=== PATIENT | female | born 1965 ===

== ENCOUNTER 2021-03-30 20:26 | Outpatient (REF) | payer OTHER, SELFPAY ==
--- NOTE | 2021-03-30 15:00 | SKI_PTH ---
PATIENT: Mireille Chatman LOC: [facility] U#:[id number] AGE/SX: 55/F ROOM: RE03/30/[address]: Sarah Quintero : 1965 BED: DIS: 03/30/2021 SPEC #: [id number] RECD: 03/31/21 08:51 STATUS: ARNULFO RERemigio #: [id number] RUSTAM: 03/30/21 15:[address]: Sarah Quintero DEPT: Surgical Specimen RECD BY: Jenn Womack ENTERED: 03/31/21 08:55 SP TYPE: MAYRA ESPINOSA DR: Unknown,Unknown Tissues: 1 - SKIN BIOPSY(SHAVE/PUNCH) Procedures: SKIN LEVEL 4 Comments: [id number]
== END 2021-03-30 20:27 | disposition home or self-care (01) ==
LOC: NCHCN 20:26
PROVIDERS: Visit Provider Nurse Practitioner Family
DX: L81.4 Other melanin hyperpigmentation (principal); L57.8 Other skin changes due to chronic exposure to nonionizing radiation
CPT/HCPCS: 88305

== ENCOUNTER 2021-04-27 16:28 | Outpatient (REF) | payer OTHER, SELFPAY ==
--- NOTE | 2021-04-27 13:50 | PAPFT_PTH ---
PATIENT: Mireille Chatman LOC: [facility] U#:[id number] AGE/SX: 55/F ROOM: RE04/27/[address]: Sarah Quintero : 1965 BED: DIS: 04/27/2021 SPEC #: [id number] RECD: 04/28/21 13:08 STATUS: CHARLOTTEJay RERemigio #: [id number] RUSTAM: 04/27/21 13:[address]: Sarah Quintero DEPT: [facility] Cytology RECD BY: Latricia Paredes ENTERED: 04/28/21 13:09 SP TYPE: PAPFT FRANCISCA DR: Unknown,Unknown Tissues: 1 - CX/ENDOCX FOR PAP SMEARS Procedures: PAP THIN PREP/UVM Screening HPV DNA PROBE Comments: [id number]
== END 2021-04-27 16:29 | disposition home or self-care (01) ==
LOC: NCHCN 16:28
PROVIDERS: Visit Provider Nurse Practitioner Family
DX: Z12.4 Encounter for screening for malignant neoplasm of cervix (principal); Z11.51 Encounter for screening for human papillomavirus (HPV); Z01.419 Encounter for gynecological examination (general) (routine) without abnormal findings
CPT/HCPCS: 88142; 87624

== ENCOUNTER 2022-01-17 18:11 | Outpatient (REF) | payer OTHER, SELFPAY ==
[2022-01-17 21:35] LABS: Anion Gap 8.6 mmol/L (3-11); BUN 18 mg/dL (7-18); CO2 27.4 mmol/L (21.0-32.0); CREATININE 0.9 mg/dL (0.55-1.02); Calculated LDL 125 mg/dL (<100); Chloride 104 mmol/L (98-107); Cholesterol 190 mg/dL (<200); Glucose 90 mg/dL (74-106); HDL Cholesterol 42 mg/dL (40-60); Potassium 4.1 mmol/L (3.5-5.1); Sodium 140 mmol/L (136-145); TSH (W/Ref FT4) 5.41 uIU/mL (0.36-3.74); Triglyceride 115 mg/dL (<150)
[2022-01-17 21:36] LABS: Hemoglobin A1C 5.6 % (<5.7)
[2022-01-17 21:53] LABS: FREE T4 0.77 ng/dL (0.76-1.46)
== END 2022-01-17 18:12 | disposition home or self-care (01) ==
LOC: NCHCN 18:11
PROVIDERS: Visit Provider Nurse Practitioner Family
DX: E03.9 Hypothyroidism, unspecified (principal); R03.0 Elevated blood-pressure reading, without diagnosis of hypertension; E66.9 Obesity, unspecified; G89.29 Other chronic pain
CPT/HCPCS: 80048; 80061; 83036; 84439; 84443

== ENCOUNTER 2024-06-30 16:19 | Outpatient (REF) | payer OTHER, SELFPAY ==
--- OUTSIDE RECORDS SUMMARY | 2024-06-30 16:22 | XMS_ITS ---
Author Organization Unknown Address [address] [place] [phone] Phone Care Team Providers Care Club Car Attendant Name Role Phone SHAHRZAD Park Attending Unavailable RODRIGUEZ Alexandra Primary Unavailable Functional Status Description Date Code Code System No Functional Impairments 01815023 SN OMED-CT Mental Status Description Date Code Code System No Cognitive Impairments 69435566 [facility] - Cecilia ect Date/Time: 02/12/2022 19:00 [facility] ID: [id number] [address] [place] [address], [id number] LOINC: 11027-2 Test Value Unit Reference Range Code Code System Flag Tier- STAFF PRIORITY 70372-4 LOINC SARS COV2 RNA: NEGATIVE REFERENCE RAN GE: NEGAT 42173-7 LOINC Social History Type Status Start Date End Date Code Code Syst em Smoking History Never smoker (Never Smoked) 721243351 SNOMED CT Sex Female Medications Medication Start Date End Date Route Frequency Dose Code Code System Medication Instructions Home Meds Clindagel 1% Topical application Gel/Jelly 10/11/2022 Unknown TOPICAL APPLICATION NEEDED TWICE DAILY 1 unit(s) 948379 RxNorm 1 EACH TOPICAL APPLICATION NEEDED TWICE DAILY Dexamethasone 4MG Oral Tablet 10/11/2022 11/17/19 23 ORAL NEEDED DAILY 8 MILLIGRA MS 19750612 RxNorm TAKE 8 MILLIGRAMS ORAL NEEDED DAILY Elderberry 500 MG Oral Capsule 10/11/2022 Unknown ORAL DAILY 1000 MG RxNorm TAKE 1000 MG ORAL DAILY LORazepam 1MG Oral Tablet 10/11/2022 Unknown ORAL NEEDED EVERY 6 HOURS 1 MILLIGRA MS RxNorm TAKE 1 MILLIGRAMS ORAL NEEDED EVERY 6 HOURS FOR Anxiety Levothyroxine 125MCG Oral Tablet 10/11/2022 Unknown ORAL DAILY 125 MCG 267530 RxNorm TAKE 125 MCG ORAL DAILY Magnesium Gluconate 500 MG Oral Tablet 10/11/2022 Unknown ORAL TWICE A DAY 500 MG 792317 RxNorm TAKE 500 MG ORAL TWICE A DAY Maxalt 10MG Oral Tablet 10/11/2022 Unknown ORAL NEEDED DAILY 10 MILLIGRA MS 479109 RxNorm TAKE 10 MILLIGRAMS ORAL NEEDED DAILY OLANZapine 10MG Oral Tablet 10/11/2022 Unknown ORAL NEEDED DAILY 10 MILLIGRA MS 683438 RxNorm TAKE 10 MILLIGRAMS ORAL NEEDED DAILY Potassium Chloride 20MEQ Oral Tablet, Extended Release 10/11/2022 Unknown ORAL TWICE A DAY 20 MEQ 7921172 RxNorm TAKE 20 MEQ ORAL TWICE A DAY Prochlorperaz ine Maleate 10MG Oral Tablet 10/11/2022 Unknown ORAL NEEDED EVERY 6 HOURS 10 MILLIGRA MS 033779 RxNorm TAKE 10 MILLIGRAMS ORAL NEEDED EVERY 6 HOURS Protonix 40 MG Oral Tablet, Delayed Release 10/11/2022 Unknown ORAL DAILY 40 MG 272219 RxNorm TAKE 40 MG ORAL DAILY Sertraline 100MG Oral Tablet 10/11/2022 Unknown ORAL DAILY 150 MILLIGRA MS 882668 RxNorm TAKE 150 MILLIGRAMS ORAL DAILY Vitamin D 1000IU Oral Tablet 10/11/2022 10/31/20 22 ORAL DAILY 2000 INTERNAT IONAL UNITS 614183 RxNorm TAKE 2000 INTERNATIONA L UNITS ORAL DAILY Zofran 4MG Oral Tablet 10/11/2022 Unknown ORAL NEEDED EVERY 8 HOURS 4 MILLIGRA MS 206124 RxNorm TAKE 4 MILLIGRAMS ORAL NEEDED EVERY 8 HOURS traZODone hydrochloride 50MG Oral Tablet 10/11/2022 Unknown ORAL NEEDED AT BEDTIME 50 MILLIGRA MS 674359 RxNorm TAKE 50 MILLIGRAMS ORAL NEEDED AT BEDTIME Ajovy 225MG/1.5ML Subcutaneous Solution 11/02/2022 11/17/19 23 SUBCUTANEOUS MONTHLY 1 unit(s) 4533370 RxNorm INJECT 1 EACH SUBCUTANEOUS MONTHLY Estring 0.0075MG/24HR Vaginal Insert, Extended Release 11/02/2022 Unknown VAGINAL 1 unit(s) 865873 RxNorm 1 EACH VAGINAL oxyCODONE HCl 5MG Oral Tablet 11/02/2022 Unknown ORAL NEEDED 5 MILLIGRA MS 0374249 RxNorm TAKE 5 MILLIGRAMS ORAL NEEDED Albuterol Sulfate 1.25MG/3ML Inhalation Solution 11/13/2022 11/17/19 23 INHALATION DAILY 1 498209 RxNorm 1 INHALATION DAILY predniSONE 20MG Oral Tablet 11/13/2022 Unknown ORAL DAILY 2 TABLET 595287 RxNorm TAKE 2 TABLET ORAL DAILY Ibuprofen 600MG Oral Tablet 11/17/2022 Unknown ORAL NEEDED EVERY 6 HOURS 600 MILLIGRA MS 706865 RxNorm TAKE 600 MILLIGRAMS ORAL NEEDED EVERY 6 HOURS Albuterol Sulfate 0.5% Inhalation Solution 11/17/2022 11/17/19 23 INHALATION FOUR TIMES A DAY WITH FOOD 1 unit(s) 234549 RxNorm 1 EACH INHALATION FOUR TIMES A DAY WITH FOOD Ventolin HFA 0.09MG/1Actua tion Inhalation Suspension 11/17/2022 Unknown INHALATION NEEDED EVERY 4 HOURS 2 PUFF 346864 RxNorm 2 PUFF INHALATION NEEDED EVERY 4 HOURS Albuterol Sulfate 0.5% Inhalation Solution 11/17/2022 Unknown INHALATION FOUR TIMES A DAY 1 unit(s) 865117 RxNorm 1 EACH INHALATION FOUR TIMES A DAY Azithromycin 250MG Oral Tablet 11/17/2022 Unknown ORAL DAILY 1 TABLET 406818 RxNorm TAKE 1 TABLET ORAL DAILY Cefpodoxime Proxetil 200MG Oral Tablet 11/17/2022 Unknown ORAL TWICE A DAY 1 TABLET 949684 RxNorm TAKE 1 TABLET ORAL TWICE A DAY Assessment You had the following problems:BREAST CANCERREACTIVE LYMPHADENOPATHYRSV INFECTION Hospital Discharge Instructions Should you have any questions prior to discharge, please contact a member of your healthcare team. If you have left the hospital and have any questions, please contact your primary care physician. Reason For Referral No Data Found Problems Problem Start Date Resolved Date Status Code Code System BREAST CANCER active 983411048 SNOMED -CT REACTIVE LYMPHADENOPATHY active 10352 8006 SNOMED-CT RSV INFECTION active 81724606 SNOMED -CT ANXIETY 10/09/2022 resolved 20274504 SNOMED-CT IBS 10/09/2022 resolved 97183884 SNOMED-CT GERD 10/09/2022 resolved 872825202 SNOMED-CT NEUTROPENIC FEVER 11/15/2022 resolved 815006166 S NOMED-CT MIGRAINE 10/09/2022 resolved 13160357 SNOMED-CT HYPOMAGNESEMIA 11/15/2022 resolved 071543677 SNOM ED-CT HYPOTHYROIDISM 10/09/2022 resolved 43380288 SNOM ED-CT Allergies and Adverse Reactions Allergy Substance Reaction Severity Start Date Concern Status Co de Code System SULFA (sulfonamide) Active 40684975 SNO MED-CT DEMEROL Active 985209 RxNorm Plan of Treatment Exposure 10/08/2020 MM SCREEN BILAT 04/19/2025 US BREAST UNI LT 04/13/2024 MM DIAG BILAT 04/13/2024 US DVT UNI LT 02/11/2024 NM BONE SCAN WHOLE BODY 02/10/2024 CT ABDOMEN W/ CONTRAST 12/25/2023 MM SCREEN BILAT 03/30/2024 PFT COMPLETE W BROCHODILATER 02/04/2024 PFT COMPLETE W BROCHODILATER 05/15/2023 CT CHEST W/ CONTRAST 04/24/2023 US BREAST UNI RT 10/01/2023 MM DIAG RT UNILAT 10/01/2023 US BREAST UNI RT 03/28/2023 MM DIAG BILAT 03/28/2023 MM DIAG RT UNILAT 08/31/2022 NM LYMPHOSCINTIGRAPHY INJ IM 08/31/2022 LAB DRAW 15MIN 08/24/2022 PRE-OP COVID-19 TESTING 08/29/2022 MM DIAG RT UNILAT 08/24/2022 US GUIDED NEEDLE BIOPSY 08/24/2022 CT LOWER EXTREM W/O CONTRAST 04/17/2022 X-RAY 04/17/2022 US GUIDED NEEDLE BIOPSY 03/02/2022 US BREAST MU 03/02/2022 MM SCREEN BILAT 02/20/2022 Encounters Encounter Diagnosis Start Date Code Code Sys tem Exposure to SARS-CoV-2 02/12/2022 853791960 SNOME D-CT Personal Care Team Section Performer Name Performer Role Active Date Inactive Da milo
--- OUTSIDE RECORDS SUMMARY | 2024-06-30 16:23 | XMS_ITS ---
Author Organization Unknown Address [address] [place] [phone] Phone Care Team Providers Care Beater Dumper Name Role Phone LOIS CARIAS Tiana Attending Unavailable RODRIGUEZ Alexandra Primary Unavailable Functional Status Description Date Code Code System No Functional Impairments 50148648 SN OMED-CT Mental Status Description Date Code Code System No Cognitive Impairments 79005667 SNO MED-CT Results COMPREHENSIVE METABOLIC PANE L (CMP) - Collect Date/Time: 03/12/2022 15:00 [facility] ID: [id number] [address] [place] [address], [address] LOINC: 00739-0 Test Value Unit Reference Range Code Code System Flag GLUCOSE 113 mg/dL L=70 H=116 2345-7 LOINC BUN 24 mg/dL L=6 H=25 3094-0 LOINC CREATININE 1.01 mg/dL L=0.51 H=0.95 2160-0 LOINC H SODIUM SERUM 140 mmol/L L=136 H=145 2951-2 LOINC POTASSIUM SERUM 3.8 mmol/L L=3.4 H=5.2 2823-3 LOINC CHLORIDE SERUM 104 mmol/L L=96 H=110 2075-0 LOINC CARBON DIOXIDE (CO2) 27 mmol/L L=22 H=34 2028-9 LOINC ANION GAP 9.5 mmol/L 83306-2 LOINC CALCIUM SERUM 9.1 mg/dL L=8.2 H=10.2 60041-8 LOINC BILIRUBIN TOTAL 0.3 mg/dL L=0.0 H=1.3 1975-2 LOINC ALK. PHOS. 98 U/L L=46 H=116 6768-6 LOINC SGOT (AST) 18 U/L L=15 H=37 1920-8 LOINC SGPT (ALT) 27 U/L L=12 H=78 1742-6 LOINC TOTAL PROTEIN 7.0 gm/dL L=6.0 H=8.0 2885-2 LOINC ALBUMIN 3.9 gm/dL L=3.4 H=5.0 1751-7 LOINC AGE 56 years eGFR (non-Afr.Amer.) 57 mL/min 85400-4 LOINC eGFR (Afr-Kenyan) 69 mL/min 73870-4 LOINC CBC W/ DIFFERENTIAL* - Colle ct Date/Time: 03/12/2022 15:00 [facility] ID: [id number] [address] [place], [place], [facility] LOINC: 74401-2 Test Value Unit Reference Range Code Code System Flag WBC 7.88 th/cmm L=5.00 H=10.00 6690-2 LOINC NEUT % 63.4 % L=40.0 H=80.0 LYMPH % 26.5 % L=10.0 H=50.0 MONO % 6.9 % L=2.0 H=12.0 71620-4 LOINC EOS % 2.3 % L=0.0 H=8.0 BASO % 0.6 % L=0.0 H=3.0 IG % 0.3 % L=0.0 H=1.1 2514-8 LOINC NRBC % 0.0 % L=0.0 H=0.0 93567-8 LOINC NEUT abs count 5.0 th/cmm L=1.6 H=8.4 751-8 LOINC LYMPH abs count 2.1 th/cmm L=1.5 H=4.0 731-0 LOINC MONO abs count 0.5 th/cmm L=0.2 H=1.0 742-7 LOINC EOS abs count 0.2 th/cmm L=0.0 H=0.5 711-2 LOINC BASO abs count 0.1 th/cmm L=0.0 H=0.2 704-7 LOINC IG abs count 0.0 th/cmm L=0.0 H=0.1 17021-5 LOINC NRBC abs count 0.0 mil/cmm L=0.0 H=0.0 09109-8 LOINC RBC 4.87 mil/cmm L=3.90 H=5.40 789-8 LOINC HEMOGLOBIN 14.1 gm/dL L=12.0 H=16.0 718-7 LOINC HEMATOCRIT 42 % L=37 H=47 4544-3 LOINC MCV 87 fL L=82 H=92 787-2 LOINC MCH 29.0 pg L=27.0 H=31.0 785-6 LOINC MCHC 33.4 % L=32.0 H=36.0 786-4 LOINC RDW-SD 41.4 fL L=39.0 H=49.0 788-0 LOINC PLATELET COUNT 269 th/cmm L=150 H=450 777-3 LOINC Social History Type Status Start Date End Date Code Code Syst em Smoking History Never smoker (Never Smoked) 160477103 SNOMED CT Sex Female Medications Medication Start Date End Date Route Frequency Dose Code Code System Medication Instructions Home Meds Clindagel 1% Topical application Gel/Jelly 10/11/2022 Unknown TOPICAL APPLICATION NEEDED TWICE DAILY 1 unit(s) 744070 RxNorm 1 EACH TOPICAL APPLICATION NEEDED TWICE DAILY Dexamethasone 4MG Oral Tablet 10/11/2022 11/17/19 23 ORAL NEEDED DAILY 8 MILLIGRA MS 662735 RxNorm TAKE 8 MILLIGRAMS ORAL NEEDED DAILY Elderberry 500 MG Oral Capsule 10/11/2022 Unknown ORAL DAILY 1000 MG RxNorm TAKE 1000 MG ORAL DAILY LORazepam 1MG Oral Tablet 10/11/2022 Unknown ORAL NEEDED EVERY 6 HOURS 1 MILLIGRA MS 257764 RxNorm TAKE 1 MILLIGRAMS ORAL NEEDED EVERY 6 HOURS FOR Anxiety Levothyroxine 125MCG Oral Tablet 10/11/2022 Unknown ORAL DAILY 125 MCG 359661 RxNorm TAKE 125 MCG ORAL DAILY Magnesium Gluconate 500 MG Oral Tablet 10/11/2022 Unknown ORAL TWICE A DAY 500 MG 180249 RxNorm TAKE 500 MG ORAL TWICE A DAY Maxalt 10MG Oral Tablet 10/11/2022 Unknown ORAL NEEDED DAILY 10 MILLIGRA MS 910507 RxNorm TAKE 10 MILLIGRAMS ORAL NEEDED DAILY OLANZapine 10MG Oral Tablet 10/11/2022 Unknown ORAL NEEDED DAILY 10 MILLIGRA MS 263864 RxNorm TAKE 10 MILLIGRAMS ORAL NEEDED DAILY Potassium Chloride 20MEQ Oral Tablet, Extended Release 10/11/2022 Unknown ORAL TWICE A DAY 20 MEQ 5839987 RxNorm TAKE 20 MEQ ORAL TWICE A DAY Prochlorperaz ine Maleate 10MG Oral Tablet 10/11/2022 Unknown ORAL NEEDED EVERY 6 HOURS 10 MILLIGRA MS 125256 RxNorm TAKE 10 MILLIGRAMS ORAL NEEDED EVERY 6 HOURS Protonix 40 MG Oral Tablet, Delayed Release 10/11/2022 Unknown ORAL DAILY 40 MG 498562 RxNorm TAKE 40 MG ORAL DAILY Sertraline 100MG Oral Tablet 10/11/2022 Unknown ORAL DAILY 150 MILLIGRA MS 014759 RxNorm TAKE 150 MILLIGRAMS ORAL DAILY Vitamin D 1000IU Oral Tablet 10/11/2022 10/31/20 22 ORAL DAILY 1999 INTERNAT IONAL UNITS 19930412 RxNorm TAKE 2000 INTERNATIONA L UNITS ORAL DAILY Zofran 4MG Oral Tablet 10/11/2022 Unknown ORAL NEEDED EVERY 8 HOURS 4 MILLIGRA MS 949886 RxNorm TAKE 4 MILLIGRAMS ORAL NEEDED EVERY 8 HOURS traZODone hydrochloride 50MG Oral Tablet 10/11/2022 Unknown ORAL NEEDED AT BEDTIME 50 MILLIGRA MS 236072 RxNorm TAKE 50 MILLIGRAMS ORAL NEEDED AT BEDTIME Ajovy 225MG/1.5ML Subcutaneous Solution 11/02/2022 11/17/19 23 SUBCUTANEOUS MONTHLY 1 unit(s) 6497217 RxNorm INJECT 1 EACH SUBCUTANEOUS MONTHLY Estring 0.0075MG/24HR Vaginal Insert, Extended Release 11/02/2022 Unknown VAGINAL 1 unit(s) 136914 RxNorm 1 EACH VAGINAL oxyCODONE HCl 5MG Oral Tablet 11/02/2022 Unknown ORAL NEEDED 5 MILLIGRA MS 0575499 RxNorm TAKE 5 MILLIGRAMS ORAL NEEDED Albuterol Sulfate 1.25MG/3ML Inhalation Solution 11/13/2022 11/17/19 23 INHALATION DAILY 1 357241 RxNorm 1 INHALATION DAILY predniSONE 20MG Oral Tablet 11/13/2022 Unknown ORAL DAILY 2 TABLET 523875 RxNorm TAKE 2 TABLET ORAL DAILY Ibuprofen 600MG Oral Tablet 11/17/2022 Unknown ORAL NEEDED EVERY 6 HOURS 600 MILLIGRA MS 738592 RxNorm TAKE 600 MILLIGRAMS ORAL NEEDED EVERY 6 HOURS Albuterol Sulfate 0.5% Inhalation Solution 11/17/2022 11/17/19 23 INHALATION FOUR TIMES A DAY WITH FOOD 1 unit(s) 872167 RxNorm 1 EACH INHALATION FOUR TIMES A DAY WITH FOOD Ventolin HFA 0.09MG/1Actua tion Inhalation Suspension 11/17/2022 Unknown INHALATION NEEDED EVERY 4 HOURS 2 PUFF 905266 RxNorm 2 PUFF INHALATION NEEDED EVERY 4 HOURS Albuterol Sulfate 0.5% Inhalation Solution 11/17/2022 Unknown INHALATION FOUR TIMES A DAY 1 unit(s) 462669 RxNorm 1 EACH INHALATION FOUR TIMES A DAY Azithromycin 250MG Oral Tablet 11/17/2022 Unknown ORAL DAILY 1 TABLET 235641 RxNorm TAKE 1 TABLET ORAL DAILY Cefpodoxime Proxetil 200MG Oral Tablet 11/17/2022 Unknown ORAL TWICE A DAY 1 TABLET 173646 RxNorm TAKE 1 TABLET ORAL TWICE A [...] Status Code Code System BREAST CANCER active 784493707 SNOMED -CT REACTIVE LYMPHADENOPATHY active 34793 8006 SNOMED-CT RSV INFECTION active 29622119 SNOMED -CT ANXIETY 10/09/2022 resolved 86931184 SNOMED-CT IBS 10/09/2022 resolved 38234501 SNOMED-CT GERD 10/09/2022 resolved 852899241 SNOMED-CT NEUTROPENIC FEVER 11/15/2022 resolved 304069278 S NOMED-CT MIGRAINE 10/09/2022 resolved 62423406 SNOMED-CT HYPOMAGNESEMIA 11/15/2022 resolved 525281915 SNOM ED-CT HYPOTHYROIDISM 10/09/2022 resolved 97363888 SNOM ED-CT Allergies and Adverse Reactions Allergy Substance Reaction Severity Start Date Concern Status Co de Code System SULFA (sulfonamide) Active 49030970 SNO MED-CT DEMEROL Active 865698 RxNorm Plan of Treatment Exposure 10/08/2020 MM [...] Diagnosis Start Date Code Code Sys tem Hypothyroidism 03/12/2022 25976144 SNOMED-CT Personal Care Team Section Performer Name Performer Role Active Date Inactive Da te
--- OUTSIDE RECORDS SUMMARY | 2024-06-30 16:23 | XMS_ITS ---
Author Organization Unknown Address [address] [place] [phone] Phone Care Team Providers Care Blade Filer Name Role Phone LOIS ARETHA Montiel Attending Unavailable RODRIGUEZ Alexandra Primary Unavailable Functional Status Description Date Code Code System No Functional Impairments 73405019 SN OMED-CT Mental Status Description Date Code Code System No Cognitive Impairments 00445219 SNO MED-CT Results TISSUE SURGICAL PATHOLOGY (C ONSULT)* - Collect Date/Time: 03/02/2022 13:47 [facility] ID: [id number] [address] [place], [place], [id number] LOINC: Test Value Unit Reference Range Code Code System Flag Report (See below) Social History Type Status Start Date End Date Code Code Syst em Smoking History Never smoker (Never Smoked) 760638320 SNOMED CT Sex Female Medications Medication Start Date End Date Route Frequency Dose Code Code System Medication Instructions Home Meds Clindagel 1% Topical application Gel/Jelly 10/11/2022 Unknown TOPICAL APPLICATION NEEDED TWICE DAILY 1 unit(s) 250259 RxNorm 1 EACH TOPICAL APPLICATION NEEDED TWICE [...] Tablet 10/11/2022 Unknown ORAL DAILY 125 MCG 092407 RxNorm TAKE 125 MCG ORAL DAILY Magnesium Gluconate 500 MG Oral Tablet 10/11/2022 Unknown ORAL TWICE A DAY 500 MG 950225 RxNorm TAKE 500 MG ORAL TWICE A DAY Maxalt 10MG Oral Tablet 10/11/2022 Unknown ORAL NEEDED DAILY 10 MILLIGRA MS 087333 RxNorm TAKE 10 MILLIGRAMS ORAL NEEDED DAILY OLANZapine 10MG Oral Tablet 10/11/2022 Unknown ORAL NEEDED DAILY 10 MILLIGRA MS 352474 RxNorm TAKE 10 MILLIGRAMS ORAL NEEDED DAILY Potassium Chloride 20MEQ Oral Tablet, Extended Release 10/11/2022 Unknown ORAL TWICE A DAY 20 MEQ 6451349 RxNorm TAKE 20 MEQ ORAL TWICE A DAY Prochlorperaz ine Maleate 10MG Oral Tablet 10/11/2022 Unknown ORAL NEEDED EVERY 6 HOURS 10 MILLIGRA MS 386903 RxNorm TAKE 10 MILLIGRAMS ORAL NEEDED EVERY 6 HOURS Protonix 40 MG Oral Tablet, Delayed Release 10/11/2022 Unknown ORAL DAILY 40 MG 914854 RxNorm TAKE 40 MG ORAL DAILY Sertraline 100MG Oral Tablet 10/11/2022 Unknown ORAL DAILY 150 MILLIGRA MS 888846 RxNorm TAKE 150 MILLIGRAMS ORAL DAILY Vitamin D 1000IU Oral Tablet 10/11/2022 10/31/20 22 ORAL DAILY 2000 INTERNAT IONAL UNITS 504752 RxNorm TAKE 2000 INTERNATIONA L UNITS ORAL DAILY Zofran 4MG Oral Tablet 10/11/2022 Unknown ORAL NEEDED EVERY 8 HOURS 4 MILLIGRA MS 995635 RxNorm TAKE 4 MILLIGRAMS ORAL NEEDED EVERY 8 HOURS traZODone hydrochloride 50MG Oral Tablet 10/11/2022 Unknown ORAL NEEDED AT BEDTIME 50 MILLIGRA MS 215597 RxNorm TAKE 50 MILLIGRAMS ORAL NEEDED AT BEDTIME Ajovy 225MG/1.5ML Subcutaneous Solution 11/02/2022 11/17/19 23 SUBCUTANEOUS MONTHLY 1 unit(s) 2839365 RxNorm INJECT 1 EACH SUBCUTANEOUS MONTHLY Estring 0.0075MG/24HR Vaginal Insert, Extended Release 11/02/2022 Unknown VAGINAL 1 unit(s) 575228 RxNorm 1 EACH VAGINAL oxyCODONE HCl 5MG Oral Tablet 11/02/2022 Unknown ORAL NEEDED 5 MILLIGRA MS 1943579 RxNorm TAKE 5 MILLIGRAMS ORAL NEEDED Albuterol Sulfate 1.25MG/3ML Inhalation Solution 11/13/2022 11/17/19 23 INHALATION DAILY 1 586828 RxNorm 1 INHALATION DAILY predniSONE 20MG Oral Tablet 11/13/2022 Unknown ORAL DAILY 2 TABLET 860684 RxNorm TAKE 2 TABLET ORAL DAILY Ibuprofen 600MG Oral Tablet 11/17/2022 Unknown ORAL NEEDED EVERY 6 HOURS 600 MILLIGRA MS 036224 RxNorm TAKE 600 MILLIGRAMS ORAL NEEDED EVERY 6 HOURS Albuterol Sulfate 0.5% Inhalation Solution 11/17/2022 11/17/19 23 INHALATION FOUR TIMES A DAY WITH FOOD 1 unit(s) 713399 RxNorm 1 EACH INHALATION FOUR TIMES A DAY WITH FOOD Ventolin HFA 0.09MG/1Actua tion Inhalation Suspension 11/17/2022 Unknown INHALATION NEEDED EVERY 4 HOURS 2 PUFF 414403 RxNorm 2 PUFF INHALATION NEEDED EVERY 4 HOURS Albuterol Sulfate 0.5% Inhalation Solution 11/17/2022 Unknown INHALATION FOUR TIMES A DAY 1 unit(s) 548787 RxNorm 1 EACH INHALATION FOUR TIMES A DAY Azithromycin 250MG Oral Tablet 11/17/2022 Unknown ORAL DAILY 1 TABLET 042567 RxNorm TAKE 1 TABLET ORAL DAILY Cefpodoxime Proxetil 200MG Oral Tablet 11/17/2022 Unknown ORAL TWICE A DAY 1 TABLET 032885 RxNorm TAKE 1 TABLET ORAL TWICE A [...] Status Code Code System BREAST CANCER active 037570530 SNOMED -CT REACTIVE LYMPHADENOPATHY active 81960 8006 SNOMED-CT RSV INFECTION active 99886699 SNOMED -CT ANXIETY 10/09/2022 resolved 56449945 SNOMED-CT IBS 10/09/2022 resolved 95229025 SNOMED-CT GERD 10/09/2022 resolved 474566485 SNOMED-CT NEUTROPENIC FEVER 11/15/2022 resolved 462204933 S NOMED-CT MIGRAINE 10/09/2022 resolved 95465876 SNOMED-CT HYPOMAGNESEMIA 11/15/2022 resolved 860739829 SNOM ED-CT HYPOTHYROIDISM 10/09/2022 resolved 58668228 SNOM ED-CT Allergies and Adverse Reactions Allergy Substance Reaction Severity Start Date Concern Status Co de Code System SULFA (sulfonamide) Active 60729390 SNO MED-CT DEMEROL Active 202078 RxNorm Plan of Treatment Exposure 10/08/2020 MM [...] Diagnosis Start Date Code Code Sys tem Malignant neoplasm of upper- outer quadrant of right female breast 03/02/2022 SNOMED-CT Personal Care Team Section Performer Name Performer Role Active Date Inactive Da te
--- OUTSIDE RECORDS SUMMARY | 2024-06-30 16:23 | XMS_ITS ---
Author Organization Unknown Address [address] [place] [address] [phone] Phone Care Team Providers Care Caterer'S Aide Name Role Phone RODRIGUEZ Alexandra Attending Unavailable Functional Status Description Date Code Code System No Functional Impairments 16617939 SN OMED-CT Mental Status Description Date Code Code System No Cognitive Impairments 22421849 SNO MED-CT Results MM SCR MAMMO BI INCL CAD - C ompleted: 02/20/2022 15:52 LOINC: Digital mammograms were inte rpreted according to the usual protocol including computer analysis with CADx system including tomosynthesis.The breasts are of moderate density. Today's examination is compared with prior examinations including March 2019. There is a new 16 mm in diameter irregular mass of the upper outer quadrant of the right breast which is suspicious for malignancy. Adjacent to this mass, there is a poorly defined area of increased radiodensity which contains numerous pleomorphic presumably intraductal microcalcifications also highly suspicious for carcinoma. No other significant change identified in either breast. CONCLUSION: Findings highly suspicious for carcinoma of the upper outer quadrant of the right breast. Ultrasound correlation recommended, additionally bilateral whole breast ultrasound suggested to screen for additional lesions. BI-RADS Assessment: Category 0 - Incomplete: Need additional imaging evaluation BREAST DENSITY: b. There are scattered areas of fibroglandular density. Dictated by: FRANK RAMÍREZ RADIOLOGIST Transcribed by: PAUL 02/21/22/07:21 D Sunday, February 20, 2022 3:21:41 PM/#[id number] Electronically Reviewed and Signed By: JOHN RAMÍREZ RADIOLOGIST 02/23/22 09:31 TECHNOLOGIST: RT Jian (R)(M)(CT) Copy for: RODRIGUEZ Alexandra via fax Copy for: [facility] HEALTH INFORMATION MGMT Social History Type Status Start Date End Date Code Code Syst em Smoking History Never smoker (Never Smoked) 272840295 SNOMED CT Sex Female Medications Medication Start Date End Date Route Frequency Dose Code Code System Medication Instructions Home Meds Clindagel 1% Topical application Gel/Jelly 10/11/2022 Unknown TOPICAL APPLICATION NEEDED TWICE DAILY 1 unit(s) 115928 RxNorm 1 EACH TOPICAL APPLICATION NEEDED TWICE DAILY Dexamethasone 4MG Oral Tablet 10/11/2022 11/17/19 23 ORAL NEEDED DAILY 8 MILLIGRA MS 456771 RxNorm TAKE 8 MILLIGRAMS ORAL NEEDED DAILY Elderberry 500 MG Oral Capsule 10/11/2022 Unknown ORAL DAILY 1000 MG RxNorm TAKE 1000 MG ORAL DAILY LORazepam 1MG Oral Tablet 10/11/2022 Unknown ORAL NEEDED EVERY 6 HOURS 1 MILLIGRA MS 732871 RxNorm TAKE 1 MILLIGRAMS ORAL NEEDED EVERY 6 HOURS FOR Anxiety Levothyroxine 125MCG Oral Tablet 10/11/2022 Unknown ORAL DAILY 125 MCG 722208 RxNorm TAKE 125 MCG ORAL DAILY Magnesium Gluconate 500 MG Oral Tablet 10/11/2022 Unknown ORAL TWICE A DAY 500 MG 591014 RxNorm TAKE 500 MG ORAL TWICE A DAY Maxalt 10MG Oral Tablet 10/11/2022 Unknown ORAL NEEDED DAILY 10 MILLIGRA MS 447925 RxNorm TAKE 10 MILLIGRAMS ORAL NEEDED DAILY OLANZapine 10MG Oral Tablet 10/11/2022 Unknown ORAL NEEDED DAILY 10 MILLIGRA MS 338344 RxNorm TAKE 10 MILLIGRAMS ORAL NEEDED DAILY Potassium Chloride 20MEQ Oral Tablet, Extended Release 10/11/2022 Unknown ORAL TWICE A DAY 20 MEQ 2688095 RxNorm TAKE 20 MEQ ORAL TWICE A DAY Prochlorperaz ine Maleate 10MG Oral Tablet 10/11/2022 Unknown ORAL NEEDED EVERY 6 HOURS 10 MILLIGRA MS 906081 RxNorm TAKE 10 MILLIGRAMS ORAL NEEDED EVERY 6 HOURS Protonix 40 MG Oral Tablet, Delayed Release 10/11/2022 Unknown ORAL DAILY 40 MG 254850 RxNorm TAKE 40 MG ORAL DAILY Sertraline 100MG Oral Tablet 10/11/2022 Unknown ORAL DAILY 150 MILLIGRA MS 676273 RxNorm TAKE 150 MILLIGRAMS ORAL DAILY Vitamin D 1000IU Oral Tablet 10/11/2022 10/31/20 ORAL DAILY 1999 INTERNAT IONAL UNITS 19930412 RxNorm TAKE 2000 INTERNATIONA L UNITS ORAL DAILY Zofran 4MG Oral Tablet 10/11/2022 Unknown ORAL NEEDED EVERY 8 HOURS 4 MILLIGRA MS 879239 RxNorm TAKE 4 MILLIGRAMS ORAL NEEDED EVERY 8 HOURS traZODone hydrochloride 50MG Oral Tablet 10/11/2022 Unknown ORAL NEEDED AT BEDTIME 50 MILLIGRA MS 808250 RxNorm TAKE 50 MILLIGRAMS ORAL NEEDED AT BEDTIME Ajovy 225MG/1.5ML Subcutaneous Solution 11/02/2022 11/17/19 23 SUBCUTANEOUS MONTHLY 1 unit(s) 4921662 RxNorm INJECT 1 EACH SUBCUTANEOUS MONTHLY Estring 0.0075MG/24HR Vaginal Insert, Extended Release 11/02/2022 Unknown VAGINAL 1 unit(s) 864141 RxNorm 1 EACH VAGINAL oxyCODONE HCl 5MG Oral Tablet 11/02/2022 Unknown ORAL NEEDED 5 MILLIGRA MS 8889144 RxNorm TAKE 5 MILLIGRAMS ORAL NEEDED Albuterol Sulfate 1.25MG/3ML Inhalation Solution 11/13/2022 11/17/19 23 INHALATION DAILY 1 836795 RxNorm 1 INHALATION DAILY predniSONE 20MG Oral Tablet 11/13/2022 Unknown ORAL DAILY 2 TABLET 334637 RxNorm TAKE 2 TABLET ORAL DAILY Ibuprofen 600MG Oral Tablet 11/17/2022 Unknown ORAL NEEDED EVERY 6 HOURS 600 MILLIGRA MS 444654 RxNorm TAKE 600 MILLIGRAMS ORAL NEEDED EVERY 6 HOURS Albuterol Sulfate 0.5% Inhalation Solution 11/17/2022 11/17/19 23 INHALATION FOUR TIMES A DAY WITH FOOD 1 unit(s) 180116 RxNorm 1 EACH INHALATION FOUR TIMES A DAY WITH FOOD Ventolin HFA 0.09MG/1Actua tion Inhalation Suspension 11/17/2022 Unknown INHALATION NEEDED EVERY 4 HOURS 2 PUFF 125406 RxNorm 2 PUFF INHALATION NEEDED EVERY 4 HOURS Albuterol Sulfate 0.5% Inhalation Solution 11/17/2022 Unknown INHALATION FOUR TIMES A DAY 1 unit(s) 188423 RxNorm 1 EACH INHALATION FOUR TIMES A DAY Azithromycin 250MG Oral Tablet 11/17/2022 Unknown ORAL DAILY 1 TABLET 727696 RxNorm TAKE 1 TABLET ORAL DAILY Cefpodoxime Proxetil 200MG Oral Tablet 11/17/2022 Unknown ORAL TWICE A DAY 1 TABLET 162742 RxNorm TAKE 1 TABLET ORAL TWICE A [...] Status Code Code System BREAST CANCER active 291328488 SNOMED -CT REACTIVE LYMPHADENOPATHY active 30347 8006 SNOMED-CT RSV INFECTION active 76650687 SNOMED -CT ANXIETY 10/09/2022 resolved 87144030 SNOMED-CT IBS 10/09/2022 resolved 68232102 SNOMED-CT GERD 10/09/2022 resolved 358114893 SNOMED-CT NEUTROPENIC FEVER 11/15/2022 resolved 169235857 S NOMED-CT MIGRAINE 10/09/2022 resolved 01202260 SNOMED-CT HYPOMAGNESEMIA 11/15/2022 resolved 686145325 SNOM ED-CT HYPOTHYROIDISM 10/09/2022 resolved 42302662 SNOM ED-CT Allergies and Adverse Reactions Allergy Substance Reaction Severity Start Date Concern Status Co de Code System SULFA (sulfonamide) Active 87945970 SNO MED-CT DEMEROL Active 487063 RxNorm Plan of Treatment Exposure 10/08/2020 MM [...] Diagnosis Start Date Code Code Sys tem Screening mammography 02/20/2022 79016245 SNOMED -CT Personal Care Team Section Performer Name Performer Role Active Date Inactive Da te
--- OUTSIDE RECORDS SUMMARY | 2024-06-30 16:23 | XMS_ITS ---
Author Organization Unknown Address [address] [place] [address] [phone] Phone Care Team Providers Care Underground Conduit Installer Name Role Phone LOIS Montiel Attending Unavailable RODRIGUEZ Alexandra Primary Unavailable Functional Status Description Date Code Code System No Functional Impairments 93725860 SN OMED-CT Mental Status Description Date Code Code System No Cognitive Impairments 17645417 SNO MED-CT Results US BREAST BIOPSY FIRST CARMENCITA Shipley 97991 - Completed: 03/02/2022 13:08 LOINC: RIGHT BREAST ULTRASOUND:Ultr asound guidance was performed for vacuum assisted core biopsy performed by the surgeon. This is of a concerning nodule at the 10 o'clock position of the right breast. Images reveal the biopsy device to be within the targeted nodule. Dictated by: CHIP TURNER MD Transcribed by: PAUL 03/02/2215:38 D Wednesday, March 02, 2022 1:41:14 PM [id number] Electronically Reviewed and Signed By: MARV TURNER MD 03/02/22 18:15 Copy for: LOIS Montiel via fax Copy for: [employer] INFORMATION [facility] US BREAST COMPLETE BILAT* - Completed: 03/02/2022 13:08 LOINC: BILATERAL COMPLETE BREAST UL TRASOUND: Complete ultrasound examination of both breasts was performed including all four quadrants as well as the retroareolar regions and both axillary regions. Recent mammogram of 02/20/2022 as well as prior mammograms were reviewed. Left breast ultrasound is negative. No solid nor significant cystic lesions in all four quadrants. No axillary adenopathy. Right breast ultrasound reveals concerning lobulated nodule at the 10 o'clock position corresponding to the concerning finding on the mammogram. Appearance is suspicious for malignancy. This finding measures approximately 2 x 1.3 cm. IMPRESSION: Concerning mass at the 10 o'clock position of the right breast (12 cm from nipple) which corresponds to the finding on the mammogram and is suspicious for malignancy. Biopsy recommended. BiRads-5 highly suspicious/ Biopsy recommended Breast Density Category- B Images reviewed on my PACS monitor with the breast surgeon. Dictated by: CHIP TURNER MD Transcribed by: GAYATRI 03/02/22/15:32 [id number] Electronically Reviewed and Signed By: MARV TURNER MD 03/02/22 18:26 Copy for: LOIS Montiel via fax Copy for: 185 HEALTH INFORMATION MGMT Social History Type Status Start Date End Date Code Code Syst em Smoking History Never smoker (Never Smoked) 050725267 SNOMED CT Sex Female Medications Medication Start Date End Date Route Frequency Dose Code Code System Medication Instructions Home Meds Clindagel 1% Topical application Gel/Jelly 10/11/2022 Unknown TOPICAL APPLICATION NEEDED TWICE DAILY 1 unit(s) 320035 RxNorm 1 EACH TOPICAL APPLICATION NEEDED TWICE DAILY Dexamethasone 4MG Oral Tablet 10/11/2022 11/17/19 23 ORAL NEEDED DAILY 8 MILLIGRA MS 452259 RxNorm TAKE 8 MILLIGRAMS ORAL NEEDED DAILY Elderberry 500 MG Oral Capsule 10/11/2022 Unknown ORAL DAILY 1000 MG RxNorm TAKE 1000 MG ORAL DAILY LORazepam 1MG Oral Tablet 10/11/2022 Unknown ORAL NEEDED EVERY 6 HOURS 1 MILLIGRA MS 609077 RxNorm TAKE 1 MILLIGRAMS ORAL NEEDED EVERY 6 HOURS FOR Anxiety Levothyroxine 125MCG Oral Tablet 10/11/2022 Unknown ORAL DAILY 125 MCG 034852 RxNorm TAKE 125 MCG ORAL DAILY Magnesium Gluconate 500 MG Oral Tablet 10/11/2022 Unknown ORAL TWICE A DAY 500 MG 778351 RxNorm TAKE 500 MG ORAL TWICE A DAY Maxalt 10MG Oral Tablet 10/11/2022 Unknown ORAL NEEDED DAILY 10 MILLIGRA MS 205765 RxNorm TAKE 10 MILLIGRAMS ORAL NEEDED DAILY OLANZapine 10MG Oral Tablet 10/11/2022 Unknown ORAL NEEDED DAILY 10 MILLIGRA MS 714254 RxNorm TAKE 10 MILLIGRAMS ORAL NEEDED DAILY Potassium Chloride 20MEQ Oral Tablet, Extended Release 10/11/2022 Unknown ORAL TWICE A DAY 20 MEQ 2496274 RxNorm TAKE 20 MEQ ORAL TWICE A DAY Prochlorperaz ine Maleate 10MG Oral Tablet 10/11/2022 Unknown ORAL NEEDED EVERY 6 HOURS 10 MILLIGRA MS 043397 RxNorm TAKE 10 MILLIGRAMS ORAL NEEDED EVERY 6 HOURS Protonix 40 MG Oral Tablet, Delayed Release 10/11/2022 Unknown ORAL DAILY 40 MG 777242 RxNorm TAKE 40 MG ORAL DAILY Sertraline 100MG Oral Tablet 10/11/2022 Unknown ORAL DAILY 150 MILLIGRA MS 027943 RxNorm TAKE 150 MILLIGRAMS ORAL DAILY Vitamin D 1000IU Oral Tablet 10/11/2022 10/31/20 22 ORAL DAILY 2000 INTERNAT IONAL UNITS 19930412 RxNorm TAKE 2000 INTERNATIONA L UNITS ORAL DAILY Zofran 4MG Oral Tablet 10/11/2022 Unknown ORAL NEEDED EVERY 8 HOURS 4 MILLIGRA MS 344011 RxNorm TAKE 4 MILLIGRAMS ORAL NEEDED EVERY 8 HOURS traZODone hydrochloride 50MG Oral Tablet 10/11/2022 Unknown ORAL NEEDED AT BEDTIME 50 MILLIGRA MS 070439 RxNorm TAKE 50 MILLIGRAMS ORAL NEEDED AT BEDTIME Ajovy 225MG/1.5ML Subcutaneous Solution 11/02/2022 11/17/19 23 SUBCUTANEOUS MONTHLY 1 unit(s) 3966774 RxNorm INJECT 1 EACH SUBCUTANEOUS MONTHLY Estring 0.0075MG/24HR Vaginal Insert, Extended Release 11/02/2022 Unknown VAGINAL 1 unit(s) 028638 RxNorm 1 EACH VAGINAL oxyCODONE HCl 5MG Oral Tablet 11/02/2022 Unknown ORAL NEEDED 5 MILLIGRA MS 8420505 RxNorm TAKE 5 MILLIGRAMS ORAL NEEDED Albuterol Sulfate 1.25MG/3ML Inhalation Solution 11/13/2022 11/17/19 23 INHALATION DAILY 1 864933 RxNorm 1 INHALATION DAILY predniSONE 20MG Oral Tablet 11/13/2022 Unknown ORAL DAILY 2 TABLET 022209 RxNorm TAKE 2 TABLET ORAL DAILY Ibuprofen 600MG Oral Tablet 11/17/2022 Unknown ORAL NEEDED EVERY 6 HOURS 600 MILLIGRA MS 467824 RxNorm TAKE 600 MILLIGRAMS ORAL NEEDED EVERY 6 HOURS Albuterol Sulfate 0.5% Inhalation Solution 11/17/2022 01/07/20 23 INHALATION FOUR TIMES A DAY WITH FOOD 1 unit(s) 952100 RxNorm 1 EACH INHALATION FOUR TIMES A DAY WITH FOOD Ventolin HFA 0.09MG/1Actua tion Inhalation Suspension 11/17/2022 Unknown INHALATION NEEDED EVERY 4 HOURS 2 PUFF 814977 RxNorm 2 PUFF INHALATION NEEDED EVERY 4 HOURS Albuterol Sulfate 0.5% Inhalation Solution 11/17/2022 Unknown INHALATION FOUR TIMES A DAY 1 unit(s) 664302 RxNorm 1 EACH INHALATION FOUR TIMES A DAY Azithromycin 250MG Oral Tablet 11/17/2022 Unknown ORAL DAILY 1 TABLET 889897 RxNorm TAKE 1 TABLET ORAL DAILY Cefpodoxime Proxetil 200MG Oral Tablet 11/17/2022 Unknown ORAL TWICE A DAY 1 TABLET 952998 RxNorm TAKE 1 TABLET ORAL TWICE A [...] Status Code Code System BREAST CANCER active 892130396 SNOMED -CT REACTIVE LYMPHADENOPATHY active 22645 8006 SNOMED-CT RSV INFECTION active 25351209 SNOMED -CT ANXIETY 10/09/2022 resolved 31639218 SNOMED-CT IBS 10/09/2022 resolved 42974064 SNOMED-CT GERD 10/09/2022 resolved 478926172 SNOMED-CT NEUTROPENIC FEVER 11/15/2022 resolved 007235657 S NOMED-CT MIGRAINE 10/09/2022 resolved 93558031 SNOMED-CT HYPOMAGNESEMIA 11/15/2022 resolved 546194810 SNOM ED-CT HYPOTHYROIDISM 10/09/2022 resolved 93487476 SNOM ED-CT Allergies and Adverse Reactions Allergy Substance Reaction Severity Start Date Concern Status Co de Code System SULFA (sulfonamide) Active 17466272 SNO MED-CT DEMEROL Active 222765 RxNorm Plan of Treatment Exposure 10/08/2020 MM [...] BREAST MU 03/02/2022 MM SCREEN BILAT 02/20/2022 Personal Care Team Section Performer Name Performer Role Active Date Inactive Da te
--- OUTSIDE RECORDS SUMMARY | 2024-06-30 16:24 | XMS_ITS ---
Author Organization Unknown Address [address] [place] [address] [phone] Phone Care Team Providers Care Group Leader [employer] Processing Name Role Phone RODRIGUEZ FERNIE Nasrin Attending Unavailable Functional Status Description Date Code Code System No Functional Impairments 57654498 SN OMED-CT Mental Status Description Date Code Code System No Cognitive Impairments 13113496 SNO MED-CT Results TSH THYROID STIMULATING HORM ONE* - Collect Date/Time: 03/09/2022 16:05 [facility] ID: [id number] - [id number] [address] [place] [address], 56 LOINC: 3014-8 Test Value Unit Reference Range Code Code System Flag TSH 1.861 uIU/mL L=0.360 H=3.740 3014-8 LOINC Social History Type Status Start Date End Date Code Code Syst em Smoking History Never smoker (Never Smoked) 434659035 SNOMED CT Sex Female Medications Medication Start Date End Date Route Frequency Dose Code Code System Medication Instructions Home Meds Clindagel 1% Topical application Gel/Jelly 10/11/2022 Unknown TOPICAL APPLICATION NEEDED TWICE DAILY 1 unit(s) 437363 RxNorm 1 EACH TOPICAL APPLICATION NEEDED TWICE [...] Tablet 10/11/2022 Unknown ORAL DAILY 125 MCG 614390 RxNorm TAKE 125 MCG ORAL DAILY Magnesium Gluconate 500 MG Oral Tablet 10/11/2022 Unknown ORAL TWICE A DAY 500 MG 741180 RxNorm TAKE 500 MG ORAL TWICE A DAY Maxalt 10MG Oral Tablet 10/11/2022 Unknown ORAL NEEDED DAILY 10 MILLIGRA MS 157598 RxNorm TAKE 10 MILLIGRAMS ORAL NEEDED DAILY OLANZapine 10MG Oral Tablet 10/11/2022 Unknown ORAL NEEDED DAILY 10 MILLIGRA MS 417867 RxNorm TAKE 10 MILLIGRAMS ORAL NEEDED DAILY Potassium Chloride 20MEQ Oral Tablet, Extended Release 10/11/2022 Unknown ORAL TWICE A DAY 20 MEQ 6205344 RxNorm TAKE 20 MEQ ORAL TWICE A DAY Prochlorperaz ine Maleate 10MG Oral Tablet 10/11/2022 Unknown ORAL NEEDED EVERY 6 HOURS 10 MILLIGRA MS 624394 RxNorm TAKE 10 MILLIGRAMS ORAL NEEDED EVERY 6 HOURS Protonix 40 MG Oral Tablet, Delayed Release 10/11/2022 Unknown ORAL DAILY 40 MG 193525 RxNorm TAKE 40 MG ORAL DAILY Sertraline 100MG Oral Tablet 10/11/2022 Unknown ORAL DAILY 150 MILLIGRA MS 328602 RxNorm TAKE 150 MILLIGRAMS ORAL DAILY Vitamin D 1000IU Oral Tablet 10/11/2022 10/31/20 22 ORAL DAILY 2000 INTERNAT IONAL UNITS 080831 RxNorm TAKE 2000 INTERNATIONA L UNITS ORAL DAILY Zofran 4MG Oral Tablet 10/11/2022 Unknown ORAL NEEDED EVERY 8 HOURS 4 MILLIGRA MS 048245 RxNorm TAKE 4 MILLIGRAMS ORAL NEEDED EVERY 8 HOURS traZODone hydrochloride 50MG Oral Tablet 10/11/2022 Unknown ORAL NEEDED AT BEDTIME 50 MILLIGRA MS 168583 RxNorm TAKE 50 MILLIGRAMS ORAL NEEDED AT BEDTIME Ajovy 225MG/1.5ML Subcutaneous Solution 11/02/2022 11/17/19 23 SUBCUTANEOUS MONTHLY 1 unit(s) 0593439 RxNorm INJECT 1 EACH SUBCUTANEOUS MONTHLY Estring 0.0075MG/24HR Vaginal Insert, Extended Release 11/02/2022 Unknown VAGINAL 1 unit(s) 148148 RxNorm 1 EACH VAGINAL oxyCODONE HCl 5MG Oral Tablet 11/02/2022 Unknown ORAL NEEDED 5 MILLIGRA MS 5396281 RxNorm TAKE 5 MILLIGRAMS ORAL NEEDED Albuterol Sulfate 1.25MG/3ML Inhalation Solution 11/13/2022 11/17/19 23 INHALATION DAILY 1 371626 RxNorm 1 INHALATION DAILY predniSONE 20MG Oral Tablet 11/13/2022 Unknown ORAL DAILY 2 TABLET 030369 RxNorm TAKE 2 TABLET ORAL DAILY Ibuprofen 600MG Oral Tablet 11/17/2022 Unknown ORAL NEEDED EVERY 6 HOURS 600 MILLIGRA MS 488330 RxNorm TAKE 600 MILLIGRAMS ORAL NEEDED EVERY 6 HOURS Albuterol Sulfate 0.5% Inhalation Solution 11/17/2022 11/17/19 23 INHALATION FOUR TIMES A DAY WITH FOOD 1 unit(s) 000288 RxNorm 1 EACH INHALATION FOUR TIMES A DAY WITH FOOD Ventolin HFA 0.09MG/1Actua tion Inhalation Suspension 11/17/2022 Unknown INHALATION NEEDED EVERY 4 HOURS 2 PUFF 077644 RxNorm 2 PUFF INHALATION NEEDED EVERY 4 HOURS Albuterol Sulfate 0.5% Inhalation Solution 11/17/2022 Unknown INHALATION FOUR TIMES A DAY 1 unit(s) 633696 RxNorm 1 EACH INHALATION FOUR TIMES A DAY Azithromycin 250MG Oral Tablet 11/17/2022 Unknown ORAL DAILY 1 TABLET 794589 RxNorm TAKE 1 TABLET ORAL DAILY Cefpodoxime Proxetil 200MG Oral Tablet 11/17/2022 Unknown ORAL TWICE A DAY 1 TABLET 800970 RxNorm TAKE 1 TABLET ORAL TWICE A [...] Status Code Code System BREAST CANCER active 703019758 SNOMED -CT REACTIVE LYMPHADENOPATHY active 21638 8006 SNOMED-CT RSV INFECTION active 92357805 SNOMED -CT ANXIETY 10/09/2022 resolved 92952481 SNOMED-CT IBS 10/09/2022 resolved 59488791 SNOMED-CT GERD 10/09/2022 resolved 001685009 SNOMED-CT NEUTROPENIC FEVER 11/15/2022 resolved 927116167 S NOMED-CT MIGRAINE 10/09/2022 resolved 97818059 SNOMED-CT HYPOMAGNESEMIA 11/15/2022 resolved 745084734 SNOM ED-CT HYPOTHYROIDISM 10/09/2022 resolved 93945533 SNOM ED-CT Allergies and Adverse Reactions Allergy Substance Reaction Severity Start Date Concern Status Co de Code System SULFA (sulfonamide) Active 37872333 SNO MED-CT DEMEROL Active 998157 RxNorm Plan of Treatment Exposure 10/08/2020 MM [...] Start Date Code Code Sys tem Hypothyroidism 03/09/2022 22517857 SNOMED-CT Personal Care Team Section Performer Name Performer Role Active Date Inactive Da te
--- OUTSIDE RECORDS SUMMARY | 2024-06-30 16:24 | XMS_ITS ---
Author Organization Unknown Address [address] [place] [address] [phone] Phone Care Team Providers Care Senior Trainer Name Role Phone LOIS ARETHA Montiel Attending Unavailable RODRIGUEZ Alexandra Primary Unavailable Functional Status Description Date Code Code System No Functional Impairments 54203527 SN OMED-CT Mental Status Description Date Code Code System No Cognitive Impairments 59453124 SNO MED-CT Social History Type Status Start Date End Date Code Code Syst em Smoking History Never smoker (Never Smoked) 068660468 SNOMED CT Sex Female Medications Medication Start Date End Date Route Frequency Dose Code Code System Medication Instructions Home Meds Clindagel 1% Topical application Gel/Jelly 10/11/2022 Unknown TOPICAL APPLICATION NEEDED TWICE DAILY 1 unit(s) 967494 RxNorm 1 EACH TOPICAL APPLICATION NEEDED TWICE DAILY Dexamethasone 4MG Oral Tablet 10/11/2022 11/17/19 23 ORAL NEEDED DAILY 8 MILLIGRA MS 881375 RxNorm TAKE 8 MILLIGRAMS ORAL NEEDED DAILY Elderberry 500 MG Oral Capsule 10/11/2022 Unknown ORAL DAILY 1000 MG RxNorm TAKE 1000 MG ORAL DAILY LORazepam 1MG Oral Tablet 10/11/2022 Unknown ORAL NEEDED EVERY 6 HOURS 1 MILLIGRA MS 713328 RxNorm TAKE 1 MILLIGRAMS ORAL NEEDED EVERY 6 HOURS FOR Anxiety Levothyroxine 125MCG Oral Tablet 10/11/2022 Unknown ORAL DAILY 125 MCG 113377 RxNorm TAKE 125 MCG ORAL DAILY Magnesium Gluconate 500 MG Oral Tablet 10/11/2022 Unknown ORAL TWICE A DAY 500 MG 652979 RxNorm TAKE 500 MG ORAL TWICE A DAY Maxalt 10MG Oral Tablet 10/11/2022 Unknown ORAL NEEDED DAILY 10 MILLIGRA MS 952665 RxNorm TAKE 10 MILLIGRAMS ORAL NEEDED DAILY OLANZapine 10MG Oral Tablet 10/11/2022 Unknown ORAL NEEDED DAILY 10 MILLIGRA MS 104688 RxNorm TAKE 10 MILLIGRAMS ORAL NEEDED DAILY Potassium Chloride 20MEQ Oral Tablet, Extended Release 10/11/2022 Unknown ORAL TWICE A DAY 20 MEQ 8265841 RxNorm TAKE 20 MEQ ORAL TWICE A DAY Prochlorperaz ine Maleate 10MG Oral Tablet 10/11/2022 Unknown ORAL NEEDED EVERY 6 HOURS 10 MILLIGRA MS 701035 RxNorm TAKE 10 MILLIGRAMS ORAL NEEDED EVERY 6 HOURS Protonix 40 MG Oral Tablet, Delayed Release 10/11/2022 Unknown ORAL DAILY 40 MG 008533 RxNorm TAKE 40 MG ORAL DAILY Sertraline 100MG Oral Tablet 10/11/2022 Unknown ORAL DAILY 150 MILLIGRA MS 783921 RxNorm TAKE 150 MILLIGRAMS ORAL DAILY Vitamin D 1000IU Oral Tablet 10/11/2022 10/31/20 22 ORAL DAILY 2000 INTERNAT IONAL UNITS 19930412 RxNorm TAKE 2000 INTERNATIONA L UNITS ORAL DAILY Zofran 4MG Oral Tablet 10/11/2022 Unknown ORAL NEEDED EVERY 8 HOURS 4 MILLIGRA MS 234492 RxNorm TAKE 4 MILLIGRAMS ORAL NEEDED EVERY 8 HOURS traZODone hydrochloride 50MG Oral Tablet 10/11/2022 Unknown ORAL NEEDED AT BEDTIME 50 MILLIGRA MS 452836 RxNorm TAKE 50 MILLIGRAMS ORAL NEEDED AT BEDTIME Ajovy 225MG/1.5ML Subcutaneous Solution 11/02/2022 11/17/19 23 SUBCUTANEOUS MONTHLY 1 unit(s) 8348564 RxNorm INJECT 1 EACH SUBCUTANEOUS MONTHLY Estring 0.0075MG/24HR Vaginal Insert, Extended Release 11/02/2022 Unknown VAGINAL 1 unit(s) 061786 RxNorm 1 EACH VAGINAL oxyCODONE HCl 5MG Oral Tablet 11/02/2022 Unknown ORAL NEEDED 5 MILLIGRA MS 5348988 RxNorm TAKE 5 MILLIGRAMS ORAL NEEDED Albuterol Sulfate 1.25MG/3ML Inhalation Solution 11/13/2022 11/17/19 23 INHALATION DAILY 1 159026 RxNorm 1 INHALATION DAILY predniSONE 20MG Oral Tablet 11/13/2022 Unknown ORAL DAILY 2 TABLET 785802 RxNorm TAKE 2 TABLET ORAL DAILY Ibuprofen 600MG Oral Tablet 11/17/2022 Unknown ORAL NEEDED EVERY 6 HOURS 600 MILLIGRA MS 861170 RxNorm TAKE 600 MILLIGRAMS ORAL NEEDED EVERY 6 HOURS Albuterol Sulfate 0.5% Inhalation Solution 11/17/2022 11/17/19 23 INHALATION FOUR TIMES A DAY WITH FOOD 1 unit(s) 503352 RxNorm 1 EACH INHALATION FOUR TIMES A DAY WITH FOOD Ventolin HFA 0.09MG/1Actua tion Inhalation Suspension 11/17/2022 Unknown INHALATION NEEDED EVERY 4 HOURS 2 PUFF 974440 RxNorm 2 PUFF INHALATION NEEDED EVERY 4 HOURS Albuterol Sulfate 0.5% Inhalation Solution 11/17/2022 Unknown INHALATION FOUR TIMES A DAY 1 unit(s) 332148 RxNorm 1 EACH INHALATION FOUR TIMES A DAY Azithromycin 250MG Oral Tablet 11/17/2022 Unknown ORAL DAILY 1 TABLET 239515 RxNorm TAKE 1 TABLET ORAL DAILY Cefpodoxime Proxetil 200MG Oral Tablet 11/17/2022 Unknown ORAL TWICE A DAY 1 TABLET 399993 RxNorm TAKE 1 TABLET ORAL TWICE A [...] Status Code Code System BREAST CANCER active 442928420 SNOMED -CT REACTIVE LYMPHADENOPATHY active 35225 8006 SNOMED-CT RSV INFECTION active 29715199 SNOMED -CT ANXIETY 10/09/2022 resolved 26593339 SNOMED-CT IBS 10/09/2022 resolved 67744271 SNOMED-CT GERD 10/09/2022 resolved 396620483 SNOMED-CT NEUTROPENIC FEVER 11/15/2022 resolved 253444665 S NOMED-CT MIGRAINE 10/09/2022 resolved 41080489 SNOMED-CT HYPOMAGNESEMIA 11/15/2022 resolved 473929875 SNOM ED-CT HYPOTHYROIDISM 10/09/2022 resolved 81499741 SNOM ED-CT Allergies and Adverse Reactions Allergy Substance Reaction Severity Start Date Concern Status Co de Code System SULFA (sulfonamide) Active 10032693 SNO MED-CT DEMEROL Active 052691 RxNorm Plan of Treatment Exposure 10/08/2020 MM [...] Diagnosis Start Date Code Code Sys tem Encounter for other preprocedural examination 03/26/20 SNOMED-CT Personal Care Team Section Performer Name Performer Role Active Date Inactive Da te
--- OUTSIDE RECORDS SUMMARY | 2024-06-30 16:24 | XMS_ITS ---
Author Organization Unknown Address [address] [place] [address] [phone] Phone Care Team Providers Care Electronics Parts Sales Representative Name Role Phone LOIS CARIAS Tiana Attending Unavailable RODRIGUEZ Alexandra Primary Unavailable Functional Status Description Date Code Code System No Functional Impairments 36470433 SN OMED-CT Mental Status Description Date Code Code System No Cognitive Impairments 12640383 [facility] Cecilia ect Date/Time: 03/28/2022 13:39 [facility] ID: [id number] [address] [place] [address], [id number] LOINC: 52683-0 Test Value Unit Reference Range Code Code System Flag Tier- PRE-OP 63169-9 LOINC SARS COV2 RNA: NEGATIVE REFERENCE RANGE: NEGAT 03489-8 L OINC Social History Type Status Start Date End Date Code Code Syst em Smoking History Never smoker (Never Smoked) 481935463 SNOMED CT Sex Female Medications Medication Start Date End Date Route Frequency Dose Code Code System Medication Instructions Home Meds Clindagel 1% Topical application Gel/Jelly 10/11/2022 Unknown TOPICAL APPLICATION NEEDED TWICE DAILY 1 unit(s) 835695 RxNorm 1 EACH TOPICAL APPLICATION NEEDED TWICE DAILY Dexamethasone 4MG Oral Tablet 10/11/2022 11/17/19 23 ORAL NEEDED DAILY 8 MILLIGRA MS [id number] RxNorm TAKE 8 MILLIGRAMS ORAL NEEDED DAILY Elderberry 500 MG Oral Capsule 10/11/2022 Unknown ORAL DAILY 1000 MG RxNorm TAKE 1000 MG ORAL DAILY LORazepam 1MG Oral Tablet 10/11/2022 Unknown ORAL NEEDED EVERY 6 HOURS 1 MILLIGRA MS 697473 RxNorm TAKE 1 MILLIGRAMS ORAL NEEDED EVERY 6 HOURS FOR Anxiety Levothyroxine 125MCG Oral Tablet 10/11/2022 Unknown ORAL DAILY 125 MCG 728980 RxNorm TAKE 125 MCG ORAL DAILY Magnesium Gluconate 500 MG Oral Tablet 10/11/2022 Unknown ORAL TWICE A DAY 500 MG 703186 RxNorm TAKE 500 MG ORAL TWICE A DAY Maxalt 10MG Oral Tablet 10/11/2022 Unknown ORAL NEEDED DAILY 10 MILLIGRA MS 097297 RxNorm TAKE 10 MILLIGRAMS ORAL NEEDED DAILY OLANZapine 10MG Oral Tablet 10/11/2022 Unknown ORAL NEEDED DAILY 10 MILLIGRA MS 502145 RxNorm TAKE 10 MILLIGRAMS ORAL NEEDED DAILY Potassium Chloride 20MEQ Oral Tablet, Extended Release 10/11/2022 Unknown ORAL TWICE A DAY 20 MEQ 1964816 RxNorm TAKE 20 MEQ ORAL TWICE A DAY Prochlorperaz ine Maleate 10MG Oral Tablet 10/11/2022 Unknown ORAL NEEDED EVERY 6 HOURS 10 MILLIGRA MS 557447 RxNorm TAKE 10 MILLIGRAMS ORAL NEEDED EVERY 6 HOURS Protonix 40 MG Oral Tablet, Delayed Release 10/11/2022 Unknown ORAL DAILY 40 MG 558587 RxNorm TAKE 40 MG ORAL DAILY Sertraline 100MG Oral Tablet 10/11/2022 Unknown ORAL DAILY 150 MILLIGRA MS 900166 RxNorm TAKE 150 MILLIGRAMS ORAL DAILY Vitamin D 1000IU Oral Tablet 10/11/2022 10/31/20 22 ORAL DAILY 2000 INTERNAT IONAL UNITS 673531 RxNorm TAKE 2000 INTERNATIONA L UNITS ORAL DAILY Zofran 4MG Oral Tablet 10/11/2022 Unknown ORAL NEEDED EVERY 8 HOURS 4 MILLIGRA MS 472073 RxNorm TAKE 4 MILLIGRAMS ORAL NEEDED EVERY 8 HOURS traZODone hydrochloride 50MG Oral Tablet 10/11/2022 Unknown ORAL NEEDED AT BEDTIME 50 MILLIGRA MS 645191 RxNorm TAKE 50 MILLIGRAMS ORAL NEEDED AT BEDTIME Ajovy 225MG/1.5ML Subcutaneous Solution 11/02/2022 11/17/19 23 SUBCUTANEOUS MONTHLY 1 unit(s) 8616125 RxNorm INJECT 1 EACH SUBCUTANEOUS MONTHLY Estring 0.0075MG/24HR Vaginal Insert, Extended Release 11/02/2022 Unknown VAGINAL 1 unit(s) 202559 RxNorm 1 EACH VAGINAL oxyCODONE HCl 5MG Oral Tablet 11/02/2022 Unknown ORAL NEEDED 5 MILLIGRA MS 9629541 RxNorm TAKE 5 MILLIGRAMS ORAL NEEDED Albuterol Sulfate 1.25MG/3ML Inhalation Solution 11/13/2022 11/17/19 23 INHALATION DAILY 1 440680 RxNorm 1 INHALATION DAILY predniSONE 20MG Oral Tablet 11/13/2022 Unknown ORAL DAILY 2 TABLET 155496 RxNorm TAKE 2 TABLET ORAL DAILY Ibuprofen 600MG Oral Tablet 11/17/2022 Unknown ORAL NEEDED EVERY 6 HOURS 600 MILLIGRA MS 886661 RxNorm TAKE 600 MILLIGRAMS ORAL NEEDED EVERY 6 HOURS Albuterol Sulfate 0.5% Inhalation Solution 11/17/2022 11/17/19 23 INHALATION FOUR TIMES A DAY WITH FOOD 1 unit(s) 437474 RxNorm 1 EACH INHALATION FOUR TIMES A DAY WITH FOOD Ventolin HFA 0.09MG/1Actua tion Inhalation Suspension 11/17/2022 Unknown INHALATION NEEDED EVERY 4 HOURS 2 PUFF 386547 RxNorm 2 PUFF INHALATION NEEDED EVERY 4 HOURS Albuterol Sulfate 0.5% Inhalation Solution 11/17/2022 Unknown INHALATION FOUR TIMES A DAY 1 unit(s) 797386 RxNorm 1 EACH INHALATION FOUR TIMES A DAY Azithromycin 250MG Oral Tablet 11/17/2022 Unknown ORAL DAILY 1 TABLET 407046 RxNorm TAKE 1 TABLET ORAL DAILY Cefpodoxime Proxetil 200MG Oral Tablet 11/17/2022 Unknown ORAL TWICE A DAY 1 TABLET 764834 RxNorm TAKE 1 TABLET ORAL TWICE A [...] Status Code Code System BREAST CANCER active 813156183 SNOMED -CT REACTIVE LYMPHADENOPATHY active 00520 8006 SNOMED-CT RSV INFECTION active 30622804 SNOMED -CT ANXIETY 10/09/2022 resolved 70959400 SNOMED-CT IBS 10/09/2022 resolved 70116615 SNOMED-CT GERD 10/09/2022 resolved 532280491 SNOMED-CT NEUTROPENIC FEVER 11/15/2022 resolved 221098450 S NOMED-CT MIGRAINE 10/09/2022 resolved 35938722 SNOMED-CT HYPOMAGNESEMIA 11/15/2022 resolved 562611472 SNOM ED-CT HYPOTHYROIDISM 10/09/2022 resolved 47202004 SNOM ED-CT Allergies and Adverse Reactions Allergy Substance Reaction Severity Start Date Concern Status Co de Code System SULFA (sulfonamide) Active 34297504 SNO MED-CT DEMEROL Active 044853 RxNorm Plan of Treatment Exposure 10/08/2020 MM [...] Date Code Code Sys tem Encounter for preprocedural laboratory examination SNOMED-CT Personal Care Team Section Performer Name Performer Role Active Date Inactive Da te
--- OUTSIDE RECORDS SUMMARY | 2024-06-30 16:25 | XMS_ITS ---
Author Organization Unknown Address [address] [place] [address] [phone] Phone Care Team Providers Care Loom Technician Name Role Phone LOIS Monitel Attending Unavailable URIEL Williamson PRESS TENDER Unavailable RODRIGUEZ Alexandra Primary Unavailable Functional Status Description Date Code Code System No Functional Impairments 94978477 SN OMED-CT Mental Status Description Date Code Code System No Cognitive Impairments 68460595 SNO MED-CT Results XR CHEST PORTABLE OR 1V - Co mpleted: 03/30/2022 09:31 LOINC: PORTABLE CHEST: Compared to 01/2019. The distal tip of the recently placed supraclavian Port-A-Cath is in the lower SVC at the SVC/RA junction. There is no significant mediastinal widening. Heart size is upper normal/minimally prominent. Lungs are clear. No infiltrates nor pleural effusions. There is no pneumothorax. IMPRESSION: Satisfactory appearance of the newly placed right sided Port-A-Cath. No pneumothorax. Dictated by: CHIP TURNER MD Transcribed by: GAYATRI 03/30/22/15:27 [id number] Electronically Reviewed and Signed By: MARV TURNER MD 03/30/22 19:44 Copy for: LOIS Montiel via fax Copy for: 185 HEALTH INFORMATION MGMT DISCHARGED XR [place] CENTRAL VENOUS ACCESS - Completed: 03/30/2022 09:31 LOINC: Fluoroscopy was provided dur ing right-sided portacath placement. See procedure report for details. Total fluoroscopy time: 16.8 seconds. Ka,r = 2.75 mGy. Dictated by: CHIP TURNER MD Transcribed by: [facility] 03/30/22/14:54 D Wednesday, March 30, 2022 8:31:03 AM [id number] Electronically Reviewed and Signed By: MARV TURNER MD 03/30/22 19:42 Copy for: LOIS Montiel via fax Copy for: 185 HEALTH INFORMATION MGMT DISCHARGED Social History Type Status Start Date End Date Code Code Syst em Smoking History Never smoker (Never Smoked) 532227206 SNOMED CT Sex Female Vital Signs Vital Sign Value Unit [place] Value [place] Unit Date/Time Recent/Initial? Code Code System Systolic Blood Pressure 125 mm[Hg] 03/30/2022 09:09 Initial 8480-6 LOINC Diastolic Blood Pressure 79 mm[Hg] 03/30/2022 09:09 Initial 8462-4 LOINC O2 Saturation 97 % 2021 09:09 Initial 78998- 5 LOINC Pulse 70.0 /min 03/30/2022 09:09 Initial 8867-4 LOINC Respiration 18 /min 03/30/20 09:09 Initial 9279-1 LOINC Temperature 36.7 Sydnie 98.1 F 03/30/20 09:09 Initial 8310-5 LOINC Medications Medication Start Date End Date Route Frequency Dose Code Code System Medication Instructions Home Meds Clindagel 1% Topical application Gel/Jelly 10/11/2022 Unknown TOPICAL APPLICATION NEEDED TWICE DAILY 1 unit(s) 376653 RxNorm 1 EACH TOPICAL APPLICATION NEEDED TWICE DAILY Dexamethasone 4MG Oral Tablet 10/11/2022 11/17/19 23 ORAL NEEDED DAILY 8 MILLIGRA MS 525491 RxNorm TAKE 8 MILLIGRAMS ORAL NEEDED DAILY Elderberry 500 MG Oral Capsule 10/11/2022 Unknown ORAL DAILY 1000 MG RxNorm TAKE 1000 MG ORAL DAILY LORazepam 1MG Oral Tablet 10/11/2022 Unknown ORAL NEEDED EVERY 6 HOURS 1 MILLIGRA MS 577680 RxNorm TAKE 1 MILLIGRAMS ORAL NEEDED EVERY 6 HOURS FOR Anxiety Levothyroxine 125MCG Oral Tablet 10/11/2022 Unknown ORAL DAILY 125 MCG 854919 RxNorm TAKE 125 MCG ORAL DAILY Magnesium Gluconate 500 MG Oral Tablet 10/11/2022 Unknown ORAL TWICE A DAY 500 MG 487324 RxNorm TAKE 500 MG ORAL TWICE A DAY Maxalt 10MG Oral Tablet 10/11/2022 Unknown ORAL NEEDED DAILY 10 MILLIGRA MS 565071 RxNorm TAKE 10 MILLIGRAMS ORAL NEEDED DAILY OLANZapine 10MG Oral Tablet 10/11/2022 Unknown ORAL NEEDED DAILY 10 MILLIGRA MS 877168 RxNorm TAKE 10 MILLIGRAMS ORAL NEEDED DAILY Potassium Chloride 20MEQ Oral Tablet, Extended Release 10/11/2022 Unknown ORAL TWICE A DAY 20 MEQ 3008535 RxNorm TAKE 20 MEQ ORAL TWICE A DAY Prochlorperaz ine Maleate 10MG Oral Tablet 10/11/2022 Unknown ORAL NEEDED EVERY 6 HOURS 10 MILLIGRA MS 569366 RxNorm TAKE 10 MILLIGRAMS ORAL NEEDED EVERY 6 HOURS Protonix 40 MG Oral Tablet, Delayed Release 10/11/2022 Unknown ORAL DAILY 40 MG 649129 RxNorm TAKE 40 MG ORAL DAILY Sertraline 100MG Oral Tablet 10/11/2022 Unknown ORAL DAILY 150 MILLIGRA MS 094109 RxNorm TAKE 150 MILLIGRAMS ORAL DAILY Vitamin D 1000IU Oral Tablet 10/11/2022 10/31/20 22 ORAL DAILY 2000 INTERNAT IONAL UNITS 19930412 RxNorm TAKE 2000 INTERNATIONA L UNITS ORAL DAILY Zofran 4MG Oral Tablet 10/11/2022 Unknown ORAL NEEDED EVERY 8 HOURS 4 MILLIGRA MS 099844 RxNorm TAKE 4 MILLIGRAMS ORAL NEEDED EVERY 8 HOURS traZODone hydrochloride 50MG Oral Tablet 10/11/2022 Unknown ORAL NEEDED AT BEDTIME 50 MILLIGRA MS 039073 RxNorm TAKE 50 MILLIGRAMS ORAL NEEDED AT BEDTIME Ajovy 225MG/1.5ML Subcutaneous Solution 11/02/2022 11/17/19 23 SUBCUTANEOUS MONTHLY 1 unit(s) 2013450 RxNorm INJECT 1 EACH SUBCUTANEOUS MONTHLY Estring 0.0075MG/24HR Vaginal Insert, Extended Release 11/02/2022 Unknown VAGINAL 1 unit(s) 342670 RxNorm 1 EACH VAGINAL oxyCODONE HCl 5MG Oral Tablet 11/02/2022 Unknown ORAL NEEDED 5 MILLIGRA MS 6796583 RxNorm TAKE 5 MILLIGRAMS ORAL NEEDED Albuterol Sulfate 1.25MG/3ML Inhalation Solution 11/13/2022 11/17/19 23 INHALATION DAILY 1 686564 RxNorm 1 INHALATION DAILY predniSONE 20MG Oral Tablet 11/13/2022 Unknown ORAL DAILY 2 TABLET 993496 RxNorm TAKE 2 TABLET ORAL DAILY Ibuprofen 600MG Oral Tablet 11/17/2022 Unknown ORAL NEEDED EVERY 6 HOURS 600 MILLIGRA MS 443833 RxNorm TAKE 600 MILLIGRAMS ORAL NEEDED EVERY 6 HOURS Albuterol Sulfate 0.5% Inhalation Solution 11/17/2022 11/17/19 23 INHALATION FOUR TIMES A DAY WITH FOOD 1 unit(s) 499061 RxNorm 1 EACH INHALATION FOUR TIMES A DAY WITH FOOD Ventolin HFA 0.09MG/1Actua tion Inhalation Suspension 11/17/2022 Unknown INHALATION NEEDED EVERY 4 HOURS 2 PUFF 604678 RxNorm 2 PUFF INHALATION NEEDED EVERY 4 HOURS Albuterol Sulfate 0.5% Inhalation Solution 11/17/2022 Unknown INHALATION FOUR TIMES A DAY 1 unit(s) 504967 RxNorm 1 EACH INHALATION FOUR TIMES A DAY Azithromycin 250MG Oral Tablet 11/17/2022 Unknown ORAL DAILY 1 TABLET 620320 RxNorm TAKE 1 TABLET ORAL DAILY Cefpodoxime Proxetil 200MG Oral Tablet 11/17/2022 Unknown ORAL TWICE A DAY 1 TABLET 888072 RxNorm TAKE 1 TABLET ORAL TWICE A DAY Assessment You had the following problems:BREAST CANCERREACTIVE LYMPHADENOPATHYRSV INFECTION Hospital Discharge Instructions Should you have any questions prior to discharge, please contact a member of your healthcare team. If you have left the hospital and have any questions, please contact your primary care physician. Reason For Referral No Data Found Procedures Procedure Name Date Status Code Code Syste m Insertion, Tunneled Centrall y Inserted Venous Access Device, w/Subq Port; >5 Years 03/30/2022 completed 07716 CPT Anesthesia, Access To Centra l Venous Circulation 03/30/2022 completed 28693 CPT Problems Problem Start Date Resolved Date Status Code Code System BREAST CANCER active 926772529 SNOMED -CT REACTIVE LYMPHADENOPATHY active 99895 8006 SNOMED-CT RSV INFECTION active 37908441 SNOMED -CT ANXIETY 10/09/2022 resolved 87132789 SNOMED-CT IBS 10/09/2022 resolved 17606290 SNOMED-CT GERD 10/09/2022 resolved 998246461 SNOMED-CT NEUTROPENIC FEVER 11/15/2022 resolved 022387002 S NOMED-CT MIGRAINE 10/09/2022 resolved 46781742 SNOMED-CT HYPOMAGNESEMIA 11/15/2022 resolved 704479551 SNOM ED-CT HYPOTHYROIDISM 10/09/2022 resolved 68584004 SN ED-CT Allergies and Adverse Reactions Allergy Substance Reaction Severity Start Date Concern Status Co de Code System SULFA (sulfonamide) Active 03766378 SNO MED-CT DEMEROL Active 012172 RxNorm Plan of Treatment Exposure 10/08/2020 MM [...] Date Code Code Sys tem Encounter for adjustment and management of vascular access device 03/30/2022 SNOMED-CT Personal Care Team Section Performer Name Performer Role Active Date Inactive Da te
--- OUTSIDE RECORDS SUMMARY | 2024-06-30 16:25 | XMS_ITS ---
Author Organization Unknown Address [address] [place] [address] [phone] Phone Care Team Providers Care Photovoltaic Fabrication Technician Name Role Phone LOIS Montiel Attending Unavailable RODRIGUEZ Alexandra Primary Unavailable Functional Status Description Date Code Code System No Functional Impairments 20406087 SN OMED-CT Mental Status Description Date Code Code System No Cognitive Impairments 96907972 SNO MED-CT Results US EXTREMITY W GUIDANCE NEED LE PLACE* - Completed: 03/30/2022 16:33 LOINC: ULTRASOUND GUIDANCE FNA Ultrasound guidance was provided during right axillary lymph node FNA performed by the surgeon. Radiologist was not present for this procedure. Dictated by: CHIP TURNER MD Transcribed by: [facility] 04/02/22/11:35 D Wednesday, March 30, 2022 5:36:37 PM 648821 [id number] Electronically Reviewed and Signed By: MARV TURNER MD 04/03/22 17:30 Copy for: LOIS Montiel via fax Copy for: 185 HEALTH INFORMATION MGMT Social History Type Status Start Date End Date Code Code Syst em Smoking History Never smoker (Never Smoked) 039130445 SNOMED CT Sex Female Medications Medication Start Date End Date Route Frequency Dose Code Code System Medication Instructions Home Meds Clindagel 1% Topical application Gel/Jelly 10/11/2022 Unknown TOPICAL APPLICATION NEEDED TWICE DAILY 1 unit(s) 178829 RxNorm 1 EACH TOPICAL APPLICATION NEEDED TWICE DAILY Dexamethasone 4MG Oral Tablet 10/11/2022 11/17/19 23 ORAL NEEDED DAILY 8 MILLIGRA MS 755275 RxNorm TAKE 8 MILLIGRAMS ORAL NEEDED DAILY Elderberry 500 MG Oral Capsule 10/11/2022 Unknown ORAL DAILY 1000 MG RxNorm TAKE 1000 MG ORAL DAILY LORazepam 1MG Oral Tablet 10/11/2022 Unknown ORAL NEEDED EVERY 6 HOURS 1 MILLIGRA MS 687828 RxNorm TAKE 1 MILLIGRAMS ORAL NEEDED EVERY 6 HOURS FOR Anxiety Levothyroxine 125MCG Oral Tablet 10/11/2022 Unknown ORAL DAILY 125 MCG 158165 RxNorm TAKE 125 MCG ORAL DAILY Magnesium Gluconate 500 MG Oral Tablet 10/11/2022 Unknown ORAL TWICE A DAY 500 MG 795111 RxNorm TAKE 500 MG ORAL TWICE A DAY Maxalt 10MG Oral Tablet 10/11/2022 Unknown ORAL NEEDED DAILY 10 MILLIGRA MS 075232 RxNorm TAKE 10 MILLIGRAMS ORAL NEEDED DAILY OLANZapine 10MG Oral Tablet 10/11/2022 Unknown ORAL NEEDED DAILY 10 MILLIGRA MS 701185 RxNorm TAKE 10 MILLIGRAMS ORAL NEEDED DAILY Potassium Chloride 20MEQ Oral Tablet, Extended Release 10/11/2022 Unknown ORAL TWICE A DAY 20 MEQ 3505151 RxNorm TAKE 20 MEQ ORAL TWICE A DAY Prochlorperaz ine Maleate 10MG Oral Tablet 10/11/2022 Unknown ORAL NEEDED EVERY 6 HOURS 10 MILLIGRA MS 082814 RxNorm TAKE 10 MILLIGRAMS ORAL NEEDED EVERY 6 HOURS Protonix 40 MG Oral Tablet, Delayed Release 10/11/2022 Unknown ORAL DAILY 40 MG 447386 RxNorm TAKE 40 MG ORAL DAILY Sertraline 100MG Oral Tablet 10/11/2022 Unknown ORAL DAILY 150 MILLIGRA MS 444625 RxNorm TAKE 150 MILLIGRAMS ORAL DAILY Vitamin D 1000IU Oral Tablet 10/11/2022 10/31/20 22 ORAL DAILY 1999 INTERNAT IONAL UNITS 410547 RxNorm TAKE 2000 INTERNATIONA L UNITS ORAL DAILY Zofran 4MG Oral Tablet 10/11/2022 Unknown ORAL NEEDED EVERY 8 HOURS 4 MILLIGRA MS 575155 RxNorm TAKE 4 MILLIGRAMS ORAL NEEDED EVERY 8 HOURS traZODone hydrochloride 50MG Oral Tablet 10/11/2022 Unknown ORAL NEEDED AT BEDTIME 50 MILLIGRA MS 165764 RxNorm TAKE 50 MILLIGRAMS ORAL NEEDED AT BEDTIME Ajovy 225MG/1.5ML Subcutaneous Solution 11/02/2022 11/17/19 23 SUBCUTANEOUS MONTHLY 1 unit(s) 7565418 RxNorm INJECT 1 EACH SUBCUTANEOUS MONTHLY Estring 0.0075MG/24HR Vaginal Insert, Extended Release 11/02/2022 Unknown VAGINAL 1 unit(s) 596908 RxNorm 1 EACH VAGINAL oxyCODONE HCl 5MG Oral Tablet 11/02/2022 Unknown ORAL NEEDED 5 MILLIGRA MS 9965432 RxNorm TAKE 5 MILLIGRAMS ORAL NEEDED Albuterol Sulfate 1.25MG/3ML Inhalation Solution 11/13/2022 11/17/19 23 INHALATION DAILY 1 488593 RxNorm 1 INHALATION DAILY predniSONE 20MG Oral Tablet 11/13/2022 Unknown ORAL DAILY 2 TABLET 454205 RxNorm TAKE 2 TABLET ORAL DAILY Ibuprofen 600MG Oral Tablet 11/17/2022 Unknown ORAL NEEDED EVERY 6 HOURS 600 MILLIGRA MS 479798 RxNorm TAKE 600 MILLIGRAMS ORAL NEEDED EVERY 6 HOURS Albuterol Sulfate 0.5% Inhalation Solution 11/17/2022 11/17/19 23 INHALATION FOUR TIMES A DAY WITH FOOD 1 unit(s) 978661 RxNorm 1 EACH INHALATION FOUR TIMES A DAY WITH FOOD Ventolin HFA 0.09MG/1Actua tion Inhalation Suspension 11/17/2022 Unknown INHALATION NEEDED EVERY 4 HOURS 2 PUFF 949848 RxNorm 2 PUFF INHALATION NEEDED EVERY 4 HOURS Albuterol Sulfate 0.5% Inhalation Solution 11/17/2022 Unknown INHALATION FOUR TIMES A DAY 1 unit(s) 009681 RxNorm 1 EACH INHALATION FOUR TIMES A DAY Azithromycin 250MG Oral Tablet 11/17/2022 Unknown ORAL DAILY 1 TABLET 220855 RxNorm TAKE 1 TABLET ORAL DAILY Cefpodoxime Proxetil 200MG Oral Tablet 11/17/2022 Unknown ORAL TWICE A DAY 1 TABLET 373331 RxNorm TAKE 1 TABLET ORAL TWICE A [...] Status Code Code System BREAST CANCER active 814385145 SNOMED -CT REACTIVE LYMPHADENOPATHY active 74339 8006 SNOMED-CT RSV INFECTION active 65141218 SNOMED -CT ANXIETY 10/09/2022 resolved 83491089 SNOMED-CT IBS 10/09/2022 resolved 53619699 SNOMED-CT GERD 10/09/2022 resolved 338069840 SNOMED-CT NEUTROPENIC FEVER 11/15/2022 resolved 950627663 S NOMED-CT MIGRAINE 10/09/2022 resolved 34065442 SNOMED-CT HYPOMAGNESEMIA 11/15/2022 resolved 120202712 SNOM ED-CT HYPOTHYROIDISM 10/09/2022 resolved 59342462 SNOM ED-CT Allergies and Adverse Reactions Allergy Substance Reaction Severity Start Date Concern Status Co de Code System SULFA (sulfonamide) Active 14503714 SNO MED-CT DEMEROL Active 996761 RxNorm Plan of Treatment Exposure 10/08/2020 MM [...]
--- OUTSIDE RECORDS SUMMARY | 2024-06-30 16:26 | XMS_ITS ---
Author Organization Unknown Address [address] [place] [address] [phone] Phone Care Team Providers Care Brick Setter Operator Name Role Phone BELKIS CHERY Tiana Attending Unavailable RODRIGUEZ Alexandra Primary Unavailable Functional Status Description Date Code Code System No Functional Impairments 85592769 SN OMED-CT Mental Status Description Date Code Code System No Cognitive Impairments 27952800 SNO MED-CT Social History Type Status Start Date End Date Code Code Syst em Smoking History Never smoker (Never Smoked) 591559674 SNOMED CT Sex Female Medications Medication Start Date End Date Route Frequency Dose Code Code System Medication Instructions Home Meds Clindagel 1% Topical application Gel/Jelly 10/11/2022 Unknown TOPICAL APPLICATION NEEDED TWICE DAILY 1 unit(s) 696410 RxNorm 1 EACH TOPICAL APPLICATION NEEDED TWICE DAILY Dexamethasone 4MG Oral Tablet 10/11/2022 11/17/19 23 ORAL NEEDED DAILY 8 MILLIGRA MS 014986 RxNorm TAKE 8 MILLIGRAMS ORAL NEEDED DAILY Elderberry 500 MG Oral Capsule 10/11/2022 Unknown ORAL DAILY 1000 MG RxNorm TAKE 1000 MG ORAL DAILY LORazepam 1MG Oral Tablet 10/11/2022 Unknown ORAL NEEDED EVERY 6 HOURS 1 MILLIGRA MS 657224 RxNorm TAKE 1 MILLIGRAMS ORAL NEEDED EVERY 6 HOURS FOR Anxiety Levothyroxine 125MCG Oral Tablet 10/11/2022 Unknown ORAL DAILY 125 MCG 686297 RxNorm TAKE 125 MCG ORAL DAILY Magnesium Gluconate 500 MG Oral Tablet 10/11/2022 Unknown ORAL TWICE A DAY 500 MG 303148 RxNorm TAKE 500 MG ORAL TWICE A DAY Maxalt 10MG Oral Tablet 10/11/2022 Unknown ORAL NEEDED DAILY 10 MILLIGRA MS 141059 RxNorm TAKE 10 MILLIGRAMS ORAL NEEDED DAILY OLANZapine 10MG Oral Tablet 10/11/2022 Unknown ORAL NEEDED DAILY 10 MILLIGRA MS 343376 RxNorm TAKE 10 MILLIGRAMS ORAL NEEDED DAILY Potassium Chloride 20MEQ Oral Tablet, Extended Release 10/11/2022 Unknown ORAL TWICE A DAY 20 MEQ 1550623 RxNorm TAKE 20 MEQ ORAL TWICE A DAY Prochlorperaz ine Maleate 10MG Oral Tablet 10/11/2022 Unknown ORAL NEEDED EVERY 6 HOURS 10 MILLIGRA MS 127143 RxNorm TAKE 10 MILLIGRAMS ORAL NEEDED EVERY 6 HOURS Protonix 40 MG Oral Tablet, Delayed Release 10/11/2022 Unknown ORAL DAILY 40 MG 612425 RxNorm TAKE 40 MG ORAL DAILY Sertraline 100MG Oral Tablet 10/11/2022 Unknown ORAL DAILY 150 MILLIGRA MS 442075 RxNorm TAKE 150 MILLIGRAMS ORAL DAILY Vitamin D 1000IU Oral Tablet 10/11/2022 10/31/20 22 ORAL DAILY 2000 INTERNAT IONAL UNITS 19930412 RxNorm TAKE 2000 INTERNATIONA L UNITS ORAL DAILY Zofran 4MG Oral Tablet 10/11/2022 Unknown ORAL NEEDED EVERY 8 HOURS 4 MILLIGRA MS 201664 RxNorm TAKE 4 MILLIGRAMS ORAL NEEDED EVERY 8 HOURS traZODone hydrochloride 50MG Oral Tablet 10/11/2022 Unknown ORAL NEEDED AT BEDTIME 50 MILLIGRA MS 467105 RxNorm TAKE 50 MILLIGRAMS ORAL NEEDED AT BEDTIME Ajovy 225MG/1.5ML Subcutaneous Solution 11/02/2022 11/17/19 23 SUBCUTANEOUS MONTHLY 1 unit(s) 9486553 RxNorm INJECT 1 EACH SUBCUTANEOUS MONTHLY Estring 0.0075MG/24HR Vaginal Insert, Extended Release 11/02/2022 Unknown VAGINAL 1 unit(s) 841239 RxNorm 1 EACH VAGINAL oxyCODONE HCl 5MG Oral Tablet 11/02/2022 Unknown ORAL NEEDED 5 MILLIGRA MS 9686193 RxNorm TAKE 5 MILLIGRAMS ORAL NEEDED Albuterol Sulfate 1.25MG/3ML Inhalation Solution 11/13/2022 11/17/19 23 INHALATION DAILY 1 311181 RxNorm 1 INHALATION DAILY predniSONE 20MG Oral Tablet 11/13/2022 Unknown ORAL DAILY 2 TABLET 998153 RxNorm TAKE 2 TABLET ORAL DAILY Ibuprofen 600MG Oral Tablet 11/17/2022 Unknown ORAL NEEDED EVERY 6 HOURS 600 MILLIGRA MS 725825 RxNorm TAKE 600 MILLIGRAMS ORAL NEEDED EVERY 6 HOURS Albuterol Sulfate 0.5% Inhalation Solution 11/17/2022 11/17/19 23 INHALATION FOUR TIMES A DAY WITH FOOD 1 unit(s) 475977 RxNorm 1 EACH INHALATION FOUR TIMES A DAY WITH FOOD Ventolin HFA 0.09MG/1Actua tion Inhalation Suspension 11/17/2022 Unknown INHALATION NEEDED EVERY 4 HOURS 2 PUFF 981900 RxNorm 2 PUFF INHALATION NEEDED EVERY 4 HOURS Albuterol Sulfate 0.5% Inhalation Solution 11/17/2022 Unknown INHALATION FOUR TIMES A DAY 1 unit(s) 244723 RxNorm 1 EACH INHALATION FOUR TIMES A DAY Azithromycin 250MG Oral Tablet 11/17/2022 Unknown ORAL DAILY 1 TABLET 257350 RxNorm TAKE 1 TABLET ORAL DAILY Cefpodoxime Proxetil 200MG Oral Tablet 11/17/2022 Unknown ORAL TWICE A DAY 1 TABLET 983266 RxNorm TAKE 1 TABLET ORAL TWICE A [...] Status Code Code System BREAST CANCER active 395370158 SNOMED -CT REACTIVE LYMPHADENOPATHY active 27317 8006 SNOMED-CT RSV INFECTION active 16617421 SNOMED -CT ANXIETY 10/09/2022 resolved 87653905 SNOMED-CT IBS 10/09/2022 resolved 23777177 SNOMED-CT GERD 10/09/2022 resolved 403483216 SNOMED-CT NEUTROPENIC FEVER 11/15/2022 resolved 375839663 S NOMED-CT MIGRAINE 10/09/2022 resolved 60407438 SNOMED-CT HYPOMAGNESEMIA 11/15/2022 resolved 470247933 SNOM ED-CT HYPOTHYROIDISM 10/09/2022 resolved 37025813 SNOM ED-CT Allergies and Adverse Reactions Allergy Substance Reaction Severity Start Date Concern Status Co de Code System SULFA (sulfonamide) Active 55248844 SNO MED-CT DEMEROL Active 807623 RxNorm Plan of Treatment Exposure 10/08/2020 MM [...] upper- outer quadrant of right female breast 04/30/2022 SNOMED-CT Personal Care Team Section Performer Name Performer Role Active Date Inactive Da te
--- OUTSIDE RECORDS SUMMARY | 2024-06-30 16:26 | XMS_ITS ---
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 Name Role Phone RITO VALLADARES Attending Unavailable RODRIGUEZ Alexandra Primary Unavailable Functional Status Description Date Code Code System No Functional Impairments 15827224 SN OMED-CT Mental Status Description Date Code Code System No Cognitive Impairments 43824257 SNO MED-CT Social History Type Status Start Date End Date Code Code Syst em Smoking History Never smoker (Never Smoked) 135217731 SNOMED CT Sex Female Medications Medication Start Date End Date Route Frequency Dose Code Code System Medication Instructions Home Meds Clindagel 1% Topical application Gel/Jelly 10/11/2022 Unknown TOPICAL APPLICATION NEEDED TWICE DAILY 1 unit(s) 649801 RxNorm 1 EACH TOPICAL APPLICATION NEEDED TWICE DAILY Dexamethasone 4MG Oral Tablet 10/11/2022 11/17/19 23 ORAL NEEDED DAILY 8 MILLIGRA MS 419914 RxNorm TAKE 8 MILLIGRAMS ORAL NEEDED DAILY Elderberry 500 MG Oral Capsule 10/11/2022 Unknown ORAL DAILY 1000 MG RxNorm TAKE 1000 MG ORAL DAILY LORazepam 1MG Oral Tablet 10/11/2022 Unknown ORAL NEEDED EVERY 6 HOURS 1 MILLIGRA MS 500583 RxNorm TAKE 1 MILLIGRAMS ORAL NEEDED EVERY 6 HOURS FOR Anxiety Levothyroxine 125MCG Oral Tablet 10/11/2022 Unknown ORAL DAILY 125 MCG 593742 RxNorm TAKE 125 MCG ORAL DAILY Magnesium Gluconate 500 MG Oral Tablet 10/11/2022 Unknown ORAL TWICE A DAY 500 MG 692266 RxNorm TAKE 500 MG ORAL TWICE A DAY Maxalt 10MG Oral Tablet 10/11/2022 Unknown ORAL NEEDED DAILY 10 MILLIGRA MS 741975 RxNorm TAKE 10 MILLIGRAMS ORAL NEEDED DAILY OLANZapine 10MG Oral Tablet 10/11/2022 Unknown ORAL NEEDED DAILY 10 MILLIGRA MS 104052 RxNorm TAKE 10 MILLIGRAMS ORAL NEEDED DAILY Potassium Chloride 20MEQ Oral Tablet, Extended Release 10/11/2022 Unknown ORAL TWICE A DAY 20 MEQ 5027954 RxNorm TAKE 20 MEQ ORAL TWICE A DAY Prochlorperaz ine Maleate 10MG Oral Tablet 10/11/2022 Unknown ORAL NEEDED EVERY 6 HOURS 10 MILLIGRA MS 691146 RxNorm TAKE 10 MILLIGRAMS ORAL NEEDED EVERY 6 HOURS Protonix 40 MG Oral Tablet, Delayed Release 10/11/2022 Unknown ORAL DAILY 40 MG 833707 RxNorm TAKE 40 MG ORAL DAILY Sertraline 100MG Oral Tablet 10/11/2022 Unknown ORAL DAILY 150 MILLIGRA MS 649217 RxNorm TAKE 150 MILLIGRAMS ORAL DAILY Vitamin D 1000IU Oral Tablet 10/11/2022 10/31/20 22 ORAL DAILY 1999 INTERNAT IONAL UNITS 19930412 RxNorm TAKE 2000 INTERNATIONA L UNITS ORAL DAILY Zofran 4MG Oral Tablet 10/11/2022 Unknown ORAL NEEDED EVERY 8 HOURS 4 MILLIGRA MS 091163 RxNorm TAKE 4 MILLIGRAMS ORAL NEEDED EVERY 8 HOURS traZODone hydrochloride 50MG Oral Tablet 10/11/2022 Unknown ORAL NEEDED AT BEDTIME 50 MILLIGRA MS 111541 RxNorm TAKE 50 MILLIGRAMS ORAL NEEDED AT BEDTIME Ajovy 225MG/1.5ML Subcutaneous Solution 11/02/2022 11/17/19 23 SUBCUTANEOUS MONTHLY 1 unit(s) 9265382 RxNorm INJECT 1 EACH SUBCUTANEOUS MONTHLY Estring 0.0075MG/24HR Vaginal Insert, Extended Release 11/02/2022 Unknown VAGINAL 1 unit(s) 192124 RxNorm 1 EACH VAGINAL oxyCODONE HCl 5MG Oral Tablet 11/02/2022 Unknown ORAL NEEDED 5 MILLIGRA MS 7338719 RxNorm TAKE 5 MILLIGRAMS ORAL NEEDED Albuterol Sulfate 1.25MG/3ML Inhalation Solution 11/13/2022 11/17/19 23 INHALATION DAILY 1 609771 RxNorm 1 INHALATION DAILY predniSONE 20MG Oral Tablet 11/13/2022 Unknown ORAL DAILY 2 TABLET 001321 RxNorm TAKE 2 TABLET ORAL DAILY Ibuprofen 600MG Oral Tablet 11/17/2022 Unknown ORAL NEEDED EVERY 6 HOURS 600 MILLIGRA MS 949916 RxNorm TAKE 600 MILLIGRAMS ORAL NEEDED EVERY 6 HOURS Albuterol Sulfate 0.5% Inhalation Solution 11/17/2022 11/17/19 23 INHALATION FOUR TIMES A DAY WITH FOOD 1 unit(s) 777406 RxNorm 1 EACH INHALATION FOUR TIMES A DAY WITH FOOD Ventolin HFA 0.09MG/1Actua tion Inhalation Suspension 11/17/2022 Unknown INHALATION NEEDED EVERY 4 HOURS 2 PUFF 763463 RxNorm 2 PUFF INHALATION NEEDED EVERY 4 HOURS Albuterol Sulfate 0.5% Inhalation Solution 11/17/2022 Unknown INHALATION FOUR TIMES A DAY 1 unit(s) 781379 RxNorm 1 EACH INHALATION FOUR TIMES A DAY Azithromycin 250MG Oral Tablet 11/17/2022 Unknown ORAL DAILY 1 TABLET 389314 RxNorm TAKE 1 TABLET ORAL DAILY Cefpodoxime Proxetil 200MG Oral Tablet 11/17/2022 Unknown ORAL TWICE A DAY 1 TABLET 197296 RxNorm TAKE 1 TABLET ORAL TWICE A [...] Status Code Code System BREAST CANCER active 799623505 SNOMED -CT REACTIVE LYMPHADENOPATHY active 67885 8006 SNOMED-CT RSV INFECTION active 06350588 SNOMED -CT ANXIETY 10/09/2022 resolved 83969642 SNOMED-CT IBS 10/09/2022 resolved 34976860 SNOMED-CT GERD 10/09/2022 resolved 919250389 SNOMED-CT NEUTROPENIC FEVER 11/15/2022 resolved 471628047 S NOMED-CT MIGRAINE 10/09/2022 resolved 43756420 SNOMED-CT HYPOMAGNESEMIA 11/15/2022 resolved 443985460 SNOM ED-CT HYPOTHYROIDISM 10/09/2022 resolved 85560673 SNOM ED-CT Allergies and Adverse Reactions Allergy Substance Reaction Severity Start Date Concern Status Co de Code System SULFA (sulfonamide) Active 84921876 SNO MED-CT DEMEROL Active 913277 RxNorm Plan of Treatment Exposure 10/08/2020 MM [...] upper- outer quadrant of right female breast 04/26/2022 SNOMED-CT Personal Care Team Section Performer Name Performer Role Active Date Inactive Da te
--- OUTSIDE RECORDS SUMMARY | 2024-06-30 16:26 | XMS_ITS ---
Author Organization Unknown Address [address] [place] [address] [phone] Phone Care Team Providers Care Business Solution Analyst Name Role Phone SHAZIAMERCEDES KYLIE Martinez Attending Unavailable RODRIGUEZ Alexandra Primary Unavailable Functional Status Description Date Code Code System No Functional Impairments 17215803 SN OMED-CT Mental Status Description Date Code Code System No Cognitive Impairments 88952790 SNO MED-CT Social History Type Status Start Date End Date Code Code Syst em Smoking History Never smoker (Never Smoked) 341626811 SNOMED CT Sex Female Medications Medication Start Date End Date Route Frequency Dose Code Code System Medication Instructions Home Meds Clindagel 1% Topical application Gel/Jelly 10/11/2022 Unknown TOPICAL APPLICATION NEEDED TWICE DAILY 1 unit(s) 018489 RxNorm 1 EACH TOPICAL APPLICATION NEEDED TWICE DAILY Dexamethasone 4MG Oral Tablet 10/11/2022 11/17/19 23 ORAL NEEDED DAILY 8 MILLIGRA MS 957871 RxNorm TAKE 8 MILLIGRAMS ORAL NEEDED DAILY Elderberry 500 MG Oral Capsule 10/11/2022 Unknown ORAL DAILY 1000 MG RxNorm TAKE 1000 MG ORAL DAILY LORazepam 1MG Oral Tablet 10/11/2022 Unknown ORAL NEEDED EVERY 6 HOURS 1 MILLIGRA MS 935820 RxNorm TAKE 1 MILLIGRAMS ORAL NEEDED EVERY 6 HOURS FOR Anxiety Levothyroxine 125MCG Oral Tablet 10/11/2022 Unknown ORAL DAILY 125 MCG 312890 RxNorm TAKE 125 MCG ORAL DAILY Magnesium Gluconate 500 MG Oral Tablet 10/11/2022 Unknown ORAL TWICE A DAY 500 MG 034869 RxNorm TAKE 500 MG ORAL TWICE A DAY Maxalt 10MG Oral Tablet 10/11/2022 Unknown ORAL NEEDED DAILY 10 MILLIGRA MS 951483 RxNorm TAKE 10 MILLIGRAMS ORAL NEEDED DAILY OLANZapine 10MG Oral Tablet 10/11/2022 Unknown ORAL NEEDED DAILY 10 MILLIGRA MS 335780 RxNorm TAKE 10 MILLIGRAMS ORAL NEEDED DAILY Potassium Chloride 20MEQ Oral Tablet, Extended Release 10/11/2022 Unknown ORAL TWICE A DAY 20 MEQ 9943636 RxNorm TAKE 20 MEQ ORAL TWICE A DAY Prochlorperaz ine Maleate 10MG Oral Tablet 10/11/2022 Unknown ORAL NEEDED EVERY 6 HOURS 10 MILLIGRA MS 886207 RxNorm TAKE 10 MILLIGRAMS ORAL NEEDED EVERY 6 HOURS Protonix 40 MG Oral Tablet, Delayed Release 10/11/2022 Unknown ORAL DAILY 40 MG 377286 RxNorm TAKE 40 MG ORAL DAILY Sertraline 100MG Oral Tablet 10/11/2022 Unknown ORAL DAILY 150 MILLIGRA MS 767643 RxNorm TAKE 150 MILLIGRAMS ORAL DAILY Vitamin D 1000IU Oral Tablet 10/11/2022 10/31/20 22 ORAL DAILY 1999 INTERNAT IONAL UNITS 19930412 RxNorm TAKE 2000 INTERNATIONA L UNITS ORAL DAILY Zofran 4MG Oral Tablet 10/11/2022 Unknown ORAL NEEDED EVERY 8 HOURS 4 MILLIGRA MS 873461 RxNorm TAKE 4 MILLIGRAMS ORAL NEEDED EVERY 8 HOURS traZODone hydrochloride 50MG Oral Tablet 10/11/2022 Unknown ORAL NEEDED AT BEDTIME 50 MILLIGRA MS 793117 RxNorm TAKE 50 MILLIGRAMS ORAL NEEDED AT BEDTIME Ajovy 225MG/1.5ML Subcutaneous Solution 11/02/2022 11/17/19 23 SUBCUTANEOUS MONTHLY 1 unit(s) 3041027 RxNorm INJECT 1 EACH SUBCUTANEOUS MONTHLY Estring 0.0075MG/24HR Vaginal Insert, Extended Release 11/02/2022 Unknown VAGINAL 1 unit(s) 916447 RxNorm 1 EACH VAGINAL oxyCODONE HCl 5MG Oral Tablet 11/02/2022 Unknown ORAL NEEDED 5 MILLIGRA MS 8365405 RxNorm TAKE 5 MILLIGRAMS ORAL NEEDED Albuterol Sulfate 1.25MG/3ML Inhalation Solution 11/13/2022 11/17/19 23 INHALATION DAILY 1 925263 RxNorm 1 INHALATION DAILY predniSONE 20MG Oral Tablet 11/13/2022 Unknown ORAL DAILY 2 TABLET 969108 RxNorm TAKE 2 TABLET ORAL DAILY Ibuprofen 600MG Oral Tablet 11/17/2022 Unknown ORAL NEEDED EVERY 6 HOURS 600 MILLIGRA MS 504677 RxNorm TAKE 600 MILLIGRAMS ORAL NEEDED EVERY 6 HOURS Albuterol Sulfate 0.5% Inhalation Solution 11/17/2022 11/17/19 23 INHALATION FOUR TIMES A DAY WITH FOOD 1 unit(s) 217937 RxNorm 1 EACH INHALATION FOUR TIMES A DAY WITH FOOD Ventolin HFA 0.09MG/1Actua tion Inhalation Suspension 11/17/2022 Unknown INHALATION NEEDED EVERY 4 HOURS 2 PUFF 705965 RxNorm 2 PUFF INHALATION NEEDED EVERY 4 HOURS Albuterol Sulfate 0.5% Inhalation Solution 11/17/2022 Unknown INHALATION FOUR TIMES A DAY 1 unit(s) 723527 RxNorm 1 EACH INHALATION FOUR TIMES A DAY Azithromycin 250MG Oral Tablet 11/17/2022 Unknown ORAL DAILY 1 TABLET 951588 RxNorm TAKE 1 TABLET ORAL DAILY Cefpodoxime Proxetil 200MG Oral Tablet 11/17/2022 Unknown ORAL TWICE A DAY 1 TABLET 948937 RxNorm TAKE 1 TABLET ORAL TWICE A [...] Status Code Code System BREAST CANCER active 980512334 SNOMED -CT REACTIVE LYMPHADENOPATHY active 29569 8006 SNOMED-CT RSV INFECTION active 52479044 SNOMED -CT ANXIETY 10/09/2022 resolved 88061215 SNOMED-CT IBS 10/09/2022 resolved 50137089 SNOMED-CT GERD 10/09/2022 resolved 217932398 SNOMED-CT NEUTROPENIC FEVER 11/15/2022 resolved 755104909 S NOMED-CT MIGRAINE 10/09/2022 resolved 26111007 SNOMED-CT HYPOMAGNESEMIA 11/15/2022 resolved 029566069 SNOM ED-CT HYPOTHYROIDISM 10/09/2022 resolved 20986751 SNOM ED-CT Allergies and Adverse Reactions Allergy Substance Reaction Severity Start Date Concern Status Co de Code System SULFA (sulfonamide) Active 73194767 SNO MED-CT DEMEROL Active 602959 RxNorm Plan of Treatment Exposure 10/08/2020 MM [...] Code Code Sys tem Encounter for preprocedural cardiovascular examination 04/12/2022 SNOMED-CT Personal Care Team Section Performer Name Performer Role Active Date Inactive Da te
--- OUTSIDE RECORDS SUMMARY | 2024-06-30 16:26 | XMS_ITS ---
Author Organization Unknown Address [address] [place] [address] [phone] Phone Care Team Providers Care Roofing Layer Name Role Phone MILADY DEONNA Starks Attending Unavailable PATRICIALAURIE FERNIE Alexandra Primary Unavailable Functional Status Description Date Code Code System No Functional Impairments 31250889 SN OMED-CT Mental Status Description Date Code Code System No Cognitive Impairments 31278277 SNO MED-CT Results CT LOWER EXT WO CONTRAST LT* - Completed: 04/17/2022 09:20 LOINC: Radiation optimization: All CT scans at this facility use at least one of these dose optimization techniques: automated exposure control; mA and/or kV adjustment per patient size (includes targeted exams where dose is matched to clinical indication); or iterative reconstruction. CT SCAN OF THE LEFT KNEE:Recent radiographs of 04/17/22 were reviewed. There is no evidence of fracture. Moderate degenerative change is noted all 3 compartments. Degenerative subarticular cysts seen in the posterior aspect of the medial tibial plateau. There is a sclerotic density in the upper aspect of the tibial metaphysis corresponding to what is seen on the recent plain radiographs. Either representing a bone island or possible enchondroma. It is nonexpansile. Less likely metastatic but cannot completely exclude. Recommend followup MRI. MRI will be better predictor of malignancy as it will be able to determine any surrounding bone edema which would imply a more aggressive lesion. Dictated by: MARV TURNER MD Transcribed by: PAUL 04/18/22/11:02 D Sunday, April 17, 2022 10:41:40 AM [id number] Electronically Reviewed and Signed By: MARV TURNER MD 04/19/22 19:16 Copy for: 185 HEALTH INFORMATION MGMT XR KNEE 1V OR 2V LT* - Compl eted: 04/17/2022 08:14 LOINC: LEFT KNEE - 2 VIEWS:No evide nce of fracture nor prominent joint effusion. No obvious degenerative narrowing of the joint spaces. No osteophytes. Sclerotic density in the proximal metaphysis of the tibia is probably a benign bone island. Dictated by: CHIP TURNER MD Transcribed by: PAUL 04/18/22/11:00 D Sunday, April 17, 2022 8:14:06 AM [id number] Electronically Reviewed and Signed By: MARV TURNER MD 04/19/22 19:16 Copy for: 185 HEALTH INFORMATION MGMT Social History Type Status Start Date End Date Code Code Syst em Smoking History Never smoker (Never Smoked) [id number] SNOMED CT Sex Female Medications Medication Start Date End Date Route Frequency Dose Code Code System Medication Instructions Home Meds Clindagel 1% Topical application Gel/Jelly 10/11/2022 Unknown TOPICAL APPLICATION NEEDED TWICE DAILY 1 unit(s) 366072 RxNorm 1 EACH TOPICAL APPLICATION NEEDED TWICE DAILY Dexamethasone 4MG Oral Tablet 10/11/2022 11/17/19 23 ORAL NEEDED DAILY 8 MILLIGRA MS 531750 RxNorm TAKE 8 MILLIGRAMS ORAL NEEDED DAILY Elderberry 500 MG Oral Capsule 10/11/2022 Unknown ORAL DAILY 1000 MG RxNorm TAKE 1000 MG ORAL DAILY LORazepam 1MG Oral Tablet 10/11/2022 Unknown ORAL NEEDED EVERY 6 HOURS 1 MILLIGRA MS 741435 RxNorm TAKE 1 MILLIGRAMS ORAL NEEDED EVERY 6 HOURS FOR Anxiety Levothyroxine 125MCG Oral Tablet 10/11/2022 Unknown ORAL DAILY 125 MCG 627434 RxNorm TAKE 125 MCG ORAL DAILY Magnesium Gluconate 500 MG Oral Tablet 10/11/2022 Unknown ORAL TWICE A DAY 500 MG 743890 RxNorm TAKE 500 MG ORAL TWICE A DAY Maxalt 10MG Oral Tablet 10/11/2022 Unknown ORAL NEEDED DAILY 10 MILLIGRA MS 802915 RxNorm TAKE 10 MILLIGRAMS ORAL NEEDED DAILY OLANZapine 10MG Oral Tablet 10/11/2022 Unknown ORAL NEEDED DAILY 10 MILLIGRA MS 435144 RxNorm TAKE 10 MILLIGRAMS ORAL NEEDED DAILY Potassium Chloride 20MEQ Oral Tablet, Extended Release 10/11/2022 Unknown ORAL TWICE A DAY 20 MEQ 1804060 RxNorm TAKE 20 MEQ ORAL TWICE A DAY Prochlorperaz ine Maleate 10MG Oral Tablet 10/11/2022 Unknown ORAL NEEDED EVERY 6 HOURS 10 MILLIGRA MS 022462 RxNorm TAKE 10 MILLIGRAMS ORAL NEEDED EVERY 6 HOURS Protonix 40 MG Oral Tablet, Delayed Release 10/11/2022 Unknown ORAL DAILY 40 MG 325927 RxNorm TAKE 40 MG ORAL DAILY Sertraline 100MG Oral Tablet 10/11/2022 Unknown ORAL DAILY 150 MILLIGRA MS 324056 RxNorm TAKE 150 MILLIGRAMS ORAL DAILY Vitamin D 1000IU Oral Tablet 10/11/2022 10/31/20 22 ORAL DAILY 1999 INTERNAT IONAL UNITS 19930412 RxNorm TAKE 2000 INTERNATIONA L UNITS ORAL DAILY Zofran 4MG Oral Tablet 10/11/2022 Unknown ORAL NEEDED EVERY 8 HOURS 4 MILLIGRA MS 026979 RxNorm TAKE 4 MILLIGRAMS ORAL NEEDED EVERY 8 HOURS traZODone hydrochloride 50MG Oral Tablet 10/11/2022 Unknown ORAL NEEDED AT BEDTIME 50 MILLIGRA MS 621250 RxNorm TAKE 50 MILLIGRAMS ORAL NEEDED AT BEDTIME Ajovy 225MG/1.5ML Subcutaneous Solution 11/02/2022 11/17/19 23 SUBCUTANEOUS MONTHLY 1 unit(s) 9861588 RxNorm INJECT 1 EACH SUBCUTANEOUS MONTHLY Estring 0.0075MG/24HR Vaginal Insert, Extended Release 11/02/2022 Unknown VAGINAL 1 unit(s) 963876 RxNorm 1 EACH VAGINAL oxyCODONE HCl 5MG Oral Tablet 11/02/2022 Unknown ORAL NEEDED 5 MILLIGRA MS 2948962 RxNorm TAKE 5 MILLIGRAMS ORAL NEEDED Albuterol Sulfate 1.25MG/3ML Inhalation Solution 11/13/2022 11/17/19 23 INHALATION DAILY 1 396693 RxNorm 1 INHALATION DAILY predniSONE 20MG Oral Tablet 11/13/2022 Unknown ORAL DAILY 2 TABLET 513063 RxNorm TAKE 2 TABLET ORAL DAILY Ibuprofen 600MG Oral Tablet 11/17/2022 Unknown ORAL NEEDED EVERY 6 HOURS 600 MILLIGRA MS 213922 RxNorm TAKE 600 MILLIGRAMS ORAL NEEDED EVERY 6 HOURS Albuterol Sulfate 0.5% Inhalation Solution 11/17/2022 11/17/19 23 INHALATION FOUR TIMES A DAY WITH FOOD 1 unit(s) 982073 RxNorm 1 EACH INHALATION FOUR TIMES A DAY WITH FOOD Ventolin HFA 0.09MG/1Actua tion Inhalation Suspension 11/17/2022 Unknown INHALATION NEEDED EVERY 4 HOURS 2 PUFF 723375 RxNorm 2 PUFF INHALATION NEEDED EVERY 4 HOURS Albuterol Sulfate 0.5% Inhalation Solution 11/17/2022 Unknown INHALATION FOUR TIMES A DAY 1 unit(s) 107309 RxNorm 1 EACH INHALATION FOUR TIMES A DAY Azithromycin 250MG Oral Tablet 11/17/2022 Unknown ORAL DAILY 1 TABLET 194424 RxNorm TAKE 1 TABLET ORAL DAILY Cefpodoxime Proxetil 200MG Oral Tablet 11/17/2022 Unknown ORAL TWICE A DAY 1 TABLET 644502 RxNorm TAKE 1 TABLET ORAL TWICE A [...] Status Code Code System BREAST CANCER active 520346980 SNOMED -CT REACTIVE LYMPHADENOPATHY active 92129 8006 SNOMED-CT RSV INFECTION active 27897511 SNOMED -CT ANXIETY 10/09/2022 resolved 28062943 SNOMED-CT IBS 10/09/2022 resolved 93670887 SNOMED-CT GERD 10/09/2022 resolved 874445697 SNOMED-CT NEUTROPENIC FEVER 11/15/2022 resolved 672163002 S NOMED-CT MIGRAINE 10/09/2022 resolved 90536992 SNOMED-CT HYPOMAGNESEMIA 11/15/2022 resolved 460299852 SNOM ED-CT HYPOTHYROIDISM 10/09/2022 resolved 19533208 SNOM ED-CT Allergies and Adverse Reactions Allergy Substance Reaction Severity Start Date Concern Status Co de Code System SULFA (sulfonamide) Active 71250255 SNO MED-CT DEMEROL Active 037070 RxNorm Plan of Treatment Exposure 10/08/2020 MM [...] Diagnosis Start Date Code Code Sys tem Abnormal results of function studies of other organs and systems 04/17/2022 SNOMED-CT Personal Care Team Section Performer Name Performer Role Active Date Inactive Da te
--- OUTSIDE RECORDS SUMMARY | 2024-06-30 16:26 | XMS_ITS ---
Author Organization Unknown Address [address] [place] [address] [phone] Phone Care Team Providers Care Painter Supervisor Name Role Phone JOSHUAFREDDIE CHERY Tiana Attending Unavailable RODRIGUEZ Alexandra Primary Unavailable Functional Status Description Date Code Code System No Functional Impairments [id number] SN OMED-CT Mental Status Description Date Code Code System No Cognitive Impairments 38662966 SNO MED-CT Results MAGNESIUM SERUM* - Collect D ate/Time: 04/25/2022 08:45 [facility] ID: [id number] [address] [place] [address], [address] LOINC: 06483-1 Test Value Unit Reference Range Code Code System Flag MAGNESIUM 2.1 mg/dL L=1.8 H=2.4 04641-6 LOINC COMPREHENSIVE METABOLIC PANE L (CMP) - Collect Date/Time: 04/25/2022 08:45 [facility] ID: [id number] [address] [place] [address], [address] LOINC: 37018-6 Test Value Unit Reference Range Code Code System Flag GLUCOSE 148 mg/dL L=70 H=116 2345-7 LOINC H BUN 19 mg/dL L=6 H=25 3094-0 LOINC CREATININE 0.94 mg/dL L=0.51 H=0.95 2160-0 LOINC SODIUM SERUM 142 mmol/L L=136 H=145 2951-2 LOINC POTASSIUM SERUM 3.7 mmol/L L=3.4 H=5.2 2823-3 LOINC CHLORIDE SERUM 106 mmol/L L=96 H=110 2075-0 LOINC CARBON DIOXIDE (CO2) 25 mmol/L L=22 H=34 8-9 LOINC ANION GAP 10.8 mmol/L 91853-5 LOINC CALCIUM SERUM 9.1 mg/dL L=8.2 H=10.2 56927-3 LOINC BILIRUBIN TOTAL 0.4 mg/dL L=0.0 H=1.3 1975-2 LOINC ALK. PHOS. 90 U/L L=46 H=116 6768-6 LOINC SGOT (AST) 15 U/L L=15 H=37 1920-8 LOINC SGPT (ALT) 26 U/L L=12 H=78 1742-6 LOINC TOTAL PROTEIN 6.9 gm/dL L=6.0 H=8.0 2885-2 LOINC ALBUMIN 4.0 gm/dL L=3.4 H=5.0 1751-7 LOINC AGE 56 years eGFR (non-Afr.Amer.) 62 mL/min 41887-4 LOINC eGFR (Afr-Croatian) 75 mL/min 02018-2 LOINC CBC W/ DIFFERENTIAL* - Colle ct Date/Time: 04/25/2022 08:45 [facility] ID: [id number] [address] [place], [place], [address] LOINC: 42729-7 Test Value Unit Reference Range Code Code System Flag WBC 15.29 th/cmm L=5.00 H=10.00 6690-2 LOINC H NEUT % 88.1 % L=40.0 H=80.0 H LYMPH % 7.6 % L=10.0 H=50.0 L MONO % 3.9 % L=2.0 H=12.0 18241-0 LOINC EOS % 0.0 % L=0.0 H=8.0 BASO % 0.1 % L=0.0 H=3.0 IG % 0.3 % L=0.0 H=1.1 2514-8 LOINC NRBC % 0.0 % L=0.0 H=0.0 01157-8 LOINC NEUT abs count 13.5 th/cmm L=1.6 H=8.4 751-8 LOINC H LYMPH abs count 1.2 th/cmm L=1.5 H=4.0 731-0 LOINC L MONO abs count 0.6 th/cmm L=0.2 H=1.0 742-7 LOINC EOS abs count 0.0 th/cmm L=0.0 H=0.5 711-2 LOINC BASO abs count 0.0 th/cmm L=0.0 H=0.2 704-7 LOINC IG abs count 0.0 th/cmm L=0.0 H=0.1 17953-2 LOINC NRBC abs count 0.0 mil/cmm L=0.0 H=0.0 20805-8 LOINC RBC 4.76 mil/cmm L=3.90 H=5.40 789-8 LOINC HEMOGLOBIN 14.1 gm/dL L=12.0 H=16.0 718-7 LOINC HEMATOCRIT 42 % L=37 H=47 4544-3 LOINC MCV 88 fL L=82 H=92 787-2 LOINC MCH 29.6 pg L=27.0 H=31.0 785-6 LOINC MCHC 33.7 % L=32.0 H=36.0 786-4 LOINC RDW-SD 44.0 fL L=39.0 H=49.0 788-0 LOINC PLATELET COUNT 282 th/cmm L=150 H=450 777-3 LOINC Social History Type Status Start Date End Date Code Code Syst em Smoking History Never smoker (Never Smoked) 406464036 SNOMED CT Sex Female Medications Medication Start Date End Date Route Frequency Dose Code Code System Medication Instructions Home Meds Clindagel 1% Topical application Gel/Jelly 10/11/2022 Unknown TOPICAL APPLICATION NEEDED TWICE DAILY 1 unit(s) 675968 RxNorm 1 EACH TOPICAL APPLICATION NEEDED TWICE [...] Tablet 10/11/2022 Unknown ORAL DAILY 125 MCG 870681 RxNorm TAKE 125 MCG ORAL DAILY Magnesium Gluconate 500 MG Oral Tablet 10/11/2022 Unknown ORAL TWICE A DAY 500 MG 507501 RxNorm TAKE 500 MG ORAL TWICE A DAY Maxalt 10MG Oral Tablet 10/11/2022 Unknown ORAL NEEDED DAILY 10 MILLIGRA MS 703012 RxNorm TAKE 10 MILLIGRAMS ORAL NEEDED DAILY OLANZapine 10MG Oral Tablet 10/11/2022 Unknown ORAL NEEDED DAILY 10 MILLIGRA MS 683265 RxNorm TAKE 10 MILLIGRAMS ORAL NEEDED DAILY Potassium Chloride 20MEQ Oral Tablet, Extended Release 10/11/2022 Unknown ORAL TWICE A DAY 20 MEQ 9584006 RxNorm TAKE 20 MEQ ORAL TWICE A DAY Prochlorperaz ine Maleate 10MG Oral Tablet 10/11/2022 Unknown ORAL NEEDED EVERY 6 HOURS 10 MILLIGRA MS 494074 RxNorm TAKE 10 MILLIGRAMS ORAL NEEDED EVERY 6 HOURS Protonix 40 MG Oral Tablet, Delayed Release 10/11/2022 Unknown ORAL DAILY 40 MG 180215 RxNorm TAKE 40 MG ORAL DAILY Sertraline 100MG Oral Tablet 10/11/2022 Unknown ORAL DAILY 150 MILLIGRA MS 032255 RxNorm TAKE 150 MILLIGRAMS ORAL DAILY Vitamin D 1000IU Oral Tablet 10/11/2022 10/31/20 22 ORAL DAILY 2000 INTERNAT IONAL UNITS 620753 RxNorm TAKE 2000 INTERNATIONA L UNITS ORAL DAILY Zofran 4MG Oral Tablet 10/11/2022 Unknown ORAL NEEDED EVERY 8 HOURS 4 MILLIGRA MS 598627 RxNorm TAKE 4 MILLIGRAMS ORAL NEEDED EVERY 8 HOURS traZODone hydrochloride 50MG Oral Tablet 10/11/2022 Unknown ORAL NEEDED AT BEDTIME 50 MILLIGRA MS 878768 RxNorm TAKE 50 MILLIGRAMS ORAL NEEDED AT BEDTIME Ajovy 225MG/1.5ML Subcutaneous Solution 11/02/2022 11/17/19 23 SUBCUTANEOUS MONTHLY 1 unit(s) 5055221 RxNorm INJECT 1 EACH SUBCUTANEOUS MONTHLY Estring 0.0075MG/24HR Vaginal Insert, Extended Release 11/02/2022 Unknown VAGINAL 1 unit(s) 097531 RxNorm 1 EACH VAGINAL oxyCODONE HCl 5MG Oral Tablet 11/02/2022 Unknown ORAL NEEDED 5 MILLIGRA MS 1546834 RxNorm TAKE 5 MILLIGRAMS ORAL NEEDED Albuterol Sulfate 1.25MG/3ML Inhalation Solution 11/13/2022 11/17/19 23 INHALATION DAILY 1 048577 RxNorm 1 INHALATION DAILY predniSONE 20MG Oral Tablet 11/13/2022 Unknown ORAL DAILY 2 TABLET 498518 RxNorm TAKE 2 TABLET ORAL DAILY Ibuprofen 600MG Oral Tablet 11/17/2022 Unknown ORAL NEEDED EVERY 6 HOURS 600 MILLIGRA MS 767275 RxNorm TAKE 600 MILLIGRAMS ORAL NEEDED EVERY 6 HOURS Albuterol Sulfate 0.5% Inhalation Solution 11/17/2022 11/17/19 23 INHALATION FOUR TIMES A DAY WITH FOOD 1 unit(s) 628790 RxNorm 1 EACH INHALATION FOUR TIMES A DAY WITH FOOD Ventolin HFA 0.09MG/1Actua tion Inhalation Suspension 11/17/2022 Unknown INHALATION NEEDED EVERY 4 HOURS 2 PUFF 815577 RxNorm 2 PUFF INHALATION NEEDED EVERY 4 HOURS Albuterol Sulfate 0.5% Inhalation Solution 11/17/2022 Unknown INHALATION FOUR TIMES A DAY 1 unit(s) 712729 RxNorm 1 EACH INHALATION FOUR TIMES A DAY Azithromycin 250MG Oral Tablet 11/17/2022 Unknown ORAL DAILY 1 TABLET 920400 RxNorm TAKE 1 TABLET ORAL DAILY Cefpodoxime Proxetil 200MG Oral Tablet 11/17/2022 Unknown ORAL TWICE A DAY 1 TABLET 092556 RxNorm TAKE 1 TABLET ORAL TWICE A [...] Status Code Code System BREAST CANCER active 510292120 SNOMED -CT REACTIVE LYMPHADENOPATHY active 15250 8006 SNOMED-CT RSV INFECTION active 36749772 SNOMED -CT ANXIETY 10/09/2022 resolved 72450860 SNOMED-CT IBS 10/09/2022 resolved 54116899 SNOMED-CT GERD 10/09/2022 resolved 885894470 SNOMED-CT NEUTROPENIC FEVER 11/15/2022 resolved 964348551 S NOMED-CT MIGRAINE 10/09/2022 resolved 95161265 SNOMED-CT HYPOMAGNESEMIA 11/15/2022 resolved 079081078 SNOM ED-CT HYPOTHYROIDISM 10/09/2022 resolved 78774085 SNOM ED-CT Allergies and Adverse Reactions Allergy Substance Reaction Severity Start Date Concern Status Co de Code System SULFA (sulfonamide) Active 41596553 SNO MED-CT DEMEROL Active 708247 RxNorm Plan of Treatment Exposure 10/08/2020 MM [...] Date Code Code Sys tem Encounter for antineoplastic chemotherapy 04/25/2022 SNOMED-CT Personal Care Team Section Performer Name Performer Role Active Date Inactive Da te
--- OUTSIDE RECORDS SUMMARY | 2024-06-30 16:27 | XMS_ITS ---
Author Organization Unknown Address [address] [place] [address] [phone] Phone Care Team Providers Care Track Moving Machine Operator Name Role Phone BELKIS CHERY Tiana Attending Unavailable RODRIGUEZ Alexandra Primary Unavailable Functional Status Description Date Code Code System No Functional Impairments 46944356 SN OMED-CT Mental Status Description Date Code Code System No Cognitive Impairments 26231047 SNO MED-CT Results MAGNESIUM SERUM* - Collect D ate/Time: 05/02/2022 15:10 [facility] ID: [id number] [address] [place] [address], [address] LOINC: 09975-1 Test Value Unit Reference Range Code Code System Flag MAGNESIUM 2.0 mg/dL L=1.8 H=2.4 47386-3 LOINC COMPREHENSIVE METABOLIC PANE L (CMP) - Collect Date/Time: 05/02/2022 15:10 [facility] ID: [id number] [address] [place] [address], [address] LOINC: 68220-8 Test Value Unit Reference Range Code Code System Flag GLUCOSE 134 mg/dL L=70 H=116 2345-7 LOINC H BUN 32 mg/dL L=6 H=25 3094-0 LOINC H CREATININE 1.26 mg/dL L=0.51 H=0.95 2160-0 LOINC H SODIUM SERUM 133 mmol/L L=136 H=145 2951-2 LOINC L POTASSIUM SERUM 4.2 mmol/L L=3.4 H=5.2 2823-3 LOINC CHLORIDE SERUM 97 mmol/L L=96 H=110 2075-0 LOINC CARBON DIOXIDE (CO2) 26 mmol/L L=22 H=34 8-9 LOINC ANION GAP 10.2 mmol/L 08572-3 LOINC CALCIUM SERUM 8.8 mg/dL L=8.2 H=10.2 60550-3 LOINC BILIRUBIN TOTAL 0.4 mg/dL L=0.0 H=1.3 1975-2 LOINC ALK. PHOS. 118 U/L L=46 H=116 6768-6 LOINC H SGOT (AST) 28 U/L L=15 H=37 1920-8 LOINC SGPT (ALT) 132 U/L L=12 H=78 1742-6 LOINC H TOTAL PROTEIN 7.0 gm/dL L=6.0 H=8.0 2885-2 LOINC ALBUMIN 3.5 gm/dL L=3.4 H=5.0 1751-7 LOINC AGE 56 years eGFR (non-Afr.Amer.) 44 mL/min 37123-6 LOINC eGFR (Afr-[place] Islander) 53 mL/min 79945-0 LOINC CBC W/ DIFFERENTIAL* - Colle ct Date/Time: 05/02/2022 15:10 [facility] ID: [id number] [address] [place] [address], [address] LOINC: 06873-2 Test Value Unit Reference Range Code Code System Flag WBC 12.78 th/cmm L=5.00 H=10.00 6690-2 LOINC H NEUT % 54.8 % L=40.0 H=80.0 LYMPH % 10.0 % L=10.0 H=50.0 MONO % 22.3 % L=2.0 H=12.0 74393-6 LOINC H EOS % 0.5 % L=0.0 H=8.0 BASO % 0.1 % L=0.0 H=3.0 IG % 12.3 % L=0.0 H=1.1 2514-8 LOINC H NRBC % 0.0 % L=0.0 H=0.0 94249-2 LOINC NEUT abs count 7.0 th/cmm L=1.6 H=8.4 751-8 LOINC LYMPH abs count 1.3 th/cmm L=1.5 H=4.0 731-0 LOINC L MONO abs count 2.9 th/cmm L=0.2 H=1.0 742-7 LOINC H EOS abs count 0.1 th/cmm L=0.0 H=0.5 711-2 LOINC BASO abs count 0.0 th/cmm L=0.0 H=0.2 704-7 LOINC IG abs count 1.6 th/cmm L=0.0 H=0.1 05458-8 LOINC H NRBC abs count 0.0 mil/cmm L=0.0 H=0.0 78797-9 LOINC RBC 5.45 mil/cmm L=3.90 H=5.40 789-8 LOINC H HEMOGLOBIN 16.1 gm/dL L=12.0 H=16.0 718-7 LOINC H HEMATOCRIT 47 % L=37 H=47 4544-3 LOINC MCV 86 fL L=82 H=92 787-2 LOINC MCH 29.5 pg L=27.0 H=31.0 785-6 LOINC MCHC 34.3 % L=32.0 H=36.0 786-4 LOINC RDW-SD 41.6 fL L=39.0 H=49.0 788-0 LOINC PLATELET COUNT 124 th/cmm L=150 H=450 777-3 LOINC L Giant plts present BANDS % 1 METAS % 3 MYELOS % 2 Social History Type Status Start Date End Date Code Code Syst em Smoking History Never smoker (Never Smoked) 646176679 SNOMED CT Sex Female Medications Medication Start Date End Date Route Frequency Dose Code Code System Medication Instructions Home Meds Clindagel 1% Topical application Gel/Jelly 10/11/2022 Unknown TOPICAL APPLICATION NEEDED TWICE DAILY 1 unit(s) 786085 RxNorm 1 EACH TOPICAL APPLICATION NEEDED TWICE DAILY Dexamethasone 4MG Oral Tablet 10/11/2022 11/17/19 23 ORAL NEEDED DAILY 8 MILLIGRA MS 843921 RxNorm TAKE 8 MILLIGRAMS ORAL NEEDED DAILY Elderberry 500 MG Oral Capsule 10/11/2022 Unknown ORAL DAILY 1000 MG RxNorm TAKE 1000 MG ORAL DAILY LORazepam 1MG Oral Tablet 10/11/2022 Unknown ORAL NEEDED EVERY 6 HOURS 1 MILLIGRA MS 341981 RxNorm TAKE 1 MILLIGRAMS ORAL NEEDED EVERY 6 HOURS FOR Anxiety Levothyroxine 125MCG Oral Tablet 10/11/2022 Unknown ORAL DAILY 125 MCG 129949 RxNorm TAKE 125 MCG ORAL DAILY Magnesium Gluconate 500 MG Oral Tablet 10/11/2022 Unknown ORAL TWICE A DAY 500 MG 678460 RxNorm TAKE 500 MG ORAL TWICE A DAY Maxalt 10MG Oral Tablet 10/11/2022 Unknown ORAL NEEDED DAILY 10 MILLIGRA MS 411452 RxNorm TAKE 10 MILLIGRAMS ORAL NEEDED DAILY OLANZapine 10MG Oral Tablet 10/11/2022 Unknown ORAL NEEDED DAILY 10 MILLIGRA MS 302770 RxNorm TAKE 10 MILLIGRAMS ORAL NEEDED DAILY Potassium Chloride 20MEQ Oral Tablet, Extended Release 10/11/2022 Unknown ORAL TWICE A DAY 20 MEQ 1805357 RxNorm TAKE 20 MEQ ORAL TWICE A DAY Prochlorperaz ine Maleate 10MG Oral Tablet 10/11/2022 Unknown ORAL NEEDED EVERY 6 HOURS 10 MILLIGRA MS 262015 RxNorm TAKE 10 MILLIGRAMS ORAL NEEDED EVERY 6 HOURS Protonix 40 MG Oral Tablet, Delayed Release 10/11/2022 Unknown ORAL DAILY 40 MG 280499 RxNorm TAKE 40 MG ORAL DAILY Sertraline 100MG Oral Tablet 10/11/2022 Unknown ORAL DAILY 150 MILLIGRA MS 041405 RxNorm TAKE 150 MILLIGRAMS ORAL DAILY Vitamin D 1000IU Oral Tablet 10/11/2022 10/31/20 22 ORAL DAILY 1999 INTERNAT IONAL UNITS 19930412 RxNorm TAKE 2000 INTERNATIONA L UNITS ORAL DAILY Zofran 4MG Oral Tablet 10/11/2022 Unknown ORAL NEEDED EVERY 8 HOURS 4 MILLIGRA MS 484573 RxNorm TAKE 4 MILLIGRAMS ORAL NEEDED EVERY 8 HOURS traZODone hydrochloride 50MG Oral Tablet 10/11/2022 Unknown ORAL NEEDED AT BEDTIME 50 MILLIGRA MS 469054 RxNorm TAKE 50 MILLIGRAMS ORAL NEEDED AT BEDTIME Ajovy 225MG/1.5ML Subcutaneous Solution 11/02/2022 11/17/19 23 SUBCUTANEOUS MONTHLY 1 unit(s) 4500561 RxNorm INJECT 1 EACH SUBCUTANEOUS MONTHLY Estring 0.0075MG/24HR Vaginal Insert, Extended Release 11/02/2022 Unknown VAGINAL 1 unit(s) 347671 RxNorm 1 EACH VAGINAL oxyCODONE HCl 5MG Oral Tablet 11/02/2022 Unknown ORAL NEEDED 5 MILLIGRA MS 0482844 RxNorm TAKE 5 MILLIGRAMS ORAL NEEDED Albuterol Sulfate 1.25MG/3ML Inhalation Solution 11/13/2022 11/17/19 23 INHALATION DAILY 1 407698 RxNorm 1 INHALATION DAILY predniSONE 20MG Oral Tablet 11/13/2022 Unknown ORAL DAILY 2 TABLET 120395 RxNorm TAKE 2 TABLET ORAL DAILY Ibuprofen 600MG Oral Tablet 11/17/2022 Unknown ORAL NEEDED EVERY 6 HOURS 600 MILLIGRA MS 251549 RxNorm TAKE 600 MILLIGRAMS ORAL NEEDED EVERY 6 HOURS Albuterol Sulfate 0.5% Inhalation Solution 11/17/2022 11/17/19 23 INHALATION FOUR TIMES A DAY WITH FOOD 1 unit(s) 650539 RxNorm 1 EACH INHALATION FOUR TIMES A DAY WITH FOOD Ventolin HFA 0.09MG/1Actua tion Inhalation Suspension 11/17/2022 Unknown INHALATION NEEDED EVERY 4 HOURS 2 PUFF 320967 RxNorm 2 PUFF INHALATION NEEDED EVERY 4 HOURS Albuterol Sulfate 0.5% Inhalation Solution 11/17/2022 Unknown INHALATION FOUR TIMES A DAY 1 unit(s) 861484 RxNorm 1 EACH INHALATION FOUR TIMES A DAY Azithromycin 250MG Oral Tablet 11/17/2022 Unknown ORAL DAILY 1 TABLET 880988 RxNorm TAKE 1 TABLET ORAL DAILY Cefpodoxime Proxetil 200MG Oral Tablet 11/17/2022 Unknown ORAL TWICE A DAY 1 TABLET 161052 RxNorm TAKE 1 TABLET ORAL TWICE A [...] Status Code Code System BREAST CANCER active 893557914 SNOMED -CT REACTIVE LYMPHADENOPATHY active 57837 8006 SNOMED-CT RSV INFECTION active 68141350 SNOMED -CT ANXIETY 10/09/2022 resolved 73376830 SNOMED-CT IBS 10/09/2022 resolved 85677327 SNOMED-CT GERD 10/09/2022 resolved 556997587 SNOMED-CT NEUTROPENIC FEVER 11/15/2022 resolved 062531914 S NOMED-CT MIGRAINE 10/09/2022 resolved 95303956 SNOMED-CT HYPOMAGNESEMIA 11/15/2022 resolved 971206121 SNOM ED-CT HYPOTHYROIDISM 10/09/2022 resolved 28630415 SNOM ED-CT Allergies and Adverse Reactions Allergy Substance Reaction Severity Start Date Concern Status Co de Code System SULFA (sulfonamide) Active 91753547 SNO MED-CT DEMEROL Active 813782 RxNorm Plan of Treatment Exposure 10/08/2020 MM [...] upper- outer quadrant of right female breast 05/02/2022 SNOMED-CT Personal Care Team Section Performer Name Performer Role Active Date Inactive Da te
--- OUTSIDE RECORDS SUMMARY | 2024-06-30 16:27 | XMS_ITS ---
Author Organization Unknown Address [address] [place] [address] [phone] Phone Care Team Providers Care Final Block Press Operator Name Role Phone BELKIS CHERY Tiana Attending Unavailable RODRIGUEZ Alexandra Primary Unavailable Functional Status Description Date Code Code System No Functional Impairments 34358375 SN OMED-CT Mental Status Description Date Code Code System No Cognitive Impairments 48664936 SNO MED-CT Social History Type Status Start Date End Date Code Code Syst em Smoking History Never smoker (Never Smoked) 193499758 SNOMED CT Sex Female Medications Medication Start Date End Date Route Frequency Dose Code Code System Medication Instructions Home Meds Clindagel 1% Topical application Gel/Jelly 10/11/2022 Unknown TOPICAL APPLICATION NEEDED TWICE DAILY 1 unit(s) 962207 RxNorm 1 EACH TOPICAL APPLICATION NEEDED TWICE DAILY Dexamethasone 4MG Oral Tablet 10/11/2022 11/17/19 23 ORAL NEEDED DAILY 8 MILLIGRA MS 774402 RxNorm TAKE 8 MILLIGRAMS ORAL NEEDED DAILY Elderberry 500 MG Oral Capsule 10/11/2022 Unknown ORAL DAILY 1000 MG RxNorm TAKE 1000 MG ORAL DAILY LORazepam 1MG Oral Tablet 10/11/2022 Unknown ORAL NEEDED EVERY 6 HOURS 1 MILLIGRA MS 321554 RxNorm TAKE 1 MILLIGRAMS ORAL NEEDED EVERY 6 HOURS FOR Anxiety Levothyroxine 125MCG Oral Tablet 10/11/2022 Unknown ORAL DAILY 125 MCG 660458 RxNorm TAKE 125 MCG ORAL DAILY Magnesium Gluconate 500 MG Oral Tablet 10/11/2022 Unknown ORAL TWICE A DAY 500 MG 118774 RxNorm TAKE 500 MG ORAL TWICE A DAY Maxalt 10MG Oral Tablet 10/11/2022 Unknown ORAL NEEDED DAILY 10 MILLIGRA MS 064758 RxNorm TAKE 10 MILLIGRAMS ORAL NEEDED DAILY OLANZapine 10MG Oral Tablet 10/11/2022 Unknown ORAL NEEDED DAILY 10 MILLIGRA MS 726633 RxNorm TAKE 10 MILLIGRAMS ORAL NEEDED DAILY Potassium Chloride 20MEQ Oral Tablet, Extended Release 10/11/2022 Unknown ORAL TWICE A DAY 20 MEQ 4895494 RxNorm TAKE 20 MEQ ORAL TWICE A DAY Prochlorperaz ine Maleate 10MG Oral Tablet 10/11/2022 Unknown ORAL NEEDED EVERY 6 HOURS 10 MILLIGRA MS 096620 RxNorm TAKE 10 MILLIGRAMS ORAL NEEDED EVERY 6 HOURS Protonix 40 MG Oral Tablet, Delayed Release 10/11/2022 Unknown ORAL DAILY 40 MG 105857 RxNorm TAKE 40 MG ORAL DAILY Sertraline 100MG Oral Tablet 10/11/2022 Unknown ORAL DAILY 150 MILLIGRA MS 900613 RxNorm TAKE 150 MILLIGRAMS ORAL DAILY Vitamin D 1000IU Oral Tablet 10/11/2022 10/31/20 22 ORAL DAILY 2000 INTERNAT IONAL UNITS 19930412 RxNorm TAKE 2000 INTERNATIONA L UNITS ORAL DAILY Zofran 4MG Oral Tablet 10/11/2022 Unknown ORAL NEEDED EVERY 8 HOURS 4 MILLIGRA MS 762213 RxNorm TAKE 4 MILLIGRAMS ORAL NEEDED EVERY 8 HOURS traZODone hydrochloride 50MG Oral Tablet 10/11/2022 Unknown ORAL NEEDED AT BEDTIME 50 MILLIGRA MS 107684 RxNorm TAKE 50 MILLIGRAMS ORAL NEEDED AT BEDTIME Ajovy 225MG/1.5ML Subcutaneous Solution 11/02/2022 11/17/19 23 SUBCUTANEOUS MONTHLY 1 unit(s) 9567755 RxNorm INJECT 1 EACH SUBCUTANEOUS MONTHLY Estring 0.0075MG/24HR Vaginal Insert, Extended Release 11/02/2022 Unknown VAGINAL 1 unit(s) 282789 RxNorm 1 EACH VAGINAL oxyCODONE HCl 5MG Oral Tablet 11/02/2022 Unknown ORAL NEEDED 5 MILLIGRA MS 4421138 RxNorm TAKE 5 MILLIGRAMS ORAL NEEDED Albuterol Sulfate 1.25MG/3ML Inhalation Solution 11/13/2022 11/17/19 23 INHALATION DAILY 1 278576 RxNorm 1 INHALATION DAILY predniSONE 20MG Oral Tablet 11/13/2022 Unknown ORAL DAILY 2 TABLET 726050 RxNorm TAKE 2 TABLET ORAL DAILY Ibuprofen 600MG Oral Tablet 11/17/2022 Unknown ORAL NEEDED EVERY 6 HOURS 600 MILLIGRA MS 305509 RxNorm TAKE 600 MILLIGRAMS ORAL NEEDED EVERY 6 HOURS Albuterol Sulfate 0.5% Inhalation Solution 11/17/2022 11/17/19 23 INHALATION FOUR TIMES A DAY WITH FOOD 1 unit(s) 144122 RxNorm 1 EACH INHALATION FOUR TIMES A DAY WITH FOOD Ventolin HFA 0.09MG/1Actua tion Inhalation Suspension 11/17/2022 Unknown INHALATION NEEDED EVERY 4 HOURS 2 PUFF 698686 RxNorm 2 PUFF INHALATION NEEDED EVERY 4 HOURS Albuterol Sulfate 0.5% Inhalation Solution 11/17/2022 Unknown INHALATION FOUR TIMES A DAY 1 unit(s) 214697 RxNorm 1 EACH INHALATION FOUR TIMES A DAY Azithromycin 250MG Oral Tablet 11/17/2022 Unknown ORAL DAILY 1 TABLET 698917 RxNorm TAKE 1 TABLET ORAL DAILY Cefpodoxime Proxetil 200MG Oral Tablet 11/17/2022 Unknown ORAL TWICE A DAY 1 TABLET 026853 RxNorm TAKE 1 TABLET ORAL TWICE A [...] Status Code Code System BREAST CANCER active 417837151 SNOMED -CT REACTIVE LYMPHADENOPATHY active 23933 8006 SNOMED-CT RSV INFECTION active 88276141 SNOMED -CT ANXIETY 10/09/2022 resolved 17255895 SNOMED-CT IBS 10/09/2022 resolved 01959076 SNOMED-CT GERD 10/09/2022 resolved 305384627 SNOMED-CT NEUTROPENIC FEVER 11/15/2022 resolved 335877369 S NOMED-CT MIGRAINE 10/09/2022 resolved 88844731 SNOMED-CT HYPOMAGNESEMIA 11/15/2022 resolved 561351884 SNOM ED-CT HYPOTHYROIDISM 10/09/2022 resolved 13541278 SNOM ED-CT Allergies and Adverse Reactions Allergy Substance Reaction Severity Start Date Concern Status Co de Code System SULFA (sulfonamide) Active 19018226 SNO MED-CT DEMEROL Active 071283 RxNorm Plan of Treatment Exposure 10/08/2020 MM [...] Diagnosis Start Date Code Code Sys tem Dehydration 05/04/2022 SNOMED-CT Personal Care Team Section Performer Name Performer Role Active Date Inactive Da te
--- OUTSIDE RECORDS SUMMARY | 2024-06-30 16:27 | XMS_ITS ---
Author Organization Unknown Address [address] [place] [address] [phone] Phone Care Team Providers Care Cloth Handler Name Role Phone BELKIS CHERY Tiana Attending Unavailable RODRIGUEZ Alexandra Primary Unavailable Functional Status Description Date Code Code System No Functional Impairments 32455455 SN OMED-CT Mental Status Description Date Code Code System No Cognitive Impairments 01233086 SNO MED-CT Results MAGNESIUM SERUM* - Collect D ate/Time: 05/11/2022 09:50 [facility] ID: [id number] [address] [place] [address], 5[address] LOINC: 17814-1 Test Value Unit Reference Range Code Code System Flag MAGNESIUM 1.5 mg/dL L=1.8 H=2.4 21275-5 LOINC L COMPREHENSIVE METABOLIC PANE L (CMP) - Collect Date/Time: 05/11/2022 09:50 [facility] ID: [id number] [address] [place] [address], [address] LOINC: 98882-5 Test Value Unit Reference Range Code Code System Flag GLUCOSE 104 mg/dL L=70 H=116 2345-7 LOINC BUN 9 mg/dL L=6 H=25 3094-0 LOINC CREATININE 0.80 mg/dL L=0.51 H=0.95 2160-0 LOINC SODIUM SERUM 139 mmol/L L=136 H=145 2951-2 LOINC POTASSIUM SERUM 3.0 mmol/L L=3.4 H=5.2 2823-3 LOINC L CHLORIDE SERUM 105 mmol/L L=96 H=110 2075-0 LOINC CARBON DIOXIDE (CO2) 26 mmol/L L=22 H=34 8-9 LOINC ANION GAP 7.9 mmol/L 85503-7 LOINC CALCIUM SERUM 8.7 mg/dL L=8.2 H=10.2 86397-0 LOINC BILIRUBIN TOTAL 0.4 mg/dL L=0.0 H=1.3 1975-2 LOINC ALK. PHOS. 103 U/L L=46 H=116 6768-6 LOINC SGOT (AST) 36 U/L L=15 H=37 1920-8 LOINC SGPT (ALT) 103 U/L L=12 H=78 1742-6 LOINC H TOTAL PROTEIN 6.2 gm/dL L=6.0 H=8.0 2885-2 LOINC ALBUMIN 3.1 gm/dL L=3.4 H=5.0 1751-7 LOINC L AGE 56 years eGFR (non-Afr.Amer.) 74 mL/min 89109-2 LOINC eGFR (Afr-Malagasy) 90 mL/min 25542-1 LOINC CBC W/ DIFFERENTIAL* - Colle ct Date/Time: 05/11/2022 09:50 [facility] ID: [id number] [address] [place], [place], [address] LOINC: 87072-8 Test Value Unit Reference Range Code Code System Flag WBC 6.81 th/cmm L=5.00 H=10.00 6690-2 LOINC NEUT % 60.2 % L=40.0 H=80.0 LYMPH % 29.2 % L=10.0 H=50.0 MONO % 7.5 % L=2.0 H=12.0 86178-0 LOINC EOS % 0.3 % L=0.0 H=8.0 BASO % 0.7 % L=0.0 H=3.0 IG % 2.1 % L=0.0 H=1.1 2514-8 LOINC H NRBC % 0.0 % L=0.0 H=0.0 84276-5 LOINC NEUT abs count 4.1 th/cmm L=1.6 H=8.4 751-8 LOINC LYMPH abs count 2.0 th/cmm L=1.5 H=4.0 731-0 LOINC MONO abs count 0.5 th/cmm L=0.2 H=1.0 742-7 LOINC EOS abs count 0.0 th/cmm L=0.0 H=0.5 711-2 LOINC BASO abs count 0.1 th/cmm L=0.0 H=0.2 704-7 LOINC IG abs count 0.1 th/cmm L=0.0 H=0.1 51651-7 LOINC NRBC abs count 0.0 mil/cmm L=0.0 H=0.0 91697-8 LOINC RBC 4.38 mil/cmm L=3.90 H=5.40 789-8 LOINC HEMOGLOBIN 12.8 gm/dL L=12.0 H=16.0 718-7 LOINC HEMATOCRIT 37 % L=37 H=47 4544-3 LOINC MCV 84 fL L=82 H=92 787-2 LOINC MCH 29.2 pg L=27.0 H=31.0 785-6 LOINC MCHC 34.7 % L=32.0 H=36.0 786-4 LOINC RDW-SD 42.3 fL L=39.0 H=49.0 788-0 LOINC PLATELET COUNT 178 th/cmm L=150 H=450 777-3 LOINC Social History Type Status Start Date End Date Code Code Syst em Smoking History Never smoker (Never Smoked) 311840189 SNOMED CT Sex Female Medications Medication Start Date End Date Route Frequency Dose Code Code System Medication Instructions Home Meds Clindagel 1% Topical application Gel/Jelly 10/11/2022 Unknown TOPICAL APPLICATION NEEDED TWICE DAILY 1 unit(s) 815733 RxNorm 1 EACH TOPICAL APPLICATION NEEDED TWICE [...] Tablet 10/11/2022 Unknown ORAL DAILY 125 MCG 314572 RxNorm TAKE 125 MCG ORAL DAILY Magnesium Gluconate 500 MG Oral Tablet 10/11/2022 Unknown ORAL TWICE A DAY 500 MG 062548 RxNorm TAKE 500 MG ORAL TWICE A DAY Maxalt 10MG Oral Tablet 10/11/2022 Unknown ORAL NEEDED DAILY 10 MILLIGRA MS 395138 RxNorm TAKE 10 MILLIGRAMS ORAL NEEDED DAILY OLANZapine 10MG Oral Tablet 10/11/2022 Unknown ORAL NEEDED DAILY 10 MILLIGRA MS 102381 RxNorm TAKE 10 MILLIGRAMS ORAL NEEDED DAILY Potassium Chloride 20MEQ Oral Tablet, Extended Release 10/11/2022 Unknown ORAL TWICE A DAY 20 MEQ 1536747 RxNorm TAKE 20 MEQ ORAL TWICE A DAY Prochlorperaz ine Maleate 10MG Oral Tablet 10/11/2022 Unknown ORAL NEEDED EVERY 6 HOURS 10 MILLIGRA MS 042118 RxNorm TAKE 10 MILLIGRAMS ORAL NEEDED EVERY 6 HOURS Protonix 40 MG Oral Tablet, Delayed Release 10/11/2022 Unknown ORAL DAILY 40 MG 751294 RxNorm TAKE 40 MG ORAL DAILY Sertraline 100MG Oral Tablet 10/11/2022 Unknown ORAL DAILY 150 MILLIGRA MS 963655 RxNorm TAKE 150 MILLIGRAMS ORAL DAILY Vitamin D 1000IU Oral Tablet 10/11/2022 10/31/20 22 ORAL DAILY 2000 INTERNAT IONAL UNITS 174193 RxNorm TAKE 2000 INTERNATIONA L UNITS ORAL DAILY Zofran 4MG Oral Tablet 10/11/2022 Unknown ORAL NEEDED EVERY 8 HOURS 4 MILLIGRA MS 037026 RxNorm TAKE 4 MILLIGRAMS ORAL NEEDED EVERY 8 HOURS traZODone hydrochloride 50MG Oral Tablet 10/11/2022 Unknown ORAL NEEDED AT BEDTIME 50 MILLIGRA MS 224792 RxNorm TAKE 50 MILLIGRAMS ORAL NEEDED AT BEDTIME Ajovy 225MG/1.5ML Subcutaneous Solution 11/02/2022 11/17/19 23 SUBCUTANEOUS MONTHLY 1 unit(s) 7349408 RxNorm INJECT 1 EACH SUBCUTANEOUS MONTHLY Estring 0.0075MG/24HR Vaginal Insert, Extended Release 11/02/2022 Unknown VAGINAL 1 unit(s) 200172 RxNorm 1 EACH VAGINAL oxyCODONE HCl 5MG Oral Tablet 11/02/2022 Unknown ORAL NEEDED 5 MILLIGRA MS 8456098 RxNorm TAKE 5 MILLIGRAMS ORAL NEEDED Albuterol Sulfate 1.25MG/3ML Inhalation Solution 11/13/2022 11/17/19 23 INHALATION DAILY 1 194899 RxNorm 1 INHALATION DAILY predniSONE 20MG Oral Tablet 11/13/2022 Unknown ORAL DAILY 2 TABLET 488794 RxNorm TAKE 2 TABLET ORAL DAILY Ibuprofen 600MG Oral Tablet 11/17/2022 Unknown ORAL NEEDED EVERY 6 HOURS 600 MILLIGRA MS 256016 RxNorm TAKE 600 MILLIGRAMS ORAL NEEDED EVERY 6 HOURS Albuterol Sulfate 0.5% Inhalation Solution 11/17/2022 11/17/19 23 INHALATION FOUR TIMES A DAY WITH FOOD 1 unit(s) 658635 RxNorm 1 EACH INHALATION FOUR TIMES A DAY WITH FOOD Ventolin HFA 0.09MG/1Actua tion Inhalation Suspension 11/17/2022 Unknown INHALATION NEEDED EVERY 4 HOURS 2 PUFF 827089 RxNorm 2 PUFF INHALATION NEEDED EVERY 4 HOURS Albuterol Sulfate 0.5% Inhalation Solution 11/17/2022 Unknown INHALATION FOUR TIMES A DAY 1 unit(s) 642111 RxNorm 1 EACH INHALATION FOUR TIMES A DAY Azithromycin 250MG Oral Tablet 11/17/2022 Unknown ORAL DAILY 1 TABLET 805609 RxNorm TAKE 1 TABLET ORAL DAILY Cefpodoxime Proxetil 200MG Oral Tablet 11/17/2022 Unknown ORAL TWICE A DAY 1 TABLET 305754 RxNorm TAKE 1 TABLET ORAL TWICE A [...] Status Code Code System BREAST CANCER active 930407075 SNOMED -CT REACTIVE LYMPHADENOPATHY active 43164 8006 SNOMED-CT RSV INFECTION active 11493306 SNOMED -CT ANXIETY 10/09/2022 resolved 55545862 SNOMED-CT IBS 10/09/2022 resolved 53995012 SNOMED-CT GERD 10/09/2022 resolved 438585441 SNOMED-CT NEUTROPENIC FEVER 11/15/2022 resolved 356261523 S NOMED-CT MIGRAINE 10/09/2022 resolved 69497874 SNOMED-CT HYPOMAGNESEMIA 11/15/2022 resolved 761858006 SNOM ED-CT HYPOTHYROIDISM 10/09/2022 resolved 61250315 SNOM ED-CT Allergies and Adverse Reactions Allergy Substance Reaction Severity Start Date Concern Status Co de Code System SULFA (sulfonamide) Active 75124381 SNO MED-CT DEMEROL Active 025206 RxNorm Plan of Treatment Exposure 10/08/2020 MM [...] Start Date Code Code Sys tem Dehydration 05/11/2022 SNOMED-CT Personal Care Team Section Performer Name Performer Role Active Date Inactive Babar pedraza
--- OUTSIDE RECORDS SUMMARY | 2024-06-30 16:27 | XMS_ITS ---
Author Organization Unknown Address [address] [place] [address] [phone] Phone Care Team Providers Care Curtain Cutter Name Role Phone PASQUALE RICHARDSON Attending Unavailable RODRIGUEZ Alexandra Primary Unavailable Functional Status Description Date Code Code System No Functional Impairments 88346924 SN OMED-CT Mental Status Description Date Code Code System No Cognitive Impairments 14273406 SNO MED-CT Social History Type Status Start Date End Date Code Code Syst em Smoking History Never smoker (Never Smoked) 182848331 SNOMED CT Sex Female Medications Medication Start Date End Date Route Frequency Dose Code Code System Medication Instructions Home Meds Clindagel 1% Topical application Gel/Jelly 10/11/2022 Unknown TOPICAL APPLICATION NEEDED TWICE DAILY 1 unit(s) 497003 RxNorm 1 EACH TOPICAL APPLICATION NEEDED TWICE DAILY Dexamethasone 4MG Oral Tablet 10/11/2022 11/17/19 23 ORAL NEEDED DAILY 8 MILLIGRA MS 087007 RxNorm TAKE 8 MILLIGRAMS ORAL NEEDED DAILY Elderberry 500 MG Oral Capsule 10/11/2022 Unknown ORAL DAILY 1000 MG RxNorm TAKE 1000 MG ORAL DAILY LORazepam 1MG Oral Tablet 10/11/2022 Unknown ORAL NEEDED EVERY 6 HOURS 1 MILLIGRA MS 015383 RxNorm TAKE 1 MILLIGRAMS ORAL NEEDED EVERY 6 HOURS FOR Anxiety Levothyroxine 125MCG Oral Tablet 10/11/2022 Unknown ORAL DAILY 125 MCG 841716 RxNorm TAKE 125 MCG ORAL DAILY Magnesium Gluconate 500 MG Oral Tablet 10/11/2022 Unknown ORAL TWICE A DAY 500 MG 706664 RxNorm TAKE 500 MG ORAL TWICE A DAY Maxalt 10MG Oral Tablet 10/11/2022 Unknown ORAL NEEDED DAILY 10 MILLIGRA MS 035974 RxNorm TAKE 10 MILLIGRAMS ORAL NEEDED DAILY OLANZapine 10MG Oral Tablet 10/11/2022 Unknown ORAL NEEDED DAILY 10 MILLIGRA MS 650343 RxNorm TAKE 10 MILLIGRAMS ORAL NEEDED DAILY Potassium Chloride 20MEQ Oral Tablet, Extended Release 10/11/2022 Unknown ORAL TWICE A DAY 20 MEQ 0383739 RxNorm TAKE 20 MEQ ORAL TWICE A DAY Prochlorperaz ine Maleate 10MG Oral Tablet 10/11/2022 Unknown ORAL NEEDED EVERY 6 HOURS 10 MILLIGRA MS 576562 RxNorm TAKE 10 MILLIGRAMS ORAL NEEDED EVERY 6 HOURS Protonix 40 MG Oral Tablet, Delayed Release 10/11/2022 Unknown ORAL DAILY 40 MG 103089 RxNorm TAKE 40 MG ORAL DAILY Sertraline 100MG Oral Tablet 10/11/2022 Unknown ORAL DAILY 150 MILLIGRA MS 207813 RxNorm TAKE 150 MILLIGRAMS ORAL DAILY Vitamin D 1000IU Oral Tablet 10/11/2022 10/31/20 22 ORAL DAILY 2000 INTERNAT IONAL UNITS 19930412 RxNorm TAKE 2000 INTERNATIONA L UNITS ORAL DAILY Zofran 4MG Oral Tablet 10/11/2022 Unknown ORAL NEEDED EVERY 8 HOURS 4 MILLIGRA MS 102476 RxNorm TAKE 4 MILLIGRAMS ORAL NEEDED EVERY 8 HOURS traZODone hydrochloride 50MG Oral Tablet 10/11/2022 Unknown ORAL NEEDED AT BEDTIME 50 MILLIGRA MS 202878 RxNorm TAKE 50 MILLIGRAMS ORAL NEEDED AT BEDTIME Ajovy 225MG/1.5ML Subcutaneous Solution 11/02/2022 11/17/19 23 SUBCUTANEOUS MONTHLY 1 unit(s) 8590518 RxNorm INJECT 1 EACH SUBCUTANEOUS MONTHLY Estring 0.0075MG/24HR Vaginal Insert, Extended Release 11/02/2022 Unknown VAGINAL 1 unit(s) 144983 RxNorm 1 EACH VAGINAL oxyCODONE HCl 5MG Oral Tablet 11/02/2022 Unknown ORAL NEEDED 5 MILLIGRA MS 4501984 RxNorm TAKE 5 MILLIGRAMS ORAL NEEDED Albuterol Sulfate 1.25MG/3ML Inhalation Solution 11/13/2022 11/17/19 23 INHALATION DAILY 1 308845 RxNorm 1 INHALATION DAILY predniSONE 20MG Oral Tablet 11/13/2022 Unknown ORAL DAILY 2 TABLET 043716 RxNorm TAKE 2 TABLET ORAL DAILY Ibuprofen 600MG Oral Tablet 11/17/2022 Unknown ORAL NEEDED EVERY 6 HOURS 600 MILLIGRA MS 311589 RxNorm TAKE 600 MILLIGRAMS ORAL NEEDED EVERY 6 HOURS Albuterol Sulfate 0.5% Inhalation Solution 11/17/2022 11/17/19 23 INHALATION FOUR TIMES A DAY WITH FOOD 1 unit(s) 995324 RxNorm 1 EACH INHALATION FOUR TIMES A DAY WITH FOOD Ventolin HFA 0.09MG/1Actua tion Inhalation Suspension 11/17/2022 Unknown INHALATION NEEDED EVERY 4 HOURS 2 PUFF 560098 RxNorm 2 PUFF INHALATION NEEDED EVERY 4 HOURS Albuterol Sulfate 0.5% Inhalation Solution 11/17/2022 Unknown INHALATION FOUR TIMES A DAY 1 unit(s) 444937 RxNorm 1 EACH INHALATION FOUR TIMES A DAY Azithromycin 250MG Oral Tablet 11/17/2022 Unknown ORAL DAILY 1 TABLET 238190 RxNorm TAKE 1 TABLET ORAL DAILY Cefpodoxime Proxetil 200MG Oral Tablet 11/17/2022 Unknown ORAL TWICE A DAY 1 TABLET 526802 RxNorm TAKE 1 TABLET ORAL TWICE A [...] Status Code Code System BREAST CANCER active 359713883 SNOMED -CT REACTIVE LYMPHADENOPATHY active 33841 8006 SNOMED-CT RSV INFECTION active 87085853 SNOMED -CT ANXIETY 10/09/2022 resolved 53977341 SNOMED-CT IBS 10/09/2022 resolved 54891667 SNOMED-CT GERD 10/09/2022 resolved 286378112 SNOMED-CT NEUTROPENIC FEVER 11/15/2022 resolved 158736160 S NOMED-CT MIGRAINE 10/09/2022 resolved 35345846 SNOMED-CT HYPOMAGNESEMIA 11/15/2022 resolved 624513752 SNOM ED-CT HYPOTHYROIDISM 10/09/2022 resolved 19297558 SNOM ED-CT Allergies and Adverse Reactions Allergy Substance Reaction Severity Start Date Concern Status Co de Code System SULFA (sulfonamide) Active 58162878 SNO MED-CT DEMEROL Active 292850 RxNorm Plan of Treatment Exposure 10/08/2020 MM [...]
--- OUTSIDE RECORDS SUMMARY | 2024-06-30 16:28 | XMS_ITS ---
Author Organization Unknown Address [address] [place] [address] [phone] Phone Care Team Providers Care Cognos Bi Developer Name Role Phone PASQUALE RICHARDSON Attending Unavailable RODRIGUEZ Alexandra Primary Unavailable Functional Status Description Date Code Code System No Functional Impairments 85496839 SN OMED-CT Mental Status Description Date Code Code System No Cognitive Impairments 56409709 SNO MED-CT Social History Type Status Start Date End Date Code Code Syst em Smoking History Never smoker (Never Smoked) 178927291 SNOMED CT Sex Female Medications Medication Start Date End Date Route Frequency Dose Code Code System Medication Instructions Home Meds Clindagel 1% Topical application Gel/Jelly 10/11/2022 Unknown TOPICAL APPLICATION NEEDED TWICE DAILY 1 unit(s) 220776 RxNorm 1 EACH TOPICAL APPLICATION NEEDED TWICE DAILY Dexamethasone 4MG Oral Tablet 10/11/2022 11/17/19 23 ORAL NEEDED DAILY 8 MILLIGRA MS 160438 RxNorm TAKE 8 MILLIGRAMS ORAL NEEDED DAILY Elderberry 500 MG Oral Capsule 10/11/2022 Unknown ORAL DAILY 1000 MG RxNorm TAKE 1000 MG ORAL DAILY LORazepam 1MG Oral Tablet 10/11/2022 Unknown ORAL NEEDED EVERY 6 HOURS 1 MILLIGRA MS 000091 RxNorm TAKE 1 MILLIGRAMS ORAL NEEDED EVERY 6 HOURS FOR Anxiety Levothyroxine 125MCG Oral Tablet 10/11/2022 Unknown ORAL DAILY 125 MCG 271664 RxNorm TAKE 125 MCG ORAL DAILY Magnesium Gluconate 500 MG Oral Tablet 10/11/2022 Unknown ORAL TWICE A DAY 500 MG 633219 RxNorm TAKE 500 MG ORAL TWICE A DAY Maxalt 10MG Oral Tablet 10/11/2022 Unknown ORAL NEEDED DAILY 10 MILLIGRA MS 190916 RxNorm TAKE 10 MILLIGRAMS ORAL NEEDED DAILY OLANZapine 10MG Oral Tablet 10/11/2022 Unknown ORAL NEEDED DAILY 10 MILLIGRA MS 226910 RxNorm TAKE 10 MILLIGRAMS ORAL NEEDED DAILY Potassium Chloride 20MEQ Oral Tablet, Extended Release 10/11/2022 Unknown ORAL TWICE A DAY 20 MEQ 6068588 RxNorm TAKE 20 MEQ ORAL TWICE A DAY Prochlorperaz ine Maleate 10MG Oral Tablet 10/11/2022 Unknown ORAL NEEDED EVERY 6 HOURS 10 MILLIGRA MS 122244 RxNorm TAKE 10 MILLIGRAMS ORAL NEEDED EVERY 6 HOURS Protonix 40 MG Oral Tablet, Delayed Release 10/11/2022 Unknown ORAL DAILY 40 MG 260085 RxNorm TAKE 40 MG ORAL DAILY Sertraline 100MG Oral Tablet 10/11/2022 Unknown ORAL DAILY 150 MILLIGRA MS 132060 RxNorm TAKE 150 MILLIGRAMS ORAL DAILY Vitamin D 1000IU Oral Tablet 10/11/2022 10/31/20 22 ORAL DAILY 2000 INTERNAT IONAL UNITS 19930412 RxNorm TAKE 2000 INTERNATIONA L UNITS ORAL DAILY Zofran 4MG Oral Tablet 10/11/2022 Unknown ORAL NEEDED EVERY 8 HOURS 4 MILLIGRA MS 093587 RxNorm TAKE 4 MILLIGRAMS ORAL NEEDED EVERY 8 HOURS traZODone hydrochloride 50MG Oral Tablet 10/11/2022 Unknown ORAL NEEDED AT BEDTIME 50 MILLIGRA MS 766900 RxNorm TAKE 50 MILLIGRAMS ORAL NEEDED AT BEDTIME Ajovy 225MG/1.5ML Subcutaneous Solution 11/02/2022 11/17/19 23 SUBCUTANEOUS MONTHLY 1 unit(s) 9406658 RxNorm INJECT 1 EACH SUBCUTANEOUS MONTHLY Estring 0.0075MG/24HR Vaginal Insert, Extended Release 11/02/2022 Unknown VAGINAL 1 unit(s) 959432 RxNorm 1 EACH VAGINAL oxyCODONE HCl 5MG Oral Tablet 11/02/2022 Unknown ORAL NEEDED 5 MILLIGRA MS 9357946 RxNorm TAKE 5 MILLIGRAMS ORAL NEEDED Albuterol Sulfate 1.25MG/3ML Inhalation Solution 11/13/2022 11/17/19 23 INHALATION DAILY 1 656309 RxNorm 1 INHALATION DAILY predniSONE 20MG Oral Tablet 11/13/2022 Unknown ORAL DAILY 2 TABLET 033701 RxNorm TAKE 2 TABLET ORAL DAILY Ibuprofen 600MG Oral Tablet 11/17/2022 Unknown ORAL NEEDED EVERY 6 HOURS 600 MILLIGRA MS 795148 RxNorm TAKE 600 MILLIGRAMS ORAL NEEDED EVERY 6 HOURS Albuterol Sulfate 0.5% Inhalation Solution 11/17/2022 11/17/19 23 INHALATION FOUR TIMES A DAY WITH FOOD 1 unit(s) 617171 RxNorm 1 EACH INHALATION FOUR TIMES A DAY WITH FOOD Ventolin HFA 0.09MG/1Actua tion Inhalation Suspension 11/17/2022 Unknown INHALATION NEEDED EVERY 4 HOURS 2 PUFF 156435 RxNorm 2 PUFF INHALATION NEEDED EVERY 4 HOURS Albuterol Sulfate 0.5% Inhalation Solution 11/17/2022 Unknown INHALATION FOUR TIMES A DAY 1 unit(s) 163632 RxNorm 1 EACH INHALATION FOUR TIMES A DAY Azithromycin 250MG Oral Tablet 11/17/2022 Unknown ORAL DAILY 1 TABLET 829260 RxNorm TAKE 1 TABLET ORAL DAILY Cefpodoxime Proxetil 200MG Oral Tablet 11/17/2022 Unknown ORAL TWICE A DAY 1 TABLET 948820 RxNorm TAKE 1 TABLET ORAL TWICE A [...] Status Code Code System BREAST CANCER active 849093640 SNOMED -CT REACTIVE LYMPHADENOPATHY active 80287 8006 SNOMED-CT RSV INFECTION active 07335517 SNOMED -CT ANXIETY 10/09/2022 resolved 95859182 SNOMED-CT IBS 10/09/2022 resolved 06276122 SNOMED-CT GERD 10/09/2022 resolved 415562787 SNOMED-CT NEUTROPENIC FEVER 11/15/2022 resolved 377415263 S NOMED-CT MIGRAINE 10/09/2022 resolved 30636089 SNOMED-CT HYPOMAGNESEMIA 11/15/2022 resolved 073190335 SNOM ED-CT HYPOTHYROIDISM 10/09/2022 resolved 81365680 SNOM ED-CT Allergies and Adverse Reactions Allergy Substance Reaction Severity Start Date Concern Status Co de Code System SULFA (sulfonamide) Active 04365995 SNO MED-CT DEMEROL Active 937182 RxNorm Plan of Treatment Exposure 10/08/2020 MM [...] upper- outer quadrant of right female breast 05/07/2022 SNOMED-CT Personal Care Team Section Performer Name Performer Role Active Date Inactive Da te
--- OUTSIDE RECORDS SUMMARY | 2024-06-30 16:28 | XMS_ITS ---
Author Organization Unknown Address [address] [place] [address] [phone] Phone Care Team Providers Care Wet Room Supervisor Name Role Phone BELKIS CHERY Tiana Attending Unavailable RODRIGUEZ Alexandra Primary Unavailable Functional Status Description Date Code Code System No Functional Impairments 69454525 SN OMED-CT Mental Status Description Date Code Code System No Cognitive Impairments 68704656 SNO MED-CT Results CLOSTRIDIUM DIFFICILE BY PCR * - Collect Date/Time: 05/07/2022 11:25 [facility] ID: [id number] [address] [place] [address], [id number] LOINC: 36031-3 Test Value Unit Reference Range Code Code System Flag Consistency = WATERY 10949-8 LOINC C. DIFFICILE DNA NEGATIVE Normal: Negative 25476-5 LOINC COMPREHENSIVE METABOLIC PANE L (CMP) - Collect Date/Time: 05/07/2022 09:00 [facility] ID: [id number] [address] [place] [address], 5661 LOINC: 71265-4 Test Value Unit Reference Range Code Code System Flag GLUCOSE 99 mg/dL L=70 H=116 2345-7 LOINC BUN 18 mg/dL L=6 H=25 3094-0 LOINC CREATININE 0.94 mg/dL L=0.51 H=0.95 2160-0 LOINC SODIUM SERUM 137 mmol/L L=136 H=145 2951-2 LOINC POTASSIUM SERUM 2.9 mmol/L L=3.4 H=5.2 2823-3 LOINC LL CHLORIDE SERUM 104 mmol/L L=96 H=110 2075-0 LOINC CARBON DIOXIDE (CO2) 25 mmol/L L=22 H=34 8-9 LOINC ANION GAP 8.4 mmol/L 43009-8 LOINC CALCIUM SERUM 8.7 mg/dL L=8.2 H=10.2 55668-9 LOINC BILIRUBIN TOTAL 0.3 mg/dL L=0.0 H=1.3 1975-2 LOINC ALK. PHOS. 142 U/L L=46 H=116 6768-6 LOINC H SGOT (AST) 65 U/L L=15 H=37 1920-8 LOINC H SGPT (ALT) 188 U/L L=12 H=78 1742-6 LOINC H TOTAL PROTEIN 6.2 gm/dL L=6.0 H=8.0 2885-2 LOINC ALBUMIN 3.0 gm/dL L=3.4 H=5.0 1751-7 LOINC L AGE 56 years eGFR (non-Afr.Amer.) 62 mL/min 19363-7 LOINC eGFR (Afr-Burundian) 75 mL/min 45620-5 LOINC Social History Type Status Start Date End Date Code Code Syst em Smoking History Never smoker (Never Smoked) 997327519 SNOMED CT Sex Female Medications Medication Start Date End Date Route Frequency Dose Code Code System Medication Instructions Home Meds Clindagel 1% Topical application Gel/Jelly 10/11/2022 Unknown TOPICAL APPLICATION NEEDED TWICE DAILY 1 unit(s) 941860 RxNorm 1 EACH TOPICAL APPLICATION NEEDED TWICE DAILY Dexamethasone 4MG Oral Tablet 10/11/2022 11/17/19 23 ORAL NEEDED DAILY 8 MILLIGRA MS 19750612 RxNorm TAKE 8 MILLIGRAMS ORAL NEEDED DAILY Elderberry 500 MG Oral Capsule 10/11/2022 Unknown ORAL DAILY 1000 MG RxNorm TAKE 1000 MG ORAL DAILY LORazepam 1MG Oral Tablet 10/11/2022 Unknown ORAL NEEDED EVERY 6 HOURS 1 MILLIGRA MS 857469 RxNorm TAKE 1 MILLIGRAMS ORAL NEEDED EVERY 6 HOURS FOR Anxiety Levothyroxine 125MCG Oral Tablet 10/11/2022 Unknown ORAL DAILY 125 MCG 206009 RxNorm TAKE 125 MCG ORAL DAILY Magnesium Gluconate 500 MG Oral Tablet 10/11/2022 Unknown ORAL TWICE A DAY 500 MG 800547 RxNorm TAKE 500 MG ORAL TWICE A DAY Maxalt 10MG Oral Tablet 10/11/2022 Unknown ORAL NEEDED DAILY 10 MILLIGRA MS 421283 RxNorm TAKE 10 MILLIGRAMS ORAL NEEDED DAILY OLANZapine 10MG Oral Tablet 10/11/2022 Unknown ORAL NEEDED DAILY 10 MILLIGRA MS 843902 RxNorm TAKE 10 MILLIGRAMS ORAL NEEDED DAILY Potassium Chloride 20MEQ Oral Tablet, Extended Release 10/11/2022 Unknown ORAL TWICE A DAY 20 MEQ 8704413 RxNorm TAKE 20 MEQ ORAL TWICE A DAY Prochlorperaz ine Maleate 10MG Oral Tablet 10/11/2022 Unknown ORAL NEEDED EVERY 6 HOURS 10 MILLIGRA MS 137994 RxNorm TAKE 10 MILLIGRAMS ORAL NEEDED EVERY 6 HOURS Protonix 40 MG Oral Tablet, Delayed Release 10/11/2022 Unknown ORAL DAILY 40 MG 835756 RxNorm TAKE 40 MG ORAL DAILY Sertraline 100MG Oral Tablet 10/11/2022 Unknown ORAL DAILY 150 MILLIGRA MS 133941 RxNorm TAKE 150 MILLIGRAMS ORAL DAILY Vitamin D 1000IU Oral Tablet 10/11/2022 10/31/20 22 ORAL DAILY 2000 INTERNAT IONAL UNITS 508917 RxNorm TAKE 2000 INTERNATIONA L UNITS ORAL DAILY Zofran 4MG Oral Tablet 10/11/2022 Unknown ORAL NEEDED EVERY 8 HOURS 4 MILLIGRA MS 941077 RxNorm TAKE 4 MILLIGRAMS ORAL NEEDED EVERY 8 HOURS traZODone hydrochloride 50MG Oral Tablet 10/11/2022 Unknown ORAL NEEDED AT BEDTIME 50 MILLIGRA MS 845300 RxNorm TAKE 50 MILLIGRAMS ORAL NEEDED AT BEDTIME Ajovy 225MG/1.5ML Subcutaneous Solution 11/02/2022 11/17/19 23 SUBCUTANEOUS MONTHLY 1 unit(s) 4300544 RxNorm INJECT 1 EACH SUBCUTANEOUS MONTHLY Estring 0.0075MG/24HR Vaginal Insert, Extended Release 11/02/2022 Unknown VAGINAL 1 unit(s) 566193 RxNorm 1 EACH VAGINAL oxyCODONE HCl 5MG Oral Tablet 11/02/2022 Unknown ORAL NEEDED 5 MILLIGRA MS 7869600 RxNorm TAKE 5 MILLIGRAMS ORAL NEEDED Albuterol Sulfate 1.25MG/3ML Inhalation Solution 11/13/2022 11/17/19 23 INHALATION DAILY 1 475036 RxNorm 1 INHALATION DAILY predniSONE 20MG Oral Tablet 11/13/2022 Unknown ORAL DAILY 2 TABLET 571901 RxNorm TAKE 2 TABLET ORAL DAILY Ibuprofen 600MG Oral Tablet 11/17/2022 Unknown ORAL NEEDED EVERY 6 HOURS 600 MILLIGRA MS 105442 RxNorm TAKE 600 MILLIGRAMS ORAL NEEDED EVERY 6 HOURS Albuterol Sulfate 0.5% Inhalation Solution 11/17/2022 11/17/19 23 INHALATION FOUR TIMES A DAY WITH FOOD 1 unit(s) 042099 RxNorm 1 EACH INHALATION FOUR TIMES A DAY WITH FOOD Ventolin HFA 0.09MG/1Actua tion Inhalation Suspension 11/17/2022 Unknown INHALATION NEEDED EVERY 4 HOURS 2 PUFF 627663 RxNorm 2 PUFF INHALATION NEEDED EVERY 4 HOURS Albuterol Sulfate 0.5% Inhalation Solution 11/17/2022 Unknown INHALATION FOUR TIMES A DAY 1 unit(s) 275852 RxNorm 1 EACH INHALATION FOUR TIMES A DAY Azithromycin 250MG Oral Tablet 11/17/2022 Unknown ORAL DAILY 1 TABLET 846247 RxNorm TAKE 1 TABLET ORAL DAILY Cefpodoxime Proxetil 200MG Oral Tablet 11/17/2022 Unknown ORAL TWICE A DAY 1 TABLET 363200 RxNorm TAKE 1 TABLET ORAL TWICE A [...] Status Code Code System BREAST CANCER active 583796459 SNOMED -CT REACTIVE LYMPHADENOPATHY active 92695 8006 SNOMED-CT RSV INFECTION active 52648895 SNOMED -CT ANXIETY 10/09/2022 resolved 53065949 SNOMED-CT IBS 10/09/2022 resolved 42731418 SNOMED-CT GERD 10/09/2022 resolved 615362107 SNOMED-CT NEUTROPENIC FEVER 11/15/2022 resolved 625006298 S NOMED-CT MIGRAINE 10/09/2022 resolved 59335877 SNOMED-CT HYPOMAGNESEMIA 11/15/2022 resolved 173333274 SNOM ED-CT HYPOTHYROIDISM 10/09/2022 resolved 78672189 SNOM ED-CT Allergies and Adverse Reactions Allergy Substance Reaction Severity Start Date Concern Status Co de Code System SULFA (sulfonamide) Active 75591463 SNO MED-CT DEMEROL Active 606606 RxNorm Plan of Treatment Exposure 10/08/2020 MM [...]
--- OUTSIDE RECORDS SUMMARY | 2024-06-30 16:29 | XMS_ITS | Encounter Summary ---
Author Organization [facility] Address [address] [place] [address] Care Team Providers Care Drug Safety Coordinator Name Role Phone Sarah Quintero Nasrin [facility] Primary Care Provider [phone] Reason for Referral * Medication Prior Authorization - Closed Specialty Diagnoses / Procedures Referred By Brandon venegas Referred To Contact Diagnoses Other migraine, not intractable, without status migrainosus Brooke Lee MD [address] [place] [address], [facility] [address] [place] [address] Referral ID Status Reason Start Date Expiration Date Visits Re quested Visits Authorized [id number] Closed 1 1 Reason for Visit * Reason Onset Date Comments Medications Refill 05/06/2024 Encounter Details Date Type Department Care Team (Late st Contact Info) Description 05/06/2024 Telephone [facility] [address] [place] [id number] Allison Borden, MEKA Medications Refill Social History Tobacco Use Types Packs/Day Years Used Date Smoking Tobacco: Never Smokeless Tobacco: Never Alcohol Use Standard Drinks/Week Comments Yes 0 (1 standard drink = 0.6 oz pur e alcohol) rarely - once a month maybe Interpersonal Safety Answer Date Record ed Physically Hurt Never 06/13/2020 Verbally Threaten Not on file 06/13/2020 Sex and Gender Information Value Date Recorded Sex Assigned at Not on file Gender Identity Female 03/29/2022 7:52 EDT Sexual Orientation Not on file documented as of this encounter Functional Status Functional Status Response Date of Assess ment Because of a physical, menta l, or emotional condition, does this person have difficulty doing errands alone such as visiting a doctor's office or shopping? No 06/21/2020 Cognitive Status Response Date of Assessm ent Because of a physical, menta l, or emotional condition, does this person have serious difficulty concentrating, remembering, or making decisions? Yes 12/20/2022 documented as of this encounter Ordered Prescriptions Prescription Sig Dispensed Refills Start Date End Da te atogepant 60 mg tabletIndications:Other migraine, not intractable, without status migrainosus Take 1 Tablet by mouth daily. 90 Tablet 3 05/06/2024 documented in this encounter Miscellaneous Notes * Addendum Note - Allison Borden RN - 05/06/2024 1358 EDTAddended by: ALLISON BORDEN on: 05/06/2024 13:58 Modules accepted: Orders * Telephone Encounter - Allison Borden RN - 05/06/2024 1148 EDT Requesting a refill of Qulipta 60 mg daily. Escript per KA note on 12/31/2023. documented in this encounter Plan of Treatment Upcoming Encounters Date Type Department Care Team (Late st Contact Info) Description 05/25/2025 14:00 EDT Office Visit [facility] [address] [place] [id number] Abdiel Salas MD [address] [place] [address] [address] [place] [id number] documented as of this encounter Visit Diagnoses Diagnosis Other migraine, not intractable, without status migrainosus- Primary documented in this encounter Discontinued Medications Medication Sig Discontinue Reason Start Date End Da te atogepant 60 mg tablet Take 1 Tablet by mouth daily. Reorder 04/16/2023 05/06/2024 documented as of this encounter Care Teams Drug Safety Coordinator Relationship Specialty Start Date End Date Sarah Quintero FNP [address] [place] [id number] PCP - General 05/03/20 documented as of this encounter
--- OUTSIDE RECORDS SUMMARY | 2024-06-30 16:29 | XMS_ITS | Encounter Summary ---
Author Organization [facility] Address [address] [place] [address] Care Team Providers Care Boat Laborer Name Role Phone Sarah Quintero VISCERA WASHER Primary Care Provider [phone] Reason for Visit * Reason Comments Follow-up Breast cancer Encounter Details Date Type Department Care Team ([facility] st Contact Info) Description 05/25/2024 10:30 EDT Office Visit [facility] Adult Hematology & Oncology [address] [place] [address] [id number] Abdiel Salas MD [address] [place] [address], [facility] [address] [place] [address] Malignant neoplasm of upper-outer quadrant of right breast in female, estrogen receptor negative (HCC-CMS) (Primary Dx) Social History Tobacco Use Types Packs/Day Years Used Date Smoking Tobacco: Never Smokeless Tobacco: Never Tobacco Cessation:Counseling Given: Not Answered Alcohol Use Standard Drinks/Week Comments Not Currently 0 (1 standard drink = 0.6 oz pur e alcohol) rarely - once a month maybe Interpersonal Safety Answer Date Record ed Physically Hurt Never 06/13/2020 Verbally Threaten Not on file 06/13/2020 Sex and Gender Information Value Date Recorded Sex Assigned at Not on file Gender Identity Female 03/29/2022 7:52 EDT Sexual Orientation Not on file documented as of this encounter Last Filed Vital Signs Vital Sign Reading Time Taken Comments Blood Pressure 140/98 05/25/2024 1034 EDT Pulse 56 05/25/2024 1034 EDT Temperature - - Respiratory Rate - - Oxygen Saturation 96% 05/25/2024 1034 EDT Inhaled Oxygen Concentration - - Weight 81.2 kg (179 lb) 05/25/2024 1034 EDT Height - - Body Mass Index 28.04 05/13/2024 1209 EDT documented in this encounter Functional Status Functional Status Response [...] Yes 12/20/2022 documented as of this encounter Progress Notes * Abdiel Salas MD - 05/25/2024 1030 EDT Hem/Onc. Follow up Note Gonsalo Pablo :1965 Age:58 y.o. 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 Post neoadjuvant chemotherapy: [id number] mm), ypN1a(sn, 2/3 macro and micro). -02/20/2022 screening mammogram: 16mm irregular mass upper outer quadrant right breast. -03/02/2022 ultrasound: 2 x 1.3 mass at 12 o'clock position of the right breast, axillary ultrasoundshowed an indeterminant 8 mm axillary lymph node with no fatty hilum. Core needle biopsy revealed invasive ductal carcinoma. -03/29/22 MRI of the right breast: Mass measuring 2.1 x 1.5 x 2.1 cm at 10 o'clock position, right breast. Non-mass enhancement anterior to this mass extending over a span of 2 cm, enlarged right axillary node measuring 1.4 x 1.3 cm. MRI of the left breast normal. -04/05/2022 CT CAP: 1. Right breast lateral 2 x 1.3 cm mass nodule. Right axillary adenopathy. Solitary borderline enlarged AP window lymph node. Rest of the mediastinal and hilar nodes appear unremarkable. No subdiaphragmatic nodes noted. 3. Right upper lung 6 mm groundglass nodular opacity. Could reflect minimal airspace disease. Should be reassessed in 6 months. -04/05/2022 bone scan: Indeterminate posterolateral right sixth rib may correspond to small sclerotic intramedullary lesion on the CT scan. Metastatic disease cannot be excluded. Reviewed with interventional radiology and biopsy is not possible. Additional indeterminant small foci of uptake projecting over the proximal left tibia (status post left patellar tendon release). -04/24/2022 cycle 1/6 neoadjuvant TC/HP. poorly tolerated due to grade 2 oral mucositis, diarrhea grade 3, pancytopenia. -05/22/2022 Cycle 2/6 TC/HP: Dose modified per protocol. Again poorly tolerated due to diarrhea grade 2/3, cytopenias, mucositis. I think she will not tolerate another cycle even with further modifications. -06/20/2022 change treatment strategies to the Neophere protocol:Docetaxel, pertuzumab and Herceptinx 4 followed by surgery, followed by FEC(5-fluorouracil, epirubicin, cyclophosphamide every 3 weeksx 3 with concurrent trastuzumab to complete 1 year of HER2 directed therapy. -06/21/2022 cycle 3/4 T/HP Neosphere protocol, surgery to be scheduled 4 weeks after cycle 4. Dcog PS: 3. -08/31/2022 lumpectomy and sentinel node biopsy: Pathology: [id number] mm), ypN1a(sn, 2/3 macro and micro). -09/19/2022 scars recovering nicely. Plan: Proceed with Neophere l: FEC Q 3w x 3 cycles. Followed byadjuvant radiation. Due to persistent disease after neoadjuvant HER-2 therapy will transition to Ado trastuzumab after radiation for 14 cycles. -09/26/2023 -10/23/2022 completed adjuvant FEC x 2/3, with Neulasta suport, Hospitalized 3 times due to Neutropenic fever, decubitus sore, cellulitis of the legs. - 11/28/2022 -01/10/[address] Noe. -11/21/2023 cycle 14/14 Kadcyla. -12/04/2023 completed adjuvant Kadcyle. ECOG performance status 0. Alk phos slightly elevated follow-up in 1 month if persistently elevated CT CAP. -04/13/2024: Bilateral screening mammogram category 2 benign findings. No evidence of malignancy. [facility]. -05/25/24 clinical MEAGAN. Alk phos: 212: Chronically elevated. Schedue f/u Alura at 6 month and here in 1 yr. 2: Family history: Paternal grandmother had DCIS in her 80s, paternal grandfather colon cancer in his 80s. Father 2 uncles and 1 aunt all without malignancy. On the maternal side: Mother 1 uncle 2 aunt without malignancy. Gonsalo has 3 children all healthy. She has 1 brother and 2 sisters all without malignancy. Reviewed with the assembler trim at [facility] recommended consultation. -04/27/2022 referral to [facility] assembler trim for further evaluation. 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 Chief Complaint Patient presents with Follow-up Breast cancer Interim History: Gonsalo comes in for 6-month follow-up. Overall doing well and has not felt any new abnormalities in the breast no skin changes nipple retraction or discharge. 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 Persistent fatigue grade 1 but continues to work. Review of systems: Review of Systems Constitutional: Positive for malaise/fatigue (Grade 1 fatigue). Respiratory: Negative for cough and shortness of breath. Cardiovascular: Negative for chest pain and palpitations. Gastrointestinal: History of IBS currently asymptomatic Neurological: Negative for headaches (History of chronic migraine headaches has not had any recently.). All other systems reviewed and are negative. Vital Signs: No data found. Wt Readings from Last 3 Encounters: 05/13/24 80.2 kg (176 lb 12.8 oz) 12/04/23 76.2 kg (168 lb) 09/18/23 79.8 kg (176 lb) Ht Readings from Last 1 Encounters: 05/13/24 170.2 cm (67) Estimated body surface area is 1.95 meters squared as calculated from the following: Height as of 05/13/24: 170.2 cm (67). Weight as of 05/13/24: 80.2 kg (176 lb 12.8 oz). ECOG Performance Status: 0 Physical exam: Physical Exam Constitutional: Appearance: Normal appearance. Eyes: General: No scleral icterus. Cardiovascular: Rate and Rhythm: Normal rate. Pulmonary: Effort: Pulmonary effort is normal. Chest: Breasts: Right: Normal. No mass or skin change. Left: Normal. No inverted nipple, mass or skin change. Comments: Right breast: No palpable masses nipple retraction or discharge. No evidence of local recurrence at the lumpectomy or axillary scar. Abdominal: General: There is no distension. Palpations: Abdomen is soft. Tenderness: There is no abdominal tenderness. Comments: No hepatosplenomegaly Musculoskeletal: Cervical back: Normal range of motion. Right lower leg: No edema. Left lower leg: No edema. Skin: Comments: . Neurological: General: No focal deficit present. Mental Status: She is alert. Psychiatric: Mood and Affect: Mood normal. 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 90 Tablet 3 benzonatate (TESSALON) 100 mg capsule TAKE 1 CAPSULE BY MOUTH 3 TIMES A DAY NEEDED FOR COUGH (Patient not taking: Reported on 06/24/2023) budesonide-formoterol HFA (SYMBICORT) 80-4.5 mcg/actuation HFA aerosol inhaler inhaler Inhale 2 Puffs as directed 2 times daily. (Patient not taking: Reported on 12/06/2023) calcium carbonate (CALCIUM 300 ORAL) Take by mouth. Unsure of dosage cholecalciferol, vitamin D3, (VITAMIN D3 ORAL) Take 2,000 Units by mouth daily. ELDERBERRY FRUIT ORAL Take by mouth daily. 2 gummies daily (Patient not taking: Reported on 09/20/2023) ESTRING 2 mg (7.5 mcg /24 hour) vaginal ring INSERT 1 RING INTO VAGINA EVERY THREE MONTHS (Patient not taking: Reported on 06/24/2023) HYDROcodone-chlorpheniramine (TUSSIONEX) 10-8 mg/5 mL suspension TAKE 5ML BY MOUTH EVERY 12 HOURS (Patient not taking: Reported on 01/03/2023) ibuprofen (MOTRIN) 600 mg tablet take 1 tablet by mouth every 6 hours as needed (Patient not taking: Reported on 06/24/2023) levothyroxine (SYNTHROID) 125 mcg tablet Take 1 Tablet by mouth daily. LORazepam (ATIVAN) 1 mg tablet Take 1 mg by mouth every 6 hours as needed for Anxiety (Nausea). (Patient not taking: Reported on 06/24/2023) MAGNESIUM GLUCONATE ORAL Take 400 mg by mouth daily. (Patient not taking: Reported on 05/13/2024) methylphenidate HCl (RITALIN;METHYLIN) 5 mg tablet Take 2 Tablets by mouth daily. montelukast (SINGULAIR) 10 mg tablet Take 1 Tablet by mouth daily. multivitamin capsule Take 1 Capsule by mouth daily. NONFORMULARY daily. Tumeric with black pepper (Patient not taking: Reported on 06/24/2023) OLANZapine (ZYPREXA) 10 mg tablet TAKE 1 TABLET BY MOUTH EVERY DAY FOR 30 DAYS (Patient not taking:Reported on 01/03/2023) ondansetron (ZOFRAN) 8 mg tablet Take 1 Tablet by mouth 2 times daily as needed for Nausea (for 3 days after chemo). (Patient not taking: Reported on 11/28/2022) 12 Tablet 2 pantoprazole (PROTONIX) 40 mg tablet 1 tab(s) orally once a day potassium chloride SA (K-DUR) 20 mEq tablet Take 1 Tablet by mouth daily. predniSONE (DELTASONE) 20 mg tablet Take 40 mg by mouth daily. (Patient not taking: Reported on 01/03/2023) prochlorperazine (COMPAZINE) 10 mg tablet Take 1 Tablet by mouth 3 times daily as needed (nausea). (Patient not taking: Reported on 02/18/2023) 30 Tablet 2 rizatriptan (MAXALT-HAY STACKER OPERATOR) 10 mg disintegrating tablet DISSOLVE ONE TABLET BY MOUTH NEEDED FOR MIGRAINE. MAY REPEAT DOSE IN 2 HOURS IF INEFFECTIVE. DO NOT EXCEED 2 TABLETS IN 24 HOURS, 8 DAYS PER MONTH, AND NO MORE THAN 12 TABLETS IN 1 MONTH 12 Tablet 5 sertraline (ZOLOFT) 100 mg tablet Take 1.5 Tablets by mouth daily. traZODone (DESYREL) 50 mg tablet Take 1 Tablet by mouth at bedtime. 0.5-1 tablet At bedtime as needed No current facility-administered medications for this visit. Data Review: Labs: Imaging: COLONOSCOPY [facility] [address], [place], [place] [address] Patient Name GONSALO PABLO Date of 1965 Record Number [id number] Date/Time of Procedure 05/13/2024, 01:00:00 PM Endoscopist Flavio Dodd Animal Groomer Referring Physician(s) MARTI Hammond Anesthesiologist Procedure Performed: COLONOSCOPY Indications for Exam: Screening Colonoscopy. Instruments: [id number] ([id number]) Medications: Fentanyl 75 mcg, Versed 4 mg I was in continuous face to face attendance during the administration of moderate sedation services that were monitored by an independent trained observer who had no other duties during the procedure. Visualization: Good Tolerance: Good Complications: None Extent of Exam: terminal ileum Limitations: Procedure Technique: A physical exam was performed. Informed consent was obtained from the patient after explaining all the risks (perforation, bleeding, infection and adverse effects to the medicine) , benefits and alternatives to the procedure which the patient appeared to understand and so stated. The patient was connected to the monitoring devices and placed in the left lateral position. Continuous oxygen was provided with a nasal cannula and IV medicine administered thru an indwelling cannula. After adequate conscious sedation was achieved, a digital exam was performed and the colonoscope introduced into the rectum and advanced under direct visualization to the terminal ileum which was identified by visual landmarks. The scope was subsequently removed slowly while carefully examining the color, texture, anatomy, and integrity of the mucosa on the way out. In the rectum the scope was retroflexed to evaluate for internal hemorrhoids and anorectal pathology. The patient was subsequently transferred to the recovery area in satisfactory condition. The following findings were noted: Findings: Normal COLONOSCOPY to the terminal ileum. Endoscopic Diagnosis: Normal colonoscopy Recommendations: Repeat colonoscopy in 10 years for colorectal cancer screening Sedation Start: 01:14:54 PM Sedation End: 01:33:38 PM Signature: Flavio Dodd M.D. This note was electronically signed on 05/13/2024 01:36:27 PM By Flavio Yousif M.D. Assessment: 1: Right breast invasive ductal carcinoma ER/NV negative HER2 positive. Axillary node positive. Started neoadjuvant therapy with TC/HP, poorly tolerated receiving only 2 cycles due to sepsis pancytopenia and other grade 3 toxicities.. Transition to Noesphere protocol: Docetaxel Herceptin pertuzumab for 4 cycles (total of 6), also trouble tolerating cytotoxic with grade 2 toxicity. She underwent lumpectomy and sentinel biopsy: Pathology: [id number] mm), ypN1a(sn, 2/3 macro and micro). Follow-up adjuvant therapy with FEC planned 3 cycles was only able to give her 2 cycles due to grade 3 toxicity and 3 hospitalizations. Adjuvant radiation therapy completed 01/10/2023. Completed 1 year of adjuvant Ado-trastuzumab 11/2023. Tumor is ER/NV negative no indication for endocrine therapy. Clinically with no evidence of recurrence or metastatic disease. 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 Of note she has Persistent elevated alk phos which is chronic Seems of tolerated much better, back to working as a nurse 2 months ago. No clinical evidence of recurrence locally or metastatic disease. 1.5 years since surgery. Plan: -Continue with bilateral screening mammogram yearly in April. -Will schedule follow-up with Dr. Deleon at [facility] in 6 months. -Follow-up here in 1 year. Consult time 30 minutes This note was transcribed using [employer] voice recognition software, please excuse any member of the legislative assembly errors. Carbon copy Rosemary Salcido ONP, Sarah Quintero VISCERA WASHER. Dr. Eugene/Dr. Adrienne Salas MD [facility] * Abhilash Valiente RN - 05/25/2024 1030 EDT Procedures: - Venipuncture Performed by: ABHILASH VALIENTE RN Site Collected: Left Antecubital Space Volume Withdrawn: LAV EDTA 3.0 mL and Green Lockett Heparin ([facility]) 4.0 mL Patient Response:Patient tolerated venipuncture well and 23G Butterfly used Number of attempts: Collected on: 05/25/24 10:37 Supervising Provider: Abdiel Salas MD Suspicion of Abuse: no - If yes, please document evidence: - Assessed on: 05/25/24 10:39 - Assessed by: ABHILASH VALIENTE, RN documented in this encounter Plan of Treatment Upcoming Encounters Date Type Department Care Team (Late st Contact Info) Description 05/25/2025 14:00 EDT Office Visit [facility] Adult Hematology & Oncology [facility] [place] [address] Abdiel Salas MD [address] [facility], [facility] [address] [place] [address] documented as of this encounter Procedures Procedure Name Priority Date/Time Associated Diagnosis Comments COMPLETE BLOOD COUNT AND DIFFERENTIAL STAT 05/25/2024 10:33 EDT Malignant neoplasm of upper-outer quadrant of right breast in female, estrogen receptor negative (HCC-CMS) COMPREHENSIVE METABOLIC PANEL (CMP) STAT 05/25/2024 10:33 EDT Malignant neoplasm of upper-outer quadrant of right breast in female, estrogen receptor negative (HCC-CMS) documented in this encounter Results * (ABNORMAL) COMPREHENSIVE METABOLIC PANEL (CMP) (05/25/2024 10:33 EDT) Sodium 140 136 - 145 mmol/L 05/25/2024 11:14 [facility] Potassium 3.9 3.5 - 5.0 mmol/L 05/25/2024 11:14 [facility] Chloride 103 96 - 110 mmol/L 05/25/2024 11:14 [facility] CO2 Total 29 22 - 32 mmol/L 05/25/2024 11:14 [facility] Glucose 84 70 - 99 mg/dl 05/25/2024 11:14 [facility] BUN 18 10 - 26 mg/dL 05/25/2024 11:14 [facility] Creatinine 0.80 0.52 - 1.04 mg/dL 05/25/2024 11:14 [facility] eGFR 86 >60 mL/min/1. 73m2 05/25/2024 11:14 [facility] Total Protein 7.4 6.3 - 8.2 g/dL 05/25/2024 11:14 [facility] Comment:The sample was colle cted in a Lockett Heparin anticoagulated tube. An average positive bias of 6% with an individual sample bias up to 10% may be observed with heparin plasma results compared to serum results. Albumin 4.4 3.4 - 4.9 g/dL 05/25/2024 11:14 [facility] Alkaline Phosphatase 212(H) 38 - 126 U/L 05/25/2024 11:14 [facility] AST 42 15 - 46 U/L 05/25/2024 11:14 [facility] ALT 25 <35 U/L 05/25/2024 11:14 [facility] Bilirubin, Total 0.5 <1.4 mg/dL 05/25/2024 11:14 [facility] Calcium 8.9 8.5 - 10.5 mg/dL 05/25/2024 11:14 [facility] Albumin/Globulin Ratio 1.5 1.0 - 2.5 05/25/2024 11:14 [facility] Anion Gap 8 5 - 14 mmol/L 05/25/2024 11:14 [facility] Blood VENOUS BLOOD / Unknown Venipuncture / Unknown 05/25/2024 10:33 EDT 05/25/2024 10:33 EDT Abdiel Salas MD CHEMISTRY & BLOOD GA S ORDERABLES [facility] [address] [place] [address] * (ABNORMAL) COMPLETE BLOOD COUNT AND DIFFERENTIAL (05/25/2024 10:33 EDT) WBC 6.14 4.00 - 12.40 K/cmm 05/25/2024 13:23 EDT [facility] RBC 4.95 3.86 - 5.04 M/cmm 05/25/2024 13:23 T [facility] Hemoglobin 13.9 11.6 - 15.2 g/dL 05/25/2024 13:23 EDT [facility] HCT 41.7 34.9 - 44.4 % 05/25/2024 13:23 EDT [facility] MCV 84 81 - 98 fL 05/25/2024 13:23 T [facility] MCH 28.1 26.7 - 33.3 pg 05/25/2024 13:23 EDT [facility] MCHC 33.3 32.1 - 35.9 g/dL 05/25/2024 13:23 T [facility] RDW-CV 16.5(H) <14.7 % 05/25/2024 13:23 T [facility] [place]DW-SD 50.7(H) <50.4 fl 05/25/2024 13:23 T [facility] PLT 142 141 - 377 K/cmm 05/25/2024 13:23 [facility] MPV 11.0 9.5 - 12.7 fL 05/25/2024 13:23 T [facility] % Neutrophils 73.9 % 05/25/2024 13:23 T [facility] % Lymphocytes 16.0 % 05/25/2024 13:23 T [facility] % Monocytes 7.2 % 05/25/2024 13:23 T [facility] % Eosinophils 2.6 % 05/25/2024 13:23 T [facility] % Basophils 0.3 % 05/25/2024 13:23 [facility] % Immature Grans 05/25/20 13:23 T [facility] Absolute Neutrophils 4.54 2.20 - 8.85 K/cmm 05/25/2024 13:23 EDT [facility] Absolute Lymphocytes 0.98(L) 1.09 - 3.30 K/cmm 05/25/2024 13:23 EDT [facility] Absolute Monocytes 0.44 0.10 - 0.80 K/cmm 05/25/2024 13:23 EDT [facility] Absolute Eosinophils 0.16 0.03 - 0.61 K/cmm 05/25/2024 13:23 EDT [facility] ABS Basophils 0.02 0.01 - 0.11 K/cmm 05/25/2024 13:23 EDT [facility] Absolute Immature Grans 05/25/2024 13:23 EDT [facility] Type of Differential: Auto 05/25/2024 13:23 T [facility] Blood VENOUS BLOOD / Unknown Venipuncture / Unknown 05/25/2024 10:33 EDT 05/25/2024 10:33 EDT Abdiel Salas MD PACKAGES & DNA PROBE ORDERABLES [facility] Medical Office [address], [address] [place] [address] documented in this encounter Visit Diagnoses Diagnosis Malignant neoplasm of upper-outer quadrant of right breast in female, estrogen receptor negative (HCC-CMS)- Primary documented in this encounter Care Teams Boat Laborer Relationship Specialty Start Date End Date Sarah Quintero FNP [address] [place] [id number] PCP - General 05/03/20 documented as of this encounter
--- OUTSIDE RECORDS SUMMARY | 2024-06-30 16:29 | XMS_ITS | Clinical Summary ---
Author Organization [facility] Address [address] [place] [address] Care Team Providers Care Helicopter Utility Aircrewman Name Role Phone Sarah Quintero [facility] Primary Care Provider [phone] Allergies Active Allergy Reactions Criticality Noted Date Comments Meperidine Nausea Only 05/05/2019 Sulfa (Sulfonamide Antibiotics) 04/13 Family history Medications Medication Sig Dispensed Refills Start Date End Date Status pantoprazole (PROTONIX) 40 mg tablet 1 tab(s) orally once a day Active sertraline (ZOLOFT) 100 mg tablet Take 1.5 Tablets by mouth daily. 04/06/2020 Active levothyroxine (SYNTHROID) 125 mcg tablet Take 1 Tablet by mouth daily. 01/18/2022 Active cholecalciferol, vitamin D3, (VITAMIN D3 ORAL) Take 2,000 Units by mouth daily. Active ELDERBERRY FRUIT ORAL Take by mouth daily. 2 gummies daily Active ondansetron (ZOFRAN) 8 mg tablet Take 1 Tablet by mouth 2 times daily as needed for Nausea (for 3 days after chemo). 12 Tablet 2 04/06/2022 Active Additional Information Patient not taking.Reported on 06/24/2023 traZODone (DESYREL) 50 mg tablet Take 1 Tablet by mouth at bedtime. 0.5-1 tablet At bedtime as needed Active LORazepam (ATIVAN) 1 mg tablet Take 1 mg by mouth every 6 hours as needed for Anxiety (Nausea). Active potassium chloride SA (K-DUR) 20 mEq tablet Take 1 Tablet by mouth daily. Active albuterol (ACCUNEB) 1.25 mg/3 mL nebulizer solution 11/13/2022 Active albuterol (ACCUNEB) 2.5 mg /3 mL (0.083 %) nebulizer solution 11/18/2022 Act amanda benzonatate (TESSALON) 100 mg capsule TAKE 1 CAPSULE BY MOUTH 3 TIMES A DAY NEEDED FOR COUGH 11/28/2022 Active ESTRING 2 mg (7.5 mcg /24 hour) vaginal ring INSERT 1 RING INTO VAGINA EVERY THREE MONTHS 10/15/2022 Active HYDROcodone-chlorphen iramine (TUSSIONEX) 10-8 mg/5 mL suspension TAKE 5ML BY MOUTH EVERY 12 HOURS 11/12/2022 Active ibuprofen (MOTRIN) 600 mg tablet take 1 tablet by mouth every 6 hours as needed 11/17/2022 Active OLANZapine (ZYPREXA) 10 mg tablet TAKE 1 TABLET BY MOUTH EVERY DAY FOR 30 DAYS 09/26/2022 Active predniSONE (DELTASONE) 20 mg tablet Take 40 mg by mouth daily. 11/13/2022 Active multivitamin capsule Take 1 Capsule by mouth daily. Active NONFORMULARY daily. Tumeric with black pepper Active prochlorperazine (COMPAZINE) 10 mg tablet Take 1 Tablet by mouth 3 times daily as needed (nausea). 30 Tablet 2 01/09/2023 Active Additional Information Patient not taking.Reported on 02/18/2023 calcium carbonate (CALCIUM 300 ORAL) Take by mouth. Unsure of dosage Active MAGNESIUM GLUCONATE ORAL Take 400 mg by mouth daily. Active montelukast (SINGULAIR) 10 mg tablet Take 1 Tablet by mouth daily. Active rizatriptan (MAXALT-BILLING COORDINATOR) 10 mg disintegrating tablet DISSOLVE ONE TABLET BY MOUTH NEEDED FOR MIGRAINE. MAY REPEAT DOSE IN 2 HOURS IF INEFFECTIVE. DO NOT EXCEED 2 TABLETS IN 24 HOURS, 8 DAYS PER MONTH, AND NO MORE THAN 12 TABLETS IN 1 MONTH 12 Tablet 5 08/27/2023 Active budesonide-formoterol HFA (SYMBICORT) 80-4.5 mcg/actuation HFA aerosol inhaler inhaler Inhale 2 Puffs as directed 2 times daily. Active methylphenidate HCl (RITALIN;METHYLIN) 5 mg tablet Take 2 Tablets by mouth daily. 10/10/2023 Active atogepant 60 mg tabletIndications:Oth er migraine, not intractable, without status migrainosus Take 1 Tablet by mouth daily. 90 Tablet 3 05/06/2024 Active Active Problems Problem Noted Date Diagnosed Date Malignant neoplasm of upper- outer quadrant of right breast in female, estrogen receptor negative (HCC-CMS) 03/30/2022 Cancer Staging:Pathologic stage from 08/22/2022:No Stage Recommended(ypT1c, pN1a(sn), cM0, G3, ER-, NC-, HER2+) - Signed by Raul Noe MD on 11/28/2022 Encounters Date Type Department Care Team Description 05/25/2024 10:30 EDT Office Visit [facility] Adult Hematology & Oncology [address] [place] [address] Abdiel Salas MD Malignant neoplasm of upper-outer quadrant of right breast in female, estrogen receptor negative (HCC-CMS) (Primary Dx) 05/13/2024 11:56 EDT - 05/13/2024 23:59 EDT Hospital Encounter [facility] Endoscopy [address] [place] [address] Flavio Dodd MD Encounter for screening colonoscopy Discharge Disposition: Home or Self Care 05/06/2024 Telephone [facility] Neurology Clinic [address] [place] [address] Allison Hart, RN Medications Refill from Last 3 Months Immunizations Name Administration Dates Next Due Covid-19 mRNA Booster Vaccin e (MODERNA COVID-19 BOOSTER) PF 0.25 mL IM (18 yrs+) 09/13/2021 Covid-19 mRNA Vaccine (MODER NA COVID-19) PF 0.5 ml IM (12 yrs+) 12/01/2020,11/02/2020 Historical Influenza Vaccine, Unspecified 2020 Shingrix (Zoster Vaccine, Recombinant) IM 2020,05/08/2021 Tdap Vaccine =>7YO IM 08/28/2012 Surgical History Surgery Date Site/Laterality Comments TONSILLECTOMY CHOLECYSTECTOMY 11/11/2014 - 11/10/2015 APPENDECTOMY 15 years ago TEMPOROMANDIBULAR JOINT SURGERY KNEE SURGERY Left left knee arthroscopy SHOULDER SURGERY Left HIP SURGERY Left CARPAL TUNNEL RELEASE Bilateral US BREAST BIOPSY 03/02/2022 Right HER2+ BREAST BIOPSY Medical History Medical History Date Comments Migraine Thyroid disease 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 GERD (gastroesophageal reflux disease) Psychiatric problem Anxiety Inflammatory bowel disease Family History Medical History Relation Comments Atrial fibrillation Father Diverticulitis Father with bowel resec tion Hypothyroidism Father Dementia Maternal Grandfather alzheimer's Stroke Maternal Grandfather Hypertension Maternal Grandmother Stroke Maternal Grandmother Dementia Mother late stage alzhe nicole's Hypertension Mother Colon Cancer Paternal Grandfather Breast Cancer Paternal Grandmother Diabetes Sister 1 Hypothyroidism Sister 1 Obesity Sister 2 Relation Status Comments Brother Alive Father Alive Maternal Grandfather Maternal Grandmother Mother Paternal Grandfather Paternal Grandmother Sister 1 Alive Sister 2 Alive Social History Tobacco Use Types Packs/Day Years [...] 7:52 EDT Sexual Orientation Not on file Obstetrics History Para Term AB IAB SAB Ectopic Multiple Livin g Live Births 2 2 Date Outcome GA Total Labor Labor/2nd/3rd Weight Sex Type Anes PTL Carisa A1 A5 Name Clin Para Para Last Filed Vital Signs Vital Sign Reading Time Taken Comments Blood Pressure 140/98 05/25/2024 1034 EDT Pulse 56 05/25/2024 1034 EDT Temperature 36.6 ??C (97.9 ??F) 05/13/2024 1338 EDT Respiratory Rate 20 05/13/2024 1408 EDT Oxygen Saturation 96% 05/25/2024 1034 EDT Inhaled Oxygen Concentration - - Weight 81.2 kg (179 lb) 05/25/2024 1034 EDT Height 170.2 cm (5' 7) 05/13/2024 1209 EDT Body Mass Index 28.04 05/13/2024 1209 EDT Plan of Treatment Upcoming Encounters Date Type Department Care Team (Late st Contact Info) Description 05/25/2025 14:00 EDT Office Visit [facility] Adult Hematology & Oncology [address] [place] [id number] Abdiel Salas MD [address] [place] [address], [facility] [address] [place] [address] Health Maintenance Due Date Last Done Comments Hepatitis C Screen 1965 Hepatitis B Vaccine (1 of 3 - 19+ 3-dose series) 1985 COVID-19 Vaccine (3 - Modern a risk series) 10/11/2021 09/13/2021, 12/01/2020, 11/02/2020 Colonoscopy (Colon Cancer Screening) Discontinued 01/2024 Colorectal Cancer Screening Discontinued Cologuard (Colon Cancer Screening) Discontinued FIT Test (Colon Cancer Screening) Discontinued Sigmoidoscopy (Colon Cancer Screening) Discontinued Procedures Procedure Name Priority Date/Time Associated Diagnosis Comments COMPREHENSIVE METABOLIC PANEL (CMP) STAT 05/25/2024 10:33 EDT Malignant neoplasm of upper-outer quadrant of right breast in female, estrogen receptor negative (HCC-CMS) COMPLETE BLOOD COUNT AND DIFFERENTIAL STAT 05/25/2024 10:33 EDT Malignant neoplasm of upper-outer quadrant of right breast in female, estrogen receptor negative (HCC-CMS) ECG REPORT - SCANNED 05/15/2024 12:14 EDT COLONOSCOPY Routine 05/13/2024 13:00 EDT Encounter for screening colonoscopy from Last 3 Months Results * (ABNORMAL) COMPLETE BLOOD COUNT AND DIFFERENTIAL (05/25/2024 10:33 EDT) WBC 6.14 4.00 - 12.40 K/cmm 05/25/2024 13:23 EDT [facility] HEMATOLOGY & ONCOLOGY [facility] RBC 4.95 3.86 - 5.04 M/cmm 05/25/2024 13:23 EDT [facility] Hemoglobin 13.9 11.6 - 15.2 g/dL 05/25/2024 13:23 EDT [facility] & ONCOLOG[facility] HCT 41.7 34.9 - 44.4 % 05/25/2024 13:23 EDT [facility] & ONCOL[facility] MCV 84 81 - 98 fL 05/25/2024 13:23 EDT [facility] & ONCOL[facility] MCH 28.1 26.7 - 33.3 pg 05/25/2024 13:23 EDT [facility]EMATOLOG[facility] & ONCOLOGY [facility] MCHC 33.3 32.1 - 35.9 g/dL 05/25/2024 13:23 EDT [facility] & [facility]COLOG[facility] RDW-CV 16.5(H) <14.7 % 05/25/2024 13:23 T [facility] HEMATOLOGY [facility]COL[facility] RDW-SD 50.7(H) <50.4 fl 05/25/2024 13:23 EDT [facility] HEMATOLOGY ONCOL[facility] PLT 142 141 - 377 K/cmm 05/25/2024 13:23 [facility] ONCOLOGY [facility] MPV 11.0 9.5 - 12.7 fL 05/25/2024 13:23 [facility] ONCOLOGY [facility] % Neutrophils 73.9 % 05/25/2024 13:23 [facility]ATOLOGY [facility] % Lymphocytes 16.0 % 05/25/2024 13:23 [facility] HEMATOLOGY [facility] % Monocytes 7.2 % 05/25/2024 13:23 [facility]ATOLOGY [facility] % Eosinophils 2.6 % 05/25/2024 13:23 [facility] % Basophils 0.3 % 05/25/2024 13:23 [facility] ONCOLOGY [facility] % Immature Grans 05/25/20 13:23 [facility] ONCOLOGY [facility] Absolute Neutrophils 4.54 2.20 - 8.85 K/cmm 05/25/2024 13:23 [facility] ONCOLOGY [facility] Absolute Lymphocytes 0.98(L) 1.09 - 3.30 K/cmm 05/25/2024 13:23 [facility] ONCOLOGY [facility] Absolute Monocytes 0.44 0.10 - 0.80 K/cmm 05/25/2024 13:23 [facility] ONCOLOGY [facility] Absolute Eosinophils 0.16 0.03 - 0.61 K/cmm 05/25/2024 13:23 [facility] ONCOLOGY [facility] ABS Basophils 0.02 0.01 - 0.11 K/cmm 05/25/2024 13:23 EDT [facility] & [facility]COL[facility]Y [facility] Absolute Immature Grans 05/25/2024 13:23 EDT [facility] Type of Differential: Auto 05/25/2024 13:23 EDT [facility] & [facility]COL[facility] Blood VENOUS BLOOD / Unknown Venipuncture / Unknown 05/25/2024 10:33 EDT 05/25/2024 10:33 EDT Abdiel Salas MD PACKAGES & DNA PROBE ORDERABLES [facility] HEMATOLOGY & ONCOLOGY [facility] Medical Office [address], [address] * (ABNORMAL) COMPREHENSIVE METABOLIC PANEL (CMP) (05/25/2024 10:33 EDT) Sodium 140 136 - 145 mmol/L 05/25/2024 11:14 [facility] Potassium 3.9 3.5 - 5.0 mmol/L 05/25/2024 11:14 [facility] Chloride 103 96 - 110 mmol/L 05/25/2024 11:14 [facility] CO2 Total 29 22 - 32 mmol/L 05/25/2024 11:14 [facility] Glucose 84 70 - 99 mg/dl 05/25/2024 11:14 [facility] BUN 18 10 - 26 mg/dL 05/25/2024 11:14 [facility] Creatinine 0.80 0.52 - 1.04 mg/dL 05/25/2024 11:14 [facility] eGFR 86 >60 mL/min/1. 73m2 05/25/2024 11:14 [facility] Total Protein 7.4 6.3 - 8.2 g/dL 05/25/2024 11:14 [facility] Comment:The sample was colle cted in a Raub Heparin anticoagulated tube. An average positive bias of 6% with an individual sample bias up to 10% may be observed with heparin plasma results compared to serum results. Albumin 4.4 3.4 - 4.9 g/dL 05/25/2024 11:14 [facility] Alkaline Phosphatase 212(H) 38 - 126 U/L 05/25/2024 11:14 [facility] AST 42 15 - 46 U/L 05/25/2024 11:14 [facility] ALT 25 <35 U/L 05/25/2024 11:14 [facility] Bilirubin, Total 0.5 <1.4 mg/dL 05/25/2024 11:14 [facility] Calcium 8.9 8.5 - 10.5 mg/dL 05/25/2024 11:14 [facility] Albumin/Globulin Ratio 1.5 1.0 - 2.5 05/25/2024 11:14 [facility] Anion Gap 8 5 - 14 mmol/L 05/25/2024 11:14 [facility] Blood VENOUS BLOOD / Unknown Venipuncture / Unknown 05/25/2024 10:33 EDT 05/25/2024 10:33 EDT Abdiel Salas MD CHEMISTRY & BLOOD GA S ORDERABLES [facility] [address] [place] [address] * ECG REPORT - SCANNED (05/15/2024 12:14 EDT) 05/15/2024 12:1 4 EDT Scan 2 Certified Addiction Counselor PROCEDURE/MINOR JORGE GICAL ORDERABLES * COLONOSCOPY (05/13/2024 13:00 EDT) Anatomical Region Laterality Modality Endoscopy Narrative 05/13/2024 13:[address] [facility] ?? Box [facility], [place], [place] [address] ?? Patient Name ?GONSALO PABLO Date of ?1965 Record Number ?[id number] Date/Time of Procedure ?05/13/2024, 01:00:00 PM Endoscopist ?Flavio Dodd ?? Food Runner ? Referring Physician(s) ?? MARTI Hammond Anesthesiologist ? Procedure Performed: COLONOSCOPY Indications for Exam: Screening Colonoscopy. Instruments: ? [id number] ([id number]) Medications: ?Fentanyl 75 mcg, Versed 4 mg I was in continuous face to face attendance during the administration of moderate sedation services that were monitored by an independent trained observer who had no other duties during the procedure. ? Visualization: ? Good ?Tolerance: Good ?Complications: None ? Extent of Exam: ?terminal ileum ? Limitations: ?? Procedure Technique: A physical exam was performed. Informed consent was obtained from the patient after explaining all the risks (perforation, bleeding, infection and adverse effects to the medicine) , benefits and alternatives to the procedure which the patient appeared to understand and so stated. ??The patient was connected to the monitoring devices [...] colorectal cancer screening Sedation Start: 01:14:54 PM ?? Sedation End: 01:33:38 PM Signature: Flavio Dodd M.D. This note was electronically signed on 05/13/2024 01:36:27 PM By Flavio Dodd M.D. Rosemary Salcido DOCK OPERATIONS SUPERVISOR GI PROCEDURE ORDERAB LES from Last 3 Months Care Teams Helicopter Utility Aircrewman Relationship Specialty Start Date End Date Sarah Quintero FNP [address] [place] [phone] PCP - General 05/03/20
--- OUTSIDE RECORDS SUMMARY | 2024-06-30 16:29 | XMS_ITS ---
Author Organization Unknown Address [address] [place] [phone] Phone Care Team Providers Care Plastic Straightening Roll Operator Name Role Phone BELKIS CHERY Tiana Attending Unavailable RODRIGUEZ Alexandra Primary Unavailable Functional Status Description Date Code Code System No Functional Impairments 45016533 SN OMED-CT Mental Status Description Date Code Code System No Cognitive Impairments 66684909 SNO MED-CT Results COMPREHENSIVE METABOLIC PANE L (CMP) - Collect Date/Time: 05/09/2022 09:30 [facility] ID: [id number] [address] [place] [address], [id number] LOINC: 91876-3 Test Value Unit Reference Range Code Code System Flag GLUCOSE 109 mg/dL L=70 H=116 2345-7 LOINC BUN 16 mg/dL L=6 H=25 3094-0 LOINC CREATININE 0.92 mg/dL L=0.51 H=0.95 2160-0 LOINC SODIUM SERUM 137 mmol/L L=136 H=145 2951-2 LOINC POTASSIUM SERUM 2.6 mmol/L L=3.4 H=5.2 2823-3 LOINC LL CHLORIDE SERUM 104 mmol/L L=96 H=110 2075-0 LOINC CARBON DIOXIDE (CO2) 22 mmol/L L=22 H=34 2028-9 LOINC ANION GAP 10.7 mmol/L 94569-8 LOINC CALCIUM SERUM 8.1 mg/dL L=8.2 H=10.2 37568-1 LOINC L BILIRUBIN TOTAL 0.3 mg/dL L=0.0 H=1.3 1975-2 LOINC ALK. PHOS. 116 U/L L=46 H=116 6768-6 LOINC SGOT (AST) 38 U/L L=15 H=37 1920-8 LOINC H SGPT (ALT) 133 U/L L=12 H=78 1742-6 LOINC H TOTAL PROTEIN 5.8 gm/dL L=6.0 H=8.0 2885-2 LOINC L ALBUMIN 2.9 gm/dL L=3.4 H=5.0 1751-7 LOINC L AGE 56 years eGFR (non-Afr.Amer.) 63 mL/min 06654-7 LOINC eGFR (Afr-Chilean) 77 mL/min 62247-3 LOINC Social History Type Status Start Date End Date Code Code Syst em Smoking History Never smoker (Never Smoked) 713093404 SNOMED CT Sex Female Medications Medication Start Date End Date Route Frequency Dose Code Code System Medication Instructions Home Meds Clindagel 1% Topical application Gel/Jelly 10/11/2022 Unknown TOPICAL APPLICATION NEEDED TWICE DAILY 1 unit(s) 474582 RxNorm 1 EACH TOPICAL APPLICATION NEEDED TWICE DAILY Dexamethasone 4MG Oral Tablet 10/11/2022 11/17/19 23 ORAL NEEDED DAILY 8 MILLIGRA MS 853124 RxNorm TAKE 8 MILLIGRAMS ORAL NEEDED DAILY Elderberry 500 MG Oral Capsule 10/11/2022 Unknown ORAL DAILY 1000 MG RxNorm TAKE 1000 MG ORAL DAILY LORazepam 1MG Oral Tablet 10/11/2022 Unknown ORAL NEEDED EVERY 6 HOURS 1 MILLIGRA MS 556008 RxNorm TAKE 1 MILLIGRAMS ORAL NEEDED EVERY 6 HOURS FOR Anxiety Levothyroxine 125MCG Oral Tablet 10/11/2022 Unknown ORAL DAILY 125 MCG 917428 RxNorm TAKE 125 MCG ORAL DAILY Magnesium Gluconate 500 MG Oral Tablet 10/11/2022 Unknown ORAL TWICE A DAY 500 MG 198003 RxNorm TAKE 500 MG ORAL TWICE A DAY Maxalt 10MG Oral Tablet 10/11/2022 Unknown ORAL NEEDED DAILY 10 MILLIGRA MS 710191 RxNorm TAKE 10 MILLIGRAMS ORAL NEEDED DAILY OLANZapine 10MG Oral Tablet 10/11/2022 Unknown ORAL NEEDED DAILY 10 MILLIGRA MS 794867 RxNorm TAKE 10 MILLIGRAMS ORAL NEEDED DAILY Potassium Chloride 20MEQ Oral Tablet, Extended Release 10/11/2022 Unknown ORAL TWICE A DAY 20 MEQ 8764980 RxNorm TAKE 20 MEQ ORAL TWICE A DAY Prochlorperaz ine Maleate 10MG Oral Tablet 10/11/2022 Unknown ORAL NEEDED EVERY 6 HOURS 10 MILLIGRA MS 959582 RxNorm TAKE 10 MILLIGRAMS ORAL NEEDED EVERY 6 HOURS Protonix 40 MG Oral Tablet, Delayed Release 10/11/2022 Unknown ORAL DAILY 40 MG 978405 RxNorm TAKE 40 MG ORAL DAILY Sertraline 100MG Oral Tablet 10/11/2022 Unknown ORAL DAILY 150 MILLIGRA MS 952738 RxNorm TAKE 150 MILLIGRAMS ORAL DAILY Vitamin D 1000IU Oral Tablet 10/11/2022 10/31/20 22 ORAL DAILY 1999 INTERNAT IONAL UNITS 19930412 RxNorm TAKE 2000 INTERNATIONA L UNITS ORAL DAILY Zofran 4MG Oral Tablet 10/11/2022 Unknown ORAL NEEDED EVERY 8 HOURS 4 MILLIGRA MS 428824 RxNorm TAKE 4 MILLIGRAMS ORAL NEEDED EVERY 8 HOURS traZODone hydrochloride 50MG Oral Tablet 10/11/2022 Unknown ORAL NEEDED AT BEDTIME 50 MILLIGRA MS 082729 RxNorm TAKE 50 MILLIGRAMS ORAL NEEDED AT BEDTIME Ajovy 225MG/1.5ML Subcutaneous Solution 11/02/2022 11/17/19 23 SUBCUTANEOUS MONTHLY 1 unit(s) 3731763 RxNorm INJECT 1 EACH SUBCUTANEOUS MONTHLY Estring 0.0075MG/24HR Vaginal Insert, Extended Release 11/02/2022 Unknown VAGINAL 1 unit(s) 153055 RxNorm 1 EACH VAGINAL oxyCODONE HCl 5MG Oral Tablet 11/02/2022 Unknown ORAL NEEDED 5 MILLIGRA MS 7585423 RxNorm TAKE 5 MILLIGRAMS ORAL NEEDED Albuterol Sulfate 1.25MG/3ML Inhalation Solution 11/13/2022 11/17/19 23 INHALATION DAILY 1 272375 RxNorm 1 INHALATION DAILY predniSONE 20MG Oral Tablet 11/13/2022 Unknown ORAL DAILY 2 TABLET 611010 RxNorm TAKE 2 TABLET ORAL DAILY Ibuprofen 600MG Oral Tablet 11/17/2022 Unknown ORAL NEEDED EVERY 6 HOURS 600 MILLIGRA MS 542772 RxNorm TAKE 600 MILLIGRAMS ORAL NEEDED EVERY 6 HOURS Albuterol Sulfate 0.5% Inhalation Solution 11/17/2022 11/17/19 23 INHALATION FOUR TIMES A DAY WITH FOOD 1 unit(s) 780985 RxNorm 1 EACH INHALATION FOUR TIMES A DAY WITH FOOD Ventolin HFA 0.09MG/1Actua tion Inhalation Suspension 11/17/2022 Unknown INHALATION NEEDED EVERY 4 HOURS 2 PUFF 465554 RxNorm 2 PUFF INHALATION NEEDED EVERY 4 HOURS Albuterol Sulfate 0.5% Inhalation Solution 11/17/2022 Unknown INHALATION FOUR TIMES A DAY 1 unit(s) 462628 RxNorm 1 EACH INHALATION FOUR TIMES A DAY Azithromycin 250MG Oral Tablet 11/17/2022 Unknown ORAL DAILY 1 TABLET 568933 RxNorm TAKE 1 TABLET ORAL DAILY Cefpodoxime Proxetil 200MG Oral Tablet 11/17/2022 Unknown ORAL TWICE A DAY 1 TABLET 384374 RxNorm TAKE 1 TABLET ORAL TWICE A [...] Status Code Code System BREAST CANCER active 399179309 SNOMED -CT REACTIVE LYMPHADENOPATHY active 39891 8006 SNOMED-CT RSV INFECTION active 70955665 SNOMED -CT ANXIETY 10/09/2022 resolved 90292100 SNOMED-CT IBS 10/09/2022 resolved 73987814 SNOMED-CT GERD 10/09/2022 resolved 211653723 SNOMED-CT NEUTROPENIC FEVER 11/15/2022 resolved 578214317 S NOMED-CT MIGRAINE 10/09/2022 resolved 59832150 SNOMED-CT HYPOMAGNESEMIA 11/15/2022 resolved 254116356 SNOM ED-CT HYPOTHYROIDISM 10/09/2022 resolved 21614923 SNOM ED-CT Allergies and Adverse Reactions Allergy Substance Reaction Severity Start Date Concern Status Co de Code System SULFA (sulfonamide) Active 49577404 SNO MED-CT DEMEROL Active 288669 RxNorm Plan of Treatment Exposure 10/08/2020 MM [...] Start Date Code Code Sys tem Dehydration 05/09/2022 SNOMED-CT Personal Care Team Section Performer Name Performer Role Active Date Inactive Da te
--- OUTSIDE RECORDS SUMMARY | 2024-06-30 16:29 | XMS_ITS ---
Author Organization Unknown Address [address] [place] [phone] Phone Care Team Providers Care Crystal Inspector Name Role Phone BELKIS CHERY Tiana Attending Unavailable RODRIGUEZ Alexandra Primary Unavailable Functional Status Description Date Code Code System No Functional Impairments 48356615 SN OMED-CT Mental Status Description Date Code Code System No Cognitive Impairments [id number] SNO MED-CT Social History Type Status Start Date End Date Code Code Syst em Smoking History Never smoker (Never Smoked) 492906579 SNOMED CT Sex Female Medications Medication Start Date End Date Route Frequency Dose Code Code System Medication Instructions Home Meds Clindagel 1% Topical application Gel/Jelly 10/11/2022 Unknown TOPICAL APPLICATION NEEDED TWICE DAILY 1 unit(s) 876589 RxNorm 1 EACH TOPICAL APPLICATION NEEDED TWICE DAILY Dexamethasone 4MG Oral Tablet 10/11/2022 11/17/19 23 ORAL NEEDED DAILY 8 MILLIGRA MS 688023 RxNorm TAKE 8 MILLIGRAMS ORAL NEEDED DAILY Elderberry 500 MG Oral Capsule 10/11/2022 Unknown ORAL DAILY 1000 MG RxNorm TAKE 1000 MG ORAL DAILY LORazepam 1MG Oral Tablet 10/11/2022 Unknown ORAL NEEDED EVERY 6 HOURS 1 MILLIGRA MS 549727 RxNorm TAKE 1 MILLIGRAMS ORAL NEEDED EVERY 6 HOURS FOR Anxiety Levothyroxine 125MCG Oral Tablet 10/11/2022 Unknown ORAL DAILY 125 MCG 458180 RxNorm TAKE 125 MCG ORAL DAILY Magnesium Gluconate 500 MG Oral Tablet 10/11/2022 Unknown ORAL TWICE A DAY 500 MG 156095 RxNorm TAKE 500 MG ORAL TWICE A DAY Maxalt 10MG Oral Tablet 10/11/2022 Unknown ORAL NEEDED DAILY 10 MILLIGRA MS 627564 RxNorm TAKE 10 MILLIGRAMS ORAL NEEDED DAILY OLANZapine 10MG Oral Tablet 10/11/2022 Unknown ORAL NEEDED DAILY 10 MILLIGRA MS 947832 RxNorm TAKE 10 MILLIGRAMS ORAL NEEDED DAILY Potassium Chloride 20MEQ Oral Tablet, Extended Release 10/11/2022 Unknown ORAL TWICE A DAY 20 MEQ 7936554 RxNorm TAKE 20 MEQ ORAL TWICE A DAY Prochlorperaz ine Maleate 10MG Oral Tablet 10/11/2022 Unknown ORAL NEEDED EVERY 6 HOURS 10 MILLIGRA MS 816257 RxNorm TAKE 10 MILLIGRAMS ORAL NEEDED EVERY 6 HOURS Protonix 40 MG Oral Tablet, Delayed Release 10/11/2022 Unknown ORAL DAILY 40 MG 528989 RxNorm TAKE 40 MG ORAL DAILY Sertraline 100MG Oral Tablet 10/11/2022 Unknown ORAL DAILY 150 MILLIGRA MS 388897 RxNorm TAKE 150 MILLIGRAMS ORAL DAILY Vitamin D 1000IU Oral Tablet 10/11/2022 10/31/20 22 ORAL DAILY 2000 INTERNAT IONAL UNITS 19930412 RxNorm TAKE 2000 INTERNATIONA L UNITS ORAL DAILY Zofran 4MG Oral Tablet 10/11/2022 Unknown ORAL NEEDED EVERY 8 HOURS 4 MILLIGRA MS 912997 RxNorm TAKE 4 MILLIGRAMS ORAL NEEDED EVERY 8 HOURS traZODone hydrochloride 50MG Oral Tablet 10/11/2022 Unknown ORAL NEEDED AT BEDTIME 50 MILLIGRA MS 629940 RxNorm TAKE 50 MILLIGRAMS ORAL NEEDED AT BEDTIME Ajovy 225MG/1.5ML Subcutaneous Solution 11/02/2022 11/17/19 23 SUBCUTANEOUS MONTHLY 1 unit(s) 3494243 RxNorm INJECT 1 EACH SUBCUTANEOUS MONTHLY Estring 0.0075MG/24HR Vaginal Insert, Extended Release 11/02/2022 Unknown VAGINAL 1 unit(s) 551714 RxNorm 1 EACH VAGINAL oxyCODONE HCl 5MG Oral Tablet 11/02/2022 Unknown ORAL NEEDED 5 MILLIGRA MS 5736192 RxNorm TAKE 5 MILLIGRAMS ORAL NEEDED Albuterol Sulfate 1.25MG/3ML Inhalation Solution 11/13/2022 11/17/19 23 INHALATION DAILY 1 933066 RxNorm 1 INHALATION DAILY predniSONE 20MG Oral Tablet 11/13/2022 Unknown ORAL DAILY 2 TABLET 523187 RxNorm TAKE 2 TABLET ORAL DAILY Ibuprofen 600MG Oral Tablet 11/17/2022 Unknown ORAL NEEDED EVERY 6 HOURS 600 MILLIGRA MS 265722 RxNorm TAKE 600 MILLIGRAMS ORAL NEEDED EVERY 6 HOURS Albuterol Sulfate 0.5% Inhalation Solution 11/17/2022 11/17/19 23 INHALATION FOUR TIMES A DAY WITH FOOD 1 unit(s) 617375 RxNorm 1 EACH INHALATION FOUR TIMES A DAY WITH FOOD Ventolin HFA 0.09MG/1Actua tion Inhalation Suspension 11/17/2022 Unknown INHALATION NEEDED EVERY 4 HOURS 2 PUFF 699048 RxNorm 2 PUFF INHALATION NEEDED EVERY 4 HOURS Albuterol Sulfate 0.5% Inhalation Solution 11/17/2022 Unknown INHALATION FOUR TIMES A DAY 1 unit(s) 199677 RxNorm 1 EACH INHALATION FOUR TIMES A DAY Azithromycin 250MG Oral Tablet 11/17/2022 Unknown ORAL DAILY 1 TABLET 479339 RxNorm TAKE 1 TABLET ORAL DAILY Cefpodoxime Proxetil 200MG Oral Tablet 11/17/2022 Unknown ORAL TWICE A DAY 1 TABLET 738457 RxNorm TAKE 1 TABLET ORAL TWICE A [...] Status Code Code System BREAST CANCER active 491589930 SNOMED -CT REACTIVE LYMPHADENOPATHY active 76357 8006 SNOMED-CT RSV INFECTION active 91444991 SNOMED -CT ANXIETY 10/09/2022 resolved 54489384 SNOMED-CT IBS 10/09/2022 resolved 13512030 SNOMED-CT GERD 10/09/2022 resolved 238657320 SNOMED-CT NEUTROPENIC FEVER 11/15/2022 resolved 387036887 S NOMED-CT MIGRAINE 10/09/2022 resolved 67928216 SNOMED-CT HYPOMAGNESEMIA 11/15/2022 resolved 407962294 SNOM ED-CT HYPOTHYROIDISM 10/09/2022 resolved 16906525 SNOM ED-CT Allergies and Adverse Reactions Allergy Substance Reaction Severity Start Date Concern Status Co de Code System SULFA (sulfonamide) Active 12041182 SNO MED-CT DEMEROL Active 784582 RxNorm Plan of Treatment Exposure 10/08/2020 MM [...] upper- outer quadrant of right female breast 05/16/2022 SNOMED-CT Personal Care Team Section Performer Name Performer Role Active Date Inactive Da te
--- OUTSIDE RECORDS SUMMARY | 2024-06-30 16:29 | XMS_ITS | Encounter Summary ---
Author Organization [facility] Address [address] [place] [address] Care Team Providers Care Photoengraving Etcher Name Role Phone Sarah Quintero UPHOLSTERY MECHANIC Primary Care Provider Reason for Visit * Reason Comments Migraine Follow-up Encounter Details Date Type Department Care Team ([facility] st Contact Info) Description 12/31/2023 11:30 EST Telemedicine [facility] Neurology Clinic [address] [place] [id number] Brooke Lee MD [address] [place] [address] Other migraine, not intractable, without status migrainosus (Primary Dx) Social History Tobacco Use Types [...] as of this encounter Progress Notes * Brooke Lee MD - 12/31/2023 1130 EST [facility] Neurology Clinic [facility] Video Visit Today's visit was provided through telemedicine video conferencing: The location of the patient: Home The location of the provider: Office Verbal consent: The concept of ???Telemedicine?? has been described to the patient.Patient has been informed of the anticipated benefits and possible risks. Patient understands the information provided regarding telemedicine, has had the opportunity to ask questions about this information, and all questions have been answered to patient???s satisfaction. Patient consents for the use of telemedicine in his/her medical care and authorizes the transmission of any relevant medical information to providers and their staff involved in patient???s medical or mental health care. Verbal consent obtained by myself or auxiliary staff: yes. I spent a total of 30 minutes on the date of this encounter meeting with the patient and reviewing documentation/coordinating care as described in the above note. No procedures were performed at the time of the visit. The following individuals and their role did participate in today's encounter visit: Provider: Brooke Lee MD Patient History Mireille is a 58-year-old female, previously followed by Dr. Snider and Dr. Macias, who presents for ongoing management of her chronic migraines. Per chart review, her typical headache starts upon awakening and is located in the retro-orbital orbifrontal temporal region, left more than right. It is described as a pressure, sharp or pounding sensation and there is associated photophobia and nausea. Prior preventatives: --Propranolol --Topamax --Amitriptyline --Nortriptyline --Aimovig 70 mg: Ineffective --Botox: Ineffective --Ajovy: Was working very well (she is open to reinitiating this)-was switched to Qulipta given that she had worsening of her migraine frequency while on her breast cancer medication. Prior abortives: --Eletriptan: Lost efficacy The patient was last seen in December 2022. She had been on Ajovy for for a few months which was effective for the first 2 months but reportedly became less effective by the third month. She reached out to us and let us know that she was receiving IV treatments with adotarnstuzande for breast cancer which was reportedly worsening her migraines. In the context of this, we switched her to Qulipta 6mg. Interval History: Mireille has been doing well overall. She is uncertain as to how many migraines she gets on a monthly basis. However, she says that she has only taken a handful of Maxalt. When she takes the Maxalt it is very effective in aborting her migraines. Overall, she often has these brief spurts of week long worsening of her migraines. She cannot identify any triggers for this. This has been an ongoing issue for a long time. She is no longer on any breast cancer medications. Fortunately, she says that she is in remission. When she was on that medication for breast cancer, it made her migraines much worse. Thus, she is open to reinitiating Ajovy in the future if needed but is happy with her migraine control while on Quilipta. Examination: [facility] 03/29/2009 (Within Months) GENERAL: Normal appearance, no acute distress. Normal extraocular movements. Face symmetric. Antigravity in the upper and lower extremities. Limited by telemetry evaluation Prior Workup: Labs: Imaging: Assessment: Mireille is a pleasant 58-year-old female who presents for ongoing management of migraines. Briefly, her migraines are typically located in the retro-orbital region or in the frontal temporalarea bilaterally. Typically, the left side of her head is affected more than the right and it is described as a pressure, sharp or pounding sensation with associated photophobia and nausea. She has been on numerous preventative medications as highlighted above. She is currently on Qulipta 60 mg daily which has been very effective. On encounter today, Mireille has been doing well overall. She has had only a handful of migraines overthe last few months. When she does get migraines, she takes the Maxalt which is very effective. Yolandasue if ever needs to take a second dose. Given her good control, will not make any adjustments to her medical regimen at this time. Will see her back in 6 months. She knows to contact us in the interim if she has any concerns Plan: #Migraine w/o aura, Episodic Non-Pharmacologic Recommendations: 1. Sleep: follow the same sleep routine every day (even on weekends), getting 7- 8 hours of sleep per night, avoiding screen time for at least 2 hours before bed 2. Nutrition: eat at least every 3-4 hours while awake, choose healthy simple foods and avoid fast foods or junk foods 3. Hydration: Drink at least 48-60 oz of water per day. Avoid sodas (even sugar- free), juices with high sugar content, and energy drinks 4. Caffeine: No more than 8 oz in the am before noon 5. Exercise with Weight Loss: At least 20-30 minutes of low impact exercise (such as walking) at least 3-4 days per week 6. Stress: Build in time every day for self-care which can be walking, reading, journaling or some other hobby. Meditation and mindfulness can be quite helpful. Pharmacologic Recommendations: Abortive Therapy: ----- Mild to Moderate Intensity: Ibuprofen (Advil, Motrin) 400-600mg up to 2.4g daily (Tylenol 1g if ibuprofen intolerant) ----- Moderate to Severe Intensity: Rizatriptan ODT (Maxalt) 10mg as needed Counseled on taking this no more than 2 times a week to prevent MOH. For Nausea: -- Prochlorperazine (Compazine) 10mg/dose as needed Preventative Therapy: Atogepant (Qulipta)- 60 mg once daily Brooke Lee MD documented in this encounter Plan of Treatment Upcoming Encounters Date Type Department Care Team (Late st Contact Info) Description 05/25/2025 14:00 EDT Office Visit [facility] Adult Hematology & Oncology [address] [place] [address] Abdiel Salas MD [address] [place] [address] [address] [place] [address] documented as of this encounter Visit Diagnoses Diagnosis Other migraine, not intractable, without status migrainosus- Primary documented in this encounter Care Teams Photoengraving Etcher Relationship Specialty Start Date End Date Sarah Quintero FNP [address] [place] [phone] PCP - General 05/03/20 documented as of this encounter
--- OUTSIDE RECORDS SUMMARY | 2024-06-30 16:29 | XMS_ITS ---
Author Organization [facility] Address [address] [place] [address] Care Team Providers Care [facility] Care [facility] Assistant Director Name Role Phone Sarah Quintero [facility] Primary Care Provider [phone] Active Problems Problem Noted Date Diagnosed Date Malignant neoplasm of upper- outer quadrant of right breast in female, estrogen receptor negative ([facility]) 03/30/2022 Cancer Staging:Pathologic stage from 08/22/2022:No Stage Recommended(ypT1c, pN1a(sn), cM0, G3, ER-, ID-, HER2+) - Signed by Raul Noe MD on 11/28/2022 Current Oncology Plans TCH + P (NEOADJUVANT - TRYPHAENA) (AUC 6)* Plan Start Date:04/10/2022 Plan Provider:Katt Brewster NP Linked Problems Malignant neoplasm of upper- outer quadrant of right breast in female, estrogen receptor negative ([facility]) Treatment Medications Current Day (Prescriptions and Labs - Planned for 04/10/2022) Next Day (Day 1, Cycle 1 - Planned for 04/11/2022) CARBOplatin (PARAPLATIN) mihaela mo infusion (by AUC)DOCEtaxel (TAXOTERE) chemo infusionfosaprepitant (EMEND) IVPB 150 mgpegfilgrastim-jmdb (FULPHILA)pertuzumab (PERJETA) infusiontrastuzumab-anns (Kanjinti) infusion No medications scheduled. CARBOplatin (PARAPLATIN) in dextrose 5% (D5W) 150 mL chemo infusionDOCEtaxel (TAXOTERE) 157.6 mg in sodium chloride (NS) 0.9 % 250 mL chemo infusionfosaprepitant (EMEND) 150 mg in sodium chloride (NS) 0.9 % 150 mL infusionpertuzumab (PERJETA) 840 mg in sodium chloride (NS) 0.9 % 250 mL chemotherapy infusiontrastuzumab-ANNS (Kanjinti) 740 mg in sodium chloride (NS) 0.9 % 250 mL infusion Past Plans No past plan information found. Radiation Treatments * Plan Last Treated On Elapsed Days Fractions Treated Prescribed Fraction Dose Prescribed Total Dose 1_Rt Sclav 01/04/2023 29 16 of 16 265 cGy 4,240 cGy 2_Rt Breast 01/04/2023 29 16 of 16 265 cGy 4,240 cG y 2_Rt Brst [facility] 01/10/2023 29 4 of 4 250 cGy 1,000 cGy Reference Point Last Treated On Elapsed Days Session Dose Total Dose 3_Rt Brst [facility] 01/10/2023 29 250 cGy 1,000 cGy RIGHT BREAST 01/04/2023 29 265 cGy 4,240 cGy RT [facility]CL[facility] 01/04/2023 29 265 cGy 4,240 cGy Tumor Bed TOTAL 01/10/2023 29 250 cGy 5,240 cGy
--- OUTSIDE RECORDS SUMMARY | 2024-06-30 16:29 | XMS_ITS | Referral Summary ---
Author Organization [facility] Address [address] [place] [address] Care Team Providers Care Process Development Associate Name Role Phone Sarah Quintero INTAKE RN Primary Care Provider Encounters Date Type Department Care Team Description 05/25/2024 10:30 EDT Office Visit [facility] Adult Hematology & Oncology [address] [place] [address] Abdiel Salas MD Malignant neoplasm of upper-outer quadrant of right breast in female, estrogen receptor negative ([facility]) (Primary Dx) 05/13/2024 11:56 EDT - 05/13/2024 23:59 EDT Hospital Encounter [facility] Endoscopy [address] [place] [address] Flavio Dodd MD Encounter for screening colonoscopy Discharge Disposition: Home or Self Care 05/06/2024 Telephone [facility] Neurology Clinic [address] [place] [address] Allison Hart, RN Medications Refill from Last 3 Months Allergies Active Allergy Reactions Criticality Noted Date [...] 1 Tablet by mouth daily. Active rizatriptan (MAXALT-MARKETING SEGMENT MANAGER) 10 mg disintegrating tablet DISSOLVE ONE TABLET [...] right breast in female, estrogen receptor negative ([facility]) 03/30/2022 Cancer Staging:Pathologic stage from 08/22/2022:No Stage Recommended(ypT1c, pN1a(sn), cM0, G3, ER-, AK-, HER2+) - Signed by Raul Noe MD on 11/28/2022 Immunizations Name Administration Dates Next Due Covid-19 mRNA Booster Vaccin e (MODERNA COVID-19 BOOSTER) PF 0.25 mL IM (18 yrs+) 09/13/2021 Covid-19 mRNA Vaccine (MODER NA COVID-19) PF 0.5 ml IM (12 yrs+) 12/01/2020,11/02/2020 Historical Influenza Vaccine, Unspecified 2020 Shingrix (Zoster Vaccine, Recombinant) IM 2020,05/08/2021 Tdap Vaccine =>7YO IM 08/28/2012 Social History Tobacco Use Types Packs/Day Years [...] 7:52 EDT Sexual Orientation Not on file Last Filed Vital Signs Vital Sign Reading [...] Body Mass Index 28.04 05/13/2024 1209 EDT Functional Status Functional Status Response Date of [...] concentrating, remembering, or making decisions? Yes 12/20/2022 Plan of Treatment Upcoming Encounters Date Type Department Care Team (Late st Contact Info) Description 05/25/2025 14:00 EDT Office Visit [facility] Adult Hematology & Oncology [address] [place] [phone] Abdiel Salas MD [address] [place] [address] [address] [place] [phone] Procedures Procedure Name Priority Date/Time Associated Diagnosis [...] [facility]EMAT[facility] RBC 4.95 3.86 - 5.04 M/cmm 05/25/2024 13:23 EDT [facility] HEMATOLOGY & ONCOLOGY [facility] Hemoglobin 13.9 11.6 - 15.2 g/dL 05/25/2024 13:23 EDT [facility] ONCOLOGY [facility] HCT 41.7 34.9 - 44.4 % 05/25/2024 13:23 EDT [facility] HEMATOLOGY ONCOLOGY [facility] MCV 84 81 - 98 fL 05/25/2024 13:23 EDT [facility] HEMATOLOGY ONCOLOGY [facility] MCH 28.1 26.7 - 33.3 pg 05/25/2024 13:23 EDT [facility] HEMATOLOGY & ONCOLOGY [facility] MCHC 33.3 32.1 - 35.9 g/dL 05/25/2024 13:23 EDT [facility] ONCOLOGY [facility] RDW-CV 16.5(H) <14.7 % 05/25/2024 13:23 T [facility] ONCOLOGY [facility] RDW-SD 50.7(H) <50.4 fl 05/25/2024 13:23 EDT [facility] HEMATOLOGY & ONCOLOGY [facility] PLT 142 141 - 377 K/cmm 05/25/2024 13:23 EDT [facility] ONCOLOGY [facility] MPV 11.0 9.5 - 12.7 fL 05/25/2024 13:23 EDT [facility]EMATOLOGY [facility] % Neutrophils 73.9 % 05/25/2024 13:23 EDT [facility] ONCOL[facility] % Lymphocytes 16.0 % 05/25/2024 13:23 EDT [facility] ONCOLOGY [facility] % Monocytes 7.2 % 05/25/2024 13:23 EDT [facility] ONCOLOGY [facility] % Eosinophils 2.6 % 05/25/2024 13:23 EDT [facility] HEMATOLOGY & ONCOLOGY [facility] % Basophils 0.3 % 05/25/2024 13:23 EDT [facility] ONCOLOGY [facility] % Immature Grans 05/25/20 13:23 EDT [facility] Absolute Neutrophils 4.54 2.20 - 8.85 K/cmm 05/25/2024 13:23 EDT [facility] Absolute Lymphocytes 0.98(L) 1.09 - 3.30 K/cmm 05/25/2024 13:23 EDT [facility] HEMATOLOGY [facility] Absolute Monocytes 0.44 0.10 - 0.80 K/cmm 05/25/2024 13:23 EDT [facility] Absolute Eosinophils 0.16 0.03 - 0.61 K/cmm 05/25/2024 13:23 EDT [facility] ABS Basophils 0.02 0.01 - 0.11 K/cmm 05/25/2024 13:23 EDT [facility] Absolute Immature Grans 05/25/2024 13:23 EDT [facility] Type of Differential: Auto 05/25/2024 13:23 EDT [facility] Blood VENOUS BLOOD / Unknown Venipuncture / Unknown 05/25/2024 10:33 EDT 05/25/2024 10:33 EDT Abdiel Salas MD PACKAGES & DNA PROBE ORDERABLES [facility] HEMATOLOGY ONCOLOGY [facility] Medical Office [address], [address] [place] [address] * (ABNORMAL) COMPREHENSIVE METABOLIC PANEL (CMP) (05/25/2024 10:33 EDT) Sodium 140 136 - 145 mmol/L 05/25/2024 11:14 T [facility] Potassium 3.9 3.5 - 5.0 mmol/L 05/25/2024 11:14 T [facility] Chloride 103 96 - 110 mmol/L 05/25/2024 11:14 [facility] CO2 Total 29 22 - 32 mmol/L 05/25/2024 11:14 [facility] Glucose 84 70 - 99 mg/dl 05/25/2024 11:14 [facility] BUN 18 10 - 26 mg/dL 05/25/2024 11:14 [facility] Creatinine 0.80 0.52 - 1.04 mg/dL 05/25/2024 11:14 [facility] eGFR 86 >60 mL/min/1. 73m2 05/25/2024 11:14 [facility] Total Protein 7.4 6.3 - 8.2 g/dL 05/25/2024 11:14 [facility] Comment:The sample was colle cted in a [place] Heparin anticoagulated tube. An average positive bias of 6% with an individual sample bias up to 10% may be observed with heparin plasma results compared to serum results. Albumin 4.4 3.4 - 4.9 g/dL 05/25/2024 11:14 [facility] Alkaline Phosphatase 212(H) 38 - 126 U/L 05/25/2024 11:14 [facility] AST 42 15 - 46 U/L 05/25/2024 11:14 [facility] ALT 25 <35 U/L 05/25/2024 11:14 [facility] Bilirubin, Total 0.5 <1.4 mg/dL 05/25/2024 11:14 [facility] Calcium 8.9 8.5 - 10.5 mg/dL 05/25/2024 11:14 [facility] Albumin/Globulin Ratio 1.5 1.0 - 2.5 05/25/2024 11:14 [facility] Anion Gap 8 5 - 14 mmol/L 05/25/2024 11:14 [facility] Blood VENOUS BLOOD / Unknown Venipuncture / Unknown 05/25/2024 10:33 EDT 05/25/2024 10:33 EDT Abdiel Salas MD CHEMISTRY & BLOOD GA S ORDERABLES [facility] [address] [place] [address] * ECG REPORT - SCANNED (05/15/2024 12:14 EDT) 05/15/2024 12:1 4 EDT Scan 2 Historian Research Assistant PROCEDURE/MINOR JORGE GICAL ORDERABLES * COLONOSCOPY (05/13/2024 13:00 EDT) Anatomical Region Laterality Modality Endoscopy Narrative 05/13/2024 13:00 EDT [facility] ?? [address] [place] [id number] ?? Patient Name ?GONSALO PABLO Date of ?1965 Record Number ?[id number] Date/Time of Procedure ?05/13/2024, 01:00:00 PM Endoscopist ?Flavio Dodd ?? Men'S Golf Coach ? Referring Physician(s) ?? MARTI Hammond Anesthesiologist ? Procedure Performed: COLONOSCOPY Indications for Exam: Screening Colonoscopy. Instruments: ? [facility]-[id number] ([id number]) Medications: ?Fentanyl 75 mcg, Versed 4 mg [...] PM By Flavio Dodd M.D. Rosemary Salcido NP GI PROCEDURE ORDERAB LES from Last 3 Months Care Teams Process Development Associate Relationship Specialty Start Date End Date Sarah Quintero FNP [address] [place] [phone] PCP - General 05/03/20
--- OUTSIDE RECORDS SUMMARY | 2024-06-30 16:29 | XMS_ITS ---
Author Organization Unknown Address [address] [place] [address] [phone] Phone Care Team Providers Care Favor Maker Name Role Phone BELKIS CHERY Tiana Attending Unavailable RODRIGUEZ Alexandra Primary Unavailable Functional Status Description Date Code Code System No Functional Impairments [id number] SN OMED-CT Mental Status Description Date Code Code System No Cognitive Impairments [id number] SNO MED-CT Social History Type Status Start Date End Date Code Code Syst em Smoking History Never smoker (Never Smoked) [id number] SNOMED CT Sex Female Medications Medication Start Date End Date Route Frequency Dose Code Code System Medication Instructions Home Meds Clindagel 1% Topical application Gel/Jelly 10/11/2022 Unknown TOPICAL APPLICATION NEEDED TWICE DAILY 1 unit(s) 863827 RxNorm 1 EACH TOPICAL APPLICATION NEEDED TWICE DAILY Dexamethasone 4MG Oral Tablet 10/11/2022 11/17/19 23 ORAL NEEDED DAILY 8 MILLIGRA MS 034619 RxNorm TAKE 8 MILLIGRAMS ORAL NEEDED DAILY Elderberry 500 MG Oral Capsule 10/11/2022 Unknown ORAL DAILY 1000 MG RxNorm TAKE 1000 MG ORAL DAILY LORazepam 1MG Oral Tablet 10/11/2022 Unknown ORAL NEEDED EVERY 6 HOURS 1 MILLIGRA MS 950848 RxNorm TAKE 1 MILLIGRAMS ORAL NEEDED EVERY 6 HOURS FOR Anxiety Levothyroxine 125MCG Oral Tablet 10/11/2022 Unknown ORAL DAILY 125 MCG 555972 RxNorm TAKE 125 MCG ORAL DAILY Magnesium Gluconate 500 MG Oral Tablet 10/11/2022 Unknown ORAL TWICE A DAY 500 MG 614225 RxNorm TAKE 500 MG ORAL TWICE A DAY Maxalt 10MG Oral Tablet 10/11/2022 Unknown ORAL NEEDED DAILY 10 MILLIGRA MS 722551 RxNorm TAKE 10 MILLIGRAMS ORAL NEEDED DAILY OLANZapine 10MG Oral Tablet 10/11/2022 Unknown ORAL NEEDED DAILY 10 MILLIGRA MS 578653 RxNorm TAKE 10 MILLIGRAMS ORAL NEEDED DAILY Potassium Chloride 20MEQ Oral Tablet, Extended Release 10/11/2022 Unknown ORAL TWICE A DAY 20 MEQ 2715886 RxNorm TAKE 20 MEQ ORAL TWICE A DAY Prochlorperaz ine Maleate 10MG Oral Tablet 10/11/2022 Unknown ORAL NEEDED EVERY 6 HOURS 10 MILLIGRA MS 557363 RxNorm TAKE 10 MILLIGRAMS ORAL NEEDED EVERY 6 HOURS Protonix 40 MG Oral Tablet, Delayed Release 10/11/2022 Unknown ORAL DAILY 40 MG 096408 RxNorm TAKE 40 MG ORAL DAILY Sertraline 100MG Oral Tablet 10/11/2022 Unknown ORAL DAILY 150 MILLIGRA MS 268900 RxNorm TAKE 150 MILLIGRAMS ORAL DAILY Vitamin D 1000IU Oral Tablet 10/11/2022 10/31/20 22 ORAL DAILY 2000 INTERNAT IONAL UNITS 19930412 RxNorm TAKE 2000 INTERNATIONA L UNITS ORAL DAILY Zofran 4MG Oral Tablet 10/11/2022 Unknown ORAL NEEDED EVERY 8 HOURS 4 MILLIGRA MS 701415 RxNorm TAKE 4 MILLIGRAMS ORAL NEEDED EVERY 8 HOURS traZODone hydrochloride 50MG Oral Tablet 10/11/2022 Unknown ORAL NEEDED AT BEDTIME 50 MILLIGRA MS 185483 RxNorm TAKE 50 MILLIGRAMS ORAL NEEDED AT BEDTIME Ajovy 225MG/1.5ML Subcutaneous Solution 11/02/2022 11/17/19 23 SUBCUTANEOUS MONTHLY 1 unit(s) 5472539 RxNorm INJECT 1 EACH SUBCUTANEOUS MONTHLY Estring 0.0075MG/24HR Vaginal Insert, Extended Release 11/02/2022 Unknown VAGINAL 1 unit(s) 234990 RxNorm 1 EACH VAGINAL oxyCODONE HCl 5MG Oral Tablet 11/02/2022 Unknown ORAL NEEDED 5 MILLIGRA MS 3010892 RxNorm TAKE 5 MILLIGRAMS ORAL NEEDED Albuterol Sulfate 1.25MG/3ML Inhalation Solution 11/13/2022 11/17/19 23 INHALATION DAILY 1 061472 RxNorm 1 INHALATION DAILY predniSONE 20MG Oral Tablet 11/13/2022 Unknown ORAL DAILY 2 TABLET 622284 RxNorm TAKE 2 TABLET ORAL DAILY Ibuprofen 600MG Oral Tablet 11/17/2022 Unknown ORAL NEEDED EVERY 6 HOURS 600 MILLIGRA MS 922665 RxNorm TAKE 600 MILLIGRAMS ORAL NEEDED EVERY 6 HOURS Albuterol Sulfate 0.5% Inhalation Solution 11/17/2022 11/17/19 23 INHALATION FOUR TIMES A DAY WITH FOOD 1 unit(s) 217049 RxNorm 1 EACH INHALATION FOUR TIMES A DAY WITH FOOD Ventolin HFA 0.09MG/1Actua tion Inhalation Suspension 11/17/2022 Unknown INHALATION NEEDED EVERY 4 HOURS 2 PUFF 825399 RxNorm 2 PUFF INHALATION NEEDED EVERY 4 HOURS Albuterol Sulfate 0.5% Inhalation Solution 11/17/2022 Unknown INHALATION FOUR TIMES A DAY 1 unit(s) 782467 RxNorm 1 EACH INHALATION FOUR TIMES A DAY Azithromycin 250MG Oral Tablet 11/17/2022 Unknown ORAL DAILY 1 TABLET 369937 RxNorm TAKE 1 TABLET ORAL DAILY Cefpodoxime Proxetil 200MG Oral Tablet 11/17/2022 Unknown ORAL TWICE A DAY 1 TABLET 710065 RxNorm TAKE 1 TABLET ORAL TWICE A [...] Status Code Code System BREAST CANCER active 984048773 SNOMED -CT REACTIVE LYMPHADENOPATHY active 67250 8006 SNOMED-CT RSV INFECTION active 99337554 SNOMED -CT ANXIETY 10/09/2022 resolved 38719697 SNOMED-CT IBS 10/09/2022 resolved 16313638 SNOMED-CT GERD 10/09/2022 resolved 009810287 SNOMED-CT NEUTROPENIC FEVER 11/15/2022 resolved 982672550 S NOMED-CT MIGRAINE 10/09/2022 resolved 03911117 SNOMED-CT HYPOMAGNESEMIA 11/15/2022 resolved 180155623 SNOM ED-CT HYPOTHYROIDISM 10/09/2022 resolved 64895684 SNOM ED-CT Allergies and Adverse Reactions Allergy Substance Reaction Severity Start Date Concern Status Co de Code System SULFA (sulfonamide) Active 26620841 SNO MED-CT DEMEROL Active 673671 RxNorm Plan of Treatment Exposure 10/08/2020 MM [...] upper- outer quadrant of right female breast 05/03/2022 SNOMED-CT Personal Care Team Section Performer Name Performer Role Active Date Inactive Da te
--- OUTSIDE RECORDS SUMMARY | 2024-06-30 16:29 | XMS_ITS | Encounter Summary ---
Author Organization [facility] Address [address] [place] [address] Care Team Providers Care Desktop Support Technician Name Role Phone Sarah Quintero INFO PRINT PRESS OPERATOR Primary Care Provider [phone] Reason for Referral * Referral (Routine/Next Available) - Authorization Not Required Specialty Diagnoses / Procedures Referred By Brandon venegas Referred To Contact Diagnoses Encounter for screening colonoscopy Procedures COLONOSCOPY Rosemary Salcido NP [address] [place] [address] Referral ID Status Reason Start Date Expiration Date Visits Requested Visits Authorized [id number] Authorization Not Required 12/20/2023 1 1 Reason for Visit * Auth/Cert (Routine) Specialty Diagnoses / Procedures Referred By Brandon venegas Referred To Contact Referral ID Status Reason Start Date Expiration Date Visits Re quested Visits Authorized [id number] 1 1 Encounter Details Date Type Department Care Team (Latest Contact Info) Description 05/13/2024 11:56 EDT - 05/13/2024 23:59 EDT Hospital Encounter [facility] [address] [place] [address] Flavio Dodd MD [address] [place] [address] [address] [place] [address] Encounter for screening colonoscopy Discharge Disposition: Home or Self Care Social History Tobacco Use Types Packs/Day Years Used Date Smoking Tobacco: Never Smokeless Tobacco: Never Alcohol Use Standard Drinks/Week Comments Not Currently [...] Sign Reading Time Taken Comments Blood Pressure 148/94 05/13/2024 1408 EDT Pulse - - Temperature 36.6 ??C (97.9 ??F) 05/13/2024 1338 EDT Respiratory Rate 20 05/13/2024 1408 EDT Oxygen Saturation 97% 05/13/2024 1408 EDT Inhaled Oxygen Concentration - - Weight 80.2 kg (176 lb 12.8 oz) 05/13/2024 1209 EDT Height 170.2 cm (5' 7) 05/13/2024 1209 EDT Body Mass Index 27.69 05/13/2024 1209 EDT documented in this encounter [...] Yes 12/20/2022 documented as of this encounter Medications at Time of Discharge Medication Sig Dispensed Refills Start Date End Date albuterol (ACCUNEB) 1.25 mg/3 mL nebulizer solution 11/13/2022 albuterol (ACCUNEB) 2.5 mg /3 mL (0.083 %) nebulizer solution 11/18/2022 atogepant 60 mg tabletIndications:Other migraine, not intractable, without status migrainosus Take 1 Tablet by mouth daily. 90 Tablet 3 05/06/2024 benzonatate (TESSALON) 100 mg capsule TAKE 1 CAPSULE BY MOUTH 3 TIMES A DAY NEEDED FOR COUGH 11/28/2022 budesonide-formoterol HFA (SYMBICORT) 80-4.5 mcg/actuation HFA aerosol inhaler inhaler Inhale 2 Puffs as directed 2 times daily. calcium carbonate (CALCIUM 300 ORAL) Take by mouth. Unsure of dosage cholecalciferol, vitamin D3, (VITAMIN D3 ORAL) Take 2,000 Units by mouth daily. ELDERBERRY FRUIT ORAL Take by mouth daily. 2 gummies daily ESTRING 2 mg (7.5 mcg /24 hour) vaginal ring INSERT 1 RING INTO VAGINA EVERY THREE MONTHS 10/15/2022 HYDROcodone-chlorphenirami ne (TUSSIONEX) 10-8 mg/5 mL suspension TAKE 5ML BY MOUTH EVERY 12 HOURS 11/12/2022 ibuprofen (MOTRIN) 600 mg tablet take 1 tablet by mouth every 6 hours as needed 11/17/2022 levothyroxine (SYNTHROID) 125 mcg tablet Take 1 Tablet by mouth daily. 01/18/2022 LORazepam (ATIVAN) 1 mg tablet Take 1 mg by mouth every 6 hours as needed for Anxiety (Nausea). MAGNESIUM GLUCONATE ORAL Take 400 mg by mouth daily. methylphenidate HCl (RITALIN;METHYLIN) 5 mg tablet Take 2 Tablets by mouth daily. 10/10/2023 montelukast (SINGULAIR) 10 mg tablet Take 1 Tablet by mouth daily. multivitamin capsule Take 1 Capsule by mouth daily. NONFORMULARY daily. Tumeric with black pepper OLANZapine (ZYPREXA) 10 mg tablet TAKE 1 TABLET BY MOUTH EVERY DAY FOR 30 DAYS 09/26/2022 ondansetron (ZOFRAN) 8 mg tablet Take 1 Tablet by mouth 2 times daily as needed for Nausea (for 3 days after chemo). 12 Tablet 2 04/06/2022 pantoprazole (PROTONIX) 40 mg tablet 1 tab(s) orally once a day potassium chloride SA (K-DUR) 20 mEq tablet Take 1 Tablet by mouth daily. predniSONE (DELTASONE) 20 mg tablet Take 40 mg by mouth daily. 11/13/2022 prochlorperazine (COMPAZINE) 10 mg tablet Take 1 Tablet by mouth 3 times daily as needed (nausea). 30 Tablet 2 01/09/2023 rizatriptan (MAXALT-BOX STACKER) 10 mg disintegrating tablet DISSOLVE ONE TABLET BY MOUTH NEEDED FOR MIGRAINE. MAY REPEAT DOSE IN 2 HOURS IF INEFFECTIVE. DO NOT EXCEED 2 TABLETS IN 24 HOURS, 8 DAYS PER MONTH, AND NO MORE THAN 12 TABLETS IN 1 MONTH 12 Tablet 5 08/27/2023 sertraline (ZOLOFT) 100 mg tablet Take 1.5 Tablets by mouth daily. 04/06/2020 traZODone (DESYREL) 50 mg tablet Take 1 Tablet by mouth at bedtime. 0.5-1 tablet At bedtime as needed documented as of this encounter Discharge Disposition Disposition Code Departure Means Destination Home or Self Care documented in this encounter H&P Notes * Flavio Dodd MD - 05/13/2024 1300 EDT Endoscopy Sedation for Procedure History & Physical Date: 05/13/2024 Time: 13:13 Location: [facility] Endoscopy Planned Procedure: Colonoscopy Chief Complaint/Indications for Procedure: Encounter for screening colonoscopy History Previous Complication with Sedation and/or Anesthesia? No Allergies: Allergies Allergen Reactions Meperidine Nausea Only Sulfa (Sulfonamide Antibiotics) Family history Current Medications: Current Outpatient Medications Medication albuterol (ACCUNEB) 1.25 mg/3 mL nebulizer solution albuterol (ACCUNEB) 2.5 mg /3 mL (0.083 %) nebulizer solution atogepant 60 mg tablet benzonatate (TESSALON) 100 mg capsule budesonide-formoterol HFA (SYMBICORT) 80-4.5 mcg/actuation HFA aerosol inhaler inhaler calcium carbonate (CALCIUM 300 ORAL) cholecalciferol, vitamin D3, (VITAMIN D3 ORAL) ELDERBERRY FRUIT ORAL ESTRING 2 mg (7.5 mcg /24 hour) vaginal ring HYDROcodone-chlorpheniramine (TUSSIONEX) 10-8 mg/5 mL suspension ibuprofen (MOTRIN) 600 mg tablet levothyroxine (SYNTHROID) 125 mcg tablet LORazepam (ATIVAN) 1 mg tablet MAGNESIUM GLUCONATE ORAL methylphenidate HCl (RITALIN;METHYLIN) 5 mg tablet montelukast (SINGULAIR) 10 mg tablet multivitamin capsule NONFORMULARY OLANZapine (ZYPREXA) 10 mg tablet ondansetron (ZOFRAN) 8 mg tablet pantoprazole (PROTONIX) 40 mg tablet potassium chloride SA (K-DUR) 20 mEq tablet predniSONE (DELTASONE) 20 mg tablet prochlorperazine (COMPAZINE) 10 mg tablet rizatriptan (MAXALT-BOX STACKER) 10 mg disintegrating tablet sertraline (ZOLOFT) 100 mg tablet traZODone (DESYREL) 50 mg tablet Current Facility-Administered Medications Medication Route Frequency sodium chloride 0.9 % (NS) infusion intravenous PRN Or lactated ringers (LR) infusion intravenous PRN lidocaine (PF) 10 mg/mL (1 %) injection 2 mg intradermal PRN lidocaine (PF) 10 mg/mL (1 %) injection 2 mg intradermal PRN ondansetron (PF) (ZOFRAN) injection 4 mg intravenous Once PRN sodium chloride 0.9 % (flush) flush 5 mL intravenous PRN Past Medical History: Past Medical History: Diagnosis Date 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 GERD (gastroesophageal reflux disease) Inflammatory bowel disease Migraine Psychiatric problem Anxiety Thyroid disease Social History: Past Surgical History: Procedure Laterality Date APPENDECTOMY 15 years ago BREAST BIOPSY CARPAL TUNNEL RELEASE Bilateral CHOLECYSTECTOMY 2015 HIP SURGERY Left KNEE SURGERY Left left knee arthroscopy SHOULDER SURGERY Left TEMPOROMANDIBULAR JOINT SURGERY TONSILLECTOMY US BREAST BIOPSY 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+ Social History Tobacco Use Smoking status: Never Smokeless tobacco: Never Substance Use Topics Alcohol use: Not Currently Comment: rarely - once a month maybe Family History: Family History Problem Relation Age of Onset Hypertension Mother Dementia Mother late stage alzheimer's Diverticulitis Father with bowel resection Atrial fibrillation Father Hypothyroidism Father Diabetes Sister Hypothyroidism Sister Obesity Sister Hypertension Maternal Grandmother Stroke Maternal Grandmother Dementia Maternal Grandfather alzheimer's Stroke Maternal Grandfather Breast Cancer Paternal Grandmother 80 Colon Cancer Paternal Grandfather 80 Review of Systems as pertinent: Physical Exam Vital Signs: BP (!) 162/95 (BP Cuff Location: Left arm) Temp 36.6 ??C (97.9 ??F) (Oral) Resp 14 Ht 170.2 cm (67) Wt 80.2 kg (176 lb 12.8 oz) LMP 03/29/2009 (Within Months) SpO2 95% BMI27.69 kg/m?? Heart Examination: Cardiac Regularity: Regular Respiratory Examination: Respiratory Pattern: Regular Breath Sounds Right: Clear Breath Sounds Left: Clear Abdominal Examination: Additional physical exam related to the proposed procedure, patient activity, disease state and treatment as pertinent: Assessment Previous complications with sedation or anesthesia?: No Airway Concerns: None/NA Anesthesia Classification: ASA 2 Plan: Proceed with sedation for procedure Fasting Time: Date of Last Liquid: 05/13/24 Time of Last Liquid: 0945 Date of Last Solid: 05/12/24 Time of Last Solid: 0800 Patient Appropriate Candidate for Planned Sedation?: Yes Flavio Dodd MD 05/13/2024 13:13 documented in this encounter Plan of Treatment Upcoming Encounters Date Type Department Care Team (Late st Contact Info) Description 05/25/2025 14:00 EDT Office Visit [facility] Adult Hematology & Oncology [facility] [place], [place] [address] Abdiel Salas MD [address] [place] [address], [facility] [address] [place] [address] documented as of this encounter Procedures Procedure Name Priority Date/Time Associated Diagnosis Comments ECG REPORT - SCANNED 05/15/2024 12:14 EDT COLONOSCOPY Routine 05/13/2024 13:00 EDT Encounter for screening colonoscopy documented in this encounter Results * ECG REPORT - SCANNED (05/15/2024 12:14 EDT) 05/15/2024 12:1 4 EDT Scan 2 Inspector Set Up And Lay Out PROCEDURE/MINOR JORGE GICAL ORDERABLES * COLONOSCOPY (05/13/2024 13:00 EDT) Anatomical Region Laterality Modality Endoscopy Narrative 05/13/2024 13:00 EDT [facility] ?? [address] [place] [id number] ?? Patient Name ?GONSALO PABLO Date of ?1965 Record Number ?[id number] Date/Time of Procedure ?05/13/2024, 01:00:00 PM Endoscopist ?Flavio Dodd ?? Radio Script Writer ? Referring Physician(s) ?? MARTI Hammond Anesthesiologist ? Procedure Performed: COLONOSCOPY Indications for Exam: Screening Colonoscopy. Instruments: ? [facility]-[id number] ([id number]) Medications: ?Fentanyl 75 mcg, Versed 4 mg [...] Rosemary Salcido NP GI PROCEDURE ORDERAB LES documented in this encounter Visit Diagnoses Diagnosis Encounter for screening colonoscopy Special screening for malignant neoplasms, colon documented in this encounter Administered Medications Inactive Administered Medications - up to 3 most recent administrations Medication Order MAR Action Action Date Dose Rate Site fentaNYL citrate (PF) injection intravenous, As needed, Starting on Sat05/13/24 at 1314, Until Sat05/13/24 at 1317, Routine, Intraprocedure Given 05/13/2024 13:17 EDT 25 mcg Given 05/13/2024 13:14 EDT 50 mcg lactated ringers (LR) infusion 30 mL/hr, intravenous, PRN, Starting on Sat05/13/24 at 1206, Until Sat05/15/24 at 0210, Routine, Preprocedure New Bag 05/13/2024 12:26 EDT 30 mL/hr 30 mL/hr midazolam (VERSED) injection intravenous, As needed, Starting on Sat05/13/24 at 1314, Until Sat05/13/24 at 1317, Routine, Intraprocedure Given 05/13/2024 13:17 EDT 2 mg Given 05/13/2024 13:14 EDT 2 mg documented in this encounter Orders Medications Ordered That Ryan ht Not Have Been Administered Count Last Ordered Date First Ordered Date lidocaine (PF) 10 mg/mL (1 % ) injection 2 mg 2 05/13/2024 ondansetron (PF) (ZOFRAN) injection 4 mg 1 05/13/2024 sodium chloride 0.9 % (flush) flush 5 mL 1 05/13/2024 sodium chloride 0.9 % (NS) infusion 1 05/13 documented in this encounter Care Teams Desktop Support Technician Relationship Specialty Start Date End Date Sarah Quintero FNP [address] [place] [phone] PCP - General 05/03/20 documented as of this encounter
--- OUTSIDE RECORDS SUMMARY | 2024-06-30 16:30 | XMS_ITS | Encounter Summary ---
Author Organization [facility] Address [address] [place] [address] Care Team Providers Care Health And Fitness Professor Name Role Phone Sarah Quintero [facility] Primary Care Provider Encounter Details Date Type Department Care Team (Late st Contact Info) Description 01/10/2023 Results Only [facility] Radiation Oncology - Main [place] [address] [place] [address] Unknown, Provider, Social History Tobacco Use Types Packs/Day Years [...] Yes 12/20/2022 documented as of this encounter Plan of Treatment Upcoming Encounters Date Type Department Care Team (Late Contact Info) Description 05/25/2025 14:00 EDT Office Visit [facility] Adult Hematology & Oncology [facility] [place] [address] Abdiel Salas MD [address] [place] [address] [address] [place] [address] documented as of this encounter Procedures Procedure Name Priority Date/Time Associated Diagnosis Comments RAD ONC ARIA SESSION SUMMARY Routine 01/10/2023 11:20 EST documented in this encounter Results * RAD ONC ARIA SESSION SUMMARY (01/10/2023 11:20 EST) Course ID [id number] ARIA RADIATION ONCOLOGY Course Intent Curative ARIA RADIATION ONCOLOGY Course First Treatment Date 12/12/2022 11:31 ARIA RADIATION ONCOLOGY Course Last Treatment Date 01/10/2023 11:20 ARIA RADIATION ONCOLOGY Course Elapsed Days 29 ARIA RADIATION ONCOLOGY Reference Point ID 3_Rt Brst BST ARIA RADIATION ONCOLOGY Reference Point Dosage Given to Date 10 Gy ARIA RADIATION ONCOLOGY Reference Point Session Dosage Given 2.5 Gy ARIA RADIATION ONCOLOGY Reference Point ID Tumor Bed TOTAL ARIA RADIATION ONCOLOGY Reference Point Dosage Given to Date 52.4 Gy ARIA RADIATION ONCOLOGY Reference Point Session Dosage Given 2.5 Gy ARIA RADIATION ONCOLOGY Plan ID 2_Rt Brst BST ARIA RADIATION ONCOLOGY Plan Name 2_Rt Brst BST ARIA RADIATION ONCOLOGY Plan Fractions Treated to Date 4 ARIA RADIATION ONCOLOGY Plan Total Fractions Prescribed 4 ARIA RADIATION ONCOLOGY Plan Prescribed Dose Per Fraction 2.5 Gy ARIA RADIATION ONCOLOGY Plan Total Prescribed Dose 1,000 cGy ARIA RADIATION ONCOLOGY Plan Primary Reference Point Tumor Bed TOTAL ARIA RADIATION ONCOLOGY 01/10/2023 11:2 0 EST Provider Unknown RADIATION ONCOLOGY O ELENITA ARIA RADIATION ONCOLOGY documented in this encounter Visit Diagnoses Not on filedocumented in this encounter Care Teams Health And Fitness Professor Relationship Specialty Start Date End Date Sarah Quintero FNP [address] [place] [address] PCP - General 05/03/20 documented as of this encounter
--- OUTSIDE RECORDS SUMMARY | 2024-06-30 16:30 | XMS_ITS | Encounter Summary ---
Author Organization [facility] Address [address] [place] [address] Care Team Providers Care Electric Blanket Wirer Name Role Phone Sarah Quintero [facility] Primary Care Provider [phone] Reason for Referral * Consult (Routine/Next Available) - Denied Specialty Diagnoses / Procedures Referred By [facility] Referred To Contact Pharmacy Diagnoses Chronic migraine without aura with status migrainosus, not intractable Rancho Macias MD [address] [facility] [place] [phone] [facility] [address] [place] [address] Referral ID Status Reason Start Date Expiration Date V isits Requested Visits Authorized [id number] Denied Specialty Services Required 03/06/2023 1 0 Question Answer PA Type: New Medication to be Prior Authorized: Nurtec prophylaxis Comments The purpose of this request is to inform precertification staff that the requested service needs to be reviewed for prior-authorization. Reason for Visit * Reason Onset Date Comments Prior Auth, Medication 03/05/2023 Encounter Details Date Type Department Care Team ([facility] Contact Info) Description 03/05/2023 Telephone [facility] Neurology Clinic [address] [place] [address] Rancho Macias MD [address] [place] [phone] Prior Auth, Medication Social History Tobacco Use Types Packs/Day Years [...] Yes 12/20/2022 documented as of this encounter Miscellaneous Notes * Telephone Encounter - Allison Borden RN - 03/06/2023 1127 EDT Left message for Mireille that Dr. Macias OK'd the Nurtec and I have asked the [facility] Specialty pharmacyto assist us with PA. They will call you when they get it. * Addendum Note - Allison Borden RN - 03/06/2023 1016 EDTAddended by: ALLISON BORDEN on: 03/06/2023 10:16 Modules accepted: Orders * Telephone Encounter - Allison Borden RN - 03/05/2023 1435 EDT Mireille has been on the Ajovy since 12/20/2022. She had fair relief for a while, but now she is gettingdaily headaches, perhaps from chemo treatments but maybe not. She would like to replace the Ajovy with Nurtec. Are you OK with this? * Telephone Encounter - Brisa Whitlock - 03/05/2023 1430 EDT M[facility] would [facility] to [facility] the [facility], since she is still getting migraines with Ajovy documented in this encounter Plan of Treatment Upcoming Encounters Date Type Department Care Team (Late st Contact Info) Description 05/25/2025 14:00 EDT Office Visit [facility] Adult Hematology & Oncology [address] [place] [address] Abdiel Salas MD [address] [place] [address] [address] [place] [address] Scheduled Referrals Name Type Priority Associated Diagnoses Order Schedule AMB CONS/FOLLOW UP SPECIALTY PHARMACY MEDICATION PRIOR AUTHORIZATION REQUEST Outpatient Referral Routine/Next Available Chronic migraine without aura with status migrainosus, not intractable Expected: 03/13/2023 (Approximate), Expires: 03/06/2024 documented as of this encounter Visit Diagnoses Diagnosis Chronic migraine without aura with status migrainosus, not intractable- Primary Chronic migraine without aura, without mention of intractable migraine with status migrainosus documented in this encounter Care Teams Electric Blanket Wirer Relationship Specialty Start Date End Date Sarah Quintero FNP [address] [place] [phone] PCP - General 05/03/20 documented as of this encounter
--- OUTSIDE RECORDS SUMMARY | 2024-06-30 16:30 | XMS_ITS | Encounter Summary ---
Author Organization [facility] Address [address] [place] [address] Care Team Providers Care Programming Instructor Name Role Phone Sarah Quintero COMPLIANCE EXAMINER Primary Care Provider Reason for Visit * Reason Comments Follow-up Breast cancer Encounter Details Date Type Department Care Team ([facility] st Contact Info) Description 09/18/2023 11:00 EST Office Visit [facility] Adult Hematology & Oncology [address] [place] [address] [phone] Abdiel Salas MD [address] [place] [address], [facility] [address] [place] [address] Malignant neoplasm of upper-outer quadrant [...] Sign Reading Time Taken Comments Blood Pressure 119/78 09/18/2023 1233 EST Pulse 89 09/18/2023 1233 EST Temperature 36.2 ??C (97.2 ??F) 09/18/2023 1233 EST Respiratory Rate 18 09/18/2023 1233 EST Oxygen Saturation 95% 09/18/2023 1233 EST Inhaled Oxygen Concentration - - Weight 79.8 kg (176 lb) 09/18/2023 1233 EST Height - - Body Mass Index 27.57 09/19/2022 1012 EST documented in this encounter Functional Status Functional [...] Progress Notes * Abdiel Salas MD - 09/18/2023 1100 EST Hem/Onc. Follow up Note Mireille Chatman :1965 Age:58 y.o. 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 -02/20/2022 screening mammogram: 16mm irregular mass upper [...] -08/31/2022 lumpectomy and sentinel node biopsy: Pathology: [id number] mm), ypN1a(sn, 2/3 macro and micro). -09/19/2022 [...] 11/28/2022 -01/10/[address] Noe. -01/28/2023 Proceed with 10 months of Kadcyla -03/28/2023: Bilateral screening mammogram: Category 3 needs a follow-up right breast mammogram in September. -06/14/23 cycle 7 Mayi trastuzumab. -06/19/2023 clinical MEAGAN. Grade 1 punctate erythematous rash nonpruritic possibly related to Kadcyla.Continue without modification. -09/17/2023ycle 09/24 Kadcyla. No toxicity. Clinical MEAGAN 2: Family history: Paternal grandmother had DCIS in her 80s, paternal grandfather colon cancer in his 80s. Father 2 uncles and 1 aunt all without malignancy. On the maternal side: Mother 1 uncle 2 aunt without malignancy. Mireille has 3 children all healthy. She has 1 brother and 2 sisters all without malignancy. Reviewed with the atm servicer at [facility] recommended consultation. -04/27/2022 referral to [facility] atm servicer for further evaluation. 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 Chief Complaint Patient presents with ??? Follow-up Breast cancer Interim History: Mireille comes in for follow-up visit and cycle 11 adjuvant Kadcyla, tolerating quite well he has no complaints except for chronic fatigue although does not do exercise or physical activities on a dailybasis. Remains stable. Review of systems: Review of Systems Constitutional: Positive for malaise/fatigue (Grade 1 fatigue). Respiratory: Negative for cough and shortness of breath. Cardiovascular: Negative for chest pain and palpitations. Gastrointestinal: History of IBS currently asymptomatic Neurological: Negative for headaches (History of chronic migraine headaches has not had any recently.). All other systems reviewed and are negative. Vital Signs: Patient Vitals for the past 24 hrs: BP Temp Pulse SpO2 Weight 09/18/23 1233 119/78 36.2 ??C (97.2 ??F) 89 (!) 18 % 79.8 kg (176 lb) Wt Readings from Last 3 Encounters: 09/18/23 79.8 kg (176 lb) 06/19/23 84.4 kg (186 lb) 02/18/23 91.2 kg (201 lb) Ht Readings from Last 1 Encounters: 09/19/22 170.2 cm (67) Estimated body surface area is 1.94 meters squared as calculated from the following: Height as of 09/19/22: 170.2 cm (67). Weight as of this encounter: 79.8 kg (176 lb). ECOG Performance Status: 0 Physical exam: Physical Exam Constitutional: Appearance: Normal appearance. Eyes: General: No scleral icterus. Cardiovascular: Rate and Rhythm: Normal rate. Pulmonary: Effort: Pulmonary effort is normal. Musculoskeletal: Cervical back: Normal range of motion. Right lower leg: No edema. Left lower leg: No edema. Skin: Comments: . Neurological: General: No focal deficit present. Mental Status: She is alert. Psychiatric: Mood and Affect: Mood normal. Previous medical history: Past Medical History: Diagnosis Date ??? 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 GERD (gastroesophageal reflux disease) ??? Migraine ??? Psychiatric problem Anxiety ??? Thyroid disease Allergies: Allergies Allergen Reactions ??? Meperidine Nausea Only ??? Sulfa (Sulfonamide Antibiotics) Family history Medications: Current Outpatient Medications Medication Sig Dispense Refill Last Dose ??? albuterol (ACCUNEB) 1.25 mg/3 mL nebulizer solution (Patient not taking: Reported on 06/24/2023) ??? albuterol (ACCUNEB) 2.5 mg /3 mL (0.083 %) nebulizer solution (Patient not taking: Reported on 06/24/2023) ??? atogepant 60 mg tablet Take 1 Tablet by mouth daily. 90 Tablet 3 ??? benzonatate (TESSALON) 100 mg capsule TAKE 1 CAPSULE BY MOUTH 3 TIMES A DAY NEEDED FOR COUGH(Patient not taking: Reported on 06/24/2023) ??? calcium carbonate (CALCIUM 300 ORAL) Take by mouth. Unsure of dosage ??? cholecalciferol, vitamin D3, (VITAMIN D3 ORAL) Take 2,000 Units by mouth daily. ??? ELDERBERRY FRUIT ORAL Take by mouth daily. 2 gummies daily ??? ESTRING 2 mg (7.5 mcg /24 hour) vaginal ring INSERT 1 RING INTO VAGINA EVERY THREE MONTHS (Patient not taking: Reported on 06/24/2023) ??? HYDROcodone-chlorpheniramine (TUSSIONEX) 10-8 mg/5 mL suspension TAKE 5ML BY MOUTH EVERY 12 HOURS (Patient not taking: Reported on 01/03/2023) ??? ibuprofen (MOTRIN) 600 mg tablet take 1 tablet by mouth every 6 hours as needed (Patient not taking: Reported on 06/24/2023) ??? levothyroxine (SYNTHROID) 125 mcg tablet Take 1 Tablet by mouth daily. ??? LORazepam (ATIVAN) 1 mg tablet Take 1 mg by mouth every 6 hours as needed for Anxiety (Nausea).(Patient not taking: Reported on 06/24/2023) ??? MAGNESIUM GLUCONATE ORAL Take by mouth. Unsure of dosage ??? montelukast (SINGULAIR) 10 mg tablet Take 1 Tablet by mouth daily. ??? multivitamin capsule Take 1 Capsule by mouth daily. ??? NONFORMULARY daily. Tumeric with black pepper (Patient not taking: Reported on 06/24/2023) ??? OLANZapine (ZYPREXA) 10 mg tablet TAKE 1 TABLET BY MOUTH EVERY DAY FOR 30 DAYS (Patient not taking: Reported on 01/03/2023) ??? ondansetron (ZOFRAN) 8 mg tablet Take 1 Tablet by mouth 2 times daily as needed for Nausea (for3 days after chemo). (Patient not taking: Reported on 11/28/2022) 12 Tablet 2 ??? pantoprazole (PROTONIX) 40 mg tablet 1 tab(s) orally once a day ??? potassium chloride SA (K-DUR) 20 mEq tablet Take 1 Tablet by mouth daily. ??? predniSONE (DELTASONE) 20 mg tablet Take 40 mg by mouth daily. (Patient not taking: Reported on01/03/2023) ??? prochlorperazine (COMPAZINE) 10 mg tablet Take 1 Tablet by mouth 3 times daily as needed (nausea). (Patient not taking: Reported on 02/18/2023) 30 Tablet 2 ??? rizatriptan (MAXALT-FURNITURE DESIGNER) 10 mg disintegrating tablet DISSOLVE ONE TABLET BY MOUTH NEEDED FORMIGRAINE. MAY REPEAT DOSE IN 2 HOURS IF INEFFECTIVE. DO NOT EXCEED 2 TABLETS IN 24 HOURS, 8 DAYS PER MONTH, AND NO MORE THAN 12 TABLETS IN 1 MONTH 12 Tablet 5 ??? sertraline (ZOLOFT) 100 mg tablet Take 1.5 Tablets by mouth daily. ??? traZODone (DESYREL) 50 mg tablet Take 1 Tablet by mouth at bedtime. 0.5-1 tablet At bedtime as needed No current facility-administered medications for this visit. Data Review: Labs: Results for orders placed or performed in visit on 01/11/23 RAD ONC ARIA COURSE SUMMARY Result Value Ref Range Course ID C1 Course Intent Curative Course End Date 01/11/2023 9:59 Course First Treatment Date 12/12/2022 11:31 Course Last Treatment Date 01/10/2023 11:20 Course Elapsed Days 29 Reference Point ID [id number] Brst BST Reference Point Dosage Given to Date 10 Gy Reference Point ID RIGHT BREAST Reference Point Dosage Given to Date 42.4 Gy Reference Point ID RT SCLAV AXILLA Reference Point Dosage Given to Date 42.4 Gy Reference Point ID Tumor Bed TOTAL Reference Point Dosage Given to Date 52.4 Gy Plan ID 2_Rt Brst BST Plan Name 2_Rt Brst BST Plan Fractions Treated to Date 4 Plan Total Fractions Prescribed 4 Plan Prescribed Dose Per Fraction 2.5 Gy Plan Total Prescribed Dose 1,000 cGy Plan Primary Reference Point Tumor Bed TOTAL Plan ID 2_Rt Breast Plan Name 2_Rt Breast Plan Fractions Treated to Date 16 Plan Total Fractions Prescribed 16 Plan Prescribed Dose Per Fraction 2.65 Gy Plan Total Prescribed Dose 4,240 cGy Plan Primary Reference Point RIGHT BREAST Plan ID 1_Rt Sclav Plan Name 1_Rt Sclav Plan Fractions Treated to Date 16 Plan Total Fractions Prescribed 16 Plan Prescribed Dose Per Fraction 2.65 Gy Plan Total Prescribed Dose 4,240 cGy Plan Primary Reference Point RT SCLAV AXILLA Imaging: CT SIM EXAM This is a non-reportable exam. Assessment: 1: Right breast invasive ductal carcinoma ER/GA negative HER2 positive. Axillary node positive. Started neoadjuvant therapy with TC/HP, poorly tolerated receiving only 2 cycles due to sepsis pancytopenia and other grade 3 toxicities.. Transition to [facility] protocol: Docetaxel Herceptin pertuzumab for 4 cycles (total of 6), also trouble tolerating cytotoxic with grade 2 toxicity. She underwent lumpectomy and sentinel biopsy: Pathology: [id number] mm), ypN1a(sn, 2/3 macro and micro). Follow-up adjuvant therapy with FEC planned 3 cycles was only able to give her 2 cycles due to grade 3 toxicity and 3 hospitalizations. Adjuvant radiation therapy completed 01/10/2023. Currently on adjuvant Kadcyla cycle 7, no toxicity. Clinical MEAGAN. Plan: -Continue with Kadcyla.without modification. To complete 14 cycles. -Pending follow-up mammogram in 2 weeks. Consult time 30 minutes This note was transcribed using [employer] voice recognition software, please excuse any care management coordinator errors. Carbon copy Rosemary Salcido ONP, Sarah JACQUESP. Dr. Raul Eugene Code [id number] Abdiel Salas MD [facility] * Natalie Garcia, RN - 09/18/2023 1100 EST Medications from Manuel on 09/18/2023 reconciled in EPIC documented in this encounter Plan of Treatment Upcoming Encounters Date Type Department Care Team (Late st Contact Info) Description 05/25/2025 14:00 EDT Office Visit [facility] Adult Hematology & Oncology [address] [place] [phone] Abdiel Salas MD [address] [facility] [address] [place] [address] documented as of this encounter Visit Diagnoses Diagnosis Malignant neoplasm of upper-outer quadrant of right breast in female, estrogen receptor negative (HCC-CMS)- Primary documented in this encounter Historical Medications * This list may reflect changes made after this encounter. Medication Sig Dispensed Refills Start Date End Date budesonide-formoterol HFA (SYMBICORT) 80-4.5 mcg/actuation HFA aerosol inhaler inhaler Inhale 2 Puffs as directed 2 times daily. added in this encounter Care Teams Programming Instructor Relationship Specialty Start Date End Date Sarah Quintero FNP [address] [place] [phone] PCP - General 05/03/20 documented as of this encounter
--- OUTSIDE RECORDS SUMMARY | 2024-06-30 16:30 | XMS_ITS | Encounter Summary ---
Author Organization [facility] Address [address] [place] [address] Care Team Providers Care Spanish Moss Picker Name Role Phone Sarah Quintero [facility] Primary Care Provider [phone] Reason for Visit * Reason Onset Date Comments Prior Auth, Medication 03/08/2023 Qulipta ( new start) Encounter Details Date Type Department Care Team ([facility] Contact Info) Description 03/08/2023 Telephone [facility] [address] [place] [phone] Rancho Macias MD [address] [phone] Prior Auth, Medication (Qulipta (new start) ) Social History Tobacco Use Types Packs/Day Years [...] encounter Miscellaneous Notes * Telephone Encounter - Eva Mariee - 03/08/2023 1023 EDT Prior Authorization Denial Medication: Qulipta 60mg tablet - 1QD Denial Date: 03/11/23 Denial Reason: Pt's plan terminated on 03/10/23 Notes: Denial to scans. Need new ins. Prior Authorization Submission Process - Routine New Medication: Qulipta 60mg tablet - 1QD Insurance: [employer] Insurance Type: Commercial Date PA Request Received: 03/08/23 PA Submission Date: 03/08/23 PromptPA EOC ID: [id number] Notes: Submitted by: Eva Mccabe Phone: [phone] documented in this encounter Plan of Treatment Upcoming Encounters Date Type Department Care Team (Late st Contact Info) Description 05/25/2025 14:00 EDT Office Visit [facility] Adult Hematology & Oncology [address] [place] [address] [phone] Abdiel Salas MD [address] [place] [address] [address] [place] [address] documented as of this encounter Visit Diagnoses Not on filedocumented in this encounter Care Teams Spanish Moss Picker Relationship Specialty Start Date End Date Sarah Quintero FNP [address] [place] [phone] PCP - General 05/03/20 documented as of this encounter
--- OUTSIDE RECORDS SUMMARY | 2024-06-30 16:30 | XMS_ITS | Encounter Summary ---
Author Organization [facility] Address [address] [place] [address] Care Team Providers Care Pastry Wrapper Name Role Phone Sarah Quintero INTER FOLD ROLL CUTTER Primary Care Provider [phone] Reason for Visit * Reason Onset Date Comments Medications Refill 08/27/2023 Encounter Details Date Type Department Care Team (Late st Contact Info) Description 08/27/2023 Telephone [facility] [address] [place] [address] Rancho Macias MD [address] [phone] Medications Refill Social History Tobacco Use Types [...] Dispensed Refills Start Date End Da te rizatriptan (MAXALT-CONFECTIONERY DROPS MACHINE OPERATOR) 10 mg disintegrating tablet DISSOLVE ONE TABLET BY MOUTH NEEDED FOR MIGRAINE. MAY REPEAT DOSE IN 2 HOURS IF INEFFECTIVE. DO NOT EXCEED 2 TABLETS IN 24 HOURS, 8 DAYS PER MONTH, AND NO MORE THAN 12 TABLETS IN 1 MONTH 12 Tablet 5 08/27/2023 documented in this encounter Miscellaneous Notes * Telephone Encounter - Allison Hart RN - 08/27/2023 1329 EDT Escript for rizatriptan 10 mg prn per HP note on 12/20/2022. Patient will need f/u visit in Dec 2023. Sent note to scheduling. * Telephone Encounter - Brisa Whitlock - 08/27/2023 1253 EDT REFILL- [facility] [phone] documented in this encounter Plan of Treatment Upcoming Encounters Date Type Department Care Team (Late st Contact Info) Description 05/25/2025 14:00 EDT Office Visit [facility] Adult Hematology & Oncology [address] [place] [address] [phone] Abdiel Salas MD [address] [place] [address] [address] [place] [phone] documented as of this encounter Visit Diagnoses Not on filedocumented in this encounter Discontinued Medications Medication Sig Discontinue Reason Start Date End Da te rizatriptan (MAXALT-CONFECTIONERY DROPS MACHINE OPERATOR) 10 mg disintegrating tablet DISSOLVE ONE TABLET BY MOUTH NEEDED FOR MIGRAINE. MAY REPEAT DOSE IN 2 HOURS IF INEFFECTIVE. DO NOT EXCEED 2 TABLETS IN 24 HOURS, 8 DAYS PER MONTH, AND NO MORE THAN 12 TABLETS IN 1 MONTH Reorder 03/28/2023 08/27/2023 documented as of this encounter Care Teams Pastry Wrapper Relationship Specialty Start Date End Date Sarah Quintero, MARTI [address] [place] [address] PCP - General 05/03/20 documented as of this encounter
--- OUTSIDE RECORDS SUMMARY | 2024-06-30 16:30 | XMS_ITS | Encounter Summary ---
Author Organization [facility] Address [address] [place] [address] Care Team Providers Care Middle [employer] Football Coach Name Role Phone Sarah Quintero [facility] Primary Care Provider Encounter Details Date Type Department Care Team (Late st Contact Info) Description 01/02/2023 Results Only [facility] Radiation Oncology - Main [place] [address] [place] [address] Unknown, Provider, Social History Tobacco Use Types [...] Info) Description 05/25/2025 14:00 EDT Office Visit [facility] Adult Hematology & Oncology [address] [place] [phone] Abdiel Salas MD [address] [place] [address] [address] [place] [phone] documented as of this encounter Procedures Procedure Name Priority Date/Time Associated Diagnosis Comments RAD ONC ARIA SESSION SUMMARY Routine 01/02/2023 11:22 EST documented in this encounter Results * RAD ONC ARIA SESSION SUMMARY (01/02/2023 11:22 EST) Course ID C1 ARIA RADIATION ONCOLOGY Course Intent Curative ARIA RADIATION ONCOLOGY Course First Treatment Date 12/12/2022 11:31 ARIA RADIATION ONCOLOGY Course Last Treatment Date 01/02/2023 11:23 ARIA RADIATION ONCOLOGY Course Elapsed Days 21 ARIA RADIATION ONCOLOGY Reference Point ID RIGHT BREAST ARIA RADIATION ONCOLOGY Reference Point Dosage Given to Date 37.1 Gy ARIA RADIATION ONCOLOGY Reference Point Session Dosage Given 2.65 Gy ARIA RADIATION ONCOLOGY Reference Point ID RT SCLAV AXILLA ARIA RADIATION ONCOLOGY Reference Point Dosage Given to Date 37.1 Gy ARIA RADIATION ONCOLOGY Reference Point Session Dosage Given 2.65 Gy ARIA RADIATION ONCOLOGY Reference Point ID Tumor Bed TOTAL ARIA RADIATION ONCOLOGY Reference Point Dosage Given to Date 37.1 Gy ARIA RADIATION ONCOLOGY Reference Point Session Dosage Given 2.65 Gy ARIA RADIATION ONCOLOGY Plan ID 2_Rt Breast ARIA RADIATION ONCOLOGY Plan Name 2_Rt Breast ARIA RADIATION ONCOLOGY Plan Fractions Treated to Date 14 ARIA RADIATION ONCOLOGY Plan Total Fractions Prescribed 16 ARIA RADIATION ONCOLOGY Plan Prescribed Dose Per Fraction 2.65 Gy ARIA RADIATION ONCOLOGY Plan Total Prescribed Dose 4,240 cGy ARIA RADIATION ONCOLOGY Plan Primary Reference Point RIGHT BREAST ARIA RADIATION ONCOLOGY Plan ID 1_Rt Sclav ARIA RADIATION ONCOLOGY Plan Name 1_Rt Sclav ARIA RADIATION ONCOLOGY Plan Fractions Treated to Date 14 ARIA RADIATION ONCOLOGY Plan Total Fractions Prescribed 16 ARIA RADIATION ONCOLOGY Plan Prescribed Dose Per Fraction 2.65 Gy ARIA RADIATION ONCOLOGY Plan Total Prescribed Dose 4,240 cGy ARIA RADIATION ONCOLOGY Plan Primary Reference Point RT SCLAV AXILLA ARIA RADIATION ONCOLOGY 01/02/2023 11:2 2 EST Provider Unknown RADIATION ONCOLOGY O RDERABLES TRUMAN RADIATION ONCOLOGY documented in this encounter Visit Diagnoses Not on filedocumented in this encounter Care Teams Middle [employer] Football Coach Relationship Specialty Start Date End Date Sarah Quintero FNP [address] [place] [phone] PCP - General 05/03/20 documented as of this encounter
--- OUTSIDE RECORDS SUMMARY | 2024-06-30 16:30 | XMS_ITS | Encounter Summary ---
Author Organization [facility] Address [address] [place] [address] Care Team Providers Care Refrigeration Technician Name Role Phone Sarah Quintero [facility] Primary Care Provider Encounter Details Date Type Department Care Team (Late st Contact Info) Description 01/04/2023 Results Only [facility] Radiation Oncology - Main [place] [address] [place] [address] Unknown, Provider, Social History Tobacco Use Types [...] Info) Description 05/25/2025 14:00 EDT Office Visit [facility] Adult Hematology & Oncology [facility] [place] [address] Abdiel Salas MD [address] [place] [address] [address] [place] [phone] documented as of this encounter Procedures Procedure Name Priority Date/Time Associated Diagnosis Comments RAD ONC ARIA SESSION SUMMARY Routine 01/04/2023 11:21 EST documented in this encounter Results * RAD ONC ARIA SESSION SUMMARY (01/04/2023 11:21 EST) Course ID C1 ARIA RADIATION ONCOLOGY Course Intent Curative ARIA RADIATION ONCOLOGY Course First Treatment Date 12/12/2022 11:31 ARIA RADIATION ONCOLOGY Course Last Treatment Date 01/04/2023 11:22 ARIA RADIATION ONCOLOGY Course Elapsed Days 23 ARIA RADIATION ONCOLOGY Reference Point ID RIGHT BREAST ARIA RADIATION ONCOLOGY Reference Point Dosage Given to Date 42.4 Gy ARIA RADIATION ONCOLOGY Reference Point Session Dosage Given 2.65 Gy ARIA RADIATION ONCOLOGY Reference Point ID RT SCLAV AXILLA ARIA RADIATION ONCOLOGY Reference Point Dosage Given to Date 42.4 Gy ARIA RADIATION ONCOLOGY Reference Point Session Dosage Given 2.65 Gy ARIA RADIATION ONCOLOGY Reference Point ID Tumor Bed TOTAL ARIA RADIATION ONCOLOGY Reference Point Dosage Given to Date 42.4 Gy ARIA RADIATION ONCOLOGY Reference Point Session Dosage Given 2.65 Gy ARIA RADIATION ONCOLOGY Plan ID 2_Rt Breast ARIA RADIATION ONCOLOGY Plan Name 2_Rt Breast ARIA RADIATION ONCOLOGY Plan Fractions Treated to Date 16 ARIA RADIATION ONCOLOGY Plan Total Fractions Prescribed 16 ARIA RADIATION ONCOLOGY Plan Prescribed Dose Per Fraction 2.65 Gy ARIA RADIATION ONCOLOGY Plan Total Prescribed Dose 4,240 cGy ARIA RADIATION ONCOLOGY Plan Primary Reference Point RIGHT BREAST ARIA RADIATION ONCOLOGY Plan ID 1_Rt Sclav ARIA RADIATION ONCOLOGY Plan Name 1_Rt Sclav ARIA RADIATION ONCOLOGY Plan Fractions Treated to Date 16 ARIA RADIATION ONCOLOGY Plan Total Fractions Prescribed 16 ARIA RADIATION ONCOLOGY Plan Prescribed Dose Per Fraction 2.65 Gy ARIA RADIATION ONCOLOGY Plan Total Prescribed Dose 4,240 cGy ARIA RADIATION ONCOLOGY Plan Primary Reference Point RT SCLAV AXILLA ARIA RADIATION ONCOLOGY 01/04/2023 11:2 1 EST Provider Unknown RADIATION ONCOLOGY O RDERABLES TRUMAN RADIATION ONCOLOGY documented in this encounter Visit Diagnoses Not on filedocumented in this encounter Care Teams Refrigeration Technician Relationship Specialty Start Date End Date Sarah Quintero FNP [address] [place] [phone] PCP - General 05/03/20 documented as of this encounter
--- OUTSIDE RECORDS SUMMARY | 2024-06-30 16:30 | XMS_ITS | Encounter Summary ---
Author Organization [facility] Address [address] [place] [address] Care Team Providers Care Binder Stripper Machine Name Role Phone Sarah Quintero [facility] Primary Care Provider [phone] Reason for Visit * Reason Comments Medications Refill Encounter Details Date Type Department Care Team (Late st Contact Info) Description 03/28/2023 Refill [facility] [address] [place] [address] Adrian Snider MD [address] [facility] [address] [place] [phone] Medications Refill Social History Tobacco Use Types [...] Refills Start Date End Da te rizatriptan (MAXALT-DYNAMOMETER TESTER ENGINE) 10 mg disintegrating tablet DISSOLVE ONE TABLET BY MOUTH NEEDED FOR MIGRAINE. MAY REPEAT DOSE IN 2 HOURS IF INEFFECTIVE. DO NOT EXCEED 2 TABLETS IN 24 HOURS, 8 DAYS PER MONTH, AND NO MORE THAN 12 TABLETS IN 1 MONTH 12 Tablet 5 03/28/2023 08/27/2023 documented in this encounter Miscellaneous Notes * Telephone Encounter - Allison Hart RN - 03/28/2023 5842 EDT Request is for rizatriptan 10 mg prn migriaine. [facility] Escript for refill sent as requested 12/20/2022. documented in this encounter Plan of Treatment Upcoming Encounters Date Type Department Care Team (Late st Contact Info) Description 05/25/2025 14:00 EDT Office Visit [facility] Adult Hematology & Oncology [facility] [place] [address] Abdiel Salas MD [address] [place] [address] [address] [place] [phone] documented as of this encounter Visit Diagnoses Not on filedocumented in this encounter Discontinued Medications Medication Sig Discontinue Reason Start Date End Da te rizatriptan (MAXALT-DYNAMOMETER TESTER ENGINE) 10 mg disintegrating tablet Take 1 Tablet by mouth as needed for Migraine. May repeat dose in 2 hours if ineffective. No more than 2 in 24 hours, 8 days in 1 month, and no more than 12 tabs in 1 month. 12/20/2022 03/28/2023 documented as of this encounter Care Teams Binder Stripper Machine Relationship Specialty Start Date End Date Sarah Quintero FNP [address] [place] [phone] PCP - General 05/03/20 documented as of this encounter
--- OUTSIDE RECORDS SUMMARY | 2024-06-30 16:30 | XMS_ITS | Encounter Summary ---
Author Organization [facility] Address [address] [place] [address] Care Team Providers Care Psychologists Name Role Phone Sarah Quintero [facility] Primary Care Provider [phone] Reason for Visit * Reason Onset Date Comments Prior Auth, Medication 03/29/2023 Qulipta ( new start) Encounter Details Date Type Department Care Team ([facility] Contact Info) Description 03/29/2023 Refill [facility] [address] [place] [address] Rancho Macias MD [address] [phone] Prior Auth, Medication (Qulipta (new [...] Tablet by mouth daily. 90 Tablet 3 04/16/2023 05/06/2024 documented in this encounter Progress Notes * Jeane Carrillo RPH - 04/09/2023 1119 EDT Spoke with Kang regarding the denial of Qulipta and our wanting to appeal the decision. We need a consent form from her saying we can appeal on her behalf. Send consent form for appeal to per patient. documented in this encounter Miscellaneous Notes * Telephone Encounter - Eva Mariee - 03/29/2023 1122 EDT Prior Authorization - Appeal: Denial Overturned (Cov'g Approved) Medication: Qulipta 60mg tablet po daily Approval Dates: 04/15/23--10/15/23 Authorization Number: [id number] ([facility]) Pharmacy: Prior Authorization 2nd Level/Independent Review Appeal Medication: Qulipta 60mg tablet po lona Appeal Submission Date: 04/12/23 Notes: Prior Authorization - Appeal: Denial Upheld (Cov'g Denied) Medication: Qulipta 60mg tablet po daily Denial Date: 04/05/23 Denial Reason: only approved for episodic migraine Prior Authorization Appeal Medication: Qulipta 60mg tablet po daily Appeal Submission Date: 04/02/23 Notes: faxed to [phone] Prior Authorization Denial Medication: Qulipta 60mg tablet po daily Denial Date: 04/01/2023 Denial Reason: ...requested medication can only be considered for approval if the patient has a diagnosis of Episodic Migraines... Notes: Denial letter is in scans Prior Authorization Submission Process - Routine New Medication: Qulipta 60mg po daily Insurance: [facility] Insurance Type: Commercial Date PA Request Received: 05/19/23 PA Submission Date: 03/29/23 PromptPA EOC ID: [id number] Notes: Submitted by: Eva Mccabe Phone: [phone] documented in this encounter Plan of Treatment Upcoming Encounters Date Type Department Care Team (Late st Contact Info) Description 05/25/2025 14:00 EDT Office Visit [facility] Adult Hematology & Oncology [address] [place] [address] Abdiel Salas MD [address] [place] [address] [address] [place] [address] documented as of this encounter Visit Diagnoses Not on filedocumented in this encounter Care Teams Psychologists Relationship Specialty Start Date End Date Sarah Quintero FNP [address] [place] [address] PCP - General 05/03/20 documented as of this encounter
--- OUTSIDE RECORDS SUMMARY | 2024-06-30 16:30 | XMS_ITS | Encounter Summary ---
Author Organization [facility] Address [address] [place] [address] Care Team Providers Care Research Project Coordinator Name Role Phone Sarah Quintero [employer] Primary Care Provider Reason for Visit * Reason Comments Follow-up Breast cancer Encounter Details Date Type Department Care Team ([facility] st Contact Info) Description 01/03/2023 10:00 EST Office Visit [facility] Adult Hematology & Oncology [address] [place] [phone] Abdiel Salas MD [address] [place] [address] [address] [place] [address] Malignant neoplasm of upper-outer quadrant of right breast in female, estrogen receptor negative (HCC-CMS) (Primary Dx) Social History Tobacco Use Types Packs/Day Years Used Date Smoking Tobacco: Never Smokeless Tobacco: Never Tobacco Cessation:Counseling Given: Not Answered Alcohol Use Standard Drinks/Week Comments Yes 0 [...] Sign Reading Time Taken Comments Blood Pressure 108/70 01/03/2023 0958 EST Pulse 92 01/03/2023 0958 EST Temperature - - Respiratory Rate - - Oxygen Saturation 96% 01/03/2023 0958 EST Inhaled Oxygen Concentration - - Weight 90.3 kg (199 lb) 01/03/2023 0958 EST Height - - Body Mass Index 31.17 09/19/2022 1012 EST documented in this encounter [...] Progress Notes * Abdiel Salas MD - 01/03/2023 1000 EST Hem/Onc. Follow up Note Mireille Chatman :1965 Age:57 y.o. 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 -02/20/2022 screening mammogram: 16mm [...] -08/31/2022 lumpectomy and sentinel node biopsy: Pathology: [id number] mm), ypN1a(sn, 2/3 macro and micro). -09/19/2022 [...] sore, cellulitis of the legs. - 11/28/2022 started adjuvant radiation therapy Dr. Noe. Scheduled to be completed by 01/10/2023 -01/03/2023 tolerating radiation therapy quite well.: Proceed with 10 months of Kadcyla starting theweek of 01/28/2023 2: Family history: Paternal grandmother had DCIS in her 80s, paternal grandfather colon cancer in his 80s. Father 2 uncles and 1 aunt all without malignancy. On the maternal side: Mother 1 uncle 2 aunt without malignancy. Mireille has 3 children all healthy. She has 1 brother and 2 sisters all without malignancy. Reviewed with the indirect sales exec at [facility] recommended consultation. -04/27/2022 referral to [facility] indirect sales exec for further evaluation. 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 Chief Complaint Patient presents with ??? Follow-up Breast cancer Interim History: Mireille comes in for follow-up visit. She is scheduled to complete adjuvant radiation therapy to the breast by the end of next week. Tolerated quite well with grade 1 radiation dermatitis. Review of systems: Review of Systems Gastrointestinal: History of IBS currently asymptomatic Skin: Right breast and axilla wound well-healed, grade 1 radiation dermatitis. Breast is a little tender from the radiation but no complaints of lymphedema. Neurological: Negative for headaches (History of chronic migraine headaches has not had any recently.). All other systems reviewed and are negative. Vital Signs: Patient Vitals for the past 24 hrs: BP Pulse SpO2 Weight 01/03/23 0958 108/70 92 96 % 90.3 kg (199 lb) Wt Readings from Last 3 Encounters: 01/03/23 90.3 kg (199 lb) 12/31/22 89.4 kg (197 lb 3.2 oz) 12/17/22 89.9 kg (198 lb 4.8 oz) Ht Readings from Last 1 Encounters: 09/19/22 170.2 cm (67) Estimated body surface area is 2.07 meters squared as calculated from the following: Height as of 09/19/22: 170.2 cm (67). Weight as of this encounter: 90.3 kg (199 lb). ECOG Performance Status: 0 Physical exam: Physical Exam Constitutional: Appearance: Normal appearance. Eyes: General: No scleral icterus. Pulmonary: Effort: Pulmonary effort is normal. Musculoskeletal: Cervical back: Normal range of motion. Right lower leg: No edema. Left lower leg: No edema. Skin: Comments: Grade 1 radiation dermatitis. No evidence of lymphedema. Neurological: General: No focal deficit present. Mental Status: She is alert. Psychiatric: Mood and Affect: Mood normal. Previous medical history: Past Medical History: Diagnosis Date ??? 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 Breast cancer, right (HCC-CMS) (HCC) ??? GERD (gastroesophageal reflux disease) ??? Migraine ??? Psychiatric problem Anxiety ??? Thyroid disease Allergies: Allergies Allergen Reactions ??? Meperidine Nausea Only ??? Sulfa (Sulfonamide Antibiotics) Family history Medications: Current Outpatient Medications Medication Sig Dispense Refill Last Dose ??? albuterol (ACCUNEB) 1.25 mg/3 mL nebulizer solution INHALE 1 VIAL VIA NEBULIZER ONCE DAILY Taking ??? albuterol (ACCUNEB) 2.5 mg /3 mL (0.083 %) nebulizer solution INHALE CONTENTS OF VIAL VIA NEBULIZER 4 TIMES A DAY Taking ??? azithromycin (ZITHROMAX) 250 mg tablet Take 250 mg by mouth daily. (Patient not taking: Reported on 01/03/2023) Not Taking ??? benzonatate (TESSALON) 100 mg capsule TAKE 1 CAPSULE BY MOUTH 3 TIMES A DAY NEEDED FOR COUGH(Patient not taking: Reported on 01/03/2023) Not Taking ??? cefpodoxime (VANTIN) 200 mg tablet Take 200 mg by mouth 2 times daily. (Patient not taking: Reported on 01/03/2023) Not Taking ??? cephalexin (KEFLEX) 500 mg capsule 1 CAPSULE ORALLY FOUR TIMES A DAY 7 DAY(S) (Patient not taking: Reported on 01/03/2023) Not Taking ??? cholecalciferol, vitamin D3, (VITAMIN D3 ORAL) Take 2,000 Units by mouth daily. Taking ??? ELDERBERRY FRUIT ORAL Take by mouth daily. 2 gummies daily Taking ??? ESTRING 2 mg (7.5 mcg /24 hour) vaginal ring INSERT 1 RING INTO VAGINA EVERY THREE MONTHS Taking ??? fremanezumab-vfrm (AJOVY AUTOINJECTOR) 225 mg/1.5 mL auto-injector Inject 225 mg into the skin every 28 days. 4.5 mL 1 Taking ??? HYDROcodone-chlorpheniramine (TUSSIONEX) 10-8 mg/5 mL suspension TAKE 5ML BY MOUTH EVERY 12 HOURS (Patient not taking: Reported on 01/03/2023) Not Taking ??? ibuprofen (MOTRIN) 600 mg tablet take 1 tablet by mouth every 6 hours as needed Taking ??? levothyroxine (SYNTHROID) 125 mcg tablet Take 125 mcg by mouth daily. Taking ??? LORazepam (ATIVAN) 1 mg tablet Take 1 mg by mouth every 6 hours as needed for Anxiety (Nausea).Taking ??? multivitamin capsule Take 1 Capsule by mouth daily. Taking ??? NONFORMULARY daily. Tumeric with black pepper Taking ??? OLANZapine (ZYPREXA) 10 mg tablet TAKE 1 TABLET BY MOUTH EVERY DAY FOR 30 DAYS (Patient not taking: Reported on 01/03/2023) Not Taking ??? ondansetron (ZOFRAN) 8 mg tablet Take 1 Tablet by mouth 2 times daily as needed for Nausea (for3 days after chemo). (Patient not taking: No sig reported) 12 Tablet 2 Not Taking ??? pantoprazole (PROTONIX) 40 mg tablet 1 tab(s) orally once a day Taking ??? potassium chloride SA (K-DUR) 20 mEq tablet Take 20 mEq by mouth daily. (Patient not taking: Nosig reported) Not Taking ??? predniSONE (DELTASONE) 20 mg tablet Take 40 mg by mouth daily. (Patient not taking: Reported on01/03/2023) Not Taking ??? prochlorperazine (COMPAZINE) 10 mg tablet TAKE 1 TABLET BY MOUTH 3 TIMES DAILY NEEDED (NAUSEA). (Patient not taking: No sig reported) 30 Tablet 2 Not Taking ??? rizatriptan (MAXALT-BRAID CUTTER) 10 mg disintegrating tablet Take 1 Tablet by mouth as needed for Migraine. May repeat dose in 2 hours if ineffective. No more than 2 in 24 hours, 8 days in 1 month, and no more than 12 tabs in 1 month. 12 Tablet 5 Taking ??? sertraline (ZOLOFT) 100 mg tablet Take 150 mg by mouth daily. Taking ??? traZODone (DESYREL) 50 mg tablet Take 50 mg by mouth at bedtime. 0.5-1 tablet At bedtime as needed Taking No current facility-administered medications for this visit. Data Review: Labs: Results for orders placed or performed in visit on 01/02/23 RAD ONC ARIA SESSION SUMMARY Result Value Ref Range Course ID [id number] Course Intent Curative Course First Treatment Date 12/12/2022 11:31 Course Last Treatment Date 01/02/2023 11:23 Course Elapsed Days 21 Reference Point ID RIGHT BREAST Reference Point Dosage Given to Date 37.1 Gy Reference Point Session Dosage Given 2.65 Gy Reference Point ID RT SCLAV AXILLA Reference Point Dosage Given to Date 37.1 Gy Reference Point Session Dosage Given 2.65 Gy Reference Point ID Tumor Bed TOTAL Reference Point Dosage Given to Date 37.1 Gy Reference Point Session Dosage Given 2.65 Gy Plan ID 2_Rt Breast Plan Name 2_Rt Breast Plan Fractions Treated to Date 14 Plan Total Fractions Prescribed 16 Plan Prescribed Dose Per Fraction 2.65 Gy Plan Total Prescribed Dose 4,240 cGy Plan Primary Reference Point RIGHT BREAST Plan ID 1_Rt Sclav Plan Name 1_Rt Sclav Plan Fractions Treated to Date 14 Plan Total Fractions Prescribed 16 Plan Prescribed Dose Per Fraction 2.65 Gy Plan Total Prescribed Dose 4,240 cGy Plan Primary Reference Point RT SCLAV AXILLA Imaging: CT SIM EXAM This is a non-reportable exam. Assessment: 1: Right breast invasive ductal carcinoma ER/MO negative HER2 positive. Axillary node positive. Started neoadjuvant therapy with TC/HP, poorly tolerated receiving only 2 cycles due to sepsis pancytopenia and other grade 3 toxicities.. Transition to Noesphere protocol: Docetaxel Herceptin pertuzumab for 4 cycles (total of 6), also trouble tolerating cytotoxic with grade 2 toxicity. She underwent lumpectomy and sentinel biopsy: Pathology: [id number] mm), ypN1a(sn, 2/3 macro and micro). Follow-up adjuvant therapy with FEC planned 3 cycles was only able to give her 2 cycles due to grade 3 toxicity and 3 hospitalizations. Proceeded to adjuvant radiation therapy which will be completed by 01/10/2023. Discussed maintenance therapy with Ruby seen that she did not have a good response to initial Herceptin pertuzumab combination was cytotoxic. This should improve her response rates progression free survival, versus only observation. Plan: -Completed radiation therapy 01/10/2023. -Start maintenance therapy with ado-trastuzumab emtansine, since he received only 2 to 3 months of Herceptin therapy would recommend at least the head of trastuzumab. Consult time 30 minutes This note was transcribed using [employer] voice recognition software, please excuse any hot mill operator errors. Carbon copy Rosemary Salcido ONP, Sarah KIDD. Dr. Raul Salas MD [facility] * Abhilash Hardin LPN - 01/03/2023 1000 EST Suspicion of Abuse: no - If yes, please document evidence: - Assessed on: 01/03/23 9:58 - Assessed by: ABHILASH HARDIN LPN documented in this encounter Plan of Treatment Upcoming Encounters Date Type Department Care Team (Late st Contact Info) Description 05/25/2025 14:00 EDT Office Visit [facility] Adult Hematology & Oncology [facility] [place], [place] [phone] Abdiel Salas MD [address] [place] [address], [facility] [address] [place] [phone] documented as of this encounter Visit Diagnoses Diagnosis Malignant neoplasm of upper-outer quadrant of right breast in female, estrogen receptor negative (HCC-CMS)- Primary documented in this encounter Historical Medications * This list may reflect changes made after this encounter. Medication Sig Dispensed Refills Start Date End Date NONFORMULARY daily. Tumeric with black pepper multivitamin capsule Take 1 Capsule by mouth daily. predniSONE (DELTASONE) 20 mg tablet Take 40 mg by mouth daily. 11/13/2022 OLANZapine (ZYPREXA) 10 mg tablet TAKE 1 TABLET BY MOUTH EVERY DAY FOR 30 DAYS 09/26/2022 ibuprofen (MOTRIN) 600 mg tablet take 1 tablet by mouth every 6 hours as needed 11/17/2022 HYDROcodone-chlorphenira mine (TUSSIONEX) 10-8 mg/5 mL suspension TAKE 5ML BY MOUTH EVERY 12 HOURS 11/12/2022 ESTRING 2 mg (7.5 mcg /24 hour) vaginal ring INSERT 1 RING INTO VAGINA EVERY THREE MONTHS 10/15/2022 benzonatate (TESSALON) 100 mg capsule TAKE 1 CAPSULE BY MOUTH 3 TIMES A DAY NEEDED FOR COUGH 11/28/2022 albuterol (ACCUNEB) 2.5 mg /3 mL (0.083 %) nebulizer solution 11/18/2022 albuterol (ACCUNEB) 1.25 mg/3 mL nebulizer solution 11/13/2022 cephalexin (KEFLEX) 500 mg capsule 1 CAPSULE ORALLY FOUR TIMES A DAY 7 DAY(S) 10/11/2022 01/07/2023 cefpodoxime (VANTIN) 200 mg tablet Take 200 mg by mouth 2 times daily. 11/17/2022 01/07/2023 azithromycin (ZITHROMAX) 250 mg tablet Take 250 mg by mouth daily. 11/17/2022 01/07/2023 added in this encounter Care Teams Research Project Coordinator Relationship Specialty Start Date End Date Sarah Quintero FNP [address] [place] [phone] PCP - General 05/03/20 documented as of this encounter
--- OUTSIDE RECORDS SUMMARY | 2024-06-30 16:30 | XMS_ITS | Encounter Summary ---
Author Organization [facility] Address [address] [place] [address] Care Team Providers Care Shot Peen Operator Name Role Phone Sarah Quintero SHOWER ATTENDANT Primary Care Provider [phone] Encounter Details Date Type Department Care Team (Latest Contact Info) Description 01/03/2023 10:51 EST - 01/03/2023 23:59 EST Hospital Encounter [facility] Cancer Treatment [place] [address] [place] [address] Discharge Disposition: Home or Self Care Social [...] /3 mL (0.083 %) nebulizer solution 11/18/2022 benzonatate (TESSALON) 100 mg capsule TAKE 1 CAPSULE BY MOUTH 3 TIMES A DAY NEEDED FOR COUGH 11/28/2022 cholecalciferol, vitamin D3, (VITAMIN D3 ORAL) Take 2,000 Units by mouth daily. ELDERBERRY FRUIT ORAL Take by mouth daily. 2 gummies daily ESTRING 2 mg (7.5 mcg /24 hour) vaginal ring INSERT 1 RING INTO VAGINA EVERY THREE MONTHS 10/15/2022 HYDROcodone-chlorpheniram ine (TUSSIONEX) 10-8 mg/5 mL suspension TAKE 5ML BY MOUTH EVERY 12 HOURS 11/12/2022 ibuprofen (MOTRIN) 600 mg tablet take 1 tablet by mouth every 6 hours as needed 11/17/2022 levothyroxine (SYNTHROID) 125 mcg tablet Take 1 Tablet by mouth daily. 01/18/2022 LORazepam (ATIVAN) 1 mg tablet Take 1 mg by mouth every 6 hours as needed for Anxiety (Nausea). multivitamin capsule Take 1 Capsule by mouth [...] Take 40 mg by mouth daily. 11/13/2022 sertraline (ZOLOFT) 100 mg tablet Take 1.5 Tablets by mouth daily. 04/06/2020 traZODone (DESYREL) 50 mg tablet Take 1 Tablet by mouth at bedtime. 0.5-1 tablet At bedtime as needed azithromycin (ZITHROMAX) 250 mg tablet Take 250 mg by mouth daily. 11/17/2022 01/07/2023 cefpodoxime (VANTIN) 200 mg tablet Take 200 mg by mouth 2 times daily. 11/17/2022 01/07/2023 cephalexin (KEFLEX) 500 mg capsule 1 CAPSULE ORALLY FOUR TIMES A DAY 7 DAY(S) 10/11/2022 01/07/2023 fremanezumab-vfrm (AJOVY AUTOINJECTOR) 225 mg/1.5 mL auto-injector Inject 225 mg into the skin every 28 days. 4.5 mL 1 12/20/2022 04/16/2023 prochlorperazine (COMPAZINE) 10 mg tablet TAKE 1 TABLET BY MOUTH 3 TIMES DAILY NEEDED (NAUSEA). 30 Tablet 2 06/28/2022 01/09/2023 rizatriptan (MAXALT-VENEER JOINER) 10 mg disintegrating tablet Take 1 Tablet by mouth as needed for Migraine. May repeat dose in 2 hours if ineffective. No more than 2 in 24 hours, 8 days in 1 month, and no more than 12 tabs in 1 month. 12 Tablet 5 12/20/2022 03/28/2023 documented as of this encounter Discharge Disposition Disposition Code Departure Means Destination Home or Self Care documented in this encounter Plan of Treatment Upcoming Encounters Date Type Department Care Team (Late st Contact Info) Description 05/25/2025 14:00 EDT Office Visit [facility] Adult Hematology & Oncology [address] [place] [address] Abdiel Salas MD [address] [place] [address] [address] [place] [phone] documented as of this encounter Visit Diagnoses Not on filedocumented in this encounter Care Teams Shot Peen Operator Relationship Specialty Start Date End Date Sarah Quintero FNP [address] [place] [phone] PCP - General 05/03/20 documented as of this encounter
--- OUTSIDE RECORDS SUMMARY | 2024-06-30 16:30 | XMS_ITS | Encounter Summary ---
Author Organization [facility] Address [address] [place] [address] Care Team Providers Care Painter Helper Spray Name Role Phone Sarah Quintero FURNITURE RENTAL CONSULTANT Primary Care Provider [phone] Reason for Visit * Reason Onset Date Comments Other 01/17/2023 Encounter Details Date Type Department Care Team (Late st Contact Info) Description 01/17/2023 Telephone [facility] Adult Hematology & Oncology [address] [place] [phone] Abdiel Salas MD [address] [place] [address] [address] [place] [address] Other Social History Tobacco Use Types Packs/Day Years [...] encounter Miscellaneous Notes * Telephone Encounter - Abdiel Salas MD - 01/18/2023 1322 EST Spoke to Rosemary Rg RAILROAD SUPERVISOR OF ENGINES [facility]. She will look at the restrictions for nursing staff and speak to Mireille and will take care of the letter. Thank you * Telephone Encounter - Miracle Allred, MEKA - 01/17/2023 1422 EST Patient seen both here and at [facility]. 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 Patient hoping to start back at work inApril. Her biggest concern / worry is being able to handle a 12 hr shift due to fatigue. Patient feels that she would have no lifting restrictions. Dr. Salas - Please advise, I will then draft a letter up for you to review and sign. Patient requesting letter to be mailed to her. * Telephone Encounter - Mirtha Chapa - 01/17/2023 1413 EST Would like return to work letter. Thinking in February. Would like clinical staff to return call to let her know if PCP or Dr Salas should letter. Thinking maybe 6 hour shift and restrictions that may or may not be documented in this encounter Plan of Treatment Upcoming Encounters Date Type Department Care Team (Late st Contact Info) Description 05/25/2025 14:00 EDT Office Visit [facility] Adult Hematology & Oncology [address] [place] [address] Abdiel Salas MD [address] [place] [address] [address] [place] [phone] documented as of this encounter Visit Diagnoses Not on filedocumented in this encounter Care Teams Painter Helper Spray Relationship Specialty Start Date End Date Sarah Quintero FNP [address] [place] [phone] PCP - General 05/03/20 documented as of this encounter
--- OUTSIDE RECORDS SUMMARY | 2024-06-30 16:30 | XMS_ITS | Encounter Summary ---
Author Organization [facility] Address [address] [place] [address] Care Team Providers Care Scoring Machine Operator Name Role Phone Sarah Quintero [facility] Primary Care Provider Reason for Referral * Radiology Services (Routine/Next Available) - New Request Specialty Diagnoses / Procedures Referred By Contac t Referred To Contact Diagnoses Malignant neoplasm of upper-outer quadrant of right breast in female, estrogen receptor negative (HCC-CMS) Procedures MA BREAST DIAGNOSTIC RIGHT Raul Noe MD [address] [phone] External Referral ID Status Reason Start Date Expiration Date V isits Requested Visits Authorized [id number] New Request 02/18/2023 1 1 * Radiology Services (Routine/Next Available) - New Request Specialty Diagnoses / Procedures Referred By Contac t Referred To Contact Diagnoses Malignant neoplasm of upper-outer quadrant of right breast in female, estrogen receptor negative (HCC-CMS) Procedures MA BREAST SCREENING LEFT Raul Noe MD [address] [phone] External Referral ID Status Reason Start Date Expiration Date V isits Requested Visits Authorized [id number] New Request 02/18/2023 1 1 Reason for Visit * Reason Comments Breast Cancer Encounter Details Date Type Department Care Team (Late st Contact Info) Description 02/18/2023 13:30 EDT Office Visit [facility] Cancer Treatment [place] [address] [place] [address] Raul Noe MD 111 [facility], [address] [place] [address] Malignant neoplasm of upper-outer quadrant of right [...] Sign Reading Time Taken Comments Blood Pressure 121/74 02/18/2023 1337 EDT Pulse 101 02/18/2023 1337 EDT Temperature - - Respiratory Rate - - Oxygen Saturation - - Inhaled Oxygen Concentration - - Weight 91.2 kg (201 lb) 02/18/2023 1337 EDT Height - - Body Mass Index 31.48 09/19/2022 1012 EST documented in this encounter [...] as of this encounter Progress Notes * Raul Noe MD - 02/18/2023 1330 EDT Images from the original note were not included. Division of Radiation Oncology- FOLLOW-UP NOTE Date of Service: 02/18/2023 Diagnosis/Stage: Cancer Staging Malignant neoplasm of upper-outer quadrant of right breast in female, estrogen receptor negative (HCC-CMS) Staging form: Breast, AJCC 8th Edition - Pathologic stage from 08/22/2022: No Stage Recommended (ypT1c, pN1a(sn), cM0, G3, ER-, AZ-, HER2+) - Signed by Raul Noe MD on 11/28/2022 Oncology History Malignant neoplasm of upper-outer quadrant of right breast in female, estrogen receptor negative (HCC-CMS) 03/30/2022 Initial Diagnosis Malignant neoplasm of upper-outer quadrant of right breast in female, estrogen receptor negative October,: Patient received COVID booster in right arm. Since then, she has been experiencing right axillary adenopathy. Patient did not appreciate a mass in right breast. 02/20/2022: Screening mammogram: 16mm irregular mass in upper outer quadrant of right breast with pleomorphic calcifications. 03/02/2022: Ultrasound: Suspicious mass measuring 2 x 1.3 cm at 10 o'clock position, 12 cm out from nipple in right breast. Axillary ultrasound did not show significant axillary adenopathy, Indeterminate/ 8 mm axillay lymph node with no fatty hilum. Core needle biopsy: High-grade invasive ductal carcinoma, ER/AZ negative (less than 1%), HER2 2+; FLACO amplified (staining pattern is heterogeneous, small area showed strong amplification-5.37 and remaining areas showed low amplification-2.13). 03/29/2022: MRI of right breast: Mass measuring 2.1 x 1.5 x 2.1 cm at 10 o'clock position in right breast, non-mass enhancement anterior to this mass extending over a span of 2 cm, abnormally enlargedright axillary lymph node measuring 1.4 x 1.3 cm. MRI of left breast: Normal, no axillary adenopathy noted. 03/30/2022 - Biopsy FNA right axilla node: high grade adenocarcinoma 04/11/2022 - Chemotherapy TCH + P (NEOADJUVANT - TRYPHAENA) (AUC 6) Plan Provider: Katt Brewster NP Treatment goal: Curative Line of treatment: Neoadjuvant 08/22/2022 Cancer Staged Staging form: Breast, AJCC 8th Edition - Pathologic stage from 08/22/2022: No Stage Recommended (ypT1c, pN1a(sn), cM0, G3, ER-, AZ-, HER2+) 08/31/2022 - Surgery Dr. Case at performed lumpectomy and sentinel node biopsy. Pathology: ypT1c(15 mm), ypN1a(sn, 2/3 macro and micro) poorly differentiated, indeterminate LVI, closest margin 5 mm. 01/10/2023 Radiation Therapy Completed right breast and regional ceasar radiation Interval Since Completion of Radiation Therapy: 6 weeks Impression: She appears in clinical remission of her right breast cancer about 6 weeks from radiation. HER2 directed therapy continues at . Recommendations: 1. She is just 1 year now from bilateral screening mammogram and I have requested a [facility] right diagnostic and left screening mammogram in the next month 2. She continues every 3-week ado-trastuzumab likely can continue for the next 10 months. 3. She plans continued surgical and medical oncology follow-up at [facility] and will return to this office on an as-needed basis. History of Presenting Illness: Invasive ductal carcinoma right breast. ??Node positive. ??ER/AZ negative, HER2 positive. ?-02/20/2022 screening mammogram: 16mm irregular mass upper outer quadrant right breast. ?-03/02/2022 ultrasound: 2 x 1.3 mass at 12 o'clock position of the right breast, axillary ultrasound showed an indeterminant 8 mm axillary lymph node with no fatty hilum. ??Core needle biopsy revealed invasive ductal carcinoma. ?-03/29/22 MRI of the right breast: Mass measuring 2.1 x 1.5 x 2.1 cm at 10 o'clock position, right breast. ??Non-mass enhancement anterior to this mass extending over a span of2 cm, enlarged right axillary node measuring 1.4 x 1.3 cm. ??MRI of the left breast normal. ?-03/30/22 Right axilla node FNA showed high grade adenocarcinoma. ?-04/05/2022 CT CAP: 1. ??Right breast lateral 2 x 1.3 cm mass nodule. ??Right axillary adenopathy. ??Solitary borderline enlarged AP window lymph node. ??Rest of the mediastinal and hilar nodes appear unremarkable. ??No subdiaphragmatic nodes noted. 3. ??Right upper lung 6 mm groundglass nodular opacity. ??Could reflect minimal airspace disease. ??Should be reassessed in 6 months. ?-04/05/2022 bone scan: Indeterminate posterolateral right sixth rib may correspond to small sclerotic intramedullary lesion on the CT scan. ??Metastatic disease cannot be excluded. ??Reviewed with interventional radiology and biopsy is not possible. ??Additional indeterminantsmall foci of uptake projecting over the proximal left tibia (status post left patellar tendon release). ?-04/24/2022 cycle 1/6?neoadjuvant TC/HP.??poorly tolerated due to grade 2oral mucositis, diarrhea grade 2/3, pancytopenia. ?-05/22/2022 Cycle 2/6??TC/HP: Dose modified per protocol. ??Again poorly tolerated due to diarrhea grade 2/3, cytopenias, mucositis. ??I think she will not??tolerate another cycle even with further modifications. ?-06/20/2022 change treatment strategies to the Neophere protocol:Docetaxel, pertuzumab and Herceptin x 4 followed by surgery, followed by FEC(5-fluorouracil, epirubicin, cyclophosphamide every 3 weeks x 3 with concurrent trastuzumab to complete 1 year of HER2 directed therapy). ?-06/21/2022 cycle 3/4??T/HP Neosphere protocol, surgery to be scheduled 4 weeks after cycle 4. ?-08/31/2022??Dr. Case at performed??lumpectomy and sentinel node biopsy: Pathology:??ypT1c(15 mm), ypN1a(sn, 2/3 macro and micro)??poorly differentiated, indeterminate LVI, closest margin 5 mm. ?-09/19/2022 scars recovering nicely. ??Plan: Proceed with Neophere??l: FEC?Q 3w x 3 cycles.?Followed by adjuvant radiation. ??Due to persistent disease after neoadjuvant HER-2 therapy will transition to Ado- trastuzumab after radiation for 14 cycles. 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 ?? 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 ??The patient has not been working during her chemotherapy course. -01/10/23 completed right breast and node radiation. Interval History: Seen in the office today. She reports that this week she is returned to work part-time. She is without significant breast discomfort and energy is improving. She notes no arm swelling or nipple discharge. She is continuing systemic therapy with ado-trastuzumab at [facility] under the direction of Dr. Salas Objective: BP 121/74 (BP Cuff Location: Left arm) Pulse 101 Wt 91.2 kg (201 lb) LMP 03/29/2009 (Within Months) BMI 31.48 kg/m?? Wt Readings from Last 3 Encounters: 01/07/23 90.7 kg (200 lb) 01/03/23 90.3 kg (199 lb) 12/31/22 89.4 kg (197 lb 3.2 oz) ECOG performance Status: (0) Fully active, able to carry on all predisease performance without restriction I palpate no cervical, supraclavicular or axillary adenopathy. Lungs are clear. Cardiac exam reveals regular rate Breast exam reveals no masses bilaterally. The right breast has very mild tanning and the lumpectomy site is without significant induration and there is no evidence of seroma. The upper extremities are without edema Musculoskeletal exam is nonfocal I spent a total of 25 minutes on the date of this encounter meeting with the patient and reviewing documentation/coordinating care as described in the above note. No procedures were performed at the time of the visit. Raul Noe MD Radiation Oncology-[facility] (p) [phone] / (f) [phone] documented in this encounter Plan of Treatment Upcoming Encounters Date Type Department Care Team (Late st Contact Info) Description 05/25/2025 14:00 EDT Office Visit [facility] Adult Hematology & Oncology [address] [place] [phone] Abdiel Salas MD [address] [place] [address] [address] [place] [phone] Scheduled Orders Name Type Priority Associated Diagnoses Orde r Schedule MA BREAST SCREENING LEFT Imaging Routine Malignant neoplasm of upper-outer quadrant of right breast in female, estrogen receptor negative (HCC-CMS) Expected: 03/20/2023 (Approximate), Expires: 02/18/2025 MA BREAST DIAGNOSTIC RIGHT Imaging Routine Malignant neoplasm of upper-outer quadrant of right breast in female, estrogen receptor negative (HCC-CMS) Expected: 03/20/2023 (Approximate), Expires: 02/18/2025 documented as of this encounter Visit Diagnoses Diagnosis Malignant neoplasm of upper-outer quadrant of right breast in female, estrogen receptor negative (HCC-CMS)- Primary documented in this encounter Care Teams Scoring Machine Operator Relationship Specialty Start Date End Date Sarah Quintero FNP [address] [place] [phone] PCP - General 05/03/20 documented as of this encounter
--- OUTSIDE RECORDS SUMMARY | 2024-06-30 16:30 | XMS_ITS | Encounter Summary ---
Author Organization [facility] Address [address] [place] [address] Care Team Providers Care Sap Bpc Architect Name Role Phone Sarah Quintero HYDROELECTRIC STATION CHIEF Primary Care Provider Reason for Visit * Reason Comments Follow-up Breast cancerComplet ed adjuvant therapy Encounter Details Date Type Department Care Team (Late st Contact Info) Description 12/04/2023 14:00 EST Office Visit [facility] Adult Hematology & Oncology [facility] [place], [place] [phone] Abdiel Salas MD [address] [place] [address] [address] [place] [address] Malignant neoplasm of upper-outer quadrant [...] Sign Reading Time Taken Comments Blood Pressure 132/79 12/04/2023 1752 EST Pulse 93 12/04/2023 1752 EST Temperature 36.2 ??C (97.2 ??F) 12/04/2023 1752 EST Respiratory Rate 18 12/04/2023 1752 EST Oxygen Saturation 100% 12/04/2023 1752 EST Inhaled Oxygen Concentration - - Weight 76.2 kg (168 lb) 12/04/2023 1752 EST Height - - Body Mass Index 26.31 09/19/2022 1012 EST documented in this encounter [...] Progress Notes * Abdiel Salas MD - 12/04/2023 1400 EST Hem/Onc. Follow up Note Mireille Chatman :1965 Age:58 y.o. Gender:female Date of Service:12/04/2023 History of present illness: 1: Invasive ductal carcinoma right breast. Node positive. ER/MT negative, HER2 positive. -02/20/2022 screening mammogram: 16mm [...] -08/31/2022 lumpectomy and sentinel node biopsy: Pathology: [id number] mm), ypN1a(sn, 2/3 macro and micro). -09/19/2022 [...] 1 month if persistently elevated CT CAP. 2: Family history: Paternal grandmother had DCIS in her 80s, paternal grandfather colon cancer in his 80s. Father 2 uncles and 1 aunt all without malignancy. On the maternal side: Mother 1 uncle 2 aunt without malignancy. Mireille has 3 children all healthy. She has 1 brother and 2 sisters all without malignancy. Reviewed with the kettle coordinator at [facility] recommended consultation. -04/27/2022 referral to [facility] kettle coordinator for further evaluation. 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 Chief Complaint Patient presents with Follow-up Breast cancer Completed adjuvant therapy Interim History: Mireille completed will have adjuvant Kadcyla, fairly well-tolerated. 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 Main complaints seems to be loss of appetite persistent weight loss. No abdominal pain. Does have history of IBS but remains asymptomatic. Fatigue is slowly improving. Review of systems: Review of Systems Constitutional: [...] the past 24 hrs: BP Temp Pulse Resp SpO2 Weight 12/04/23 1752 132/79 36.2 ??C (97.2 ??F) 93 18 100 % 76.2 kg (168 lb) Wt Readings from Last 3 Encounters: 12/04/23 76.2 kg (168 lb) 09/18/23 79.8 kg (176 lb) 06/19/23 84.4 kg (186 lb) Ht Readings from Last 1 Encounters: 09/19/22 170.2 cm (67) Estimated body surface area is 1.9 meters squared as calculated from the following: Height as of 09/19/22: 170.2 cm (67). Weight as of this encounter: 76.2 kg (168 lb). 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 Unsure of dosage montelukast (SINGULAIR) 10 mg tablet Take 1 [...] Reported on 02/18/2023) 30 Tablet 2 rizatriptan (MAXALT-SCIENTIFIC SOFTWARE DEVELOPER) 10 mg disintegrating tablet DISSOLVE ONE TABLET [...] for this visit. Data Review: Labs: Imaging: CT SIM EXAM This is a non-reportable exam. Assessment: 1: Right breast invasive ductal carcinoma ER/MT negative HER2 positive. Axillary node positive. Started neoadjuvant therapy with TC/HP, poorly tolerated receiving only 2 cycles due to sepsis pancytopenia and other grade 3 toxicities.. Transition to Noesphere protocol: Docetaxel Herceptin pertuzumab for 4 cycles (total of 6), also trouble tolerating cytotoxic with grade 2 toxicity. She underwent lumpectomy and sentinel biopsy: Pathology: [id number] mm), ypN1a(sn, 2/3 macro and micro). Follow-up adjuvant therapy with FEC planned 3 cycles was only able to give her 2 cycles due to grade 3 toxicity and 3 hospitalizations. Adjuvant radiation therapy completed 01/10/2023. Completed 1 year of adjuvant Ado-trastuzumab 11/2023. 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 No clinical evidence of recurrence locally or metastatic disease. Of note LFT shows slowly increasing alk phos AST ALT and bilirubin in the last month. This could berelated to the added trastuzumab. Will recheck LFTs 4 weeks after the last administration, if thereis no improvement consider CT CAP to rule out metastases. Eval stable will continue to follow every 3 months with physical exam and labs Consult time 30 minutes This note was transcribed using [employer] voice recognition software, please excuse any race board attendant errors. Carbon copy Rosemary Salcido ONP, Sarah Quintero HYDROELECTRIC STATION CHIEF. Dr. Eugene Code [id number] [facility] documented in this encounter Miscellaneous Notes * Addendum Note - Miracle Vidal RN - 12/04/2023 1400 ESTAddended by: MIRACLE VIDAL on: 12/06/2023 09:56 Modules accepted: Orders documented in this encounter Plan of Treatment Upcoming Encounters Date Type Department Care Team (Late st Contact Info) Description 05/25/2025 14:00 EDT Office Visit [facility] Adult Hematology & Oncology [address] [place] [address] Abdiel Salas MD [address] [place] [address], [facility] [address] [place] [address] documented as of this encounter Visit Diagnoses Diagnosis Malignant neoplasm of upper-outer quadrant of right breast in female, estrogen receptor negative (HCC-CMS)- Primary documented in this encounter Historical Medications * This list may reflect changes made after this encounter. Medication Sig Dispensed Refills Start Date End Date methylphenidate HCl (RITALIN;METHYLIN) 5 mg tablet Take 2 Tablets by mouth daily. 10/10/2023 added in this encounter Care Teams Sap Bpc Architect Relationship Specialty Start Date End Date Sarah Quintero FNP [address] [place] [phone] PCP - General 05/03/20 documented as of this encounter
--- OUTSIDE RECORDS SUMMARY | 2024-06-30 16:30 | XMS_ITS | Encounter Summary ---
Author Organization [facility] Address [address] [place] [address] Care Team Providers Care Laborer Syrup Machine Name Role Phone Sarah Quintero AGENT CONTRACT CLERK Primary Care Provider [phone] Encounter Details Date Type Department Care Team (Latest Contact Info) Description 01/10/2023 11:15 EST - 01/10/2023 23:59 EST Hospital Encounter [facility] Cancer Treatment [place] [address] [place] [address] Discharge Disposition: Home or Self Care Social [...] as needed (nausea). 30 Tablet 2 01/09/2023 sertraline (ZOLOFT) 100 mg tablet Take 1.5 Tablets by mouth daily. 04/06/2020 traZODone (DESYREL) 50 mg tablet Take 1 Tablet by mouth at bedtime. 0.5-1 tablet At bedtime as needed fremanezumab-vfrm (AJOVY AUTOINJECTOR) 225 mg/1.5 mL auto-injector Inject 225 mg into the skin every 28 days. 4.5 mL 1 12/20/2022 04/16/2023 rizatriptan (MAXALT-FILLING MACHINE OPERATOR) 10 mg disintegrating tablet Take 1 Tablet [...] Info) Description 05/25/2025 14:00 EDT Office Visit [facility] Adult Hematology & Oncology [address] [place] [phone] Abdiel Salas MD [address] [place] [address] [address] [place] [phone] documented as of this encounter Visit Diagnoses Not on filedocumented in this encounter Care Teams Laborer Syrup Machine Relationship Specialty Start Date End Date Sarah Quintero FNP [address] [place] [address] PCP - General 05/03/20 documented as of this encounter
--- OUTSIDE RECORDS SUMMARY | 2024-06-30 16:30 | XMS_ITS | Encounter Summary ---
Author Organization [facility] Address [address] [place] [address] Care Team Providers Care Tar Heater Operator Name Role Phone Sarah Quintero CONTRACT ANALYST Primary Care Provider [phone] Encounter Details Date Type Department Care Team (Late st Contact Info) Description 02/18/2023 Documentation Visit [facility] Radiation Oncology - Main [place] [address] [place] [address] Janina King, RN Social History Tobacco Use Types Packs/Day Years [...] as of this encounter Progress Notes * Janina King, RN - 02/18/2023 1344 EDT Mireille in for a follow up post radiation for her breast cancer. 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 She denies any lumps in her breasts, but notes occasional sharp shooting right breast pain. documented in this encounter Plan of Treatment Upcoming Encounters Date Type Department Care Team (Late st Contact Info) Description 05/25/2025 14:00 EDT Office Visit [facility] Adult Hematology & Oncology [address] [place] [phone] Abdiel Salas MD [address] [place], [place] [address] [address] [place] [address] documented as of this encounter Visit Diagnoses Not on filedocumented in this encounter Care Teams Tar Heater Operator Relationship Specialty Start Date End Date Sarah Quintero FNP [address] [place] [phone] PCP - General 05/03/20 documented as of this encounter
--- OUTSIDE RECORDS SUMMARY | 2024-06-30 16:30 | XMS_ITS | Encounter Summary ---
Author Organization [facility] Address [address] [place] [address] Care Team Providers Care Blasting Cap Assembler Name Role Phone Sarah Quintero TRUCK BODY BUILDER APPRENTICE Primary Care Provider [phone] Reason for Visit * Reason Onset Date Comments Medication Problem 02/22/2023 Encounter Details Date Type Department Care Team (Late st Contact Info) Description 02/22/2023 Telephone [facility] Neu[facility] Clinic [address] [place] [address] [place] MD [address] [phone] Medication Problem Social History Tobacco Use Types Packs/Day Years [...] Telephone Encounter - Allison Hart RN - 02/25/2023 1006 EDT Spoke with Mireille. The migraines are just about every day now, but seem to be kicked off by her infusions. We spoke about how this can be true, as she is getting the saline infusions and is using steroids on and off and this can all contribute to the Headaches. I told her that Dr. Snider did not feel that we can do much for the headaches if they are being caused primarily by the infusions. But is she wants to try another CGRP, than we can do that. She has taken the Ajovy and she is obtaining some relief from that. I offered her Nurtec as a replacement. Mireille will research the medication, think about it and call me back. * Telephone Encounter - Brisa Whitlock - 02/25/2023 0944 EDT Mireille returned you phone call from Saturday. [phone] * Telephone Encounter - Allison Hart RN - 02/22/2023 1604 EDT Left message for Mireille to return my call. Left call back info. I am going to offer Nurtec because it is preferred with her [employer] insurance and I have seen it workreally well for others as a preventative. I will discuss with her when she calls back. * Telephone Encounter - Adrian Snider MD - 02/22/2023 1500 EDT If it's a side effect of the infusions I'm not sure we'll find a good way to help them. Could consider switching to alternate injectable CGRP antagonist perhaps, but I'm not confident that will help if it's due to the infusions. * Telephone Encounter - Brisa Whitlock - 02/22/2023 1429 EDT Mireille is doing IV treatments(adotarnstuzande) for breast cancer every 3 weeks. She has been gettingsevere headaches and was asking if there is anything else she could do to help besides the medications she is taking now. documented in this encounter Plan of Treatment Upcoming Encounters Date Type Department Care Team (Late st Contact Info) Description 05/25/2025 14:00 EDT Office Visit [facility] Adult Hematology & Oncology [address] [place] [phone] Abdiel Salas MD [address] [place] [address] [address] [place] [phone] documented as of this encounter Visit Diagnoses Not on filedocumented in this encounter Care Teams Blasting Cap Assembler Relationship Specialty Start Date End Date Sarah Quintero FNP [address] [place] [phone] PCP - General 05/03/20 documented as of this encounter
--- OUTSIDE RECORDS SUMMARY | 2024-06-30 16:30 | XMS_ITS | Encounter Summary ---
Author Organization [facility] Address [address] [place] [address] Care Team Providers Care Sales Person Name Role Phone Sarah Quintero RN COMMUNITY Primary Care Provider [phone] Encounter Details Date Type Department Care Team (Latest Contact Info) Description 01/09/2023 11:15 EST - 01/09/2023 23:59 EST Hospital Encounter [facility] [place] [address] [place] [address] Discharge Disposition: Home or Self Care Social [...] days. 4.5 mL 1 12/20/2022 04/16/2023 rizatriptan (MAXALT-BURR SANDER) 10 mg disintegrating tablet Take 1 Tablet [...] Info) Description 05/25/2025 14:00 EDT Office Visit [facility] Adult Hematology & Oncology [address] [place] [phone] Abdiel Salas MD [address] [place] [address] [address] [place] [phone] documented as of this encounter Visit Diagnoses Not on filedocumented in this encounter Care Teams Sales Person Relationship Specialty Start Date End Date Sarah Quintero FNP [address] [place] [address] PCP - General 05/03/20 documented as of this encounter
--- OUTSIDE RECORDS SUMMARY | 2024-06-30 16:30 | XMS_ITS | Encounter Summary ---
Author Organization [facility] Address [address] [place] [address] Care Team Providers Care Yard Conductor Name Role Phone Sarah Quintero [facility] Primary Care Provider [phone] Encounter Details Date Type Department Care Team (Late st Contact Info) Description 01/08/2023 Results Only [facility] Radiation Oncology - Main [place] [address] [place] [address] Unknown, Provider, Social History Tobacco Use Types [...] Info) Description 05/25/2025 14:00 EDT Office Visit [facility] Adult Hematology & Oncology [facility] [place] [address] Abdiel Salas MD [address] [place] [address] [address] [place] [address] documented as of this encounter Procedures Procedure Name Priority Date/Time Associated Diagnosis Comments RAD ONC ARIA SESSION SUMMARY Routine 01/08/2023 11:24 EST documented in this encounter Results * RAD ONC ARIA SESSION SUMMARY (01/08/2023 11:24 EST) Course ID C1 ARIA RADIATION ONCOLOGY Course Intent Curative ARIA RADIATION ONCOLOGY Course First Treatment Date 12/12/2022 11:31 ARIA RADIATION ONCOLOGY Course Last Treatment Date 01/08/2023 11:24 ARIA RADIATION ONCOLOGY Course Elapsed Days 27 ARIA RADIATION ONCOLOGY Reference Point ID [id number] Brst BST ARIA RADIATION ONCOLOGY Reference Point Dosage Given to Date 5 Gy ARIA RADIATION ONCOLOGY Reference Point Session Dosage Given 2.5 Gy ARIA RADIATION ONCOLOGY Reference Point ID Tumor Bed TOTAL ARIA RADIATION ONCOLOGY Reference Point Dosage Given to Date 47.4 Gy ARIA RADIATION ONCOLOGY Reference Point Session Dosage Given 2.5 Gy ARIA RADIATION ONCOLOGY Plan ID 2_Rt Brst BST ARIA RADIATION ONCOLOGY Plan Name 2_Rt Brst BST ARIA RADIATION ONCOLOGY Plan Fractions Treated to Date 2 ARIA RADIATION ONCOLOGY Plan Total Fractions Prescribed 4 ARIA RADIATION ONCOLOGY Plan Prescribed Dose Per Fraction 2.5 Gy ARIA RADIATION ONCOLOGY Plan Total Prescribed Dose 1,000 cGy ARIA RADIATION ONCOLOGY Plan Primary Reference Point Tumor Bed TOTAL ARIA RADIATION ONCOLOGY 01/08/2023 11:2 4 EST Provider Unknown RADIATION ONCOLOGY O ELENITA ARIA RADIATION ONCOLOGY documented in this encounter Visit Diagnoses Not on filedocumented in this encounter Care Teams Yard Conductor Relationship Specialty Start Date End Date Sarah Quintero FNP [address] [place] [address] PCP - General 05/03/20 documented as of this encounter
--- OUTSIDE RECORDS SUMMARY | 2024-06-30 16:30 | XMS_ITS | Encounter Summary ---
Author Organization [facility] Address [address] [place] [address] Care Team Providers Care Golf Cart Repairer Name Role Phone Sarah Quintero [facility] Primary Care Provider Encounter Details Date Type Department Care Team (Late st Contact Info) Description 01/09/2023 Results Only [facility] Radiation Oncology - Main [place] [address] [place] [address] Unknown, Provider, Social History Tobacco Use Types [...] Info) Description 05/25/2025 14:00 EDT Office Visit [facility] Adult Hematology & Oncology [facility] [place] [address] Abdiel Salas MD [address] [place] [address] [address] [place] [address] documented as of this encounter Procedures Procedure Name Priority Date/Time Associated Diagnosis Comments RAD ONC ARIA SESSION SUMMARY Routine 01/09/2023 11:22 EST documented in this encounter Results * RAD ONC ARIA SESSION SUMMARY (01/09/2023 11:22 EST) Course ID C1 ARIA RADIATION ONCOLOGY Course Intent Curative ARIA RADIATION ONCOLOGY Course First Treatment Date 12/12/2022 11:31 ARIA RADIATION ONCOLOGY Course Last Treatment Date 01/09/2023 11:23 ARIA RADIATION ONCOLOGY Course Elapsed Days 28 ARIA RADIATION ONCOLOGY Reference Point ID [id number] Brst BST ARIA RADIATION ONCOLOGY Reference Point Dosage Given to Date 7.5 Gy ARIA RADIATION ONCOLOGY Reference Point Session Dosage Given 2.5 Gy ARIA RADIATION ONCOLOGY Reference Point ID Tumor Bed TOTAL ARIA RADIATION ONCOLOGY Reference Point Dosage Given to Date 49.9 Gy ARIA RADIATION ONCOLOGY Reference Point Session Dosage Given 2.5 Gy ARIA RADIATION ONCOLOGY Plan ID 2_Rt Brst BST ARIA RADIATION ONCOLOGY Plan Name 2_Rt Brst BST ARIA RADIATION ONCOLOGY Plan Fractions Treated to Date 3 ARIA RADIATION ONCOLOGY Plan Total Fractions Prescribed 4 ARIA RADIATION ONCOLOGY Plan Prescribed Dose Per Fraction 2.5 Gy ARIA RADIATION ONCOLOGY Plan Total Prescribed Dose 1,000 cGy ARIA RADIATION ONCOLOGY Plan Primary Reference Point Tumor Bed TOTAL ARIA RADIATION ONCOLOGY 01/09/2023 11:2 2 EST Provider Unknown RADIATION ONCOLOGY O ELENITA ARIA RADIATION ONCOLOGY documented in this encounter Visit Diagnoses Not on filedocumented in this encounter Care Teams Golf Cart Repairer Relationship Specialty Start Date End Date Sarah Quintero FNP [address] [place] [address] PCP - General 05/03/20 documented as of this encounter
--- OUTSIDE RECORDS SUMMARY | 2024-06-30 16:30 | XMS_ITS | Encounter Summary ---
Author Organization [facility] Address [address] [place] [address] Care Team Providers Care Greenhouse Specialist Name Role Phone Sarah Quintero [facility] Primary Care Provider [phone] Encounter Details Date Type Department Care Team (Late st Contact Info) Description 01/11/[address] [facility] Radiation Oncology - Main [place] [address] [place] [address] Unknown, Provider, Social History Tobacco Use Types [...] Info) Description 05/25/2025 14:00 EDT Office Visit [facility] Adult Hematology & Oncology [address] [place] [address] Abdiel Salas MD [address] [place] [address] [address] [place] [phone] documented as of this encounter Procedures Procedure Name Priority Date/Time Associated Diagnosis Comments RAD ONC ARIA COURSE SUMMARY Routine 01/11/2023 9:59 EST documented in this encounter Results * RAD ONC ARIA COURSE SUMMARY (01/11/2023 9:59 EST) Course ID C1 ARIA RADIATION ONCOLOGY Course Intent Curative ARIA RADIATION ONCOLOGY Course End Date 01/11/2023 9:59 ARIA RADIATION ONCOLOGY Course First Treatment Date 12/12/2022 11:31 ARIA RADIATION ONCOLOGY Course Last Treatment Date 01/10/2023 11:20 ARIA RADIATION ONCOLOGY Course Elapsed Days 29 ARIA RADIATION ONCOLOGY Reference Point ID 3_Rt Brst BST ARIA RADIATION ONCOLOGY Reference Point Dosage Given to Date 10 Gy ARIA RADIATION ONCOLOGY Reference Point ID RIGHT BREAST ARIA RADIATION ONCOLOGY Reference Point Dosage Given to Date 42.4 Gy ARIA RADIATION ONCOLOGY Reference Point ID RT SCLAV AXILLA ARIA RADIATION ONCOLOGY Reference Point Dosage Given to Date 42.4 Gy ARIA RADIATION ONCOLOGY Reference Point ID Tumor Bed TOTAL ARIA RADIATION ONCOLOGY Reference Point Dosage Given to Date 52.4 Gy ARIA RADIATION ONCOLOGY Plan ID [id number] [...] Point Tumor Bed TOTAL ARIA RADIATION ONCOLOGY Plan ID 2_Rt Breast [...] Point RT SCLAV AXILLA ARIA RADIATION ONCOLOGY 01/11/2023 9:59 EST Provider Unknown MD RADIATION ONCOLOGY O ELENITA ARIA RADIATION ONCOLOGY documented in this encounter Visit Diagnoses Not on filedocumented in this encounter Care Teams Greenhouse Specialist Relationship Specialty Start Date End Date Sarah Quintero, INTERNATIONAL TAX MANAGER [address] [place] [address] PCP - General 05/03/20 documented as of this encounter
--- OUTSIDE RECORDS SUMMARY | 2024-06-30 16:30 | XMS_ITS | Encounter Summary ---
Author Organization [facility] Address [address] [place] [address] Care Team Providers Care Well Drill Operator Cable Tool Name Role Phone Sarah Quintero [facility] Primary Care Provider Encounter Details Date Type Department Care Team (Late st Contact Info) Description 01/07/2023 Results Only [facility] Radiation Oncology - Main [place] [address] [place] [address] Unknown, Provider, Social History Tobacco Use Types [...] Info) Description 05/25/2025 14:00 EDT Office Visit [facility] Adult Hematology & Oncology [facility] [place] [address] Abdiel Salas MD [address] [place] [address] [address] [place] [address] documented as of this encounter Procedures Procedure Name Priority Date/Time Associated Diagnosis Comments RAD ONC ARIA SESSION SUMMARY Routine 01/07/2023 11:24 EST documented in this encounter Results * RAD ONC ARIA SESSION SUMMARY (01/07/2023 11:24 EST) Course ID C1 ARIA RADIATION ONCOLOGY Course Intent Curative ARIA RADIATION ONCOLOGY Course First Treatment Date 12/12/2022 11:31 ARIA RADIATION ONCOLOGY Course Last Treatment Date 01/07/2023 11:24 ARIA RADIATION ONCOLOGY Course Elapsed Days 26 ARIA RADIATION ONCOLOGY Reference Point ID 3_Rt Brst BST ARIA RADIATION ONCOLOGY Reference Point Dosage Given to Date 2.5 Gy ARIA RADIATION ONCOLOGY Reference Point Session Dosage Given 2.5 Gy ARIA RADIATION ONCOLOGY Reference Point ID Tumor Bed TOTAL ARIA RADIATION ONCOLOGY Reference Point Dosage Given to Date 44.9 Gy ARIA RADIATION ONCOLOGY Reference Point Session Dosage Given 2.5 Gy ARIA RADIATION ONCOLOGY Plan ID 2_Rt Brst BST ARIA RADIATION ONCOLOGY Plan Name 2_Rt Brst BST ARIA RADIATION ONCOLOGY Plan Fractions Treated to Date 1 ARIA RADIATION ONCOLOGY Plan Total Fractions Prescribed 4 ARIA RADIATION ONCOLOGY Plan Prescribed Dose Per Fraction 2.5 Gy ARIA RADIATION ONCOLOGY Plan Total Prescribed Dose 1,000 cGy ARIA RADIATION ONCOLOGY Plan Primary Reference Point Tumor Bed TOTAL ARIA RADIATION ONCOLOGY 01/07/2023 11:2 4 EST Provider Unknown RADIATION ONCOLOGY O ELENITA ARIA RADIATION ONCOLOGY documented in this encounter Visit Diagnoses Not on filedocumented in this encounter Care Teams Well Drill Operator Cable Tool Relationship Specialty Start Date End Date Sarah Quintero FNP [address] [place] [address] PCP - General 05/03/20 documented as of this encounter
--- OUTSIDE RECORDS SUMMARY | 2024-06-30 16:30 | XMS_ITS | Encounter Summary ---
Author Organization [facility] Address [address] [place] [address] Care Team Providers Care Open Hearth Helper Name Role Phone Sarah Quintero [facility] Primary Care Provider Encounter Details Date Type Department Care Team (Late st Contact Info) Description 01/02/2023 Radiation Therapy Visit [facility] [address] [place], [place] [id number] Raul Noe MD [address] [facility], [facility] [address] [place] [address] Malignant neoplasm of upper-outer quadrant of right breast in female, estrogen receptor positive (HCC-CMS) (Primary Dx) Social History Tobacco Use [...] Progress Notes * Raul Noe MD - 01/02/2023 1126 EST Images from the original note were not included. Radiation Oncology- On Treatment Visit On Treatment Visit Assessment:01/02/23 Mireille Chatman is currently receiving radiation therapy treatment and is being seen today for her weekly on treatment visit. Encounter Diagnosis: ICD-10-CM ICD-9-CM 1. Malignant neoplasm of upper-outer quadrant of right breast in female, estrogen receptor positive(HCC-CMS) (HCC) C50.411 174.4 Z17.0 V86.0 Radiation Therapy Dose: Radiation Treatments Active Plans 1_Rt Sclav Most recent treatment: Dose planned: 265 cGy (fraction 14 on 01/02/2023) Total: Dose planned: 4,240 cGy (16 fractions) Elapsed Days: 21 2_Rt Breast Most recent treatment: Dose planned: 265 cGy (fraction 14 on 01/02/2023) Total: Dose planned: 4,240 cGy (16 fractions) Elapsed Days: 21 Reference Points RIGHT BREAST Most recent treatment: Dose given: 265 cGy (on 01/02/2023) Total: Dose given: 3,710 cGy Elapsed Days: 21 RT SCLAV AXILLA Most recent treatment: Dose given: 265 cGy (on 01/02/2023) Total: Dose given: 3,710 cGy Elapsed Days: 21 Tumor Bed TOTAL Most recent treatment: Dose given: 265 cGy (on 01/02/2023) Total: Dose given: 3,710 cGy Elapsed Days: 21 No flowsheet data found. Subjective Note: Fatigue and itching. Physical Exam: LMP 03/29/2009 (Within Months) There were no vitals filed for this visit. Wt Readings from Last 3 Encounters: 12/31/22 89.4 kg (197 lb 3.2 oz) 12/17/22 89.9 kg (198 lb 4.8 oz) 11/28/22 87.7 kg (193 lb 6.4 oz) (0) Fully active, able to carry on all predisease performance without restriction Right breast with dry changes and no moist changes. Treatment Related Toxicity: Radiation Dermatitis: (1) Faint erythema or dry desquamation. Radiation Fatigue: (1) Fatigue relieved by rest Current Labs: No results found for: WBC, HGB, HCT, PLT, ALT, AST, NA, K, CL, CREATININE, BUN, CO2, TSH, PSA Medication Reconciliation: Medications were reviewed with the patient. Impression: Mireille Chatman is tolerating treatment well Plan: Reviewed treatment set up notes. Checked and approved portal images/CBCT. Reviewed dose delivery treatment parameters and deemed appropriate. After assessing the patient's response to treatment thus far, we will continue with radiation treatments as planned. Oncology History Malignant neoplasm of upper-outer quadrant of right breast in female, estrogen receptor negative (HCC-CMS) (HCC) 03/30/2022 Initial Diagnosis Malignant neoplasm of upper-outer [...] Core needle biopsy: High-grade invasive ductal carcinoma, ER/MO negative (less than 1%), HER2 2+; FLACO [...] Stage Recommended (ypT1c, pN1a(sn), cM0, G3, ER-, MO-, HER2+) 08/31/2022 - Surgery Dr. Case at [facility] performed lumpectomy and sentinel node biopsy. Pathology: ypT1c(15 mm), ypN1a(sn, 2/3 macro and micro) poorly differentiated, indeterminate LVI, closest margin 5 mm. Raul Noe MD Radiation Oncology-[facility] (p) [phone] / (f) [phone] documented in this encounter Plan of Treatment Upcoming Encounters Date Type Department Care Team (Late st Contact Info) Description 05/25/2025 14:00 EDT Office Visit [facility] Adult Hematology & Oncology [address] [place] [phone] Abdiel Salas MD [address] [place] [address] [address] [place] [address] documented as of this encounter Visit Diagnoses Diagnosis Malignant neoplasm of upper-outer quadrant of right breast in female, estrogen receptor positive (HCC-CMS)- Primary documented in this encounter Care Teams Open Hearth Helper Relationship Specialty Start Date End Date Sarah Quintero FNP [address] [place] [phone] PCP - General 05/03/20 documented as of this encounter
--- OUTSIDE RECORDS SUMMARY | 2024-06-30 16:30 | XMS_ITS | Encounter Summary ---
Author Organization [facility] Address [address] [place] [address] Care Team Providers Care Mailmaster Name Role Phone Sarah Quintero REMEDIATION TECHNICIAN Primary Care Provider [phone] Reason for Visit * Reason Onset Date Comments Prior Auth, Medication 12/05/2023 Encounter Details Date Type Department Care Team ([facility] st Contact Info) Description 12/05/2023 Telephone [facility] [address] [place] [address] Allison Hart RN Prior Auth, Medication Social History Tobacco Use [...] Telephone Encounter - Allison Hart RN - 12/09/2023 0933 EST CMM returned that PA needs to go through [employer]. Information Sent. * Telephone Encounter - Allison Hart RN - 12/05/2023 1611 EST Prior auth needs renewal for [employer]. Requesting thru CMM. documented in this encounter Plan of Treatment Upcoming Encounters Date Type Department Care Team (Late st Contact Info) Description 05/25/2025 14:00 EDT Office Visit [facility] Adult Hematology & Oncology [address] [place] [address] Abdiel Salas MD [address] [place] [address] [address] [place] [phone] documented as of this encounter Visit Diagnoses Not on filedocumented in this encounter Care Teams Mailmaster Relationship Specialty Start Date End Date Sarah Quintero FNP [address] [place] [address] PCP - General 05/03/20 documented as of this encounter
--- OUTSIDE RECORDS SUMMARY | 2024-06-30 16:30 | XMS_ITS | Encounter Summary ---
Author Organization [facility] Address [address] [place] [address] Care Team Providers Care Firer Retort Name Role Phone Sarah Quintero BATCH OR CONTINUOUS STILL OPERATOR Primary Care Provider [phone] Encounter Details Date Type Department Care Team (Late st Contact Info) Description 01/07/2023 Documentation Visit [facility] Radiation Oncology - [facility] [address] [place] [address] Janina King, RN Social History Tobacco Use [...] Progress Notes * Janina King, RN - 01/07/2023 1138 EST . documented in this encounter Plan of Treatment Upcoming Encounters Date Type Department Care Team (Late st Contact Info) Description 05/25/2025 14:00 EDT Office Visit [facility] Adult Hematology & Oncology [facility] [place], [place] [address] Abdiel Salas MD [address] [place] [address] [address] [place] [address] documented as of this encounter Visit Diagnoses Not on filedocumented in this encounter Care Teams Firer Retort Relationship Specialty Start Date End Date Sarah Quintero FNP [address] [place] [address] PCP - General 05/03/20 documented as of this encounter
--- OUTSIDE RECORDS SUMMARY | 2024-06-30 16:30 | XMS_ITS | Encounter Summary ---
Author Organization [facility] Address [address] [place] [address] Care Team Providers Care Credit Adjuster Name Role Phone Sarah Quintero SERVICE DELIVERY ANALYST Primary Care Provider Encounter Details Date Type Department Care Team (Latest Contact Info) Description 01/08/2023 11:15 EST - 01/08/2023 23:59 EST Hospital Encounter [facility] [place] [address] [place] [address] Discharge Disposition: Home or Self Care Social [...] (NAUSEA). 30 Tablet 2 06/28/2022 01/09/2023 rizatriptan (MAXALT-PRESSURE SUPERVISOR) 10 mg disintegrating tablet Take 1 Tablet [...] Info) Description 05/25/2025 14:00 EDT Office Visit [facility] Adult Hematology & Oncology [address] [place] [phone] Abdiel Salas MD [address] [place] [address] [address] [place] [phone] documented as of this encounter Visit Diagnoses Not on filedocumented in this encounter Care Teams Credit Adjuster Relationship Specialty Start Date End Date Sarah Quintero FNP [address] [place] [phone] PCP - General 05/03/20 documented as of this encounter
--- OUTSIDE RECORDS SUMMARY | 2024-06-30 16:30 | XMS_ITS | Encounter Summary ---
Author Organization [facility] Address [address] [place] [address] Care Team Providers Care Survey Analyst Name Role Phone Sarah Quintero CAREER RESOURCE TECHNICIAN Primary Care Provider Encounter Details Date Type Department Care Team (Late st Contact Info) Description 02/22/2023 Specialty Pharmacy [facility] [address] [place] [address] Spike Loo [facility] Social History Tobacco Use Types Packs/Day Years [...] as of this encounter Progress Notes * Glenis Grullon - 02/22/2023 1043 EDT PA submitted for [employer] as of 05/19 -- no updates yet. Pushing outreach. documented in this encounter Miscellaneous Notes * Addendum Note - Juan Ospina RPH - 02/22/2023 1043 EDTAddended by: JUAN OSPINA on: 04/16/2023 15:04 Modules accepted: Orders documented in this encounter Plan of Treatment Upcoming Encounters Date Type Department Care Team (Late st Contact Info) Description 05/25/2025 14:00 EDT Office Visit [facility] Adult Hematology & Oncology [address] [place] [address] Abdiel Salas MD [address] [place] [address] [address] [place] [phone] documented as of this encounter Visit Diagnoses Not on filedocumented in this encounter Discontinued Medications Medication Sig Discontinue Reason Start Date End Da te fremanezumab-vfrm (AJOVY AUTOINJECTOR) 225 mg/1.5 mL auto-injector Inject 225 mg into the skin every 28 days. Discontinued by another clinician 12/20/2022 04/16/2023 documented as of this encounter Care Teams Survey Analyst Relationship Specialty Start Date End Date Sarah Quintero FNP [address] [place] [phone] PCP - General 05/03/20 documented as of this encounter
--- OUTSIDE RECORDS SUMMARY | 2024-06-30 16:30 | XMS_ITS | Encounter Summary ---
Author Organization [facility] Address [address] [place] [address] Care Team Providers Care Coating Line Worker Name Role Phone Sarah Quintero NUCLEAR PHYSICIST Primary Care Provider [phone] Reason for Visit * Reason Comments Breast Cancer Encounter Details Date Type Department Care Team (Late st Contact Info) Description 01/07/2023 11:15 EST - 01/07/2023 23:59 EST Hospital Encounter [facility] [address] [place] [address] Raul Noe MD [address] [facility], [facility] [address] [place] [address] Discharge Disposition: Home or Self Care Social [...] Sign Reading Time Taken Comments Blood Pressure 122/74 01/07/2023 1130 EST Pulse 92 01/07/2023 1130 EST Temperature - - Respiratory Rate - - Oxygen Saturation - - Inhaled Oxygen Concentration - - Weight 90.7 kg (200 lb) 01/07/2023 1130 EST Height - - Body Mass Index 31.32 09/19/2022 1012 EST documented in this encounter [...] (NAUSEA). 30 Tablet 2 06/28/2022 01/09/2023 rizatriptan (MAXALT-ANIMAL CARE SERVICE WORKER) 10 mg disintegrating tablet Take 1 Tablet [...] Info) Description 05/25/2025 14:00 EDT Office Visit [facility] Adult Hematology & Oncology [address] [place] [address] Abdiel Salas MD [address] [place] [address] [address] [place] [address] documented as of this encounter Visit Diagnoses Not on filedocumented in this encounter Discontinued Medications Medication Sig Discontinue Reason Start Date End Da te azithromycin (ZITHROMAX) 250 mg tablet Take 250 mg by mouth daily. Therapy completed 11/17/2022 01/07/2023 cefpodoxime (VANTIN) 200 mg tablet Take 200 mg by mouth 2 times daily. Therapy completed 11/17/2022 01/07/2023 cephalexin (KEFLEX) 500 mg capsule 1 CAPSULE ORALLY FOUR TIMES A DAY 7 DAY(S) Therapy completed 10/11/2022 01/07/2023 documented as of this encounter Care Teams Coating Line Worker Relationship Specialty Start Date End Date Sarah Quintero FNP [address] [place] [phone] PCP - General 05/03/20 documented as of this encounter
--- OUTSIDE RECORDS SUMMARY | 2024-06-30 16:30 | XMS_ITS | Encounter Summary ---
Author Organization [facility] Address [address] [place] [address] Care Team Providers Care Lab Scientist Name Role Phone Sarah Quintero [facility] Primary Care Provider Encounter Details Date Type Department Care Team (Late st Contact Info) Description 01/14/2023 Documentation Visit [facility] [address] [place], [place] [id number] Raul Noe MD [address] [facility] [address] [place] [address] Social History Tobacco Use Types Packs/Day Years [...] as of this encounter Miscellaneous Notes * Treatment Summary - Raul Noe MD - 01/14/2023 1617 EST Images from the original note were not included. Radiation Oncology-Treatment Summary Diagnosis: Cancer Staging Malignant neoplasm of upper-outer quadrant of right breast in female, estrogen receptor negative (HCC-CMS) (HCC) Staging form: Breast, AJCC 8th Edition - Pathologic stage from 08/22/2022: No Stage Recommended (ypT1c, pN1a(sn), cM0, G3, ER-, [place]-, HER2+) - Signed by Raul Noe MD on 11/28/2022 History of Present Illness: Invasive ductal carcinoma right breast. ??Node positive. ??ER/VT negative, HER2 positive. ?-02/20/2022 screening mammogram: 16mm [...] axilla node FNA showed high grade adenocarcinoma. -04/05/2022 CT CAP: 1. ??Right breast lateral 2 x 1.3 cm mass nodule. ??Right axillary adenopathy. ??Solitary borderline enlarged AP window lymph node. ??Rest of the mediastinal and hilar nodes appearunremarkable. ??No subdiaphragmatic nodes noted. 3. ??Right upper [...] be scheduled 4 weeks after cycle 4. ?-08/31/[address] Dr[address] [facility] performed lumpectomy and sentinel node biopsy: Pathology:??ypT1c(15 mm), ypN1a(sn, 2/3 macro and micro) poorly differentiated, indeterminate LVI, closest margin 5 mm. ?-09/19/2022 scars recovering nicely. ??Plan: Proceed with Neophere??l: FEC?Q 3w x 3 cycles.?Followed by adjuvant radiation. ??Due to persistent disease after neoadjuvant HER-2 therapy will transition to Ado trastuzumab after radiation for 14 cycles. 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 ? 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. The patient has not been working during her chemotherapy course. Treatment Course: Dates: 12/12/22 - 01/10/23 Radiation Treatments 3_Rt Brst BST Most recent treatment: Dose given: 250 cGy (on 01/10/2023) Total: Dose given: 1,000 cGy Elapsed Days: 29 RIGHT BREAST Most recent treatment: Dose given: 265 cGy (on 01/04/2023) Total: Dose given: 4,240 cGy Elapsed Days: 29 RT SCLAV AXILLA Most recent treatment: Dose given: 265 cGy (on 01/04/2023) Total: Dose given: 4,240 cGy Elapsed Days: 29 Tumor Bed TOTAL Most recent treatment: Dose given: 250 cGy (on 01/10/2023) Total: Dose given: 5,240 cGy Elapsed Days: 29 Goal: Curative- Organ Sparing Chemo:No Technique:3-D conformal to breast, axilla and supraclavicular regions. A 6 and 10 MV photon breast tumor bed boost was delivered Modality: 6/10 MV photons Treatment Status: Complete as planned Treatment Response: None observed, not expected. Pain Management: none related to treatment. Tolerance: She completed radiation she was experiencing itching and irritation in the right breast. Skin reaction was considered grade 1 with erythema Disposition: I will follow up 6 weeks . Patient will call sooner if problems arise. She will schedule medical oncology follow-up with Dr. Maritza Noe MD documented in this encounter Plan of Treatment Upcoming Encounters Date Type Department Care Team (Late st Contact Info) Description 05/25/2025 14:00 EDT Office Visit [facility] Adult Hematology & Oncology [address] [place] [address] Abdiel Salas MD [address] [place] [address] [address] [place] [address] documented as of this encounter Visit Diagnoses Not on filedocumented in this encounter Care Teams Lab Scientist Relationship Specialty Start Date End Date Sarah Quintero FNP [address] [place] [address] PCP - General 05/03/20 documented as of this encounter
--- OUTSIDE RECORDS SUMMARY | 2024-06-30 16:30 | XMS_ITS | Encounter Summary ---
Author Organization [facility] Address [address] [place] [address] Care Team Providers Care Anthropologist Name Role Phone Sarah Quintero FINANCIAL REPORTING MANAGER Primary Care Provider Reason for Visit * Reason Onset Date Comments [id number] Request 09/12/2023 Encounter Details Date Type Department Care Team ([facility] st Contact Info) Description 09/12/2023 Telephone [facility] Adult Hematology & Oncology [address] [place] [phone] Abdiel Salas MD [address] [place] [address] [address] [place] [address] [id number] Request Social History Tobacco Use Types Packs/Day Years [...] encounter Miscellaneous Notes * Telephone Encounter - Natalie Garcia RN - 09/24/2023 0929 EST Thank you, Abdiel. I will let Rosemary know. * Telephone Encounter - Natalie Garcia RN - 09/23/2023 1333 EST Spoke with Jaye at [facility] - she will consult with Rosemary and they will review your and Rosemary's schedule this week to accomodates a [id number] * Telephone Encounter - Natalie Garcia RN - 09/18/[address] Salas - are you ok with Rosemary/Lili doing [id number] for this patient or would you like us toschedule with you? * Telephone Encounter - Natalie Garcia RN - 09/12/[address] Salas - please coordinate peer to peer with Maame for [facility] patient. Thanks! * Telephone Encounter - Maame Felder - 09/12/2023 0953 EDT Message from Jaye at [facility] regarding a peer to peer. A few weeks ago I sent over information to do a peer to peer with Mireille Lurdes's insurance company as they deemed her chemo regiment medically unnecessary. Abdiel was suppose to call and speak on her behalf so that her bills would be covered. Please forward to Abdiel to schedule the Peer to Peer [phone] [phone] If he needs me to call and schedule it for when he is here next week we do have an opening. Dr Salas please advise, do you want to do the peer to peer or do you want Rosemary or Lili to call the insurance company for the prior auth. documented in this encounter Plan of Treatment Upcoming Encounters Date Type Department Care Team (Late st Contact Info) Description 05/25/2025 14:00 EDT Office Visit [facility] Adult Hematology & Oncology [address] [place] [phone] Abdiel Salas MD [address] [place] [address], [facility] [address] [place] [address] documented as of this encounter Visit Diagnoses Not on filedocumented in this encounter Care Teams Anthropologist Relationship Specialty Start Date End Date Sarah Quintero FNP [address] [place] [phone] PCP - General 05/03/20 documented as of this encounter
--- OUTSIDE RECORDS SUMMARY | 2024-06-30 16:30 | XMS_ITS | Encounter Summary ---
Author Organization [facility] Address [address] [place] [address] Care Team Providers Care Bacteriologist Food Name Role Phone Sarah Quintero [facility] Primary Care Provider Encounter Details Date Type Department Care Team (Late st Contact Info) Description 01/03/2023 Results Only [facility] Radiation Oncology - [facility] [address] [place] [address] Unknown, Provider, Social History Tobacco Use Types [...] Info) Description 05/25/2025 14:00 EDT Office Visit [facility] Adult Hematology & Oncology [facility] [place] [address] Abdiel Salas MD [address] [place] [address] [address] [place] [phone] documented as of this encounter Procedures Procedure Name Priority Date/Time Associated Diagnosis Comments RAD ONC ARIA SESSION SUMMARY Routine 01/03/2023 10:51 EST documented in this encounter Results * RAD ONC ARIA SESSION SUMMARY (01/03/2023 10:51 EST) Course ID C1 ARIA RADIATION ONCOLOGY Course Intent Curative ARIA RADIATION ONCOLOGY Course First Treatment Date 12/12/2022 11:31 ARIA RADIATION ONCOLOGY Course Last Treatment Date 01/03/2023 10:52 ARIA RADIATION ONCOLOGY Course Elapsed Days 22 ARIA RADIATION ONCOLOGY Reference Point ID RIGHT BREAST ARIA RADIATION ONCOLOGY Reference Point Dosage Given to Date 39.75 Gy ARIA RADIATION ONCOLOGY Reference Point Session Dosage Given 2.65 Gy ARIA RADIATION ONCOLOGY Reference Point ID RT SCLAV AXILLA ARIA RADIATION ONCOLOGY Reference Point Dosage Given to Date 39.75 Gy ARIA RADIATION ONCOLOGY Reference Point Session Dosage Given 2.65 Gy ARIA RADIATION ONCOLOGY Reference Point ID Tumor Bed TOTAL ARIA RADIATION ONCOLOGY Reference Point Dosage Given to Date 39.75 Gy ARIA RADIATION ONCOLOGY Reference Point Session Dosage Given 2.65 Gy ARIA RADIATION ONCOLOGY Plan ID 2_Rt Breast ARIA RADIATION ONCOLOGY Plan Name 2_Rt Breast ARIA RADIATION ONCOLOGY Plan Fractions Treated to Date 15 ARIA RADIATION ONCOLOGY Plan Total Fractions Prescribed 16 ARIA RADIATION ONCOLOGY Plan Prescribed Dose Per Fraction 2.65 Gy ARIA RADIATION ONCOLOGY Plan Total Prescribed Dose 4,240 cGy ARIA RADIATION ONCOLOGY Plan Primary Reference Point RIGHT BREAST ARIA RADIATION ONCOLOGY Plan ID 1_Rt Sclav ARIA RADIATION ONCOLOGY Plan Name 1_Rt Sclav ARIA RADIATION ONCOLOGY Plan Fractions Treated to Date 15 ARIA RADIATION ONCOLOGY Plan Total Fractions Prescribed 16 ARIA RADIATION ONCOLOGY Plan Prescribed Dose Per Fraction 2.65 Gy ARIA RADIATION ONCOLOGY Plan Total Prescribed Dose 4,240 cGy ARIA RADIATION ONCOLOGY Plan Primary Reference Point RT SCLAV AXILLA ARIA RADIATION ONCOLOGY 01/03/2023 10:5 1 EST Provider Unknown RADIATION ONCOLOGY O RDERABLES TRUMAN RADIATION ONCOLOGY documented in this encounter Visit Diagnoses Not on filedocumented in this encounter Care Teams Bacteriologist Food Relationship Specialty Start Date End Date Sarah Quintero FNP [address] [place] [address] PCP - General 05/03/20 documented as of this encounter
--- OUTSIDE RECORDS SUMMARY | 2024-06-30 16:30 | XMS_ITS | Encounter Summary ---
Author Organization [facility] Address [address] [place] [address] Care Team Providers Care Recoater Name Role Phone Sarah Quintero [facility] Primary Care Provider [phone] Reason for Referral * Consult (Routine/Next Available) - Authorized Specialty Diagnoses / Procedures Referred By [facility] Referred To Contact Pharmacy Diagnoses Other migraine, not intractable, without status migrainosus Rancho Macias MD [address] [facility] [place] [phone] [facility] [address] [place] [address] Referral ID Status Reason Start Date Expiration Date Visits Requested Visits Authorized [id number] Authorized Specialty Services Required 03/08/2023 1 1 Question Answer PA Type: New Medication to be Prior Authorized: Qulipta 60mg Comments The purpose of this request is to inform precertification staff that the requested service needs to be reviewed for prior-authorization. Reason for Visit * Reason Onset Date Comments Prior Auth, Medication [facility] Encounter Details Date Type Department Care Team ([facility] Contact Info) Description 03/06/[address] [facility] [place] [facility] [address] [place] [address] Rancho Macias MD [address] [place] [phone] Prior Auth, Medication (Nurtec (new start) ) Social History Tobacco Use [...] * Telephone Encounter - Eva Mariee - 03/06/2023 1305 EDT Prior Authorization Denial Medication: Nurtec 75mg QOD Denial Date: 03/08/23 Denial Reason: .. only be approved for the preventative treatment of episodic migraines if the patient has between 4-18 migraine days per month but no more than 18 headache days per month as documented in patient medical record. Notes: Denial in scans Prior Authorization Submission Process - Routine New Medication: Nurtec 75mg QOD Insurance: [employer] Insurance Type: Commercial Date PA Request Received: 03/06/23 PA Submission Date: 03/06/23 PromptPA EOC ID: [id number], faxed form from [employer] Benefits Notes: Submitted by: Eva Mccabe Phone: [phone] documented in this encounter Plan of Treatment Upcoming Encounters Date Type Department Care Team (Late st Contact Info) Description 05/25/2025 14:00 EDT Office Visit [facility] Adult Hematology & Oncology [address] [place] [phone] Abdiel Salas MD [address] [place] [address], [facility] [address] [place] [phone] Scheduled Referrals Name Type Priority Associated Diagnoses Order Schedule AMB CONS/FOLLOW UP SPECIALTY PHARMACY MEDICATION PRIOR AUTHORIZATION REQUEST Outpatient Referral Routine/Next Available Other migraine, not intractable, without status migrainosus Expected: 03/15/2023 (Approximate), Expires: 03/08/2024 documented as of this encounter Visit Diagnoses Diagnosis Other migraine, not intractable, without status migrainosus- Primary documented in this encounter Care Teams Recoater Relationship Specialty Start Date End Date Sarah Quintero FNP [address] [place] [phone] PCP - General 05/03/20 documented as of this encounter
--- OUTSIDE RECORDS SUMMARY | 2024-06-30 16:30 | XMS_ITS | Encounter Summary ---
Author Organization [facility] Address [address] [place] [address] Care Team Providers Care Legal Recruiter Name Role Phone Sarah Quintero [facility] Primary Care Provider Encounter Details Date Type Department Care Team (Late st Contact Info) Description 01/09/2023 Radiation Therapy Visit [facility] [address] [place], [place] [address] Raul Noe MD [address] [facility], [facility] [address] [place] [address] Malignant neoplasm of upper-outer quadrant [...] Dispensed Refills Start Date End Da te prochlorperazine (COMPAZINE) 10 mg tablet Take 1 Tablet by mouth 3 times daily as needed (nausea). 30 Tablet 2 01/09/2023 documented in this encounter Progress Notes * Raul Noe MD - 01/09/2023 1138 EST Images from the original note were not included. Radiation Oncology- On Treatment Visit On Treatment Visit Assessment:01/09/23 Mireille Chatman is currently receiving radiation therapy treatment and is being seen today for her weekly on treatment visit. Encounter Diagnosis: ICD-10-CM ICD-9-CM 1. Malignant neoplasm of upper-outer quadrant of right breast in female, estrogen receptor positive([facility]) (HCC) C50.411 174.4 Z17.0 V86.0 Radiation Therapy Dose: Radiation Treatments Active Plans 2_Rt Brst BST Most recent treatment: Dose planned: 250 cGy (fraction 3 on 01/09/2023) Total: Dose planned: 1,000 cGy (4 fractions) Elapsed Days: 28 Reference Points 3_Rt Brst BST Most recent treatment: Dose given: 250 cGy (on 01/09/2023) Total: Dose given: 750 cGy Elapsed Days: 28 RIGHT BREAST Most recent treatment: Dose given: 265 cGy (on 01/04/2023) Total: Dose given: 4,240 cGy Elapsed Days: 23 RT SCLAV AXILLA Most recent treatment: Dose given: 265 cGy (on 01/04/2023) Total: Dose given: 4,240 cGy Elapsed Days: 23 Tumor Bed TOTAL Most recent treatment: Dose given: 250 cGy (on 01/09/2023) Total: Dose given: 4,990 cGy Elapsed Days: 28 No flowsheet data found. Subjective Note: Itching and irriation right breast Physical Exam: LMP 03/29/2009 (Within Months) There were no vitals filed for this visit. Wt Readings from Last 3 Encounters: 01/07/23 90.7 kg (200 lb) 01/03/23 90.3 kg (199 lb) 12/31/22 89.4 kg (197 lb 3.2 oz) (0) Fully active, able to carry on all predisease performance without restriction Patchy erythema w dry changes R breast and upper back Treatment Related Toxicity: Radiation Dermatitis: (1) Faint erythema or dry desquamation. Radiation Fatigue: (0) No fatigue Current Labs: No results found for: WBC, HGB, HCT, PLT, ALT, AST, NA, K, CL, CREATININE, BUN, CO2, TSH, PSA Medication Reconciliation: Medications were reviewed with the patient. Impression: Mireille Chatman is tolerating treatment well Plan: Completes tomorrow and f/u here 6 weeks. Reviewed treatment set up notes. Checked and approved portal images/CBCT. Reviewed dose delivery treatment parameters and deemed appropriate. After assessing the patient's response to treatment thus far, we will continue with radiation treatments as planned. Oncology History Malignant neoplasm of upper-outer quadrant of right breast in female, estrogen receptor negative ([facility]) (HCC) 03/30/2022 Initial Diagnosis Malignant neoplasm of [...] Core needle biopsy: High-grade invasive ductal carcinoma, ER/HI negative (less than 1%), HER2 2+; FLACO [...] Stage Recommended (ypT1c, pN1a(sn), cM0, G3, ER-, HI-, HER2+) 08/31/2022 - Surgery Dr. Case at [facility] performed lumpectomy and sentinel node biopsy. Pathology: ypT1c(15 mm), ypN1a(sn, 2/3 macro and micro) poorly differentiated, indeterminate LVI, closest margin 5 mm. Raul Noe MD Radiation Oncology-[facility] (p) [phone] / (f) [phone] documented in this encounter Plan of Treatment Upcoming Encounters Date Type Department Care Team (Late st Contact Info) Description 05/25/2025 14:00 EDT Office Visit [facility] Adult Hematology & Oncology [facility] [place] [address] Abdiel Salas MD [address] [place] [address] [address] [place] [address] documented as of this encounter Visit Diagnoses Diagnosis Malignant neoplasm of upper-outer quadrant of right breast in female, estrogen receptor positive (HCC-CMS)- Primary documented in this encounter Discontinued Medications Medication Sig Discontinue Reason Start Date End Da te prochlorperazine (COMPAZINE) 10 mg tablet TAKE 1 TABLET BY MOUTH 3 TIMES DAILY NEEDED (NAUSEA). Reorder 06/28/2022 01/09/2023 documented as of this encounter Care Teams Legal Recruiter Relationship Specialty Start Date End Date Sarah Quintero FNP [address] [place] [phone] PCP - General 05/03/20 documented as of this encounter
--- OUTSIDE RECORDS SUMMARY | 2024-06-30 16:30 | XMS_ITS | Encounter Summary ---
Author Organization [facility] Address [address] [place] [address] Care Team Providers Care Geospatial Developer Name Role Phone Sarah Quintero [employer]PER[employer] Primary Care Provider [phone] Reason for Referral * Radiology Services (Routine/Next Available) - New Request Specialty Diagnoses / Procedures Referred By [facility] t Referred To Contact Diagnoses Malignant neoplasm of upper-outer quadrant of right breast in female, estrogen receptor negative (HCC-CMS) Procedures MA BREAST DIAGNOSTIC BARB BILATERAL Raul Noe MD [address] [phone] External Referral ID Status Reason Start Date Expiration Date V isits Requested Visits Authorized [id number] New Request 03/11/2023 1 1 Encounter Details Date Type Department Care Team (Late st Contact Info) Description 03/11/2023 Orders Only [facility] Cancer Treatment [address] [address] Raul Noe MD [address] [place] [phone] Malignant neoplasm of upper-outer quadrant of [...] Info) Description 05/25/2025 14:00 EDT Office Visit [facility] Adult Hematology & Oncology [address] [place] [address] Abdiel Salas MD [address] [place] [address] [address] [place] [phone] Scheduled Orders Name Type Priority Associated Diagnoses Orde r Schedule MA BREAST DIAGNOSTIC BARB BILATERAL Imaging Routine Malignant neoplasm of upper-outer quadrant of right breast in female, estrogen receptor negative (HCC-CMS) Expected: 03/18/2023 (Approximate), Expires: 03/11/2025 documented as of this encounter Visit Diagnoses Diagnosis Malignant neoplasm of upper-outer quadrant of right breast in female, estrogen receptor negative (HCC-CMS)- Primary documented in this encounter Care Teams Geospatial Developer Relationship Specialty Start Date End Date Sarah Quintero FNP [address] [place] [address] PCP - General 05/03/20 documented as of this encounter
--- OUTSIDE RECORDS SUMMARY | 2024-06-30 16:30 | XMS_ITS | Encounter Summary ---
Author Organization [facility] Address [address] [place] [address] Care Team Providers Care Typer Name Role Phone Sarah Quintero CONTRACT FORESTER Primary Care Provider [phone] Reason for Visit * Reason Comments Follow-up Breast cancer Encounter Details Date Type Department Care Team ([facility] st Contact Info) Description 06/19/2023 15:00 EDT Office Visit [facility] Adult Hematology & Oncology [address] [place] [address] [phone] Abdiel Salas MD [address] [place] [address], [facility] [address] [place] [address] Malignant neoplasm of upper-outer quadrant [...] Sign Reading Time Taken Comments Blood Pressure 149/88 06/19/2023 1539 EDT Pulse 93 06/19/2023 1539 EDT Temperature 36.7 ??C (98.1 ??F) 06/19/2023 1539 EDT Respiratory Rate 18 06/19/2023 1539 EDT Oxygen Saturation 93% 06/19/2023 1539 EDT Inhaled Oxygen Concentration - - Weight 84.4 kg (186 lb) 06/19/2023 1539 EDT Height - - Body Mass Index 29.13 09/19/2022 1012 EST documented in this encounter [...] Progress Notes * Abdiel Salas MD - 06/19/2023 1500 EDT Hem/Onc. Follow up Note Mireille Chatman :1965 Age:57 y.o. 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 -02/20/2022 screening mammogram: 16mm [...] -08/31/2022 lumpectomy and sentinel node biopsy: Pathology: [id number] mm), ypN1a(sn, 2/3 macro and micro). -09/19/2022 [...] -06/14/23 cycle 7 Mayi trastuzumab. -06/19/2023 clinical MEAGAN.. Grade 1 punctate erythematous rash nonpruritic possibly related to Kadcyla. Continue gradual without modification. 2: Family history: Paternal grandmother had DCIS in her 80s, paternal grandfather colon cancer in his 80s. Father 2 uncles and 1 aunt all without malignancy. On the maternal side: Mother 1 uncle 2 aunt without malignancy. Mireille has 3 children all healthy. She has 1 brother and 2 sisters all without malignancy. Reviewed with the director clinical applications at [facility] recommended consultation. -04/27/2022 referral to [facility] director clinical applications for further evaluation. 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 Chief Complaint Patient presents with ??? Follow-up Breast cancer Interim History: Mireille comes in for follow-up visit. She will continue on adjuvant Kadcyla, seems to be tolerating quite well for fatigue grade 1 causing increasing fatigue unable to workup full-time, limited activities around the house. Additionally over the last month or 2 she has developed punctate erythematous rash somewhat sparse sometimes in clusters in the back. No pruritus. Has not felt any changes on the breast at the lumpectomy scar. Review of systems: Review of Systems Constitutional: Positive for malaise/fatigue (Grade 1 fatigue causing some limitations at work.). Respiratory: Negative for cough and shortness of breath. Cardiovascular: Negative for chest pain and palpitations. Gastrointestinal: History of IBS currently asymptomatic Skin: month or 2 she has developed punctate erythematous rash somewhat sparse sometimes in clusters in the back. No pruritus. Neurological: Negative for headaches (History of chronic migraine headaches has not had any recently.). All other systems reviewed and are negative. Vital Signs: Patient Vitals for the past 24 hrs: BP Temp Pulse Resp SpO2 Weight 06/19/23 1539 (!) 149/88 36.7 ??C (98.1 ??F) 93 18 93 % 84.4 kg (186 lb) Wt Readings from Last 3 Encounters: 06/19/23 84.4 kg (186 lb) 02/18/23 91.2 kg (201 lb) 01/07/23 90.7 kg (200 lb) Ht Readings from Last 1 Encounters: 09/19/22 170.2 cm (67) Estimated body surface area is 2 meters squared as calculated from the following: Height as of 09/19/22: 170.2 cm (67). Weight as of this encounter: 84.4 kg (186 lb). ECOG Performance Status: 0 Physical exam: Physical Exam Constitutional: Appearance: Normal appearance. Eyes: General: No scleral icterus. Cardiovascular: Rate and Rhythm: Normal rate. Pulmonary: Effort: Pulmonary effort is normal. Musculoskeletal: Cervical back: Normal range of motion. Right lower leg: No edema. Left lower leg: No edema. Skin: Comments: punctate erythematous rash sparsely sometimes in clusters, torso and proximal extremities. No evidence of abrasion from scratching. Neurological: General: No focal deficit present. Mental Status: She is alert. Psychiatric: Mood and Affect: Mood normal. Previous medical history: Past Medical History: Diagnosis Date ??? 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 Breast cancer, right (HCC-CMS) ??? GERD (gastroesophageal reflux disease) ??? Migraine ??? Psychiatric problem Anxiety ??? Thyroid disease Allergies: Allergies Allergen Reactions ??? Meperidine Nausea Only ??? Sulfa (Sulfonamide Antibiotics) Family history Medications: Current Outpatient Medications Medication Sig Dispense Refill Last Dose ??? albuterol (ACCUNEB) 1.25 mg/3 mL nebulizer solution ??? albuterol (ACCUNEB) 2.5 mg /3 mL (0.083 %) nebulizer solution ??? atogepant 60 mg tablet Take 1 Tablet by mouth daily. 90 Tablet 3 ??? benzonatate (TESSALON) 100 mg capsule TAKE 1 CAPSULE BY MOUTH 3 TIMES A DAY NEEDED FOR COUGH ??? cholecalciferol, vitamin D3, (VITAMIN D3 ORAL) Take 2,000 Units by mouth daily. ??? ELDERBERRY FRUIT ORAL Take by mouth daily. 2 gummies daily ??? ESTRING 2 mg (7.5 mcg /24 hour) vaginal ring INSERT 1 RING INTO VAGINA EVERY THREE MONTHS ??? HYDROcodone-chlorpheniramine (TUSSIONEX) 10-8 mg/5 mL suspension TAKE 5ML BY MOUTH EVERY 12 HOURS (Patient not taking: No sig reported) ??? ibuprofen (MOTRIN) 600 mg tablet take 1 tablet by mouth every 6 hours as needed ??? levothyroxine (SYNTHROID) 125 mcg tablet Take 125 mcg by mouth daily. ??? LORazepam (ATIVAN) 1 mg tablet Take 1 mg by mouth every 6 hours as needed for Anxiety (Nausea). ??? multivitamin capsule Take 1 Capsule by mouth daily. ??? NONFORMULARY daily. Tumeric with black pepper ??? OLANZapine (ZYPREXA) 10 mg tablet TAKE 1 TABLET BY MOUTH EVERY DAY FOR 30 DAYS (Patient not taking: No sig reported) ??? ondansetron (ZOFRAN) 8 mg tablet Take 1 Tablet by mouth 2 times daily as needed for Nausea (for3 days after chemo). (Patient not taking: No sig reported) 12 Tablet 2 ??? pantoprazole (PROTONIX) 40 mg tablet 1 tab(s) orally once a day ??? potassium chloride SA (K-DUR) 20 mEq tablet Take 20 mEq by mouth daily. ??? predniSONE (DELTASONE) 20 mg tablet Take 40 mg by mouth daily. (Patient not taking: No sig reported) ??? prochlorperazine (COMPAZINE) 10 mg tablet Take 1 Tablet by mouth 3 times daily as needed (nausea). (Patient not taking: Reported on 02/18/2023) 30 Tablet 2 ??? rizatriptan (MAXALT-YARD PIPE GRADER) 10 mg disintegrating tablet DISSOLVE ONE TABLET BY MOUTH NEEDED FORMIGRAINE. MAY REPEAT DOSE IN 2 HOURS IF INEFFECTIVE. DO NOT EXCEED 2 TABLETS IN 24 HOURS, 8 DAYS PER MONTH, AND NO MORE THAN 12 TABLETS IN 1 MONTH 12 Tablet 5 ??? sertraline (ZOLOFT) 100 mg tablet Take 150 mg by mouth daily. ??? traZODone (DESYREL) 50 [...] Assessment: 1: Right breast invasive ductal carcinoma ER/AL negative HER2 positive. Axillary node positive. Started neoadjuvant therapy with TC/HP, poorly tolerated receiving only 2 cycles due to sepsis pancytopenia and other grade 3 toxicities.. Transition to [facility] protocol: Docetaxel Herceptin pertuzumab for 4 cycles (total of 6), also trouble tolerating cytotoxic with grade 2 toxicity. She underwent lumpectomy and sentinel biopsy: Pathology: [id number] mm), ypN1a(sn, 2/3 macro and micro). Follow-up adjuvant therapy with FEC planned 3 cycles was only able to give her 2 cycles due to grade 3 toxicity and 3 hospitalizations. Proceeded to adjuvant radiation therapy which will be completed by 01/10/2023. Now proceeding with adjuvant Kadcyla. Overall tolerating quite well, the skin rash may be related to the medication that is somewhat sparse nonpruritic. I do not think it would warrant to discontinueKuzel at this time. She will keep track of the flares see if it correlates with infusions. Plan: -Continue with Kadcyla.without modification. -Follow-up for physical exam in 3 months. Consult time 30 minutes This note was transcribed using [employer] voice recognition software, please excuse any special tax auditor errors. Carbon copy Rosemary Salcido ONP, Sarah Quintero CONTRACT FORESTER. Dr. Raul Eugene Code [id number] Abdiel Salas MD [facility] documented in this encounter Plan of Treatment Upcoming Encounters Date Type Department Care Team (Late st Contact Info) Description 05/25/2025 14:00 EDT Office Visit [facility] Adult Hematology & Oncology [address] [place] [address], [place] 508012 Abdiel Salas MD [address] [facility], [facility] [address] [place] [address] documented as of this encounter Visit Diagnoses Diagnosis Malignant neoplasm of upper-outer quadrant of right breast in female, estrogen receptor negative (HCC-CMS)- Primary documented in this encounter Historical Medications * This list may reflect changes made after this encounter. Medication Sig Dispensed Refills Start Date End Date montelukast (SINGULAIR) 10 mg tablet Take 1 Tablet by mouth daily. MAGNESIUM GLUCONATE ORAL Take 400 mg by mouth daily. calcium carbonate (CALCIUM 300 ORAL) Take by mouth. Unsure of dosage added in this encounter Care Teams Typer Relationship Specialty Start Date End Date Sarah Quintero FNP [address] [place] [address] PCP - General 05/03/20 documented as of this encounter
--- OUTSIDE RECORDS SUMMARY | 2024-06-30 16:30 | XMS_ITS | Encounter Summary ---
Author Organization [facility] Address [address] [place] [address] Care Team Providers Care Buyer Assistant Name Role Phone Sarah Quintero IT INFRASTRUCTURE PROJECT MANAGER Primary Care Provider [phone] Encounter Details Date Type Department Care Team (Latest Contact Info) Description 01/04/2023 11:15 EST - 01/04/2023 23:59 EST Hospital Encounter [facility] [place] [address] [place] [address] Discharge Disposition: Home or Self Care Social [...] (NAUSEA). 30 Tablet 2 06/28/2022 01/09/2023 rizatriptan (MAXALT-WEB DEVELOPER PROGRAMMER) 10 mg disintegrating tablet Take 1 Tablet [...] [facility] Adult Hematology & Oncology [address] [place] [address] Abdiel Salas MD [address] [place] [address] [address] [place] [phone] documented as of this encounter Visit Diagnoses Not on filedocumented in this encounter Care Teams Buyer Assistant Relationship Specialty Start Date End Date Sarah Quintero FNP [address] [place] [phone] PCP - General 05/03/20 documented as of this encounter
--- OUTSIDE RECORDS SUMMARY | 2024-06-30 16:30 | XMS_ITS | Encounter Summary ---
Author Organization [facility] Address [address] [place] [address] Care Team Providers Care Electrical Engineering Drafting Officer Name Role Phone Sarah Quintero DRIED FRUIT WASHER Primary Care Provider [phone] Reason for Visit * Reason Onset Date Comments Medication Questions 04/04/2023 Encounter Details Date Type Department Care Team (Late st Contact Info) Description 04/04/2023 Telephone [facility] Neurology Clinic [address] [place] [id number] Rancho Macias MD [address] [phone] Medication Questions Social History Tobacco Use Types Packs/Day Years [...] encounter Miscellaneous Notes * Telephone Encounter - Jazmine Foley MA - 04/04/2023 8613 EDT Mireille called the office and left a voice message wondering if the new medication Dr. Macias was prescribing her for migraine prevention (Nurtec ODT) was sent because she has not heard from the pharmacy. I advised her that the [facility] is still working on prior authorization with her insurance company. They originally got a denial and they sent in an appeal on 03/29/2023. Mireille verbalized understanding documented in this encounter Plan of Treatment Upcoming Encounters Date Type Department Care Team (Late st Contact Info) Description 05/25/2025 14:00 EDT Office Visit [facility] Adult Hematology & Oncology [address] [place] [address] [phone] Abdiel Salas MD [address] [place] [address] [address] [place] [phone] documented as of this encounter Visit Diagnoses Not on filedocumented in this encounter Care Teams Electrical Engineering Drafting Officer Relationship Specialty Start Date End Date Sarah Quintero FNP [address] [place] [phone] PCP - General 05/03/20 documented as of this encounter
--- OUTSIDE RECORDS SUMMARY | 2024-06-30 16:31 | XMS_ITS | Encounter Summary ---
Author Organization [facility] Address [address] [place] [address] Care Team Providers Care Supervisor Electric Motor Testing Name Role Phone Sarah Quintero DIESEL BUS MECHANIC Primary Care Provider Encounter Details Date Type Department Care Team (Latest Contact Info) Description 12/24/2022 11:15 EST - 12/24/2022 23:59 EST Hospital Encounter [facility] [place] [address] [place] [address] Discharge Disposition: Home or Self Care Social [...] RING INTO VAGINA EVERY THREE MONTHS 10/15/2022 HYDROcodone-chlorphenira mine (TUSSIONEX) 10-8 mg/5 mL suspension TAKE 5ML BY MOUTH EVERY 12 HOURS 11/12/2022 ibuprofen (MOTRIN) 600 mg tablet take 1 tablet by mouth every 6 hours as needed 11/17/2022 levothyroxine (SYNTHROID) 125 mcg tablet Take 1 Tablet by mouth daily. 01/18/2022 LORazepam (ATIVAN) 1 mg tablet Take 1 mg by mouth every 6 hours as needed for Anxiety (Nausea). OLANZapine (ZYPREXA) 10 mg tablet TAKE 1 [...] 28 days. 4.5 mL 1 12/20/2022 04/16/2023 lidocaine-prilocaine (EMLA) cream Apply topically as needed. As directed externally 12/25/2022 prochlorperazine (COMPAZINE) 10 mg tablet TAKE 1 TABLET BY MOUTH 3 TIMES DAILY NEEDED (NAUSEA). 30 Tablet 2 06/28/2022 01/09/2023 rizatriptan (MAXALT-REGIONAL ENVIRONMENTAL MANAGER) 10 mg disintegrating tablet Take 1 Tablet [...] [facility] [place] [address] Abdiel Salas MD [address] [place] [address] [address] [place] [phone] documented as of this encounter Visit Diagnoses Not on filedocumented in this encounter Care Teams Supervisor Electric Motor Testing Relationship Specialty Start Date End Date Sarah uQintero FNP [address] [place] [phone] PCP - General 05/03/20 documented as of this encounter
--- OUTSIDE RECORDS SUMMARY | 2024-06-30 16:31 | XMS_ITS | Encounter Summary ---
Author Organization [facility] Address [address] [place] [address] Care Team Providers Care Senior Reliability Engineer Name Role Phone Sarah Quintero PHOTO SPECIALIST Primary Care Provider [phone] Reason for Visit * Reason Comments Follow-up Encounter Details Date Type Department Care Team (Late st Contact Info) Description 12/20/2022 10:30 EST Office Visit [facility] Neu[facility] [address] [place] [phone] Rancho Macias MD [address] [phone] Other migraine without status migrainosus, not intractable (Primary Dx) Social History Tobacco Use Types [...] Sign Reading Time Taken Comments Blood Pressure 130/80 12/20/2022 1037 EST Pulse 85 12/20/2022 1037 EST Temperature - - Respiratory Rate 16 12/20/2022 1037 EST Oxygen Saturation 98% 12/20/2022 1037 EST Inhaled Oxygen Concentration - - Weight - - Height - - Body Mass Index - - documented in this encounter Functional Status Functional [...] Yes 12/20/2022 documented as of this encounter Patient Instructions * Patient Instructions* Rancho Macias MD - 12/20/2022 10:30 EST 1) Continue Ajovy. 2) Continue Maxalt as needed. 3) Please follow up in six months. documented in this encounter Ordered Prescriptions Prescription Sig Dispensed Refills Start Date End Da te rizatriptan (MAXALT-SUBCONTRACT MANAGER) 10 mg disintegrating tablet Take 1 Tablet by mouth as needed for Migraine. May repeat dose in 2 hours if ineffective. No more than 2 in 24 hours, 8 days in 1 month, and no more than 12 tabs in 1 month. 12 Tablet 5 12/20/2022 03/28/2023 fremanezumab-vfrm (AJOVY AUTOINJECTOR) 225 mg/1.5 mL auto-injector Inject 225 mg into the skin every 28 days. 4.5 mL 1 12/20/2022 04/16/2023 documented in this encounter Progress Notes * Rancho Macias MD - 12/20/2022 1030 EST [facility] Neurology [facility] PATIENT NAME: Mireille Chatman PATIENT : 1965 PCP: Sarah Quintero DATE OF SERVICE: 12/20/2022 CHIEF COMPLAINT: Follow up to migraine HISTORY The patient is a very pleasant 57 year-old woman who returns to neurology clinic for continuing management of her migraine. Further details of the patient's history may be gleaned from Dr. Snider' note dated 08/30/2022. Notably, the patient has tried many oral agent for prophylaxis including topiramate, amitriptyline, nortriptyline and propranolol. The patient has tried botulinum toxin injections. The patient has tried Aimovig. On last visit, the patient was started on Ajovy. On the patient'spresent clinic visit, the patient related that the first two injections of Ajovy were effective. After the third injection, the patient has had a migraine at a frequency of about three times per week. The patient and I discussed a number of options. They included remaining on Ajovy, switching to Emgality, or switching to amlodipine. The patient opted to stay on Ajovy. Patient Active Problem List Diagnosis ??? Mass of upper outer quadrant of right breast ??? Malignant neoplasm of upper-outer quadrant of right breast in female, estrogen receptor negative (HCC-CMS) (HCC) Past Medical History: Diagnosis Date ??? 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 Breast cancer, right (HCC-CMS) (HCC) ??? GERD (gastroesophageal reflux disease) ??? Migraine ??? Psychiatric problem Anxiety ??? Thyroid disease Past Surgical History: Procedure Laterality Date ??? APPENDECTOMY 15 years ago ??? BREAST BIOPSY ??? CARPAL TUNNEL RELEASE Bilateral ??? CHOLECYSTECTOMY 2014 ??? HIP SURGERY Left ??? KNEE SURGERY Left left knee arthroscopy ??? SHOULDER SURGERY Left ??? TEMPOROMANDIBULAR JOINT SURGERY ??? TONSILLECTOMY ??? US BREAST BIOPSY 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+ FAMILY HISTORY family history includes Atrial fibrillation in her father; Breast Cancer (age of onset: 80) in her paternal grandmother; Colon Cancer (age of onset: 80) in her paternal grandfather; Dementia in her maternal grandfather and mother; Diabetes in her sister; Diverticulitis in her father; Hypertension in her maternal grandmother and mother; Hypothyroidism in her father and sister; Obesity in her sister; Stroke in her maternal grandfather and maternal grandmother. SOCIAL HISTORY reports that she has never smoked. She has never used smokeless tobacco. She reports current alcohol use. She reports that she does not use drugs. ALLERGIES Allergies Allergen Reactions ??? Meperidine Nausea Only ??? Sulfa (Sulfonamide Antibiotics) Family history CURRENT MEDICATIONS Outpatient Medications Marked as Taking for the 12/20/22 encounter (Office Visit) with Rancho Macias MD Medication Sig ??? cholecalciferol, vitamin D3, (VITAMIN D3 ORAL) Take 2,000 Units by mouth daily. ??? ELDERBERRY FRUIT ORAL Take by mouth daily. 2 gummies daily ??? fremanezumab-vfrm (AJOVY AUTOINJECTOR) 225 mg/1.5 mL auto-injector Inject 225 mg into the skin every 28 days. ??? levothyroxine (SYNTHROID) 125 mcg tablet Take 125 mcg by mouth daily. ??? LORazepam (ATIVAN) 1 mg tablet Take 1 mg by mouth every 6 hours as needed for Anxiety (Nausea). ??? pantoprazole (PROTONIX) 40 mg tablet 1 tab(s) orally once a day ??? potassium chloride SA (K-DUR) 20 mEq tablet Take 20 mEq by mouth daily. ??? rizatriptan (MAXALT-SUBCONTRACT MANAGER) 10 mg disintegrating tablet Take 1 Tablet by mouth as needed for Migraine. May repeat dose in 2 hours if ineffective. No more than 2 in 24 hours, 8 days in 1 month, and no more than 12 tabs in 1 month. ??? sertraline (ZOLOFT) 100 mg tablet Take 150 mg by mouth daily. ??? traZODone (DESYREL) 50 mg tablet Take 50 mg by mouth at bedtime. 0.5-1 tablet At bedtime as needed EXAMINATION BP 130/80 Pulse 85 Resp 16 LMP 03/29/2009 (Within Months) SpO2 98% Mental Status/Language: Alert, speech fluent, no aphasia or dysarthria, content appropriate. Cranial Nerves: Pupils equal and reactive to light and accommodation, eyes conjugate with normal movement in all cardinal planes and without significant nystagmus, normal facial sensation and symmetry, tongue midline without fasciculations, palate elevates Motor: Normal muscle bulk and supple tone bilateral arms and legs. No rest or action tremor. Strength 5/5 bilateral UE and LE. Reflexes: 2/4 bilaterally in the biceps, brachioradialis, triceps, patellae and achilles. Toes downbilaterally. Sensation: Normal PP temperature and vibration bilaterally in the hands and feet. Coordination: Finger to nose intact bilaterally. Heel to baker intact bilaterally. Normal rapid alternating movements. Romberg: not present Gait: normal swing and stance phase, normal tandem ASSESSMENT: Chronic daily headache, chronic migraine. PLAN: 1) Continue Ajovy. 2) Continue Maxalt as needed. 3) RTC six months. Rancho Macias MD I spent a total of thirty-five minutes on the date of this encounter meeting with the patient and reviewing documentation/coordinating care as described in the above note. documented in this encounter Plan of Treatment Upcoming Encounters Date Type Department Care Team (Late st Contact Info) Description 05/25/2025 14:00 EDT Office Visit [facility] Adult Hematology & Oncology [facility] [place], [place] [address] Abdiel Salas MD [address] [facility], [facility] [address] [place] [phone] documented as of this encounter Visit Diagnoses Diagnosis Other migraine without status migrainosus, not intractable- Primary documented in this encounter Discontinued Medications Medication Sig Discontinue Reason Start Date End Da te fremanezumab-vfrm (AJOVY AUTOINJECTOR) 225 mg/1.5 mL auto-injector Inject 225 mg into the skin every 28 days. Reorder 09/17/2022 12/20/2022 rizatriptan (MAXALT-SUBCONTRACT MANAGER) 10 mg disintegrating tablet Take 1 Tablet by mouth as needed for Migraine. May repeat dose in 2 hours if ineffective. No more than 2 in 24 hours, 8 days in 1 month, and no more than 12 tabs in 1 month. Reorder 10/23/2022 12/20/2022 documented as of this encounter Care Teams Senior Reliability Engineer Relationship Specialty Start Date End Date Sarah Quintero FNP [address] [place] [phone] PCP - General 05/03/20 documented as of this encounter
--- OUTSIDE RECORDS SUMMARY | 2024-06-30 16:31 | XMS_ITS | Encounter Summary ---
Author Organization [facility] Address [address] [place] [address] Care Team Providers Care Automotive Glazier Name Role Phone Sarah Quintero ACCOUNT RESOLUTION SPECIALIST Primary Care Provider [phone] Encounter Details Date Type Department Care Team (Latest Contact Info) Description 12/26/2022 11:15 EST - 12/26/2022 23:59 EST Hospital Encounter [facility] [place] [address] [place] [address] Discharge Disposition: Home or Self Care Social [...] Sign Reading Time Taken Comments Blood Pressure 130/78 12/26/2022 1124 EST Pulse 80 12/26/2022 1124 EST Temperature - - Respiratory Rate 16 12/26/2022 1301 EST Oxygen Saturation - - Inhaled Oxygen Concentration - - Weight - [...] (NAUSEA). 30 Tablet 2 06/28/2022 01/09/2023 rizatriptan (MAXALT-SHOT HOLE SHOOTER) 10 mg disintegrating tablet Take 1 Tablet [...] [facility] Adult Hematology & Oncology [address] [place] [address] [id number] Abdiel Salas MD [address] [place] [address] [address] [place] [phone] documented as of this encounter Visit Diagnoses Not on filedocumented in this encounter Care Teams Automotive Glazier Relationship Specialty Start Date End Date Sarah Quintero FNP [address] [place] [phone] PCP - General 05/03/20 documented as of this encounter
--- OUTSIDE RECORDS SUMMARY | 2024-06-30 16:31 | XMS_ITS | Encounter Summary ---
Author Organization [facility] Address [address] [place] [address] Care Team Providers Care Mechanical Engineering Draftsperson Name Role Phone Sarah Quintero [facility] Primary Care Provider Encounter Details Date Type Department Care Team (Late Contact Info) Description 12/14/2022 Results Only [facility] Radiation Oncology - Main [place] [address] [place] [address] Unknown, Provider, Social History Tobacco Use Types [...] serious difficulty concentrating, remembering, or making decisions? No 06/21/2020 documented as of this encounter Plan of Treatment Upcoming Encounters Date Type Department Care Team (Late Contact Info) Description 05/25/2025 14:00 EDT Office Visit [facility] Adult Hematology & Oncology [facility] [place] [address] Abdiel Salas MD [address] [place] [address] [address] [place] [phone] documented as of this encounter Procedures Procedure Name Priority Date/Time Associated Diagnosis Comments RAD ONC ARIA SESSION SUMMARY Routine 12/14/2022 11:31 EST documented in this encounter Results * RAD ONC ARIA SESSION SUMMARY (12/14/2022 11:31 EST) Course ID C1 ARIA RADIATION ONCOLOGY Course Intent Curative ARIA RADIATION ONCOLOGY Course First Treatment Date 12/12/2022 11:31 ARIA RADIATION ONCOLOGY Course Last Treatment Date 12/14/2022 11:32 ARIA RADIATION ONCOLOGY Course Elapsed Days 2 ARIA RADIATION ONCOLOGY Reference Point ID RIGHT BREAST ARIA RADIATION ONCOLOGY Reference Point Dosage Given to Date 5.3 Gy ARIA RADIATION ONCOLOGY Reference Point Session Dosage Given 2.65 Gy ARIA RADIATION ONCOLOGY Reference Point ID RT SCLAV AXILLA ARIA RADIATION ONCOLOGY Reference Point Dosage Given to Date 5.3 Gy ARIA RADIATION ONCOLOGY Reference Point Session Dosage Given 2.65 Gy ARIA RADIATION ONCOLOGY Reference Point ID Tumor Bed TOTAL ARIA RADIATION ONCOLOGY Reference Point Dosage Given to Date 5.3 Gy ARIA RADIATION ONCOLOGY Reference Point Session [...] Point RT SCLAV AXILLA ARIA RADIATION ONCOLOGY 12/14/2022 11:3 1 EST Provider Unknown RADIATION ONCOLOGY O RDERABLES TRUMAN RADIATION ONCOLOGY documented in this encounter Visit Diagnoses Not on filedocumented in this encounter Care Teams Mechanical Engineering Draftsperson Relationship Specialty Start Date End Date Sarah Quintero FNP [address] [place] [phone] PCP - General 05/03/20 documented as of this encounter
--- OUTSIDE RECORDS SUMMARY | 2024-06-30 16:31 | XMS_ITS | Encounter Summary ---
Author Organization [facility] Address [address] [place] [address] Care Team Providers Care Joy Operator Helper Name Role Phone Sarah Quintero CORRECTIONAL FACILITY PSYCHIATRIST Primary Care Provider Encounter Details Date Type Department Care Team (Latest Contact Info) Description 12/19/2022 11:15 EST - 12/19/2022 23:59 EST Hospital Encounter [facility] Cancer Treatment [place] [address] [place] [address] Discharge Disposition: Home or Self Care Social [...] No 06/21/2020 documented as of this encounter Medications at [...] skin every 28 days. 4.5 mL 1 09/17/2022 12/20/2022 lidocaine-prilocaine (EMLA) cream Apply topically as needed. As directed externally 12/25/2022 prochlorperazine (COMPAZINE) 10 mg tablet TAKE 1 TABLET BY MOUTH 3 TIMES DAILY NEEDED (NAUSEA). 30 Tablet 2 06/28/2022 01/09/2023 rizatriptan (MAXALT-LUBE ATTENDANT) 10 mg disintegrating tablet Take 1 Tablet by mouth as needed for Migraine. May repeat dose in 2 hours if ineffective. No more than 2 in 24 hours, 8 days in 1 month, and no more than 12 tabs in 1 month. 12 Tablet 5 10/23/2022 12/20/2022 documented as of this encounter Discharge Disposition Disposition Code Departure Means Destination Home or Self Care documented in this encounter Progress Notes * Yesenia Damon, RD - 12/19/2022 1115 EST Dietitian Inpatient Assessment S: Mireille shares that she is back to baseline regarding her appetite, eating habits and bowels. She reports completing chromotherapy in October. She reports hospitalization for neutropenic fever during treatment and also a recent RSV infection in early November 2022. She reports Hx of IBS. Notes some fog and fatigue. 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 O: Past Medical History: Diagnosis Date ??? 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 Breast cancer, right (HCC-CMS) (HCC) ??? GERD (gastroesophageal reflux disease) ??? Migraine ??? Psychiatric problem Anxiety ??? Thyroid disease There is no height or weight on file to calculate BMI. Recent weight changes: There were no vitals filed for this visit. Wt Readings from Last 10 Encounters: 12/17/22 89.9 kg (198 lb 4.8 oz) 11/28/22 87.7 kg (193 lb 6.4 oz) 09/19/22 88 kg (194 lb) 04/26/22 92.1 kg (203 lb) 04/06/22 91.5 kg (201 lb 11.2 oz) 03/29/22 89.5 kg (197 lb 5 oz) 03/29/22 92.5 kg (204 lb) 11/29/20 92.5 kg (204 lb) 05/10/20 89.8 kg (198 lb) Nutritionally significant medications: Elderberry gummies, Multivitamin, D3 A: 57 year old female receiving radiation treatment in setting of right breast cancer. Also followed by Dr. Salas and receives most of her oncology treatment at [facility]. Discussed how protein in the diet can help combat fatigue and encouraged patient to include protein sources with all meals and snacks. No other significant nutrition impact symptoms noted. Encouraged patient to follow-up. P: Nutrition follow-up not initiated at this time. Available per patient or provider request. Yesenia Damon MS, RD, CD, CNSC documented in this encounter Plan of Treatment Upcoming Encounters Date Type Department Care Team (Late st Contact Info) Description 05/25/2025 14:00 EDT Office Visit [facility] Adult Hematology & Oncology [address] [place] [address] [id number] Abdiel Salas MD [address] [place] [address] [address] [place] [phone] documented as of this encounter Visit Diagnoses Not on filedocumented in this encounter Care Teams Joy Operator Helper Relationship Specialty Start Date End Date Sarah Quintero FNP [address] [place] [phone] PCP - General 05/03/20 documented as of this encounter
--- OUTSIDE RECORDS SUMMARY | 2024-06-30 16:31 | XMS_ITS | Encounter Summary ---
Author Organization [facility] Address [address] [place] [address] Care Team Providers Care Nurse Sitter Name Role Phone Sarah Quintero [facility] Primary Care Provider Encounter Details Date Type Department Care Team (Late Contact Info) Description 12/19/2022 Results Only [facility] Radiation Oncology - Main [place] [address] [place] [address] Unknown, Provider, Social History Tobacco Use Types [...] Info) Description 05/25/2025 14:00 EDT Office Visit [facility] Adult Hematology & Oncology [facility] [place] [address] Abdiel Salas MD [address] [place] [address] [address] [place] [phone] documented as of this encounter Procedures Procedure Name Priority Date/Time Associated Diagnosis Comments RAD ONC ARIA SESSION SUMMARY Routine 12/19/2022 11:20 EST documented in this encounter Results * RAD ONC ARIA SESSION SUMMARY (12/19/2022 11:20 EST) Course ID C1 ARIA RADIATION ONCOLOGY Course Intent Curative ARIA RADIATION ONCOLOGY Course First Treatment Date 12/12/2022 11:31 ARIA RADIATION ONCOLOGY Course Last Treatment Date 12/19/2022 11:19 ARIA RADIATION ONCOLOGY Course Elapsed Days 7 ARIA RADIATION ONCOLOGY Reference Point ID RIGHT BREAST ARIA RADIATION ONCOLOGY Reference Point Dosage Given to Date 13.25 Gy ARIA RADIATION ONCOLOGY Reference Point Session Dosage Given 2.65 Gy ARIA RADIATION ONCOLOGY Reference Point ID RT SCLAV AXILLA ARIA RADIATION ONCOLOGY Reference Point Dosage Given to Date 13.25 Gy ARIA RADIATION ONCOLOGY Reference Point Session Dosage Given 2.65 Gy ARIA RADIATION ONCOLOGY Reference Point ID Tumor Bed TOTAL ARIA RADIATION ONCOLOGY Reference Point Dosage Given to Date 13.25 Gy ARIA RADIATION ONCOLOGY Reference Point Session Dosage Given 2.65 Gy ARIA RADIATION ONCOLOGY Plan ID 2_Rt Breast ARIA RADIATION ONCOLOGY Plan Name 2_Rt Breast ARIA RADIATION ONCOLOGY Plan Fractions Treated to Date 5 ARIA RADIATION ONCOLOGY Plan Total Fractions Prescribed 16 ARIA RADIATION ONCOLOGY Plan Prescribed Dose Per Fraction 2.65 Gy ARIA RADIATION ONCOLOGY Plan Total Prescribed Dose 4,240 cGy ARIA RADIATION ONCOLOGY Plan Primary Reference Point RIGHT BREAST ARIA RADIATION ONCOLOGY Plan ID 1_Rt Sclav ARIA RADIATION ONCOLOGY Plan Name 1_Rt Sclav ARIA RADIATION ONCOLOGY Plan Fractions Treated to Date 5 ARIA RADIATION ONCOLOGY Plan Total Fractions Prescribed 16 ARIA RADIATION ONCOLOGY Plan Prescribed Dose Per Fraction 2.65 Gy ARIA RADIATION ONCOLOGY Plan Total Prescribed Dose 4,240 cGy ARIA RADIATION ONCOLOGY Plan Primary Reference Point RT SCLAV AXILLA ARIA RADIATION ONCOLOGY 12/19/2022 11:2 0 EST Provider Unknown RADIATION ONCOLOGY O RDERABLES TRUMAN RADIATION ONCOLOGY documented in this encounter Visit Diagnoses Not on filedocumented in this encounter Care Teams Nurse Sitter Relationship Specialty Start Date End Date Sarah Quintero FNP [address] [place] [phone] PCP - General 05/03/20 documented as of this encounter
--- OUTSIDE RECORDS SUMMARY | 2024-06-30 16:31 | XMS_ITS | Encounter Summary ---
Author Organization [facility] Address [address] [place] [address] Care Team Providers Care Antique Furniture Reproducer Name Role Phone Sarah Quintero TELEMETRY TECHNICIAN Primary Care Provider [phone] Encounter Details Date Type Department Care Team (Late st Contact Info) Description 12/31/2022 Documentation Visit [facility] Radiation Oncology - [facility] [address] [place] [address] Janina King, RN Social History Tobacco Use [...] Progress Notes * Janina King, RN - 12/31/2022 1137 EST Mireille in for a nursing OTV. She is feeling well, albeit quite fatigued. Her right breast has minimal skin changes and she is moisturizing with Aveeno. Her right nipple is sore, but not open. I gave her some Mepilex to use on her nipple for comfort. documented in this encounter Plan of Treatment Upcoming Encounters Date Type Department Care Team (Late st Contact Info) Description 05/25/2025 14:00 EDT Office Visit [facility] Adult Hematology & Oncology [address] [place] [address] [phone] Abdiel Salas MD [address] [place] [address] [address] [place] [phone] documented as of this encounter Visit Diagnoses Not on filedocumented in this encounter Care Teams Antique Furniture Reproducer Relationship Specialty Start Date End Date Sarah Quintero FNP [address] [place] [phone] PCP - General 05/03/20 documented as of this encounter
--- OUTSIDE RECORDS SUMMARY | 2024-06-30 16:31 | XMS_ITS | Encounter Summary ---
Author Organization [facility] Address [address] [place] [address] Care Team Providers Care Director Multimedia Name Role Phone Sarah Quintero ENGRAVER HAND HARD METALS Primary Care Provider [phone] Reason for Visit * Reason Comments Breast Cancer Encounter Details Date Type Department Care Team (Latest Contact Info) Description 12/25/2022 11:15 EST - 12/25/2022 23:59 EST Hospital Encounter [facility] [address] [place] [address] Discharge Disposition: Home or Self Care Social [...] Sign Reading Time Taken Comments Blood Pressure 121/81 12/25/2022 1128 EST Pulse 78 12/25/2022 1128 EST Temperature - - Respiratory Rate - [...] (NAUSEA). 30 Tablet 2 06/28/2022 01/09/2023 rizatriptan (MAXALT-AUTOMATIC GRINDER OPERATOR) 10 mg disintegrating tablet Take 1 [...] Info) Description 05/25/2025 14:[address] [facility] Adult Hematology & Oncology [address] [place] [address] [phone] Abdiel Salas MD [address] [place] [address] [address] [place] [phone] documented as of this encounter Visit Diagnoses Not on filedocumented in this encounter Discontinued Medications Medication Sig Discontinue Reason Start Date End Da te lidocaine-prilocaine (EMLA) cream Apply topically as needed. As directed externally Therapy completed 12/25/2022 documented as of this encounter Care Teams Director Multimedia Relationship Specialty Start Date End Date Sarah Quintero FNP [address] [place] [phone] PCP - General 05/03/20 documented as of this encounter
--- OUTSIDE RECORDS SUMMARY | 2024-06-30 16:31 | XMS_ITS | Encounter Summary ---
Author Organization [facility] Address [address] [place] [address] Care Team Providers Care Medical Doctor Nuclear Medicine Name Role Phone Sarah Quintero PARTY PLAN SALES AGENT Primary Care Provider Encounter Details Date Type Department Care Team (Latest Contact Info) Description 12/27/2022 11:15 EST - 12/27/2022 23:59 EST Hospital Encounter [facility] Cancer Treatment [place] [address] [place] [address] Discharge Disposition: Home or Self Care Social [...] (NAUSEA). 30 Tablet 2 06/28/2022 01/09/2023 rizatriptan (MAXALT-SEARCH ENGINE MARKETING STRATEGIST) 10 mg disintegrating tablet Take 1 Tablet [...] [facility] [address] [place] [address] [phone] Abdiel Salas MD [address] [place] [address] [address] [place] [phone] documented as of this encounter Visit Diagnoses Not on filedocumented in this encounter Care Teams Medical Doctor Nuclear Medicine Relationship Specialty Start Date End Date Sarah Quintero FNP [address] [place] [phone] PCP - General 05/03/20 documented as of this encounter
--- OUTSIDE RECORDS SUMMARY | 2024-06-30 16:31 | XMS_ITS | Encounter Summary ---
Author Organization [facility] Address [address] [place] [address] Care Team Providers Care Cycle Specialist Name Role Phone Sarah Quintero [facility] Primary Care Provider [phone] Encounter Details Date Type Department Care Team (Late st Contact Info) Description 12/17/2022 Documentation Visit [facility] Cancer Treatment [place] [address] [place] [address] Zulma Mazariegos, RN Social History Tobacco Use Types Packs/Day [...] No 06/21/2020 documented as of this encounter Progress Notes * Zulma Mazariegos, MEKA - 12/17/2022 1133 EST Seen for a nurse visit during radiation treatment of right breast. Patchy grade one faint erythema to right breast and axilla. Pt uses Aveeno lotion for moisturizing BID. No question at present. documented in this encounter Plan of Treatment Upcoming Encounters Date Type Department Care Team (Late st Contact Info) Description 05/25/2025 14:00 EDT Office Visit [facility] Adult Hematology & Oncology [address] [place] [address] Abdiel Salas MD [address] [place] [address] [address] [place] [phone] documented as of this encounter Visit Diagnoses Not on filedocumented in this encounter Care Teams Cycle Specialist Relationship Specialty Start Date End Date Sarah Quintero FNP [address] [place] [phone] PCP - General 05/03/20 documented as of this encounter
--- OUTSIDE RECORDS SUMMARY | 2024-06-30 16:31 | XMS_ITS | Encounter Summary ---
Author Organization [facility] Address [address] [place] [address] Care Team Providers Care Supervisor Felting Name Role Phone Sarah Quintero PROFESSIONAL ADVISOR Primary Care Provider [phone] Reason for Visit * Reason Comments Breast Cancer OTV Encounter Details Date Type Department Care Team (Latest Contact Info) Description 12/17/2022 11:15 EST - 12/17/2022 23:59 EST Hospital Encounter [facility] Cancer Treatment [address] [address] Discharge Disposition: Home or Self Care Social [...] Sign Reading Time Taken Comments Blood Pressure 128/88 12/17/2022 1130 EST Pulse 84 12/17/2022 1130 EST Temperature - - Respiratory Rate 16 12/17/2022 1130 EST Oxygen Saturation - - Inhaled Oxygen Concentration - - Weight 89.9 kg (198 lb 4.8 oz) 12/17/[address] Height - - Body Mass Index 31.06 09/19/2022 1012 EST documented in this encounter [...] (NAUSEA). 30 Tablet 2 06/28/2022 01/09/2023 rizatriptan (MAXALT-TOUCH UP CARVER) 10 mg disintegrating tablet Take 1 Tablet [...] Description 05/25/2025 14:[address] [facility] Adult Hematology & Oncology [facility] [place] [address] Abdiel Salas MD [address] [place] [address] [address] [place] [phone] documented as of this encounter Visit Diagnoses Not on filedocumented in this encounter Care Teams Supervisor Felting Relationship Specialty Start Date End Date Sarah Quintero FNP [address] [place] [phone] PCP - General 05/03/20 documented as of this encounter
--- OUTSIDE RECORDS SUMMARY | 2024-06-30 16:31 | XMS_ITS | Encounter Summary ---
Author Organization [facility] Address [address] [place] [address] Care Team Providers Care Reduction Furnace Operator Helper Name Role Phone Sarah Quintero [facility] Primary Care Provider Encounter Details Date Type Department Care Team (Late st Contact Info) Description 12/27/2022 Results Only [facility] Radiation Oncology - Main [place] [address] [place] [address] Unknown, Provider, Social History Tobacco Use Types [...] Info) Description 05/25/2025 14:00 EDT Office Visit [facility] Adult Hematology & Oncology [address] [place] [address] Abdiel Salas MD [address] [place] [address] [address] [place] [phone] documented as of this encounter Procedures Procedure Name Priority Date/Time Associated Diagnosis Comments RAD ONC ARIA SESSION SUMMARY Routine 12/27/2022 11:22 EST documented in this encounter Results * RAD ONC ARIA SESSION SUMMARY (12/27/2022 11:22 EST) Course ID C1 ARIA RADIATION ONCOLOGY Course Intent Curative ARIA RADIATION ONCOLOGY Course First Treatment Date 12/12/2022 11:31 ARIA RADIATION ONCOLOGY Course Last Treatment Date 12/27/2022 11:22 ARIA RADIATION ONCOLOGY Course Elapsed Days 15 ARIA RADIATION ONCOLOGY Reference Point ID RIGHT BREAST ARIA RADIATION ONCOLOGY Reference Point Dosage Given to Date 26.5 Gy ARIA RADIATION ONCOLOGY Reference Point Session Dosage Given 2.65 Gy ARIA RADIATION ONCOLOGY Reference Point ID RT SCLAV AXILLA ARIA RADIATION ONCOLOGY Reference Point Dosage Given to Date 26.5 Gy ARIA RADIATION ONCOLOGY Reference Point Session Dosage Given 2.65 Gy ARIA RADIATION ONCOLOGY Reference Point ID Tumor Bed TOTAL ARIA RADIATION ONCOLOGY Reference Point Dosage Given to Date 26.5 Gy ARIA RADIATION ONCOLOGY Reference Point Session Dosage Given 2.65 Gy ARIA RADIATION ONCOLOGY Plan ID 2_Rt Breast ARIA RADIATION ONCOLOGY Plan Name 2_Rt Breast ARIA RADIATION ONCOLOGY Plan Fractions Treated to Date 10 ARIA RADIATION ONCOLOGY Plan Total Fractions Prescribed 16 ARIA RADIATION ONCOLOGY Plan Prescribed Dose Per Fraction 2.65 Gy ARIA RADIATION ONCOLOGY Plan Total Prescribed Dose 4,240 cGy ARIA RADIATION ONCOLOGY Plan Primary Reference Point RIGHT BREAST ARIA RADIATION ONCOLOGY Plan ID 1_Rt Sclav ARIA RADIATION ONCOLOGY Plan Name 1_Rt Sclav ARIA RADIATION ONCOLOGY Plan Fractions Treated to Date 10 ARIA RADIATION ONCOLOGY Plan Total Fractions Prescribed 16 ARIA RADIATION ONCOLOGY Plan Prescribed Dose Per Fraction 2.65 Gy ARIA RADIATION ONCOLOGY Plan Total Prescribed Dose 4,240 cGy ARIA RADIATION ONCOLOGY Plan Primary Reference Point RT SCLAV AXILLA ARIA RADIATION ONCOLOGY 12/27/2022 11:2 2 EST Provider Unknown RADIATION ONCOLOGY O RDERABLES TRUMAN RADIATION ONCOLOGY documented in this encounter Visit Diagnoses Not on filedocumented in this encounter Care Teams Reduction Furnace Operator Helper Relationship Specialty Start Date End Date Sarah Quintero FNP [address] [place] [phone] PCP - General 05/03/20 documented as of this encounter
--- OUTSIDE RECORDS SUMMARY | 2024-06-30 16:31 | XMS_ITS | Encounter Summary ---
Author Organization [facility] Address [address] [place] [address] Care Team Providers Care Audio Technician Name Role Phone Sarah Quintero [facility] Primary Care Provider Encounter Details Date Type Department Care Team (Late st Contact Info) Description 12/26/2022 Results Only [facility] [place] Radiation Oncology - Main [place] [address] [place] [address] Unknown, Provider, Social History Tobacco Use Types [...] Info) Description 05/25/2025 14:00 EDT Office Visit [facility] Adult Hematology & Oncology [address] [place] [address] Abdiel Salas MD [address] [place] [address] [address] [place] [phone] documented as of this encounter Procedures Procedure Name Priority Date/Time Associated Diagnosis Comments RAD ONC ARIA SESSION SUMMARY Routine 12/26/2022 11:19 EST documented in this encounter Results * RAD ONC ARIA SESSION SUMMARY (12/26/2022 11:19 EST) Course ID C1 ARIA RADIATION ONCOLOGY Course Intent Curative ARIA RADIATION ONCOLOGY Course First Treatment Date 12/12/2022 11:31 ARIA RADIATION ONCOLOGY Course Last Treatment Date 12/26/2022 11:20 ARIA RADIATION ONCOLOGY Course Elapsed Days 14 ARIA RADIATION ONCOLOGY Reference Point ID RIGHT BREAST ARIA RADIATION ONCOLOGY Reference Point Dosage Given to Date 23.85 Gy ARIA RADIATION ONCOLOGY Reference Point Session Dosage Given 2.65 Gy ARIA RADIATION ONCOLOGY Reference Point ID RT SCLAV AXILLA ARIA RADIATION ONCOLOGY Reference Point Dosage Given to Date 23.85 Gy ARIA RADIATION ONCOLOGY Reference Point Session Dosage Given 2.65 Gy ARIA RADIATION ONCOLOGY Reference Point ID Tumor Bed TOTAL ARIA RADIATION ONCOLOGY Reference Point Dosage Given to Date 23.85 Gy ARIA RADIATION ONCOLOGY Reference Point Session Dosage Given 2.65 Gy ARIA RADIATION ONCOLOGY Plan ID 2_Rt Breast ARIA RADIATION ONCOLOGY Plan Name 2_Rt Breast ARIA RADIATION ONCOLOGY Plan Fractions Treated to Date 9 ARIA RADIATION ONCOLOGY Plan Total Fractions Prescribed 16 ARIA RADIATION ONCOLOGY Plan Prescribed Dose Per Fraction 2.65 Gy ARIA RADIATION ONCOLOGY Plan Total Prescribed Dose 4,240 cGy ARIA RADIATION ONCOLOGY Plan Primary Reference Point RIGHT BREAST ARIA RADIATION ONCOLOGY Plan ID 1_Rt Sclav ARIA RADIATION ONCOLOGY Plan Name 1_Rt Sclav ARIA RADIATION ONCOLOGY Plan Fractions Treated to Date 9 ARIA RADIATION ONCOLOGY Plan Total Fractions Prescribed 16 ARIA RADIATION ONCOLOGY Plan Prescribed Dose Per Fraction 2.65 Gy ARIA RADIATION ONCOLOGY Plan Total Prescribed Dose 4,240 cGy ARIA RADIATION ONCOLOGY Plan Primary Reference Point RT SCLAV AXILLA ARIA RADIATION ONCOLOGY 12/26/2022 11:1 9 EST Provider Unknown RADIATION ONCOLOGY O RDERABLES TRUMAN RADIATION ONCOLOGY documented in this encounter Visit Diagnoses Not on filedocumented in this encounter Care Teams Audio Technician Relationship Specialty Start Date End Date Sarah Quintero FNP [address] [place] [address] PCP - General 05/03/20 documented as of this encounter
--- OUTSIDE RECORDS SUMMARY | 2024-06-30 16:31 | XMS_ITS | Encounter Summary ---
Author Organization [facility] Address [address] [place] [address] Care Team Providers Care Table Worker Name Role Phone Sarah Quintero [facility] Primary Care Provider [phone] Encounter Details Date Type Department Care Team (Late st Contact Info) Description 12/25/2022 Results Only [facility] Radiation Oncology - Main [place] [address] [place] [address] Unknown, Provider, Social History Tobacco Use Types [...] Info) Description 05/25/2025 14:00 EDT Office Visit [facility] Adult Hematology & Oncology [address] [place] [phone] Abdiel Salas MD [address] [place] [address] [address] [place] [phone] documented as of this encounter Procedures Procedure Name Priority Date/Time Associated Diagnosis Comments RAD ONC ARIA SESSION SUMMARY Routine 12/25/2022 11:22 EST documented in this encounter Results * RAD ONC ARIA SESSION SUMMARY (12/25/2022 11:22 EST) Course ID C1 ARIA RADIATION ONCOLOGY Course Intent Curative ARIA RADIATION ONCOLOGY Course First Treatment Date 12/12/2022 11:31 ARIA RADIATION ONCOLOGY Course Last Treatment Date 12/25/2022 11:23 ARIA RADIATION ONCOLOGY Course Elapsed Days 13 ARIA RADIATION ONCOLOGY Reference Point ID RIGHT BREAST ARIA RADIATION ONCOLOGY Reference Point Dosage Given to Date 21.2 Gy ARIA RADIATION ONCOLOGY Reference Point Session Dosage Given 2.65 Gy ARIA RADIATION ONCOLOGY Reference Point ID RT SCLAV AXILLA ARIA RADIATION ONCOLOGY Reference Point Dosage Given to Date 21.2 Gy ARIA RADIATION ONCOLOGY Reference Point Session Dosage Given 2.65 Gy ARIA RADIATION ONCOLOGY Reference Point ID Tumor Bed TOTAL ARIA RADIATION ONCOLOGY Reference Point Dosage Given to Date 21.2 Gy ARIA RADIATION ONCOLOGY Reference Point Session Dosage Given 2.65 Gy ARIA RADIATION ONCOLOGY Plan ID 2_Rt Breast ARIA RADIATION ONCOLOGY Plan Name 2_Rt Breast ARIA RADIATION ONCOLOGY Plan Fractions Treated to Date 8 ARIA RADIATION ONCOLOGY Plan Total Fractions Prescribed 16 ARIA RADIATION ONCOLOGY Plan Prescribed Dose Per Fraction 2.65 Gy ARIA RADIATION ONCOLOGY Plan Total Prescribed Dose 4,240 cGy ARIA RADIATION ONCOLOGY Plan Primary Reference Point RIGHT BREAST ARIA RADIATION ONCOLOGY Plan ID 1_Rt Sclav ARIA RADIATION ONCOLOGY Plan Name 1_Rt Sclav ARIA RADIATION ONCOLOGY Plan Fractions Treated to Date 8 ARIA RADIATION ONCOLOGY Plan Total Fractions Prescribed 16 ARIA RADIATION ONCOLOGY Plan Prescribed Dose Per Fraction 2.65 Gy ARIA RADIATION ONCOLOGY Plan Total Prescribed Dose 4,240 cGy ARIA RADIATION ONCOLOGY Plan Primary Reference Point RT SCLAV AXILLA ARIA RADIATION ONCOLOGY 12/25/2022 11:2 2 EST Provider Unknown RADIATION ONCOLOGY O RDERABLES TRUMAN RADIATION ONCOLOGY documented in this encounter Visit Diagnoses Not on filedocumented in this encounter Care Teams Table Worker Relationship Specialty Start Date End Date Sarah Quintero FNP [address] [place] [address] PCP - General 05/03/20 documented as of this encounter
--- OUTSIDE RECORDS SUMMARY | 2024-06-30 16:31 | XMS_ITS | Encounter Summary ---
Author Organization [facility] Address [address] [place] [address] Care Team Providers Care Head Sugar Reprocess Operator Name Role Phone Sarah Quintero [facility] Primary Care Provider Encounter Details Date Type Department Care Team (Late st Contact Info) Description 12/28/2022 Results Only [facility] Radiation Oncology - Main [place] [address] [place] [address] Unknown, Provider, Social History Tobacco Use Types [...] [facility] Adult Hematology & Oncology [address] [place] [address] Abdiel Salas MD [address] [place] [address] [address] [place] [phone] documented as of this encounter Procedures Procedure Name Priority Date/Time Associated Diagnosis Comments RAD ONC ARIA SESSION SUMMARY Routine 12/28/2022 11:27 EST documented in this encounter Results * RAD ONC ARIA SESSION SUMMARY (12/28/2022 11:27 EST) Course ID C1 ARIA RADIATION ONCOLOGY Course Intent Curative ARIA RADIATION ONCOLOGY Course First Treatment Date 12/12/2022 11:31 ARIA RADIATION ONCOLOGY Course Last Treatment Date 12/28/2022 11:27 ARIA RADIATION ONCOLOGY Course Elapsed Days 16 ARIA RADIATION ONCOLOGY Reference Point ID RIGHT BREAST ARIA RADIATION ONCOLOGY Reference Point Dosage Given to Date 29.15 Gy ARIA RADIATION ONCOLOGY Reference Point Session Dosage Given 2.65 Gy ARIA RADIATION ONCOLOGY Reference Point ID RT SCLAV AXILLA ARIA RADIATION ONCOLOGY Reference Point Dosage Given to Date 29.15 Gy ARIA RADIATION ONCOLOGY Reference Point Session Dosage Given 2.65 Gy ARIA RADIATION ONCOLOGY Reference Point ID Tumor Bed TOTAL ARIA RADIATION ONCOLOGY Reference Point Dosage Given to Date 29.15 Gy ARIA RADIATION ONCOLOGY Reference Point Session Dosage Given 2.65 Gy ARIA RADIATION ONCOLOGY Plan ID 2_Rt Breast ARIA RADIATION ONCOLOGY Plan Name 2_Rt Breast ARIA RADIATION ONCOLOGY Plan Fractions Treated to Date 11 ARIA RADIATION ONCOLOGY Plan Total Fractions Prescribed 16 ARIA RADIATION ONCOLOGY Plan Prescribed Dose Per Fraction 2.65 Gy ARIA RADIATION ONCOLOGY Plan Total Prescribed Dose 4,240 cGy ARIA RADIATION ONCOLOGY Plan Primary Reference Point RIGHT BREAST ARIA RADIATION ONCOLOGY Plan ID 1_Rt Sclav ARIA RADIATION ONCOLOGY Plan Name 1_Rt Sclav ARIA RADIATION ONCOLOGY Plan Fractions Treated to Date 11 ARIA RADIATION ONCOLOGY Plan Total Fractions Prescribed 16 ARIA RADIATION ONCOLOGY Plan Prescribed Dose Per Fraction 2.65 Gy ARIA RADIATION ONCOLOGY Plan Total Prescribed Dose 4,240 cGy ARIA RADIATION ONCOLOGY Plan Primary Reference Point RT SCLAV AXILLA ARIA RADIATION ONCOLOGY 12/28/2022 11:2 7 EST Provider Unknown RADIATION ONCOLOGY O RDERABLES TRUMAN RADIATION ONCOLOGY documented in this encounter Visit Diagnoses Not on filedocumented in this encounter Care Teams Head Sugar Reprocess Operator Relationship Specialty Start Date End Date Sarah Quintero FNP [address] [place] [address] PCP - General 05/03/20 documented as of this encounter
--- OUTSIDE RECORDS SUMMARY | 2024-06-30 16:31 | XMS_ITS | Encounter Summary ---
Author Organization [facility] Address [address] [place] [address] Care Team Providers Care Bug Trimmer Name Role Phone Sarah Quintero [facility] Primary Care Provider [phone] Encounter Details Date Type Department Care Team (Late st Contact Info) Description 12/12/2022 Radiation Therapy Visit [facility] [address] [place], [place] [phone] Raul Noe MD [address] [facility], [facility] [address] [place] [address] Malignant neoplasm of upper-outer quadrant [...] Progress Notes * Raul Noe MD - 12/12/2022 1149 EST Images from the original note were not included. Radiation Oncology- On Treatment Visit On Treatment Visit Assessment:12/12/22 Mireille Chatman is currently receiving radiation therapy treatment and is being seen today for her weekly on treatment visit. Encounter Diagnosis: ICD-10-CM ICD-9-CM 1. Malignant neoplasm of upper-outer quadrant of right breast in female, estrogen receptor positive(HCC-CMS) (HCC) C50.411 174.4 Z17.0 V86.0 Radiation Therapy Dose: Radiation Treatments Active Plans 1_Rt Sclav Most recent treatment: Dose planned: 265 cGy (fraction 1 on 12/12/2022) Total: Dose planned: 4,240 cGy (16 fractions) Elapsed Days: 0 2_Rt Breast Most recent treatment: Dose planned: 265 cGy (fraction 1 on 12/12/2022) Total: Dose planned: 4,240 cGy (16 fractions) Elapsed Days: 0 Reference Points RIGHT BREAST Most recent treatment: Dose given: 265 cGy (on 12/12/2022) Total: Dose given: 265 cGy Elapsed Days: 0 RT SCLAV AXILLA Most recent treatment: Dose given: 265 cGy (on 12/12/2022) Total: Dose given: 265 cGy Elapsed Days: 0 Tumor Bed TOTAL Most recent treatment: Dose given: 265 cGy (on 12/12/2022) Total: Dose given: 265 cGy Elapsed Days: 0 No flowsheet data found. Subjective Note: Just started Physical Exam: LMP 03/29/2009 (Within Months) There were no vitals filed for this visit. Wt Readings from Last 3 Encounters: 11/28/22 87.7 kg (193 lb 6.4 oz) 09/19/22 88 kg (194 lb) 04/26/22 92.1 kg (203 lb) (0) Fully active, able to carry on all predisease performance without restriction Seen on set up. No skin changes Treatment Related Toxicity: 0 Current Labs: No results found for: WBC, HGB, HCT, PLT, ALT, AST, NA, K, CL, CREATININE, BUN, CO2, TSH, PSA Medication Reconciliation: Medications were reviewed with the patient. Impression: Mireille Chatman is tolerating treatment well having just started Plan: Reviewed treatment set up notes. Checked [...] Core needle biopsy: High-grade invasive ductal carcinoma, ER/AL negative (less than 1%), HER2 2+; FLACO [...] Stage Recommended (ypT1c, pN1a(sn), cM0, G3, ER-, AL-, HER2+) 08/31/2022 - Surgery Dr. Case at [facility] performed lumpectomy and sentinel node biopsy. Pathology: ypT1c(15 mm), ypN1a(sn, 2/3 macro and micro) poorly differentiated, indeterminate LVI, closest margin 5 mm. Raul Noe MD Radiation Oncology-[facility] (p) [phone] / (f) [phone] documented in this encounter Plan of Treatment Upcoming Encounters Date Type Department Care Team (Late st Contact Info) Description 05/25/2025 14:00 EDT Office Visit [facility] Adult Hematology & Oncology [facility] [place] [address] Abdiel Salas MD [address] [place] [address] [address] [place] [address] documented as of this encounter Visit Diagnoses Diagnosis Malignant neoplasm of upper-outer quadrant of right breast in female, estrogen receptor positive (HCC-CMS)- Primary documented in this encounter Care Teams Bug Trimmer Relationship Specialty Start Date End Date Sarah Quintero FNP [address] [place] [phone] PCP - General 05/03/20 documented as of this encounter
--- OUTSIDE RECORDS SUMMARY | 2024-06-30 16:31 | XMS_ITS | Encounter Summary ---
Author Organization [facility] Address [address] [place] [address] Care Team Providers Care Butter Wrapper Name Role Phone Sarah Quintero [facility] Primary Care Provider [phone] Encounter Details Date Type Department Care Team (Latest Contact Info) Description 12/14/2022 11:15 EST - 12/14/2022 23:59 EST Hospital Encounter [facility] Cancer Treatment [place] [address] [place] [address] Discharge Disposition: Home or Self Care Social [...] (NAUSEA). 30 Tablet 2 06/28/2022 01/09/2023 rizatriptan (MAXALT-BUSINESS DEVELOPMENT COORDINATOR) 10 mg disintegrating tablet Take 1 Tablet [...] [facility] [address] [place] [address] Abdiel Salas MD [address] [place] [address] [address] [place] [phone] documented as of this encounter Visit Diagnoses Not on filedocumented in this encounter Care Teams Butter Wrapper Relationship Specialty Start Date End Date Sarah Quintero FNP [address] [place] [phone] PCP - General 05/03/20 documented as of this encounter
--- OUTSIDE RECORDS SUMMARY | 2024-06-30 16:31 | XMS_ITS | Encounter Summary ---
Author Organization [facility] Address [address] [place] [address] Care Team Providers Care Refrigerator Tester Name Role Phone Sarah Quintero TECHNICAL BUSINESS ANALYST Primary Care Provider Encounter Details Date Type Department Care Team (Latest Contact Info) Description 01/01/2023 11:15 EST - 01/01/2023 11:24 EST Hospital Encounter [facility] Cancer Treatment [place] [address] [place] [address] Discharge Disposition: Home or Self Care Social [...] (NAUSEA). 30 Tablet 2 06/28/2022 01/09/2023 rizatriptan (MAXALT-SECONDARY ENGLISH TEACHER) 10 mg disintegrating tablet Take 1 Tablet [...] Description 05/25/2025 14:[address] [facility] Adult Hematology & Oncology [address] [place] [phone] Abdiel Salas MD [address] [place] [address] [address] [place] [address] documented as of this encounter Visit Diagnoses Not on filedocumented in this encounter Care Teams Refrigerator Tester Relationship Specialty Start Date End Date Sarah Quintero FNP [address] [place] [phone] PCP - General 05/03/20 documented as of this encounter
--- OUTSIDE RECORDS SUMMARY | 2024-06-30 16:31 | XMS_ITS | Encounter Summary ---
Author Organization [facility] Address [address] [place] [address] Care Team Providers Care Md Allergy Immunology Name Role Phone Sarah Quintero [facility] Primary Care Provider [phone] Encounter Details Date Type Department Care Team (Late st Contact Info) Description 12/24/[address] [facility] Radiation Oncology - Main [place] [address] [place] [address] Unknown, Provider, Social History Tobacco Use Types [...] Info) Description 05/25/2025 14:00 EDT Office Visit [facility] Adult Hematology & Oncology [address] [place] [address] Abdiel Salas MD [address] [place] [address] [address] [place] [phone] documented as of this encounter Procedures Procedure Name Priority Date/Time Associated Diagnosis Comments RAD ONC ARIA SESSION SUMMARY Routine 12/24/2022 11:22 EST documented in this encounter Results * RAD ONC ARIA SESSION SUMMARY (12/24/2022 11:22 EST) Course ID C1 ARIA RADIATION ONCOLOGY Course Intent Curative ARIA RADIATION ONCOLOGY Course First Treatment Date 12/12/2022 11:31 ARIA RADIATION ONCOLOGY Course Last Treatment Date 12/24/2022 11:22 ARIA RADIATION ONCOLOGY Course Elapsed Days 12 ARIA RADIATION ONCOLOGY Reference Point ID RIGHT BREAST ARIA RADIATION ONCOLOGY Reference Point Dosage Given to Date 18.55 Gy ARIA RADIATION ONCOLOGY Reference Point Session Dosage Given 2.65 Gy ARIA RADIATION ONCOLOGY Reference Point ID RT SCLAV AXILLA ARIA RADIATION ONCOLOGY Reference Point Dosage Given to Date 18.55 Gy ARIA RADIATION ONCOLOGY Reference Point Session Dosage Given 2.65 Gy ARIA RADIATION ONCOLOGY Reference Point ID Tumor Bed TOTAL ARIA RADIATION ONCOLOGY Reference Point Dosage Given to Date 18.55 Gy ARIA RADIATION ONCOLOGY Reference Point Session Dosage Given 2.65 Gy ARIA RADIATION ONCOLOGY Plan ID 2_Rt Breast ARIA RADIATION ONCOLOGY Plan Name 2_Rt Breast ARIA RADIATION ONCOLOGY Plan Fractions Treated to Date 7 ARIA RADIATION ONCOLOGY Plan Total Fractions Prescribed 16 ARIA RADIATION ONCOLOGY Plan Prescribed Dose Per Fraction 2.65 Gy ARIA RADIATION ONCOLOGY Plan Total Prescribed Dose 4,240 cGy ARIA RADIATION ONCOLOGY Plan Primary Reference Point RIGHT BREAST ARIA RADIATION ONCOLOGY Plan ID 1_Rt Sclav ARIA RADIATION ONCOLOGY Plan Name 1_Rt Sclav ARIA RADIATION ONCOLOGY Plan Fractions Treated to Date 7 ARIA RADIATION ONCOLOGY Plan Total Fractions Prescribed 16 ARIA RADIATION ONCOLOGY Plan Prescribed Dose Per Fraction 2.65 Gy ARIA RADIATION ONCOLOGY Plan Total Prescribed Dose 4,240 cGy ARIA RADIATION ONCOLOGY Plan Primary Reference Point RT SCLAV AXILLA ARIA RADIATION ONCOLOGY 12/24/2022 11:2 2 EST Provider Unknown RADIATION ONCOLOGY O RDERABLES TRUMAN RADIATION ONCOLOGY documented in this encounter Visit Diagnoses Not on filedocumented in this encounter Care Teams Md Allergy Immunology Relationship Specialty Start Date End Date Sarah Quintero FNP [address] [place] [phone] PCP - General 05/03/20 documented as of this encounter
--- OUTSIDE RECORDS SUMMARY | 2024-06-30 16:31 | XMS_ITS | Encounter Summary ---
Author Organization [facility] Address [address] [place] [address] Care Team Providers Care Cobbler Mckay Name Role Phone Sarah Quintero [facility] Primary Care Provider Encounter Details Date Type Department Care Team (Late st Contact Info) Description 12/26/2022 Radiation Therapy Visit [facility] [address] [place], [place] [address] Raul Noe MD [address] [facility], [facility] [address] [place] [address] Malignant neoplasm of upper-outer quadrant [...] Progress Notes * Raul Noe MD - 12/26/2022 1124 EST Images from the original note were not included. Radiation Oncology- On Treatment Visit On Treatment Visit Assessment:12/26/22 Mireille Chatman is currently receiving radiation therapy treatment and is being seen today for her weekly on treatment visit. Encounter Diagnosis: ICD-10-CM ICD-9-CM 1. Malignant neoplasm of upper-outer quadrant of right breast in female, estrogen receptor positive(HCC-CMS) (HCC) C50.411 174.4 Z17.0 V86.0 Radiation Therapy Dose: Radiation Treatments Active Plans 1_Rt Sclav Most recent treatment: Dose planned: 265 cGy (fraction 9 on 12/26/2022) Total: Dose planned: 4,240 cGy (16 fractions) Elapsed Days: 14 2_Rt Breast Most recent treatment: Dose planned: 265 cGy (fraction 9 on 12/26/2022) Total: Dose planned: 4,240 cGy (16 fractions) Elapsed Days: 14 Reference Points RIGHT BREAST Most recent treatment: Dose given: 265 cGy (on 12/26/2022) Total: Dose given: 2,385 cGy Elapsed Days: 14 RT SCLAV AXILLA Most recent treatment: Dose given: 265 cGy (on 12/26/2022) Total: Dose given: 2,385 cGy Elapsed Days: 14 Tumor Bed TOTAL Most recent treatment: Dose given: 265 cGy (on 12/26/2022) Total: Dose given: 2,385 cGy Elapsed Days: 14 No flowsheet data found. Subjective Note: Reports some stable discomfort in right breast. Physical Exam: LMP 03/29/2009 (Within Months) There were no vitals filed for this visit. Wt Readings from Last 3 Encounters: 12/17/22 89.9 kg (198 lb 4.8 oz) 11/28/22 87.7 kg (193 lb 6.4 oz) 09/19/22 88 kg (194 lb) (0) Fully active, able to carry on all predisease performance without restriction No skin changes R breast Treatment Related Toxicity: Radiation Dermatitis: (0) No reaction. Radiation Fatigue: (0) No fatigue Current Labs: [...] Core needle biopsy: High-grade invasive ductal carcinoma, ER/[place] negative (less than 1%), HER2 2+; FLACO [...] Stage Recommended (ypT1c, pN1a(sn), cM0, G3, ER-, [place]-, HER2+) 08/31/2022 - Surgery Dr. Case at [facility] performed lumpectomy and sentinel node biopsy. Pathology: ypT1c(15 mm), ypN1a(sn, 2/3 macro and micro) poorly differentiated, indeterminate LVI, closest margin 5 mm. Raul Noe MD Radiation On[facility] (p) [phone] / (f) [phone] documented in this encounter Plan of Treatment Upcoming Encounters Date Type Department Care Team (Late st Contact Info) Description 05/25/2025 14:00 EDT Office Visit [facility] Adult Hematology & Oncology [address] [place] [id number] Abdiel Salas MD [address] [place] [address] [address] [place] [address] documented as of this encounter Visit Diagnoses Diagnosis Malignant neoplasm of upper-outer quadrant of right breast in female, estrogen receptor positive (HCC-CMS)- Primary documented in this encounter Care Teams Cobbler Mckay Relationship Specialty Start Date End Date Sarah Quintero FNP [address] [place] [phone] PCP - General 05/03/20 documented as of this encounter
--- OUTSIDE RECORDS SUMMARY | 2024-06-30 16:31 | XMS_ITS | Encounter Summary ---
Author Organization [facility] Address [address] [place] [address] Care Team Providers Care Turning Sander Operator Name Role Phone Sarah Quintero [facility] Primary Care Provider Encounter Details Date Type Department Care Team (Late st Contact Info) Description 12/19/2022 Radiation Therapy Visit [facility] [address] [place], [place] [id number] Raul Noe MD [address] [facility], [facility] 2 [place] [address] Malignant neoplasm of upper-outer quadrant [...] Progress Notes * Raul Noe MD - 12/19/2022 1125 EST Images from the original note were not included. Radiation Oncology- On Treatment Visit On Treatment Visit Assessment:12/19/22 Mireille Chatman is currently receiving radiation therapy treatment and is being seen today for her weekly on treatment visit. Encounter Diagnosis: ICD-10-CM ICD-9-CM 1. Malignant neoplasm of upper-outer quadrant of right breast in female, estrogen receptor positive([facility]) (HCC) C50.411 174.4 Z17.0 V86.0 Radiation Therapy Dose: Radiation Treatments Active Plans 1_Rt Sclav Most recent treatment: Dose planned: 265 cGy (fraction 5 on 12/19/2022) Total: Dose planned: 4,240 cGy (16 fractions) Elapsed Days: 7 2_Rt Breast Most recent treatment: Dose planned: 265 cGy (fraction 5 on 12/19/2022) Total: Dose planned: 4,240 cGy (16 fractions) Elapsed Days: 7 Reference Points RIGHT BREAST Most recent treatment: Dose given: 265 cGy (on 12/19/2022) Total: Dose given: 1,325 cGy Elapsed Days: 7 RT SCLAV AXILLA Most recent treatment: Dose given: 265 cGy (on 12/19/2022) Total: Dose given: 1,325 cGy Elapsed Days: 7 Tumor Bed TOTAL Most recent treatment: Dose given: 265 cGy (on 12/19/2022) Total: Dose given: 1,325 cGy Elapsed Days: 7 No flowsheet data found. Subjective Note: Some fatigue and noted Hbg 11.2 in Nov. Physical Exam: LMP 03/29/2009 (Within Months) There were no vitals filed for this visit. Wt Readings from Last 3 Encounters: 12/17/22 89.9 kg (198 lb 4.8 oz) 11/28/22 87.7 kg (193 lb 6.4 oz) 09/19/22 88 kg (194 lb) (0) Fully active, able to carry on all predisease performance without restriction No skin changes. Treatment Related Toxicity: 0 Radiation Dermatitis: (0) No reaction. Radiation Fatigue: [...] Core needle biopsy: High-grade invasive ductal carcinoma, ER/KS negative (less than 1%), HER2 2+; FLACO [...] Stage Recommended (ypT1c, pN1a(sn), cM0, G3, ER-, KS-, HER2+) 08/31/2022 - Surgery Dr. Case at [facility] performed lumpectomy and sentinel node biopsy. Pathology: ypT1c(15 mm), ypN1a(sn, 2/3 macro and micro) poorly differentiated, indeterminate LVI, closest margin 5 mm. Raul Noe MD Radiation Oncology-[facility] (p) [phone] / (f) [phone] documented in this encounter Plan of Treatment Upcoming Encounters Date Type Department Care Team (Late st Contact Info) Description 05/25/2025 14:00 EDT Office Visit [facility] Adult Hematology & Oncology [address] [place] [address] Abdiel Salas MD [address] [place] [address] [address] [place] [address] documented as of this encounter Visit Diagnoses Diagnosis Malignant neoplasm of upper-outer quadrant of right breast in female, estrogen receptor positive (HCC-CMS)- Primary documented in this encounter Care Teams Turning Sander Operator Relationship Specialty Start Date End Date Sarah Quintero FNP [address] [place] [address] PCP - General 05/03/20 documented as of this encounter
--- OUTSIDE RECORDS SUMMARY | 2024-06-30 16:31 | XMS_ITS | Encounter Summary ---
Author Organization [facility] Address [address] [place] [address] Care Team Providers Care Wood Type Finisher Name Role Phone Sarah Quintero BATTERY LOADER Primary Care Provider [phone] Encounter Details Date Type Department Care Team (Latest Contact Info) Description 12/20/2022 11:15 EST - 12/20/2022 23:59 EST Hospital Encounter [facility] [place] [address] [place] [address] Discharge Disposition: Home or Self Care Social [...] (NAUSEA). 30 Tablet 2 06/28/2022 01/09/2023 rizatriptan (MAXALT-WHEELABRATOR OPERATOR) 10 mg disintegrating tablet Take 1 [...] [facility] Adult [facility]ology [facility] Oncology [facility] [place] [address] Abdiel Salas MD [address] [place] [address] [address] [place] [phone] documented as of this encounter Visit Diagnoses Not on filedocumented in this encounter Care Teams Wood Type Finisher Relationship Specialty Start Date End Date Sarah Quintero FNP [address] [place] [phone] PCP - General 05/03/20 documented as of this encounter
--- OUTSIDE RECORDS SUMMARY | 2024-06-30 16:31 | XMS_ITS | Encounter Summary ---
Author Organization [facility] Address [address] [place] [address] Care Team Providers Care Hot Worker Name Role Phone Sarah Quintero TOWN MANAGER Primary Care Provider [phone] Encounter Details Date Type Department Care Team (Latest Contact Info) Description 01/01/2023 11:25 EST - 01/01/2023 23:59 EST Hospital Encounter [facility] [place] [address] [place] [address] Discharge Disposition: Home or Self Care Social [...] (NAUSEA). 30 Tablet 2 06/28/2022 01/09/2023 rizatriptan (MAXALT-VACUUM PAN OPERATOR) 10 mg disintegrating tablet Take 1 [...] [facility] Adult Hematology & Oncology [address] [place] [id number] Abdiel Salas MD [address] [place] [address] [address] [place] [address] documented as of this encounter Visit Diagnoses Not on filedocumented in this encounter Care Teams Hot Worker Relationship Specialty Start Date End Date Sarah Quintero FNP [address] [place] [phone] PCP - General 05/03/20 documented as of this encounter
--- OUTSIDE RECORDS SUMMARY | 2024-06-30 16:31 | XMS_ITS | Encounter Summary ---
Author Organization [facility] Address [address] [place] [address] Care Team Providers Care Automobile Parker Name Role Phone Sarah Quintero [facility] Primary Care Provider [phone] Encounter Details Date Type Department Care Team (Late Contact Info) Description 12/18/2022 Results Only [facility] Radiation Oncology - Main [place] [address] [place] [address] Unknown, Provider, Social History Tobacco Use Types [...] Info) Description 05/25/2025 14:00 EDT Office Visit [facility] Adult Hematology & Oncology [facility] [place] [address] Abdiel Salas MD [address] [place] [address] [address] [place] [address] documented as of this encounter Procedures Procedure Name Priority Date/Time Associated Diagnosis Comments RAD ONC ARIA SESSION SUMMARY Routine 12/18/2022 11:27 EST documented in this encounter Results * RAD ONC ARIA SESSION SUMMARY (12/18/2022 11:27 EST) Course ID C1 ARIA RADIATION ONCOLOGY Course Intent Curative ARIA RADIATION ONCOLOGY Course First Treatment Date 12/12/2022 11:31 ARIA RADIATION ONCOLOGY Course Last Treatment Date 12/18/2022 11:28 ARIA RADIATION ONCOLOGY Course Elapsed Days 6 ARIA RADIATION ONCOLOGY Reference Point ID RIGHT BREAST ARIA RADIATION ONCOLOGY Reference Point Dosage Given to Date 10.6 Gy ARIA RADIATION ONCOLOGY Reference Point Session Dosage Given 2.65 Gy ARIA RADIATION ONCOLOGY Reference Point ID RT SCLAV AXILLA ARIA RADIATION ONCOLOGY Reference Point Dosage Given to Date 10.6 Gy ARIA RADIATION ONCOLOGY Reference Point Session Dosage Given 2.65 Gy ARIA RADIATION ONCOLOGY Reference Point ID Tumor Bed TOTAL ARIA RADIATION ONCOLOGY Reference Point Dosage Given to Date 10.6 Gy ARIA RADIATION ONCOLOGY Reference Point Session [...] Point RT SCLAV AXILLA ARIA RADIATION ONCOLOGY 12/18/2022 11:2 7 EST Provider Unknown RADIATION ONCOLOGY O RDERABLES TRUMAN RADIATION ONCOLOGY documented in this encounter Visit Diagnoses Not on filedocumented in this encounter Care Teams Automobile Parker Relationship Specialty Start Date End Date Sarah Quintero FNP [address] [place] [address] PCP - General 05/03/20 documented as of this encounter
--- OUTSIDE RECORDS SUMMARY | 2024-06-30 16:31 | XMS_ITS | Encounter Summary ---
Author Organization [facility] Address [address] [place] [address] Care Team Providers Care Mill Roll Rewinder Name Role Phone Sarah Quintero [facility] Primary Care Provider [phone] Encounter Details Date Type Department Care Team (Late st Contact Info) Description 12/26/2022 Documentation Visit [facility] [place] [address] [place] [address] Zulma Mazariegos, RN Social History Tobacco Use [...] Progress Notes * Zulma Mazariegos, MEKA - 12/26/2022 1125 EST Mrs Chatman seen today for a weekly visit during her right breast radiation therapy. She is noticing a mild increase in fatigue, able to rest more. Discussion about daily physical activity adapted toincreased fatigue. Grade one faint erythema of right breast. Reports some discomfort to right breast, alleviated when she wears a supportive bra. documented in this encounter Plan of Treatment Upcoming Encounters Date Type Department Care Team (Late st Contact Info) Description 05/25/2025 14:[address] [facility] Adult Hematology & Oncology [facility] [place], [place] [address] Abdiel Salas MD [address] [facility] [address] [place] [address] documented as of this encounter Visit Diagnoses Not on filedocumented in this encounter Care Teams Mill Roll Rewinder Relationship Specialty Start Date End Date Sarah Quintero FNP [address] [place] [phone] PCP - General 05/03/20 documented as of this encounter
--- OUTSIDE RECORDS SUMMARY | 2024-06-30 16:31 | XMS_ITS | Encounter Summary ---
Author Organization [facility] Address [address] [place] [address] Care Team Providers Care Hydraulic Oil Tool Operator Name Role Phone Sarah Quintero [facility] Primary Care Provider Encounter Details Date Type Department Care Team (Late st Contact Info) Description 12/20/2022 Results Only [facility] Radiation Oncology - Main [place] [address] [place] [address] Unknown, Provider, Social History Tobacco Use Types [...] Description 05/25/2025 14:00 EDT Office Visit [facility] Adult Hematology & Oncology [address] [place] [address] Abdiel Salas MD [address] [place] [address] [address] [place] [phone] documented as of this encounter Procedures Procedure Name Priority Date/Time Associated Diagnosis Comments RAD ONC ARIA SESSION SUMMARY Routine 12/20/2022 11:34 EST documented in this encounter Results * RAD ONC ARIA SESSION SUMMARY (12/20/2022 11:34 EST) Course ID C1 ARIA RADIATION ONCOLOGY Course Intent Curative ARIA RADIATION ONCOLOGY Course First Treatment Date 12/12/2022 11:31 ARIA RADIATION ONCOLOGY Course Last Treatment Date 12/20/2022 11:34 ARIA RADIATION ONCOLOGY Course Elapsed Days 8 ARIA RADIATION ONCOLOGY Reference Point ID RIGHT BREAST ARIA RADIATION ONCOLOGY Reference Point Dosage Given to Date 15.9 Gy ARIA RADIATION ONCOLOGY Reference Point Session Dosage Given 2.65 Gy ARIA RADIATION ONCOLOGY Reference Point ID RT SCLAV AXILLA ARIA RADIATION ONCOLOGY Reference Point Dosage Given to Date 15.9 Gy ARIA RADIATION ONCOLOGY Reference Point Session Dosage Given 2.65 Gy ARIA RADIATION ONCOLOGY Reference Point ID Tumor Bed TOTAL ARIA RADIATION ONCOLOGY Reference Point Dosage Given to Date 15.9 Gy ARIA RADIATION ONCOLOGY Reference Point Session Dosage Given 2.65 Gy ARIA RADIATION ONCOLOGY Plan ID 2_Rt Breast ARIA RADIATION ONCOLOGY Plan Name 2_Rt Breast ARIA RADIATION ONCOLOGY Plan Fractions Treated to Date 6 ARIA RADIATION ONCOLOGY Plan Total Fractions Prescribed 16 ARIA RADIATION ONCOLOGY Plan Prescribed Dose Per Fraction 2.65 Gy ARIA RADIATION ONCOLOGY Plan Total Prescribed Dose 4,240 cGy ARIA RADIATION ONCOLOGY Plan Primary Reference Point RIGHT BREAST ARIA RADIATION ONCOLOGY Plan ID 1_Rt Sclav ARIA RADIATION ONCOLOGY Plan Name 1_Rt Sclav ARIA RADIATION ONCOLOGY Plan Fractions Treated to Date 6 ARIA RADIATION ONCOLOGY Plan Total Fractions Prescribed 16 ARIA RADIATION ONCOLOGY Plan Prescribed Dose Per Fraction 2.65 Gy ARIA RADIATION ONCOLOGY Plan Total Prescribed Dose 4,240 cGy ARIA RADIATION ONCOLOGY Plan Primary Reference Point RT SCLAV AXILLA ARIA RADIATION ONCOLOGY 12/20/2022 11:3 4 EST Provider Unknown RADIATION ONCOLOGY O RDERABLES TRUMAN RADIATION ONCOLOGY documented in this encounter Visit Diagnoses Not on filedocumented in this encounter Care Teams Hydraulic Oil Tool Operator Relationship Specialty Start Date End Date Sarah Quintero FNP [address] [place] [phone] PCP - General 05/03/20 documented as of this encounter
--- OUTSIDE RECORDS SUMMARY | 2024-06-30 16:31 | XMS_ITS | Encounter Summary ---
Author Organization [facility] Address [address] [place] [address] Care Team Providers Care Associate Property Manager Name Role Phone Sarah Quintero [facility] Primary Care Provider Reason for Visit * Reason Comments Breast Cancer Encounter Details Date Type Department Care Team (Latest Contact Info) Description 12/31/2022 11:15 EST - 12/31/2022 23:59 EST Hospital Encounter [facility] [address] [place] [address] Discharge Disposition: Home or Self Care Social [...] Sign Reading Time Taken Comments Blood Pressure 132/83 12/31/2022 1128 EST Pulse 78 12/31/2022 1128 EST Temperature - - Respiratory Rate - - Oxygen Saturation - - Inhaled Oxygen Concentration - - Weight 89.4 kg (197 lb 3.2 oz) 12/31/[address] Height - - Body Mass Index 30.89 09/19/2022 1012 EST documented in this encounter [...] (NAUSEA). 30 Tablet 2 06/28/2022 01/09/2023 rizatriptan (MAXALT-GANG SAW OPERATOR) 10 mg disintegrating tablet Take 1 [...] [facility] Adult Hematology & Oncology [address] [place] [address] Abdiel Salas MD [address] [place] [address], [facility] [address] [place] [phone] documented as of this encounter Visit Diagnoses Not on filedocumented in this encounter Care Teams Associate Property Manager Relationship Specialty Start Date End Date Sarah Quintero FNP [address] [place] [phone] PCP - General 05/03/20 documented as of this encounter
--- OUTSIDE RECORDS SUMMARY | 2024-06-30 16:31 | XMS_ITS | Encounter Summary ---
Author Organization [facility] Address [address] [place] [address] Care Team Providers Care Room Cooler Installer Name Role Phone Sarah Quintero [facility] Primary Care Provider Encounter Details Date Type Department Care Team (Late st Contact Info) Description 01/01/2023 Results Only [facility] Radiation Oncology - Main [place] [address] [place] [address] Unknown, Provider, Social History Tobacco Use Types [...] Info) Description 05/25/2025 14:00 EDT Office Visit [facility] Adult Hematology & Oncology [address] [place] [address] Abdiel Salas MD [address] [place] [address] [address] [place] [phone] documented as of this encounter Procedures Procedure Name Priority Date/Time Associated Diagnosis Comments RAD ONC ARIA SESSION SUMMARY Routine 01/01/2023 11:20 EST documented in this encounter Results * RAD ONC ARIA SESSION SUMMARY (01/01/2023 11:20 EST) Course ID C1 ARIA RADIATION ONCOLOGY Course Intent Curative ARIA RADIATION ONCOLOGY Course First Treatment Date 12/12/2022 11:31 ARIA RADIATION ONCOLOGY Course Last Treatment Date 01/01/2023 11:21 ARIA RADIATION ONCOLOGY Course Elapsed Days 20 ARIA RADIATION ONCOLOGY Reference Point ID RIGHT BREAST ARIA RADIATION ONCOLOGY Reference Point Dosage Given to Date 34.45 Gy ARIA RADIATION ONCOLOGY Reference Point Session Dosage Given 2.65 Gy ARIA RADIATION ONCOLOGY Reference Point ID RT SCLAV AXILLA ARIA RADIATION ONCOLOGY Reference Point Dosage Given to Date 34.45 Gy ARIA RADIATION ONCOLOGY Reference Point Session Dosage Given 2.65 Gy ARIA RADIATION ONCOLOGY Reference Point ID Tumor Bed TOTAL ARIA RADIATION ONCOLOGY Reference Point Dosage Given to Date 34.45 Gy ARIA RADIATION ONCOLOGY Reference Point Session Dosage Given 2.65 Gy ARIA RADIATION ONCOLOGY Plan ID 2_Rt Breast ARIA RADIATION ONCOLOGY Plan Name 2_Rt Breast ARIA RADIATION ONCOLOGY Plan Fractions Treated to Date 13 ARIA RADIATION ONCOLOGY Plan Total Fractions Prescribed 16 ARIA RADIATION ONCOLOGY Plan Prescribed Dose Per Fraction 2.65 Gy ARIA RADIATION ONCOLOGY Plan Total Prescribed Dose 4,240 cGy ARIA RADIATION ONCOLOGY Plan Primary Reference Point RIGHT BREAST ARIA RADIATION ONCOLOGY Plan ID 1_Rt Sclav ARIA RADIATION ONCOLOGY Plan Name 1_Rt Sclav ARIA RADIATION ONCOLOGY Plan Fractions Treated to Date 13 ARIA RADIATION ONCOLOGY Plan Total Fractions Prescribed 16 ARIA RADIATION ONCOLOGY Plan Prescribed Dose Per Fraction 2.65 Gy ARIA RADIATION ONCOLOGY Plan Total Prescribed Dose 4,240 cGy ARIA RADIATION ONCOLOGY Plan Primary Reference Point RT SCLAV AXILLA ARIA RADIATION ONCOLOGY 01/01/2023 11:2 0 EST Provider Unknown RADIATION ONCOLOGY O RDERABLES TRUMAN RADIATION ONCOLOGY documented in this encounter Visit Diagnoses Not on filedocumented in this encounter Care Teams Room Cooler Installer Relationship Specialty Start Date End Date Sarah Quintero FNP [address] [place] [phone] PCP - General 05/03/20 documented as of this encounter
--- OUTSIDE RECORDS SUMMARY | 2024-06-30 16:31 | XMS_ITS | Encounter Summary ---
Author Organization [facility] Address [address] [place] [address] Care Team Providers Care Mechanical Energy Engineer Name Role Phone Sarah Quintero PRECISION MACHINING INSTRUCTOR Primary Care Provider [phone] Encounter Details Date Type Department Care Team (Latest Contact Info) Description 01/02/2023 11:15 EST - 01/02/2023 23:59 EST Hospital Encounter [facility] Cancer Treatment [place] [address] [place] [address] Discharge Disposition: Home or Self Care Social [...] (NAUSEA). 30 Tablet 2 06/28/2022 01/09/2023 rizatriptan (MAXALT-UNDER CUTTER) 10 mg disintegrating tablet Take 1 [...] Description 05/25/2025 14:00 EDT Office Visit [facility] Adult Hematology & Oncology [address] [place] [phone] Abdiel Salas MD [address] [place] [address] [address] [place] [address] documented as of this encounter Visit Diagnoses Not on filedocumented in this encounter Care Teams Mechanical Energy Engineer Relationship Specialty Start Date End Date Sarah Quintero FNP [address] [place] [phone] PCP - General 05/03/20 documented as of this encounter
--- OUTSIDE RECORDS SUMMARY | 2024-06-30 16:31 | XMS_ITS | Encounter Summary ---
Author Organization [facility] Address [address] [place] [address] Care Team Providers Care Fiber Product Cutting Machine Operator Name Role Phone Sarah Qiuntero LION TRAINER Primary Care Provider [phone] Reason for Visit * Reason Onset Date Comments Other 12/24/2022 Navigation Encounter Details Date Type Department Care Team (Late st Contact Info) Description 12/24/2022 Telephone [facility] Adult Hematology & Oncology [address] [place] [phone] Izabella Dennis [address] [place] [phone] Other (Navigation) Social History Tobacco Use Types Packs/Day Years [...] encounter Miscellaneous Notes * Telephone Encounter - Izabella Dennis - 12/24/2022 8560 EST Mireille who scored 1 on her 0-10 distress screen reports feelings of wellbeing as it relates to hercare. At this time, she does not have any need however this navigator is available to assist as needed. documented in this encounter Plan of Treatment Upcoming Encounters Date Type Department Care Team (Late st Contact Info) Description 05/25/2025 14:00 EDT Office Visit [facility] Adult Hematology & Oncology [address] [place] [address] Abdiel Salas MD [address] [place] [address] [address] [place] [address] documented as of this encounter Visit Diagnoses Not on filedocumented in this encounter Care Teams Fiber Product Cutting Machine Operator Relationship Specialty Start Date End Date Sarah Quintero FNP [address] [place] [phone] PCP - General 05/03/20 documented as of this encounter
--- OUTSIDE RECORDS SUMMARY | 2024-06-30 16:31 | XMS_ITS | Encounter Summary ---
Author Organization [facility] Address [address] [place] [address] Care Team Providers Care Shaper Operator Name Role Phone Sarah Quintero [facility] Primary Care Provider Encounter Details Date Type Department Care Team (Late Contact Info) Description 12/17/2022 Results Only [facility] Radiation Oncology - Main [place] [address] [place] [address] Unknown, Provider, Social History Tobacco Use Types [...] Info) Description 05/25/2025 14:00 EDT Office Visit [facility] Adult Hematology & Oncology [facility] [place] [address] Abdiel Salas MD [address] [place] [address] [address] [place] [phone] documented as of this encounter Procedures Procedure Name Priority Date/Time Associated Diagnosis Comments RAD ONC ARIA SESSION SUMMARY Routine 12/17/2022 11:25 EST documented in this encounter Results * RAD ONC ARIA SESSION SUMMARY (12/17/2022 11:25 EST) Course ID C1 ARIA RADIATION ONCOLOGY Course Intent Curative ARIA RADIATION ONCOLOGY Course First Treatment Date 12/12/2022 11:31 ARIA RADIATION ONCOLOGY Course Last Treatment Date 12/17/2022 11:26 ARIA RADIATION ONCOLOGY Course Elapsed Days 5 ARIA RADIATION ONCOLOGY Reference Point ID RIGHT BREAST ARIA RADIATION ONCOLOGY Reference Point Dosage Given to Date 7.95 Gy ARIA RADIATION ONCOLOGY Reference Point Session Dosage Given 2.65 Gy ARIA RADIATION ONCOLOGY Reference Point ID RT SCLAV AXILLA ARIA RADIATION ONCOLOGY Reference Point Dosage Given to Date 7.95 Gy ARIA RADIATION ONCOLOGY Reference Point Session Dosage Given 2.65 Gy ARIA RADIATION ONCOLOGY Reference Point ID Tumor Bed TOTAL ARIA RADIATION ONCOLOGY Reference Point Dosage Given to Date 7.95 Gy ARIA RADIATION ONCOLOGY Reference Point Session [...] Point RT SCLAV AXILLA ARIA RADIATION ONCOLOGY 12/17/2022 11:2 5 EST Provider Unknown RADIATION ONCOLOGY O RDERABLES TRUMAN RADIATION ONCOLOGY documented in this encounter Visit Diagnoses Not on filedocumented in this encounter Care Teams Shaper Operator Relationship Specialty Start Date End Date Sarah Quintero FNP [address] [place] [phone] PCP - General 05/03/20 documented as of this encounter
--- OUTSIDE RECORDS SUMMARY | 2024-06-30 16:31 | XMS_ITS | Encounter Summary ---
Author Organization [facility] Address [address] [place] [address] Care Team Providers Care Sandwich Peddler Name Role Phone Sarah Quintero NEEDLE VALVE OPERATOR Primary Care Provider [phone] Encounter Details Date Type Department Care Team (Latest Contact Info) Description 12/18/2022 11:15 EST - 12/18/2022 23:59 EST Hospital Encounter [facility] Cancer Treatment [place] [address] [place] [address] Discharge Disposition: Home or Self Care Social [...] (NAUSEA). 30 Tablet 2 06/28/2022 01/09/2023 rizatriptan (MAXALT-NUMERICAL CONTROL LATHE OPERATOR) 10 mg disintegrating tablet Take 1 [...] [facility] [address] [place] [address] Abdiel Salas MD [address] [place] [address] [address] [place] [phone] documented as of this encounter Visit Diagnoses Not on filedocumented in this encounter Care Teams Sandwich Peddler Relationship Specialty Start Date End Date Sarah Quintero FNP [address] [place] [phone] PCP - General 05/03/20 documented as of this encounter
--- OUTSIDE RECORDS SUMMARY | 2024-06-30 16:31 | XMS_ITS | Encounter Summary ---
Author Organization [facility] Address [address] [place] [address] Care Team Providers Care Distributor Sales Consultant Name Role Phone Sarah Quintero [facility] Primary Care Provider Encounter Details Date Type Department Care Team (Late st Contact Info) Description 12/31/2022 Results Only [facility] Radiation Oncology - Main [place] [address] [place] [address] Unknown, Provider, Social History Tobacco Use Types [...] [facility] Adult Hematology & Oncology [address] [place] [phone] Abdiel Salas MD [address] [place] [address] [address] [place] [phone] documented as of this encounter Procedures Procedure Name Priority Date/Time Associated Diagnosis Comments RAD ONC ARIA SESSION SUMMARY Routine 12/31/2022 11:22 EST documented in this encounter Results * RAD ONC ARIA SESSION SUMMARY (12/31/2022 11:22 EST) Course ID C1 ARIA RADIATION ONCOLOGY Course Intent Curative ARIA RADIATION ONCOLOGY Course First Treatment Date 12/12/2022 11:31 ARIA RADIATION ONCOLOGY Course Last Treatment Date 12/31/2022 11:22 ARIA RADIATION ONCOLOGY Course Elapsed Days 19 ARIA RADIATION ONCOLOGY Reference Point ID RIGHT BREAST ARIA RADIATION ONCOLOGY Reference Point Dosage Given to Date 31.8 Gy [facility] RADIATION ONCOLOGY Reference Point Session Dosage Given 2.65 Gy [facility] RADIATION ONCOLOGY Reference Point ID RT SCLAV AXILLA [facility] RADIATION ONCOLOGY Reference Point Dosage Given to Date 31.8 Gy ARIA RADIATION ONCOLOGY Reference Point Session Dosage Given 2.65 Gy [facility]A RADIATION ONCOLOGY Reference Point ID Tumor Bed TOTAL ARIA RADIATION ONCOLOGY Reference Point Dosage Given to Date 31.8 Gy ARIA RADIATION ONCOLOGY Reference Point Session Dosage Given 2.65 Gy ARIA RADIATION ONCOLOGY Plan ID 2_Rt Breast ARIA RADIATION ONCOLOGY Plan Name 2_Rt Breast ARIA RADIATION ONCOLOGY Plan Fractions Treated to Date 12 ARIA RADIATION ONCOLOGY Plan Total Fractions Prescribed 16 ARIA RADIATION ONCOLOGY Plan Prescribed Dose Per Fraction 2.65 Gy ARIA RADIATION ONCOLOGY Plan Total Prescribed Dose 4,240 cGy ARIA RADIATION ONCOLOGY Plan Primary Reference Point RIGHT BREAST ARIA RADIATION ONCOLOGY Plan ID 1_Rt Sclav ARIA RADIATION ONCOLOGY Plan Name 1_Rt Sclav ARIA RADIATION ONCOLOGY Plan Fractions Treated to Date 12 ARIA RADIATION ONCOLOGY Plan Total Fractions Prescribed 16 ARIA RADIATION ONCOLOGY Plan Prescribed Dose Per Fraction 2.65 Gy ARIA RADIATION ONCOLOGY Plan Total Prescribed Dose 4,240 cGy ARIA RADIATION ONCOLOGY Plan Primary Reference Point RT SCLAV AXILLA ARIA RADIATION ONCOLOGY 12/31/2022 11:2 2 EST Provider Unknown RADIATION ONCOLOGY O RDERABLES TRUMAN RADIATION ONCOLOGY documented in this encounter Visit Diagnoses Not on filedocumented in this encounter Care Teams Distributor Sales Consultant Relationship Specialty Start Date End Date Sarah Quintero FNP [address] [place] [address] PCP - General 05/03/20 documented as of this encounter
--- OUTSIDE RECORDS SUMMARY | 2024-06-30 16:31 | XMS_ITS | Encounter Summary ---
Author Organization [facility] Address [address] [place] [address] Care Team Providers Care Bicycle Repairer Name Role Phone Sarah Quintero TENTER FRAME BACK TENDER Primary Care Provider Encounter Details Date Type Department Care Team (Latest Contact Info) Description 12/28/2022 11:15 EST - 12/28/2022 23:59 EST Hospital Encounter [facility] Cancer Treatment [place] [address] [place] [address] Discharge Disposition: Home or Self Care Social [...] (NAUSEA). 30 Tablet 2 06/28/2022 01/09/2023 rizatriptan (MAXALT-UNIX ARCHITECT) 10 mg disintegrating tablet Take 1 Tablet [...] Info) Description 05/25/2025 14:00 EDT Office Visit [facility] Adult Hematology & Oncology [address] [place] [address] [phone] Abdiel Salas MD [address] [place] [address] [address] [place] [address] documented as of this encounter Visit Diagnoses Not on filedocumented in this encounter Care Teams Bicycle Repairer Relationship Specialty Start Date End Date Sarah Quintero FNP [address] [place] [phone] PCP - General 05/03/20 documented as of this encounter
--- OUTSIDE RECORDS SUMMARY | 2024-06-30 16:32 | XMS_ITS | Encounter Summary ---
Author Organization [facility] Address [address] [place] [address] Care Team Providers Care Thickener Operator Name Role Phone Sarah Quintero WAXING MACHINE OPERATOR Primary Care Provider [phone] Reason for Visit * Reason Comments Chemotherapy Education Encounter Details Date Type Department Care Team (Late st Contact Info) Description 04/06/2022 9:30 EDT Office Visit [facility] Adult Hematology & Oncology [address] [place] [phone] Katt Brewster, AMAURI [address] [facility] [address] [place] [address] Malignant neoplasm of upper-outer quadrant of right breast in female, estrogen receptor negative (HCC-CMS) (HCC) (HCC-CMS) (Primary Dx); Bone lesion Social History Tobacco Use Types Packs/Day Years [...] Sign Reading Time Taken Comments Blood Pressure 120/80 04/06/2022 0919 EDT Pulse 80 04/06/2022 0919 EDT Temperature - - Respiratory Rate - - Oxygen Saturation 98% 04/06/2022 0919 EDT Inhaled Oxygen Concentration - - Weight 91.5 kg (201 lb 11.2 oz) 04/06/2022 0919 EDT Height - - Body Mass Index 31.29 03/29/2022 1532 EDT documented in this encounter Functional Status [...] No 06/21/2020 documented as of this encounter Ordered Prescriptions Prescription Sig Dispensed Refills Start Date End Da te ondansetron (ZOFRAN) 8 mg tablet Take 1 Tablet by mouth 2 times daily as needed for Nausea (for 3 days after chemo). 12 Tablet 2 04/06/2022 prochlorperazine (COMPAZINE) 10 mg tablet Take 1 Tablet by mouth 3 times daily as needed (nausea). 30 Tablet 2 04/06/2022 06/28/2022 dexAMETHasone (DECADRON) 4 mg tablet 2 tablets in the morning with breakfast; 2 tablets in the evening with supper; start the day before chemo take for 3 days; then 2 tablets with breakfast x 2 days stop; repeat with next chemo 32 Tablet 2 04/06/2022 11/28/2022 documented in this encounter Progress Notes * Tena Marroquin RN - 04/06/2022 0930 EDT Would like to go over the Bone scan and CT Scan today If possible. * Ktat Brewster NP - 04/06/2022 0930 EDT Oncology/Hematology Follow Up Mireille Bhagat Lurdes 1965 Date of service: 04/06/2022 REASON FOR OFFICE VISIT: Breast cancer ER/CA negative HER2 positive Interim History: Mireille is here today to discuss the details of chemotherapy for her recently diagnosed breast cancer. She had a axillary node biopsy last week along with her port placement to be usedfor IV access. She understands the intent of therapy is curative. She understands there will be treatment related side effects. She would like to work when possible during therapy. 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 She is accompanied today by her very supportive El Performance Status: (0) Fully active, able to carry on all predisease performance without restriction Imagin04/05/22 TBBS: IMPRESSION ?? 1. Indeterminate mild focal uptake in the posterolateral right 6th rib, which appears to correspondto a small sclerotic intramedullary lesion on today's separately dictated CT. Metastatic disease cannot be excluded. Consider biopsy or short-term follow-up. 2. Indeterminate small focus of uptake projecting over the proximal left tibia. Left knee radiographs recommended for further assessment. 04/05/[address] C/A/P ?? IMPRESSION 1. Right lateral breast 2.0 x 1.3 cm masslike nodule, with right axillary adenopathy 2. Solitary borderline-enlarged AP window lymph node. The remaining mediastinal and hilar nodes appear unremarkable. No subdiaphragmatic adenopathy is seen. 3. Right upper lung 6 mm groundglass nodular opacity. This could reflect minimal airspace disease. This should be reassessed with follow-up imaging within 6 months to ensure resolution. Assessment: Reviewed with Mireille and El her planned chemotherapy regimen. She will start combination chemotherapy for breast cancer once her staging studies have been completed. Her treatment will include trastuzumab, pertuzumab, carboplatin and docetaxel IV on day 1 of a 21 day cycle with growth factor prophylaxis. We reviewed the side effects of chemotherapy covering BMD specifically leukopenia, anemiaand thrombocytopenia, N/V and prophylaxis, oropharyngeal infections, bowel problems including constipation or diarrhea, hair loss and neuropathy both small fiber and large fiber impairment. She was instructed in proper handwashing technique and the importance of adequate hydration for kidney healthand mucous membrane integrity. She was given the [facility] Drug info sheets and the [facility] Chemotherapy and You and Taking Time Booklets. She was instructed to call for any concerns, gi/bowel problems or temp > 100.5. The procedure for after hour care was reviewed. Her questions were answered and written consent was obtained. Premeds/Antiemetics were reviewed and prescriptions were sent to the pharmacy. They were shown the infusion room. Reviewed the results of her 04/05 staging studies as noted above. Referral has been made to interventional radiology for a biopsy of the right rib lesion. Plan: Diagnoses and all orders for this visit: Malignant neoplasm of upper-outer quadrant of right breast in female, estrogen receptor negative (HCC-CMS) ([facility]) 1. Referral to interventional radiology placed for right with biopsy 2. Prescription for premed Dex and antiemetics sent to pharmacy 3. She was instructed to call for any concerns 4. She will return to review biopsy results and start chemotherapy at a later date Oncology Follow Up After interventional radiology biopsy to review results and likely start chemotherapy Oncology History Malignant neoplasm of upper-outer quadrant of right breast in female, estrogen receptor negative (HCC-CMS) ([facility]) 03/30/2022 Initial Diagnosis Malignant neoplasm of upper-outer [...] Core needle biopsy: High-grade invasive ductal carcinoma, ER/CA negative (less than 1%), HER2 2+; FLACO [...] left breast: Normal, no axillary adenopathy noted. Review of Systems Constitutional: Negative. HENT: Negative. Eyes: Negative. Respiratory: Negative. Cardiovascular: Negative. Gastrointestinal: Negative. Negative for blood in stool and diarrhea. Endocrine: Negative. Genitourinary: Negative. Negative for hematuria. Musculoskeletal: Negative. Skin: Negative. Neurological: Negative. Negative for dizziness, headaches and speech difficulty. Hematological: Negative. Does not bruise/bleed easily. Psychiatric/Behavioral: Negative. Negative for sleep disturbance. The patient is not nervous/anxious. Current Outpatient Medications Medication Sig Dispense Refill Last Dose ??? cholecalciferol, vitamin D3, (VITAMIN D3 ORAL) Take 3,000 Units by mouth daily. Taking ??? conjugated estrogens 0.625mg/G (PREMARIN) vaginal cream intravaginally once a day (in the evening) (Patient not taking: Reported on 03/29/2022) Not Taking ??? ELDERBERRY FRUIT ORAL Take by mouth daily. Taking ??? erenumab-aooe 70 mg/mL auto-injector Inject 70 mg into the skin every 28 days. (Patient not taking: Reported on 03/29/2022) 1 Syringe 2 Not Taking ??? gluc blackmon/chondro blackmon A/vit C/Mn (GLUCOSAMINE 1500 COMPLEX ORAL) Take by mouth. (Patient not taking: Reported on 03/29/2022) Not Taking ??? levothyroxine (SYNTHROID) 112 mcg tablet (Patient not taking: Reported on 03/29/2022) Not Taking ??? levothyroxine (SYNTHROID) 125 mcg tablet Taking ??? pantoprazole (PROTONIX) 40 mg tablet 1 tab(s) orally once a day Taking ??? rizatriptan (MAXALT-ASSEMBLER FINAL) 10 mg disintegrating tablet DISSOLVE ONE TABLET BY MOUTH NEEDED FORMIGRAINE. MAY REPEAT DOSE IN 2 HOURS IF INEFFECTIVE. DO NOT EXCEED 2 TABLETS IN 24 HOURS, 8 DAYS PER MONTH, AND NO MORE THAN 12 TABLETS IN 1 MONTH 12 Tablet 5 Taking ??? sertraline (ZOLOFT) 100 mg tablet Take 150 mg by mouth daily. Taking No current facility-administered medications for this visit. Allergies Allergen Reactions ??? Meperidine Nausea Only ??? Sulfa (Sulfonamide Antibiotics) Family history Vitals: 04/06/22 0919 BP: 120/80 Pulse: 80 SpO2: 98% Weight: 91.5 kg (201 lb 11.2 oz) Wt Readings from Last 3 Encounters: 04/06/22 91.5 kg (201 lb 11.2 oz) 03/29/22 89.5 kg (197 lb 5 oz) 03/29/22 92.5 kg (204 lb) Physical Exam Constitutional: She is oriented to person, place, and time. No distress. Eyes: Conjunctivae are normal. Pulmonary/Chest: Effort normal. Abdominal: There is no guarding. Neurological: She is oriented to person, place, and time. Coordination and gait normal. Skin: Skin is warm and dry. Psychiatric: Her behavior is normal. Judgment and thought content normal. I spent a total of 60 minutes on the date of this encounter meeting with the patient and reviewing documentation/coordinating care as described in the above note. Katt Brewster, ARPIT, AOANIL, [facility] On[facility] Clinical Nurse Specialist Hematology/Oncology [facility] This note was created using voice recognition software. It was reviewed for major content. However,there may be multiple small discrepancies and errors due to the voice recognition aspects of the software. CC:Primary Care Provider: Sarah Quintero [address] [place] [phone] Referring Provider: No referring provider defined for this encounter. Phone: N/A Fax: documented in this encounter Plan of Treatment Upcoming Encounters Date Type Department Care Team (Late st Contact Info) Description 05/25/2025 14:00 EDT Office Visit [facility] Adult Hematology & Oncology [address] [place] [address] [phone] Abdiel Salas MD [address] [place] [address] [address] [place] [address] documented as of this encounter Visit Diagnoses Diagnosis Malignant neoplasm of upper-outer quadrant of right breast in female, estrogen receptor negative (HCC-CMS)- Primary Bone lesion Disorder of bone and cartilage, unspecified documented in this encounter Discontinued Medications Medication Sig Discontinue Reason Start Date End Da te levothyroxine (SYNTHROID) 112 mcg tablet Therapy completed 04/06/2020 04/09/2022 gluc blackmon/chondro blackmon A/vit C/Mn (GLUCOSAMINE 1500 COMPLEX ORAL) Take by mouth. Therapy completed 04/09/2022 conjugated estrogens 0.625mg/G (PREMARIN) vaginal cream intravaginally once a day (in the evening) Therapy completed 04/09/2022 documented as of this encounter Care Teams Thickener Operator Relationship Specialty Start Date End Date Sarah Quintero FNP [address] [place] [address] PCP - General 05/03/20 documented as of this encounter
--- OUTSIDE RECORDS SUMMARY | 2024-06-30 16:32 | XMS_ITS | Encounter Summary ---
Author Organization [facility] Address [address] [place] [address] Care Team Providers Care Welder Production Line Arc Name Role Phone Sarah Quintero [facility] Primary Care Provider [phone] Reason for Visit * Reason Comments Headache Botox Injection Encounter Details Date Type Department Care Team ([facility] st Contact Info) Description 05/31/2022 10:00 EDT Procedure visit [facility] [address] [place] [address] Adrian Snider MD [address] [facility] [address] [place] [address] Chronic migraine w/o aura w/o status migrainosus, not intractable (Primary Dx) Social [...] as of this encounter Progress Notes * Adrian Snider MD - 05/31/2022 1000 EDT Botulinum Toxin Procedure Note Patient: Mireille Chatman : 1965 Date of service: 05/31/2022 Diagnosis / Indication for Injections: ICD-10-CM ICD-9-CM 1. Chronic migraine w/o aura w/o status migrainosus, not intractable G43.709 346.70 History: Mireille Chatman who presents for her fifth botulinum toxin injection for chronic migraine. Last visit we increased the dose. She has had only mild improvement in headaches from treatments. Last visitwe talked about this, but she was frustrated with having tried so many other treatments, that she wanted to stick with the modest improvement that botulinum toxin treatments have been. She has unfortunately been diagnosed with breast cancer, and after starting chemotherapy her headaches worsened slightly. She still feels the injections have helped overall, with headaches still very mild daily that she doesn't treat, and severe ones requiring maxalt only about 2 times a week. Before botox severeheadaches were up to 4-5 days a week. No side effects from prior treatments. Summary: A typical headache starts upon awakening often, in the setting of poor sleep, and pain is behind the eyes or in the forehead or temples, usually bilateral, sometimes left more than right. Pain is a pressure, sharp, or pounding, and at worse with light sensitivity and nausea. Untreated theywill last hours. At initial evaluation headaches were daily. Took motrin and tylenol daily for years. Previously failed propranolol, topiramate, both due to ineffectiveness, as well as topiramate, amitriptyline and nortriptyline all causing side effects. Eletriptan initially was helpful for abortive therapy but it lost effectiveness. Rizatriptan apparently was helpful. Prior to treatment here shehad tried botulinum toxin injections but it was done with a nonstandard protocol and it was not effective for her. Aimovig 70mg/ml was not effective. Neurological Exam: Alert, fluent speech, face symmetric, normal extraocular movements, normal casual gait. Timeout/Informed consent: A pre-procedure timeout was conducted prior to the procedure. The patient???s identity, procedure, and when applicable the side/site, patient position, availability of implants and any special equipment or special requirements was verbally confirmed prior to the procedure.Informed consent was obtained after discussing potential benefits, alternative treatments, consequences of no treatment, side effects and complications including but not limited to risk of : Face / head injection risks - injection site hematoma or bruising, local trauma to blood vessels ornerves, rash, pain, drooping of eyelids, doubling of vision, tearing abnormalities, asymmetry of face/crooked smile, headache, dry mouth, difficulty chewing Neck injection risks - injection site hematoma or bruising, local trauma to blood vessels or nerves, rash, pain, swallowing dysfunction, neck weakness (difficulty turning /lifting head) Procedure: The skin was prepped with alcohol prior to each injection. Topical anesthetic was not used. Total number of units injected: 185 Units Total number of units of wastage: 15 Units Vial-1 Lot# : [id number] NDC# : Therapeutic Botox 200 Units [[id number]] Botulinum toxin A (Botox) was reconstituted in normal saline at a concentration of 2cc / 100 units 0.1cc = 5 units Intramuscular & subcutaneous soft tissue injections were performed utilizing a Utilizing a 30G ?? inch needle. The following muscles were injected: Frontalis eliminated Procerus 5 units [place] Setter bilaterally 5 units at each site Temporalis bilaterally 30 units at 4 sites Occipitalis bilaterally 15 units at 3 sites Cervical paraspinals bilaterally 20 units at 2 sites Trapezius bilaterally 20 units at 3 sites The patient tolerated the procedure well and without complications. Assessment: ICD-10-CM ICD-9-CM 1. Chronic migraine w/o aura w/o status migrainosus, not intractable G43.709 346.70 Plan: Return to clinic for repeat botulinum injection in 3 months. Adrian Snider MD documented in this encounter Plan of Treatment Upcoming Encounters Date Type Department Care Team (Late st Contact Info) Description 05/25/2025 14:00 EDT Office Visit [facility] Adult Hematology & Oncology [address] [place] [phone] Abdiel Salas MD [address] [place] [address], [facility] [address] [place] [address] documented as of this encounter Visit Diagnoses Diagnosis Chronic migraine w/o aura w/o status migrainosus, not intractable- Primary Chronic migraine without aura, without mention of intractable migraine without mention of status migrainosus documented in this encounter Care Teams Welder Production Line Arc Relationship Specialty Start Date End Date Sarah Quintero FNP [address] [place] [phone] PCP - General 05/03/20 documented as of this encounter
--- OUTSIDE RECORDS SUMMARY | 2024-06-30 16:32 | XMS_ITS | Encounter Summary ---
Author Organization [facility] Address [address] [place] [address] Care Team Providers Care Desulfurizer Machine Name Role Phone Sarah Quintero ASSISTANT DEAN OF STUDENTS Primary Care Provider [phone] Reason for Visit * Reason Comments Other Encounter Details Date Type Department Care Team (Late st Contact Info) Description 06/28/2022 Refill [facility] Adult Hematology & Oncology [address] [place] [phone] Katt Brewster, ISO COORDINATOR 130 [facility] [address] [place] [phone] Other Social History Tobacco Use Types Packs/Day [...] NEEDED (NAUSEA). 30 Tablet 2 06/28/2022 01/09/2023 documented in this encounter Miscellaneous Notes * Telephone Encounter - Alpa Armstrong RN - 06/28/2022 1527 EDT Refill request from pharmacy - Last seen: 04/26/2022 (Manuel) Last refilled: 04/06/2022 JACQUELYN - Agree w/ attached? documented in this encounter Plan of Treatment Upcoming Encounters Date Type Department Care Team (Late st Contact Info) Description 05/25/2025 14:00 EDT Office Visit [facility] Adult Hematology & Oncology [address] [place] [phone] Jacquelyn Salas MD [address] [place] [address] [address] [place] [phone] documented as of this encounter Visit Diagnoses Not on filedocumented in this encounter Discontinued Medications Medication Sig Discontinue Reason Start Date End Da te prochlorperazine (COMPAZINE) 10 mg tablet Take 1 Tablet by mouth 3 times daily as needed (nausea). 04/06/2022 06/28/2022 documented as of this encounter Care Teams Desulfurizer Machine Relationship Specialty Start Date End Date Sarah Quintero FNP [address] [place] [phone] PCP - General 05/03/20 documented as of this encounter
--- OUTSIDE RECORDS SUMMARY | 2024-06-30 16:32 | XMS_ITS | Encounter Summary ---
Author Organization [facility] Address [address] [place] [address] Care Team Providers Care Environmental Field Professional Name Role Phone Sarah Quintero MIS MANAGER Primary Care Provider [phone] Encounter Details Date Type Department Care Team (Late st Contact Info) Description 04/13/[address] [facility] Adult Hematology & Oncology [facility] [place] [address] Katt Brewster, CLAIM TRAINEE [address] [facility] [address] [place] [address] Abnormal radionuclide bone scan (Primary Dx); Carcinoma of upper-outer quadrant of right breast in female, estrogen receptor negative (HCC-CMS) (HCC) (HCC-CMS) Social History Tobacco Use Types Packs/Day Years [...] as of this encounter Progress Notes * Katt Brewster, CLAIM TRAINEE - 04/13/[address] Damon/SIVA who suggested evaluating left proximal tibia for area that may need biopsy as the rib lesion not as accessible. documented in this encounter Plan of Treatment Upcoming Encounters Date Type Department Care Team (Late st Contact Info) Description 05/25/2025 14:[address] [facility] Adult Hematology & Oncology [facility] [place] [address] Abdiel Salas MD [address] [place] [address] [address] [place] [address] documented as of this encounter Visit Diagnoses Diagnosis Abnormal radionuclide bone scan- Primary Nonspecific abnormal results of other specified function study Carcinoma of upper-outer quadrant of right breast in female, estrogen receptor negative ([facility]) documented in this encounter Care Teams Environmental Field Professional Relationship Specialty Start Date End Date Sarah Quintero FNP [address] [place] [address] PCP - General 05/03/20 documented as of this encounter
--- OUTSIDE RECORDS SUMMARY | 2024-06-30 16:32 | XMS_ITS | Encounter Summary ---
Author Organization [facility] Address [address] [place] [address] Care Team Providers Care Reading Specialist Name Role Phone Sarah Quintero STUDENT LOAN COUNSELOR Primary Care Provider [phone] Reason for Visit * Reason Onset Date Comments Advice Only 04/26/2022 Encounter Details Date Type Department Care Team (Late st Contact Info) Description 04/26/2022 Telephone [facility] Adult Hematology & Oncology [address] [place] [phone] Abdiel Salas MD [address] [place] [address] [address] [place] [phone] Advice Only Social History Tobacco Use Types Packs/Day Years [...] No 06/21/2020 documented as of this encounter Miscellaneous Notes * Telephone Encounter - Abdiel Salas MD - 04/27/2022 1326 EDT Got a call back from ferry terminal supervisor recommended genetic testing. Spoke to Mireille agrees to the referral. Referral to the [facility] cancer program generated. * Telephone Encounter - Abdiel Salas MD - 04/26/2022 1750 EDT Diya good afternoon I hope you are doing well. I hope you let me pick your brain, have a new patient 56-year-old with an invasive ductal carcinomaER/NE negative HER2 positive node positive. Her paternal grandmother had DCIS in her 80s, paternal grandfather colon cancer. Her father 2 uncles and 1 aunt no malignancy. Mother side, 1 uncle 2 aunts and mother without malignancy. She has 3 children, 1 brother and 2 sisters all without malignancy. Does not seem to have a familial cancer syndrome but her young age may be thought of asking the question if she requires consultation with your team. Has always thank you very much for your help. Abdiel documented in this encounter Plan of Treatment Upcoming Encounters Date Type Department Care Team (Late st Contact Info) Description 05/25/2025 14:00 EDT Office Visit Health system Adult Hematology & Oncology [address] [place] [phone] Abdiel Salas MD [address] [place] [address] [address] [place] [phone] documented as of this encounter Visit Diagnoses Not on filedocumented in this encounter Care Teams Reading Specialist Relationship Specialty Start Date End Date Sarah Quintero FNP [address] [place] [phone] PCP - General 05/03/20 documented as of this encounter
--- OUTSIDE RECORDS SUMMARY | 2024-06-30 16:32 | XMS_ITS | Encounter Summary ---
Author Organization [facility] Address [address] [place] [address] Care Team Providers Care Combat Control Manager Name Role Phone Sarah Quintero MANAGER OF PROGRAM Primary Care Provider [phone] Encounter Details Date Type Department Care Team (Late st Contact Info) Description 03/30/[address] [facility] [place] [address] [place], [place] [address] Gabriel Snyder Social History Tobacco Use Types Packs/Day Years [...] of this encounter Progress Notes * Katt Brewster NP - 03/30/2022 0849 EDT Treatment plan entered documented in this encounter Plan of Treatment Upcoming Encounters Date Type Department Care Team (Late st Contact Info) Description 05/25/2025 14:00 EDT Office Visit [facility] Adult Hematology & Oncology [address] [place] [phone] Abdiel Salas MD [address] [place] [address] [address] [place] [address] documented as of this encounter Visit Diagnoses Not on filedocumented in this encounter Care Teams Combat Control Manager Relationship Specialty Start Date End Date Sarah Quintero FNP [address] [place] [address] PCP - General 05/03/20 documented as of this encounter
--- OUTSIDE RECORDS SUMMARY | 2024-06-30 16:32 | XMS_ITS | Encounter Summary ---
Author Organization [facility] Address [address] [place] [address] Care Team Providers Care Corporate Executive Chef Name Role Phone Sarah Quintero ALUMINUM MOLDER Primary Care Provider [phone] Reason for Visit * Reason Comments Other Encounter Details Date Type Department Care Team (Late st Contact Info) Description 05/19/2022 Refill [facility] [address] [place] [address] Adrian Snider MD [address] [facility] [address] [place] [address] Other Social History Tobacco Use Types Packs/Day [...] Refills Start Date End Da te rizatriptan (MAXALT-MEAT SCRUBBER) 10 mg disintegrating tablet DISSOLVE ONE TABLET BY MOUTH NEEDED FOR MIGRAINE. MAY REPEAT DOSE IN 2 HOURS IF INEFFECTIVE. DO NOT EXCEED 2 TABLETS IN 24 HOURS, 8 DAYS PER MONTH AND NO MORE THAN 12 TABLETS IN ONE MONTH 12 Tablet 5 05/21/2022 10/23/2022 documented in this encounter Miscellaneous Notes * Telephone Encounter - Allison Hart RN - 05/21/2022 0910 EDT Request: rizatriptan 5 mg prn Last Visit: 03/01/2022 Next Visit: 05/31/2022 Ref Date: 03/01 same Action: Escript as tabbed documented in this encounter Plan of Treatment Upcoming Encounters Date Type Department Care Team (Late st Contact Info) Description 05/25/2025 14:00 EDT Office Visit [facility] Adult Hematology & Oncology [address] [place] [address] Abdiel Salas MD [address] [place] [address] [address] [place] [phone] documented as of this encounter Visit Diagnoses Not on filedocumented in this encounter Discontinued Medications Medication Sig Discontinue Reason Start Date End Da te rizatriptan (MAXALT-MEAT SCRUBBER) 10 mg disintegrating tablet DISSOLVE ONE TABLET BY MOUTH NEEDED FOR MIGRAINE. MAY REPEAT DOSE IN 2 HOURS IF INEFFECTIVE. DO NOT EXCEED 2 TABLETS IN 24 HOURS, 8 DAYS PER MONTH, AND NO MORE THAN 12 TABLETS IN 1 MONTH 12/04/2021 05/21/2022 documented as of this encounter Care Teams Corporate Executive Chef Relationship Specialty Start Date End Date Sarah Quintero FNP [address] [place] [phone] PCP - General 05/03/20 documented as of this encounter
--- OUTSIDE RECORDS SUMMARY | 2024-06-30 16:32 | XMS_ITS | Encounter Summary ---
Author Organization [facility] Address [address] [place] [address] Care Team Providers Care Prosthetics Assistant Name Role Phone Sarah Quintero MIXING MACHINE TENDER CORK GASKET Primary Care Provider [phone] Reason for Visit * Reason Onset Date Comments Infusion Scheduling 04/17/2022 Encounter Details Date Type Department Care Team (Late st Contact Info) Description 04/17/2022 Telephone [facility] [place] [address] [place] [phone] Katt Brewster, AMAURI [address] [facility] [address] [place] [address] Infusion Scheduling Social History Tobacco Use Types Packs/Day Years [...] encounter Miscellaneous Notes * Telephone Encounter - KvngLars morandy - 04/17/2022 0843 EDT Patient would like to get a scheduled date for infusion. Patient is worried about the CT because they did it without contrast, wondering if they can see what they need to see if you do not have contrast. CT was done today at [facility]. Please give her a call. Thanks. documented in this encounter Plan of Treatment Upcoming Encounters Date Type Department Care Team (Late st Contact Info) Description 05/25/2025 14:[address] [facility] Adult Hematology & Oncology [address] [place] [phone] Abdiel Salas MD [address] [place] [address] [address] [place] [address] documented as of this encounter Visit Diagnoses Not on filedocumented in this encounter Care Teams Prosthetics Assistant Relationship Specialty Start Date End Date Sarah Quintero FNP [address] [place] [address] PCP - General 05/03/20 documented as of this encounter
--- OUTSIDE RECORDS SUMMARY | 2024-06-30 16:32 | XMS_ITS | Encounter Summary ---
Author Organization [facility] Address [address] [place] [address] Care Team Providers Care Software Test Engineer Name Role Phone Sarah Quintero [facility] Primary Care Provider Reason for Referral * Radiology Services (STAT) - Authorization Not Required Specialty Diagnoses / Procedures Referred By Contac t Referred To Contact Nuclear Medicine Diagnoses Mass of upper outer quadrant of right breast Procedures NM BONE WHOLE BODY Alona Roberts MBBS [address] [facility] [address] [place] [address] [facility] Referral ID Status Reason Start Date Expiration Date Visits Requested Visits Authorized [id number] Authorization Not Required 03/29/2022 1 1 Reason for Visit * Radiology Services (STAT) - Authorization Not Required Specialty Diagnoses / Procedures [facility] To Contact Nuclear Medicine Diagnoses Mass of upper outer quadrant of right breast Procedures NM BONE WHOLE BODY Alona Roberts MBBS [address] [facility], [facility] [address] [place] [address] [facility] Referral ID Status Reason Start Date Expiration Date Visits Requested Visits Authorized [id number] Authorization Not Required 03/29/2022 1 1 Encounter Details Date Type Department Care Team (Latest Contact Info) Description 04/05/2022 8:48 EDT Hospital [facility] Nuclear Medicine [address] [place] [id number] Mass of upper outer quadrant of right breast Discharge Disposition: Home or Self Care Social [...] Sig Dispensed Refills Start Date End Date cholecalciferol, vitamin D3, (VITAMIN D3 ORAL) Take 2,000 Units by mouth daily. ELDERBERRY FRUIT ORAL Take by mouth daily. 2 gummies daily levothyroxine (SYNTHROID) 125 mcg tablet Take 1 Tablet by mouth daily. 01/18/2022 pantoprazole (PROTONIX) 40 mg tablet 1 tab(s) orally once a day sertraline (ZOLOFT) 100 mg tablet Take 1.5 Tablets by mouth daily. 04/06/2020 conjugated estrogens 0.625mg/G (PREMARIN) vaginal cream intravaginally once a day (in the evening) 04/09/2022 erenumab-aooe 70 mg/mL auto-injector Inject 70 mg into the skin every 28 days. 1 Syringe 2 02/27/2021 08/30/2022 gluc blackmon/chondro blackmon A/vit C/Mn (GLUCOSAMINE 1500 COMPLEX ORAL) Take by mouth. 04/09/2022 levothyroxine (SYNTHROID) 112 mcg tablet 04/06/2020 04/09/2022 rizatriptan (MAXALT-DENIAL RESOLUTION SPECIALIST) 10 mg disintegrating tablet DISSOLVE ONE TABLET BY MOUTH NEEDED FOR MIGRAINE. MAY REPEAT DOSE IN 2 HOURS IF INEFFECTIVE. DO NOT EXCEED 2 TABLETS IN 24 HOURS, 8 DAYS PER MONTH, AND NO MORE THAN 12 TABLETS IN 1 MONTH 12 Tablet 5 12/04/2021 05/21/2022 documented as of this encounter Discharge Disposition Disposition Code Departure Means Destination Home or Self Care documented in this encounter Plan of Treatment Upcoming Encounters Date Type Department Care Team (Late st Contact Info) Description 05/25/2025 14:00 EDT Office Visit [facility] Adult Hematology & Oncology [facility] [place] [address] Abdiel Salas MD [address] [place] [address] [address] [place] [phone] documented as of this encounter Procedures Procedure Name Priority Date/Time Associated Diagnosis Comments NM BONE WHOLE BODY STAT 04/05/2022 13 :06 EDT Mass of upper outer quadrant of right breast documented in this encounter Results * NM BONE WHOLE BODY (04/05/2022 13:06 EDT) Anatomical Region Laterality Modality Nuclear Medicine 04/05/2022 14:0 2 EDT Addenda Addendum by Rao Cuenca MD on 04/13/2022 10:26 EDT Addendum: Addendum: Case discussed with Dr. Gume Villafuerte (Interventional Radiology at [facility]). On further review of the accompanying CT, indeterminate mild focal uptake in a posterolateral right rib may correspond to a small sclerotic lesion in the posterolateral right 6th rib, but could alternatively correspond to a subtle mildly expansile lucent lesion in the posterolateral right 8th rib. Given this uncertainty, follow-up SPECT is recommended to better delineate a possible biopsy target. In addition, Dr. Villafuerte reviewed the case with [facility] oncology, and recommended dedicated imaging of the left knee to assess for a possible biopsy target in the proximal left tibia (CT would be a reasonable option). Therefore, dedicated imaging of the left knee is recommended, with an option for subsequent SPECT of the ribs if a biopsy target cannot be identified in the proximal left tibia. Impressions 04/05/2022 14:02 EDT 1. ??Indeterminate mild focal uptake in the posterolateral right 6th rib, which appears to correspond to a small sclerotic intramedullary lesion on today's separately dictated CT. Metastatic disease cannot be excluded. Consider biopsy or short-term follow-up. 2. ??Indeterminate small focus of uptake projecting over the proximal left tibia. Left knee radiographs recommended for further assessment. Narrative 04/05/2022 14:02 EDT NM BONE WHOLE BODY ?? Signs and Symptoms/Comments: ??Patient with breast cancer. Rule out metastatic spread. Comparison: CT on 04/05/2022. Technique: After the intravenous injection of 21 mCi Tc-99m MDP, planar whole- body images were performed in standard projections. FINDINGS: ?? Indeterminate mild focal uptake in the posterolateral right 6th rib, which appears to correspond to a small sclerotic intramedullary lesion on today's separately dictated CT. Indeterminate small focus of uptake projecting over the proximal left tibia. No definitive scintigraphic evidence of osseous metastatic disease in the remainder of the axial or appendicular skeleton. No abnormal soft tissue uptake identified. Procedure Note Rao Cuenca MD - 04/05/2022 NM BONE WHOLE BODY Signs and Symptoms/Comments: Patient with breast cancer. Rule outmetastatic spread. Comparison: CT on 04/05/2022. Technique: After the intravenous injection of 21 mCi Tc-99m MDP, planarwhole- body images were performed in standard projections. FINDINGS: Indeterminate mild focal uptake in the posterolateral right 6th rib, whichappears to correspond to a small sclerotic intramedullary lesion ontoday's separately dictated CT. Indeterminate small focus of uptake projecting over the proximal lefttibia. No definitive scintigraphic evidence of osseous metastatic disease in theremainder of the axial or appendicular skeleton. No abnormal soft tissue uptake identified. IMPRESSION 1. Indeterminate mild focal uptake in the posterolateral right 6th rib,which appears to correspond to a small sclerotic intramedullary lesion ontoday's separately dictated CT. Metastatic disease cannot be excluded.Consider biopsy or short-term follow-up. 2. Indeterminate small focus of uptake projecting over the proximal lefttibia. Left knee radiographs recommended for further assessment. Alona SUERO IMG NM ORDERABLES documented in this encounter Visit Diagnoses Diagnosis Mass of upper outer quadrant of right breast documented in this encounter Administered Medications Inactive Administered Medications - up to 3 most recent administrations Medication Order MAR Action Action Date Dose Rate Site technetium (Tc-99m) methylene diphosphonate (MDP) injection 20 millicurie 20 millicurie, radiopharm IV, Once in imaging, 1 dose, Starting on Lisa 04/05/22 at 0928, Until Lisa 04/05/22 at 0935, Routine, Imaging Protocol Orders Given 04/05/2022 9:35 EDT 21 millicuries documented in this encounter Orders Medications Ordered That Ryan ht Not Have Been Administered Count Last Ordered Date First Ordered Date technetium (Tc-99m) methylen e diphosphonate (MDP) injection 20 millicurie 1 04/05/2022 documented in this encounter Care Teams Software Test Engineer Relationship Specialty Start Date End Date Sarah Quintero FNP [address] [place] [phone] PCP - General 05/03/20 documented as of this encounter
--- OUTSIDE RECORDS SUMMARY | 2024-06-30 16:32 | XMS_ITS | Encounter Summary ---
Author Organization [facility] Address [address] [place] [address] Care Team Providers Care Roading Engineer Name Role Phone Sarah Quintero [facility] Primary Care Provider Encounter Details Date Type Department Care Team (Late Contact Info) Description 11/28/2022 Documentation Visit [facility] [place] [address] [place] [address] [place] [address] [place] [phone] Social History Tobacco Use Types Packs/Day Years [...] Info) Description 05/25/2025 14:00 EDT Office Visit [facility] Adult Hematology & Oncology [facility] [place] [address] Abdiel Salas MD [address] [place] [address] [address] [place] [address] documented as of this encounter Visit Diagnoses Not on filedocumented in this encounter Care Teams Roading Engineer Relationship Specialty Start Date End Date Sarah Quintero FNP [address] [place] [phone] PCP - General 05/03/20 documented as of this encounter
--- OUTSIDE RECORDS SUMMARY | 2024-06-30 16:32 | XMS_ITS | Encounter Summary ---
Author Organization [facility] Address [address] [place] [address] Care Team Providers Care Brewmaster Name Role Phone Sarah Quintero [facility] Primary Care Provider Reason for Referral * Radiology Services (STAT) - Authorization Not Required Specialty Diagnoses / Procedures Referred By Contac t Referred To Contact Diagnoses Mass of upper outer quadrant of right breast Procedures CT ABDOMEN PELVIS W CONTRAST Alona Roberts MBBS [address] [facility], [facility] [address] [place] [address] [facility] Referral ID Status Reason Start Date Expiration Date Visits Requested Visits Authorized [id number] Authorization Not Required 03/29/2022 1 1 * Radiology Services (STAT) - Authorization Not Required Specialty Diagnoses / Procedures Referred By Contac t Referred To Contact Diagnoses Mass of upper outer quadrant of right breast Procedures CT CHEST W CONTRAST Alona Roberts MBBS [address] [facility], [facility] [address] [place] [address] [facility] Referral ID Status Reason Start Date Expiration Date Visits Requested Visits Authorized [id number] Authorization Not Required 03/29/2022 1 1 Reason for Visit * Radiology Services (STAT) - Authorization Not Required Specialty Diagnoses / Procedures Referred By Contac t Referred To Contact Diagnoses Mass of upper outer quadrant of right breast Procedures CT CHEST W CONTRAST Alona Roberts, PIO [address], [facility] [address] [place] [address] [facility] Referral ID Status Reason Start Date Expiration Date Visits Requested Visits Authorized [id number] Authorization Not Required 03/29/2022 1 1 Encounter Details Date Type Department Care Team (Latest Contact Info) Description 04/05/2022 8:47 EDT Hospital Encounter [facility] CT Scan [address] [place], [place] [address] Mass of upper outer quadrant of right [...] (SYNTHROID) 112 mcg tablet 04/06/2020 04/09/2022 rizatriptan (MAXALT-FILE DRAWER FINISHER) 10 mg disintegrating tablet DISSOLVE ONE TABLET [...] [facility] Adult Hematology & Oncology [address] [place] [address] [id number] Abdiel Salas MD [address] [place] [address] [address] [place] [address] documented as of this encounter Procedures Procedure Name Priority Date/Time Associated Diagnosis Comments CT CHEST W CONTRAST STAT 04/05/2022 9:22 EDT Mass of upper outer quadrant of right breast CT ABDOMEN PELVIS W CONTRAST STAT 04/05/2022 9:22 EDT Mass of upper outer quadrant of right breast documented in this encounter Results * CT ABDOMEN PELVIS W CONTRAST (04/05/2022 9:22 EDT) Anatomical Region Laterality Modality Body, Abdomen, Pelvis, Abdomen and Pelvis Computed Tomography 04/05/2022 10:5 8 EDT Impressions 04/05/2022 10:58 EDT 1. Right lateral breast 2.0 x 1.3 cm masslike nodule, with right axillary adenopathy. 2. Solitary borderline-enlarged AP window lymph node. The remaining mediastinal and hilar nodes appear unremarkable. No subdiaphragmatic adenopathy is seen. 3. Right upper lung 6 mm groundglass nodular opacity. This could reflect minimal airspace disease. This should be reassessed with follow-up imaging within 6 months to ensure resolution. Narrative 04/05/2022 10:[address] ABDOMEN PELVIS W CONTRAST, CT CHEST W CONTRAST ?? Signs and Symptoms/Comments: ??Please see reasoning in CT chest ?? Dx: Mass of upper outer quadrant of right breast [N63.11 (ICD-10-CM)] ?? Comparison: Breast imaging 03/02/2022 and 02/20/2022.. Technique: * ??CT chest was performed with the administration of 100 mL Omnipaque 350 contrast. Multiplanar reformations were performed. * ??CT abdomen and pelvis was performed with the administration of 100 mL Omnipaque 350 contrast. Multiplanar reconstructions were performed. CHEST FINDINGS: Chest Wall: There is a right chest power port type catheter. There is a 2.0 x 1.3 cm masslike opacity in the upper outer right breast (series 2 image 37 and series 5 image 39). Mediastinum: The heart is unremarkable. The pericardium is unremarkable. Lymph Nodes: There is a right axillary 1.7 cm x 1.5 cm lymph node (series 2 image 31). There is a left AP window 1.8 x 1.0 cm lymph node (series 2 image 33). Airways: Unremarkable. Lungs: There is a 6 mm groundglass nodule in the right upper lung (series 3 image 127). The lungs are otherwise clear.. Pleura: No pneumothorax or pleural effusion is present. Bones: The osseous structures are unremarkable. ABDOMEN PELVIS FINDINGS: Solid Organs: The liver is normal. No intra or extrahepatic biliary ductal dilatation is present. Clips are seen in the gallbladder fossa.. The pancreas is normal. The spleen is normal. The adrenal glands are normal. The kidneys are normal. Bowel, Peritoneal Cavity & Body Wall: The stomach is normal. The small bowel is normal without evidence of obstruction. The colon is unremarkable. Clips are seen adjacent to the cecum. No intraperitoneal free fluid or free air is present. The body wall is unremarkable. Pelvis: The bladder is normal. No pelvic mass is present. Lymphovascular: No enlarged abdominal or pelvic lymph nodes are present. The major vascular structures are unremarkable. Bones: The osseous structures are unremarkable. Procedure Note Gume Cullen MD - 04/05/2022 CT ABDOMEN PELVIS W CONTRAST, CT CHEST W CONTRAST Signs and Symptoms/Comments: Please see reasoning in CT chest Dx: Mass of upper outer quadrant of right breast [N63.11 (ICD-10-CM)] Comparison: Breast imaging 03/02/2022 and 02/20/2022.. Technique: * CT chest was performed with the administration of 100 mL Omnipaque 350contrast. Multiplanar reformations were performed. * CT abdomen and pelvis was performed with the administration of 100 mLOmnipaque 350 contrast. Multiplanar reconstructions were performed. CHEST FINDINGS: Chest Wall: There is a right chest power port type catheter. There is a2.0 x 1.3 cm masslike opacity in the upper outer right breast (series 2image 37 and series 5 image 39). Mediastinum: The heart is unremarkable. The pericardium is unremarkable. Lymph Nodes: There is a right axillary 1.7 cm x 1.5 cm lymph node (series2 image 31). There is a left AP window 1.8 x 1.0 cm lymph node (series 2image 33). Airways: Unremarkable. Lungs: There is a 6 mm groundglass nodule in the right upper lung (series3 image 127). The lungs are otherwise clear.. Pleura: No pneumothorax or pleural effusion is present. Bones: The osseous structures are unremarkable. ABDOMEN PELVIS FINDINGS: Solid Organs: The liver is normal. No intra or extrahepatic biliary ductaldilatation is present. Clips are seen in the gallbladder fossa.. Thepancreas is normal. The spleen is normal. The adrenal glands are normal.The kidneys are normal. Bowel, Peritoneal Cavity & Body Wall: The stomach is normal. The smallbowel is normal without evidence of obstruction. The colon isunremarkable. Clips are seen adjacent to the cecum. No intraperitonealfree fluid or free air is present. The body wall is unremarkable. Pelvis: The bladder is normal. No pelvic mass is present. Lymphovascular: No enlarged abdominal or pelvic lymph nodes are present.The major vascular structures are unremarkable. Bones: The osseous structures are unremarkable. IMPRESSION 1. Right lateral breast 2.0 x 1.3 cm masslike nodule, with right axillaryadenopathy. 2. Solitary borderline-enlarged AP window lymph node. The remainingmediastinal and hilar nodes appear unremarkable. No subdiaphragmaticadenopathy is seen. 3. Right upper lung 6 mm groundglass nodular opacity. This could reflectminimal airspace disease. This should be reassessed with follow-up imagingwithin 6 months to ensure resolution. Alona C Alejandra [facility] CT ORDERABLES * CT CHEST W CONTRAST (04/05/2022 9:22 EDT) Anatomical Region Laterality Modality Chest Computed Tomogra phy 04/05/2022 10:5 8 EDT Impressions 04/05/2022 10:58 EDT 1. Right lateral breast 2.0 x 1.3 cm masslike nodule, with right axillary adenopathy. 2. Solitary borderline-enlarged AP window lymph node. The remaining mediastinal and hilar nodes appear unremarkable. No subdiaphragmatic adenopathy is seen. 3. Right upper lung 6 mm groundglass nodular opacity. This could reflect minimal airspace disease. This should be reassessed with follow-up imaging within 6 months to ensure resolution. Narrative 04/05/2022 10:[address] ABDOMEN PELVIS W CONTRAST, CT CHEST W CONTRAST ?? Signs and Symptoms/Comments: ??Please see reasoning in CT chest ?? Dx: Mass of upper outer quadrant of right breast [N63.11 (ICD-10-CM)] ?? Comparison: Breast imaging 03/02/2022 and 02/20/2022.. Technique: * ??CT chest was performed with the administration of 100 mL Omnipaque 350 contrast. Multiplanar reformations were performed. * ??CT abdomen and pelvis was performed with the administration of 100 mL Omnipaque 350 contrast. Multiplanar reconstructions were performed. CHEST FINDINGS: Chest Wall: There is a right chest power port type catheter. There is a 2.0 x 1.3 cm masslike opacity in the upper outer right breast (series 2 image 37 and series 5 image 39). Mediastinum: The heart is unremarkable. The pericardium is unremarkable. Lymph Nodes: There is a right axillary 1.7 cm x 1.5 cm lymph node (series 2 image 31). There is a left AP window 1.8 x 1.0 cm lymph node (series 2 image 33). Airways: Unremarkable. Lungs: There is a 6 mm groundglass nodule in the right upper lung (series 3 image 127). The lungs are otherwise clear.. Pleura: No pneumothorax or pleural effusion is present. Bones: The osseous structures are unremarkable. ABDOMEN PELVIS FINDINGS: Solid Organs: The liver is normal. No intra or extrahepatic biliary ductal dilatation is present. Clips are seen in the gallbladder fossa.. The pancreas is normal. The spleen is normal. The adrenal glands are normal. The kidneys are normal. Bowel, Peritoneal Cavity & Body Wall: The stomach is normal. The small bowel is normal without evidence of obstruction. The colon is unremarkable. Clips are seen adjacent to the cecum. No intraperitoneal free fluid or free air is present. The body wall is unremarkable. Pelvis: The bladder is normal. No pelvic mass is present. Lymphovascular: No enlarged abdominal or pelvic lymph nodes are present. The major vascular structures are unremarkable. Bones: The osseous structures are unremarkable. Procedure Note Gume Cullen MD - 04/05/2022 CT ABDOMEN PELVIS W CONTRAST, CT CHEST W CONTRAST Signs and Symptoms/Comments: Please see reasoning in CT chest Dx: Mass of upper outer quadrant of right breast [N63.11 (ICD-10-CM)] Comparison: Breast imaging 03/02/2022 and 02/20/2022.. Technique: * CT chest was performed with the administration of 100 mL Omnipaque 350contrast. Multiplanar reformations were performed. * CT abdomen and pelvis was performed with the administration of 100 mLOmnipaque 350 contrast. Multiplanar reconstructions were performed. CHEST FINDINGS: Chest Wall: There is a right chest power port type catheter. There is a2.0 x 1.3 cm masslike opacity in the upper outer right breast (series 2image 37 and series 5 image 39). Mediastinum: The heart is unremarkable. The pericardium is unremarkable. Lymph Nodes: There is a right axillary 1.7 cm x 1.5 cm lymph node (series2 image 31). There is a left AP window 1.8 x 1.0 cm lymph node (series 2image 33). Airways: Unremarkable. Lungs: There is a 6 mm groundglass nodule in the right upper lung (series3 image 127). The lungs are otherwise clear.. Pleura: No pneumothorax or pleural effusion is present. Bones: The osseous structures are unremarkable. ABDOMEN PELVIS FINDINGS: Solid Organs: The liver is normal. No intra or extrahepatic biliary ductaldilatation is present. Clips are seen in the gallbladder fossa.. Thepancreas is normal. The spleen is normal. The adrenal glands are normal.The kidneys are normal. Bowel, Peritoneal Cavity & Body Wall: The stomach is normal. The smallbowel is normal without evidence of obstruction. The colon isunremarkable. Clips are seen adjacent to the cecum. No intraperitonealfree fluid or free air is present. The body wall is unremarkable. Pelvis: The bladder is normal. No pelvic mass is present. Lymphovascular: No enlarged abdominal or pelvic lymph nodes are present.The major vascular structures are unremarkable. Bones: The osseous structures are unremarkable. IMPRESSION 1. Right lateral breast 2.0 x 1.3 cm masslike nodule, with right axillaryadenopathy. 2. Solitary borderline-enlarged AP window lymph node. The remainingmediastinal and hilar nodes appear unremarkable. No subdiaphragmaticadenopathy is seen. 3. Right upper lung 6 mm groundglass nodular opacity. This could reflectminimal airspace disease. This should be reassessed with follow-up imagingwithin 6 months to ensure resolution. Alona Roberts [facility] ORDERABLES documented in this encounter Visit Diagnoses Diagnosis Mass of upper outer quadrant of right breast documented in this encounter Administered Medications Inactive Administered Medications - up to 3 most recent administrations Medication Order MAR Action Action Date Dose Rate Site iohexoL (OMNIPAQUE 350) solution 100 mL 100 mL, intravenous, Once in imaging, 1 dose, Starting on Lisa 04/05/22 at 0859, Until Lisa 04/05/22 at 0922, Routine, Imaging Protocol Orders Given 04/05/2022 9:22 EDT 100 mL documented in this encounter Orders Medications Ordered That Ryan ht Not Have Been Administered Count Last Ordered Date First Ordered Date iohexoL (OMNIPAQUE 350) solution 100 mL 1 0 04/05/2022 documented in this encounter Care Teams Brewmaster Relationship Specialty Start Date End Date Sarah Quintero FNP [address] [place] [phone] PCP - General 05/03/20 documented as of this encounter
--- OUTSIDE RECORDS SUMMARY | 2024-06-30 16:32 | XMS_ITS | Encounter Summary ---
Author Organization [facility] Address [address] [place] [address] Care Team Providers Care Director Graphics Name Role Phone Sarah Quintero [facility] Primary Care Provider [phone] Encounter Details Date Type Department Care Team (Late st Contact Info) Description 12/06/2022 Specialty Pharmacy [facility] - Main [place] [address] [place] [address] Jeane Carrillo [place] Social History Tobacco Use Types Packs/Day Years [...] as of this encounter Progress Notes * Ambar Escalante - 12/06/2022 1531 EST [facility] Specialty Pharmacy Replacement Medication Mireille Chatman is a patient of the [facility] Specialty Pharmacy. Patient receives Ajovy. Mireille Chatman called the pharmacy 12/06/2022 to report an issue with their medication device. Reason for call: Medication injection misfire Patient was instructed to call the blow up operator of their medication ([facility]) to report the incident and begin the process of acquiring replacement medication. Mireille Chatman called [facility] to report the incident, case number generated for this report [id number] Replacement drug to be supplied by [facility] Specialty Pharmacy will send replacement medication to thepatient, the pharmacy's own inventory will be replenished by blow up operator-provided medication shipped directly to the pharmacy Education Provided: n/a Follow-up planned: ?? Clinic appointment: n/a ?? Phone call: n/a ?? Next dose due: 12/18/2022 documented in this encounter Plan of Treatment Upcoming Encounters Date Type Department Care Team (Late st Contact Info) Description 05/25/2025 14:00 EDT Office Visit [facility] Adult Hematology & Oncology [address] [place] [phone] Abdiel Salas MD [address] [place] [address] [address] [place] [phone] documented as of this encounter Visit Diagnoses Not on filedocumented in this encounter Care Teams Director Graphics Relationship Specialty Start Date End Date Sarah Quintero FNP [address] [place] [phone] PCP - General 05/03/20 documented as of this encounter
--- OUTSIDE RECORDS SUMMARY | 2024-06-30 16:32 | XMS_ITS | Encounter Summary ---
Author Organization [facility] Address [address] [place] [address] Care Team Providers Care Etl Data Architect Name Role Phone Sarah Quintero [facility] Primary Care Provider [phone] Encounter Details Date Type Department Care Team (Latest Contact Info) Description 12/10/2022 15:55 EST - 12/10/2022 23:59 EST Hospital Encounter [facility] Cancer Treatment [place] [address] [place] [address] Discharge Disposition: Home or Self Care Social [...] (NAUSEA). 30 Tablet 2 06/28/2022 01/09/2023 rizatriptan (MAXALT-SHORE WORKING SUPERVISOR) 10 mg disintegrating tablet Take 1 [...] Info) Description 05/25/2025 14:00 EDT Office Visit [facility] Adult Hematology & Oncology [address] [place] [address] Abdiel Salas MD [address] [place] [address] [address] [place] [phone] documented as of this encounter Visit Diagnoses Not on filedocumented in this encounter Care Teams Etl Data Architect Relationship Specialty Start Date End Date Sarah Quintero FNP [address] [place] [phone] PCP - General 05/03/20 documented as of this encounter
--- OUTSIDE RECORDS SUMMARY | 2024-06-30 16:32 | XMS_ITS | Encounter Summary ---
Author Organization [facility] Address [address] [place] [address] Care Team Providers Care Agricultural Production Engineer Name Role Phone Sarah Quintero [facility] Primary Care Provider [phone] Encounter Details Date Type Department Care Team (Late st Contact Info) Description 09/17/2022 Specialty Pharmacy [facility] Ambulatory Pharmacy - Main [place] [address] [place] [address] Jeane Carrillo RPH Social History Tobacco Use Types Packs/Day Years [...] as of this encounter Progress Notes * Spike Loo RPH - 09/17/2022 1251 EST [facility] Medication Therapy Initiation Note Mireille Chatman is a 57 y.o. female who will be starting treatment with Ajovy monthly (autoinjector) for migraines. Planned Start Date: 09/25/22, Duration: until lack of efficacy after an adequate medication trial, disease progression, or unacceptable adverse effects support discontinuation Of note patient had aimovig in past I performed a complete review of the patient???s medical record, including medications, immunizations, and allergies. Clinically relevant drug interactions identified: Drug Interaction management plan: Potential barriers to therapy: No; Assessment & Plan Indication, effectiveness, safety, and convenience of specialty medications were reviewed today. Method of Education: Telephone Taught to: Patient Counseled the patient on the following: Therapeutic rationale / Goals of therapy discussed Dosage and administration discussed Safe handling, storage, and disposal reviewed Possible adverse effects and management discussed Adherence and missed doses discussed Additional self-management strategies reviewed, including The following resources were recommended to this patient: ??? Patient referred to written instructions online/in package materials ??? Patient instructed to review suggested resources and call the pharmacy if any questions or concerns arise Information regarding Ajovy monthly (autoinjector) provided to patient. Barriers to Education: None Outcomes of Education: Verbalized understanding, Independent Follow up: - Phone call: before second shot - Clinic appointment: 12/20/22 Spike Loo PharmD Specialty Pharmacy 09/21/2022 * Spike Loo RPH - 09/17/2022 1251 EST [facility] Specialty Pharmacy CGRP Routine Follow Up Mireille Chatman is a 57 y.o. female being treated with Ajovy for migraine. Side effects/toxicities: None Assessment: No changes yet but still early for benefit. Spike Loo PharmD Specialty Pharmacy 10/15/2022 documented in this encounter Plan of Treatment Upcoming Encounters Date Type Department Care Team (Late st Contact Info) Description 05/25/2025 14:00 EDT Office Visit [facility] Adult Hematology & Oncology [address] [place] [address] Abdiel Salas MD [address] [facility] [address] [place] [phone] documented as of this encounter Visit Diagnoses Not on filedocumented in this encounter Care Teams Agricultural Production Engineer Relationship Specialty Start Date End Date Sarah Quintero FNP [address] [place] [phone] PCP - General 05/03/20 documented as of this encounter
--- OUTSIDE RECORDS SUMMARY | 2024-06-30 16:32 | XMS_ITS | Encounter Summary ---
Author Organization [facility] Address [address] [place] [address] Care Team Providers Care Passenger Train Braker Name Role Phone Sarah Quintero [facility] Primary Care Provider Encounter Details Date Type Department Care Team (Late st Contact Info) Description 06/05/2022 Lab Requisition [facility] Pathology & Laboratory Medicine - [address] [address] Outr Resulting Lab, Provider Social History Tobacco Use Types Packs/Day Years [...] [facility] Adult Hematology & Oncology [address] [place] [phone] Abdiel Salas MD [address] [place] [address], [facility] [address] [place] [phone] documented as of this encounter Procedures Procedure Name Priority Date/Time Associated Diagnosis Comments GIARDIA AND CRYPTOSPORIDIUM ANTIGENS Routine 06/05/2022 13:00 EDT documented in this encounter Results * GIARDIA AND CRYPTOSPORIDIUM ANTIGENS (06/05/2022 13:00 EDT) Giardia and Cryptosporidium Cryptosporidium Antigen Neg and Giardia Antigen Neg Cryptosporidium Antigen Neg and Giardia Antigen Neg 2 9:19 EDT [facility] Feces SPECIMEN FROM RECTUM / Unknown 06/05/2022 13:00 EDT 06/05/2022 20:58 EDT Provider Outr Resulting Lab MICROBIOLOGY - GENERAL ORDERABLES [facility] [address] [place] [address] documented in this encounter Visit Diagnoses Not on filedocumented in this encounter Care Teams Passenger Train Braker Relationship Specialty Start Date End Date Sarah Quintero FNP [address] [place] [phone] PCP - General 05/03/20 documented as of this encounter
--- OUTSIDE RECORDS SUMMARY | 2024-06-30 16:32 | XMS_ITS | Encounter Summary ---
Author Organization [facility] Address [address] [place] [address] Care Team Providers Care Sheet Metal Duct Worker Supervisor Name Role Phone Sarah Quintero [facility] Primary Care Provider [phone] Encounter Details Date Type Department Care Team (Late st Contact Info) Description 06/05/2022 Lab Requisition [facility] Pathology & Laboratory Medicine - [address] [address] Outr Resulting Lab, Provider Social History Tobacco [...] [facility] Adult Hematology & Oncology [address] [place] [address], [place] [address] Abdiel Salas MD [address] [facility], [facility] [address] [place] [phone] documented as of this encounter Procedures Procedure Name Priority Date/Time Associated Diagnosis Comments OVA/PARASITE EXAM Routine 06/05/2022 13: 00 EDT documented in this encounter Results * OVA/PARASITE EXAM (06/05/2022 13:00 EDT) Parasite No ova and parasites seen. 06/06/2022 14:16 EDT [facility] Feces SPECIMEN FROM RECTUM / Unknown 06/05/2022 13:00 EDT 06/05/2022 20:58 EDT Narrative [facility] - 06/06/2022 14:16 EDT (If Cryptosporidium, Cyclospora, or Microsporidium are suspected, specific tests must be requested.) Single negative specimen does not rule out the possibility of a parasitic infection. Provider Outr Resulting Lab MICROBIOLOGY - GENERAL ORDERABLES [facility] [address] [place] [address] documented in this encounter Visit Diagnoses Not on filedocumented in this encounter Care Teams Sheet Metal Duct Worker Supervisor Relationship Specialty Start Date End Date Sarah Quintero FNP [address] [place] [phone] PCP - General 05/03/20 documented as of this encounter
--- OUTSIDE RECORDS SUMMARY | 2024-06-30 16:32 | XMS_ITS | Encounter Summary ---
Author Organization [facility] Address [address] [place] [address] Care Team Providers Care Smoking Pipe Coater Name Role Phone Sarah Quintero [facility] Primary Care Provider Encounter Details Date Type Department Care Team (Late st Contact Info) Description 04/12/2022 Telephone [facility] [place] [facility]ology & Oncology [address] [place] [address] [place] [phone] Social History Tobacco Use Types Packs/Day Years [...] * Telephone Encounter - Izabella Dennis - 04/12/2022 2446 EDT PT met with Dr. Roberts scored 1 on the 0-10 distress screen. Outreach call to patient who feels more distress due to possible rib lesion discovered in Bone Scan. 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 Navigator outreach to SIVA Anderson on patient behalf. documented in this encounter Plan of Treatment Upcoming Encounters Date Type Department Care Team (Late st Contact Info) Description 05/25/2025 14:00 EDT Office Visit [facility] Adult Hematology & Oncology [address] [place] [address] Abdiel Salas MD [address] [place] [address] [address] [place] [address] documented as of this encounter Visit Diagnoses Not on filedocumented in this encounter Care Teams Smoking Pipe Coater Relationship Specialty Start Date End Date Sarah Quintero FNP [address] [place] [phone] PCP - General 05/03/20 documented as of this encounter
--- OUTSIDE RECORDS SUMMARY | 2024-06-30 16:32 | XMS_ITS | Encounter Summary ---
Author Organization [facility] Address [address] [place] [address] Care Team Providers Care Accounting Assistant Name Role Phone Sarah Quintero [employer] Primary Care Provider [phone] Reason for Visit * Reason Comments Follow-up Encounter Details Date Type Department Care Team (Late st Contact Info) Description 09/19/2022 8:30 EST Office Visit [facility] Adult Hematology & Oncology [facility] [place], [place] [phone] Abdiel Salas MD [address] [place] [address] [address] [place] [address] Malignant neoplasm of upper-outer quadrant [...] Sign Reading Time Taken Comments Blood Pressure 137/88 09/19/2022 1012 EST Pulse 96 09/19/2022 1012 EST Temperature 36.3 ??C (97.3 ??F) 09/19/2022 1012 EST Respiratory Rate 18 09/19/2022 1012 EST Oxygen Saturation 98% 09/19/2022 1012 EST Inhaled Oxygen Concentration - - Weight 88 kg (194 lb) 09/19/2022 1012 EST Height 170.2 cm (5' 7) 09/19/2022 1012 EST Body Mass Index 30.38 09/19/2022 1012 EST documented in this encounter [...] Progress Notes * Abdiel Salas MD - 09/19/2022 0830 EST Hem/Onc. Follow up Note Mireille Chatman :1965 Age:57 y.o. 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 -02/20/2022 screening mammogram: 16mm [...] to grade 2 oral mucositis, diarrhea grade 2/3, pancytopenia. -05/22/2022 Cycle 2/6 TC/HP: Dose modified [...] be scheduled 4 weeks after cycle 4. -08/31/2022 lumpectomy and sentinel node biopsy: Pathology: [id number] mm), ypN1a(sn, 2/3 macro and micro). -09/19/2022 scars recovering nicely. Plan: Proceed with Neophere l: FEC Q 3w x 3 cycles. Followed byadjuvant radiation. Due to persistent disease after neoadjuvant HER-2 therapy will transition to Ado trastuzumab after radiation for 14 cycles. 2: Family history: Paternal grandmother had DCIS in her 80s, paternal grandfather colon cancer in his 80s. Father 2 uncles and 1 aunt all without malignancy. On the maternal side: Mother 1 uncle 2 aunt without malignancy. Mireille has 3 children all healthy. She has 1 brother and 2 sisters all without malignancy. Reviewed with the vaccine customer representative at [facility] recommended consultation. -04/27/2022 referral to [facility] vaccine customer representative for further evaluation. 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 Otherwise normal pelvic Interim History: Mireille comes in with her to review the pathology report and continue adjuvant therapy for ER/NV negative HER2 positive breast cancer. She is recovered quite nicely the wound site is healing very well. She is a little anxious and worried about her diagnosis treatment and prognosis. Review of systems: Review of Systems Gastrointestinal: History of IBS currently asymptomatic Skin: Right breast and right axilla wound have healed nicely without erythema pain or seroma Neurological: Negative for headaches (History of chronic migraine headaches has not had any recently.). All other systems reviewed and are negative. Vital Signs: Patient Vitals for the past 24 hrs: BP Temp Pulse Resp SpO2 Height Weight 09/19/22 1012 137/88 36.3 ??C (97.3 ??F) 96 18 98 % 170.2 cm (67) 88 kg (194 lb) Wt Readings from Last 3 Encounters: 09/19/22 88 kg (194 lb) 04/26/22 92.1 kg (203 lb) 04/06/22 91.5 kg (201 lb 11.2 oz) Ht Readings from Last 1 Encounters: 09/19/22 170.2 cm (67) Estimated body surface area is 2.04 meters squared as calculated from the following: Height as of this encounter: 170.2 cm (67). Weight as of this encounter: 88 kg (194 lb). ECOG Performance Status: 0 Physical exam: Physical Exam Constitutional: Appearance: Normal appearance. Eyes: General: No scleral icterus. Pulmonary: Effort: Pulmonary effort is normal. Musculoskeletal: Cervical back: Normal range of motion. Right lower leg: No edema. Left lower leg: No edema. Skin: Comments: Right breast wound and right axillary wound healed very nicely no subcutaneous seroma no erythema or warmth. No nipple retraction or discharge. Neurological: General: No focal deficit present. Mental [...] Take 2,000 Units by mouth daily. ??? dexAMETHasone (DECADRON) 4 mg tablet 2 tablets in the morning with breakfast; 2 tablets in the evening with supper; start the day before chemo take for 3 days; then 2 tablets with breakfast x 2 days stop; repeat with next chemo (Patient not taking: Reported on 04/27/2022) 32 Tablet 2 ??? ELDERBERRY FRUIT ORAL Take by mouth daily. ??? fremanezumab-vfrm (AJOVY AUTOINJECTOR) 225 mg/1.5 mL auto-injector Inject 225 mg into the skin every 28 days. 4.5 mL 1 ??? levothyroxine (SYNTHROID) 125 mcg tablet ??? ondansetron (ZOFRAN) 8 mg tablet Take 1 Tablet by mouth 2 times daily as needed for Nausea (for3 days after chemo). (Patient taking differently: Take 8 mg by mouth 2 times daily as needed for Nausea (for 3 days after chemo). Every 8 hours PRN) 12 Tablet 2 ??? pantoprazole (PROTONIX) 40 mg tablet 1 tab(s) orally once a day ??? prochlorperazine (COMPAZINE) 10 mg tablet TAKE 1 TABLET BY MOUTH 3 TIMES DAILY NEEDED (NAUSEA). 30 Tablet 2 ??? rizatriptan (MAXALT-FRUIT PACKER) 10 mg disintegrating tablet DISSOLVE ONE TABLET BY MOUTH NEEDED FORMIGRAINE. MAY REPEAT DOSE IN 2 HOURS IF INEFFECTIVE. DO NOT EXCEED 2 TABLETS IN 24 HOURS, 8 DAYS PER MONTH AND NO MORE THAN 12 TABLETS IN ONE MONTH 12 Tablet 5 ??? sertraline (ZOLOFT) 100 mg tablet Take 150 mg by mouth daily. ??? traZODone (DESYREL) 50 mg tablet Take 50 mg by mouth at bedtime. 0.5-1 tablet At bedtime as needed No current facility-administered medications for this visit. Data Review: Labs: Results for orders placed or performed in visit on 06/05/22 OVA/PARASITE EXAM Specimen: Rectum; Feces Result Value Ref Range Parasite No ova and parasites seen. Imaging: CT OUTSIDE IMAGES MSK This is a non-reportable exam. Assessment: 1: Right breast invasive ductal carcinoma ER/NV negative HER2 positive. Axillary node positive. Started neoadjuvant therapy with TC/HP, poorly tolerated receiving only 2 cycles. [facility] Docetaxel Herceptin pertuzumab for 4 cycles (total of 6),better tolerated. She underwent lumpectomy and sentinel biopsy with no complications. Pathology revealing treatment effect but short of partial response, largest tumor dimension 1.5 cm with 2 out of 3 positive nodes. 09/21/2022 Correction: Would recommend continued adjuvant therapy per Neosphere protocol: FEC. After this is completed proceed with adjuvant radiation followed by adjuvant trastuzumab for total of 14 cycles. After completing therapy with the added trastuzumab estimated 5 years disease- free survival of 75 to 80%. Mireille and her had many questions I think were answered to her satisfaction. Plan: -Proceed with adjuvant FEC every 3 weeks x 3 per Neosphere. -Referral to radiation oncology after cycle 2 to start planning adjuvant RT. -After completing adjuvant radiation therapy continue with ado trastuzumab for 14 cycles. Consult time 30 minutes This note was transcribed using sougou voice recognition software, please excuse any lens blank gauger errors. Carbon copy Rosemary Salcido ONP, Sarah Quintero [employer]OR. Dr. Raul Eugene Code: [id number] Abdiel Salas MD [facility] documented in this encounter Plan of Treatment Upcoming Encounters Date Type Department Care Team (Late st Contact Info) Description 05/25/2025 14:00 EDT Office Visit [facility] Adult Hematology & Oncology [address] [place] [phone] Abdiel Salas MD [address] [place] [address] [address] [place] [address] documented as of this encounter Visit Diagnoses Diagnosis Malignant neoplasm of upper-outer quadrant of right breast in female, estrogen receptor negative (HCC-CMS)- Primary documented in this encounter Historical Medications * This list may reflect changes made after this encounter. Medication Sig Dispensed Refills Start Date End Date LORazepam (ATIVAN) 1 mg tablet Take 1 mg by mouth every 6 hours as needed for Anxiety (Nausea). lidocaine-prilocaine (EMLA) cream Apply topically as needed. As directed externally 12/25/2022 clindamycin phosphate (CLINDAGEL) 1 % gel, once daily Apply topically daily. 1 application externally twice daily *apply a thin film to affected area twice daily 11/28/2022 added in this encounter Care Teams Accounting Assistant Relationship Specialty Start Date End Date Sarah Quintero FNP [address] [place] [phone] PCP - General 05/03/20 documented as of this encounter
--- OUTSIDE RECORDS SUMMARY | 2024-06-30 16:32 | XMS_ITS | Encounter Summary ---
Author Organization [facility] Address [address] [place] [address] Care Team Providers Care Machine Milker Name Role Phone Sarah Quintero [facility] Primary Care Provider [phone] Reason for Visit * Radiology Services (STAT) - Authorization Not Required Specialty Diagnoses / Procedures [facility] Referred To Contact Nuclear Medicine Diagnoses Mass of upper outer quadrant of right breast Procedures NM BONE WHOLE BODY Alona Roberts MBBS [address] [facility], [facility] [address] [place] [address] [facility] Referral ID Status Reason Start Date Expiration Date Visits Requested Visits Authorized [id number] Authorization Not Required 03/29/2022 1 1 Encounter Details Date Type Department Care Team (Latest Contact Info) Description 04/05/2022 8:49 EDT - 04/05/2022 23:59 EDT Hospital Encounter [facility] - [facility] Nuclear Medicine [address] [id number] Discharge Disposition: Home or Self Care Social [...] Assess ment Because of a physical, menta david or emotional condition, does this person have [...] (SYNTHROID) 112 mcg tablet 04/06/2020 04/09/2022 rizatriptan (MAXALT-DIGITAL ASSISTANT) 10 mg disintegrating tablet DISSOLVE ONE TABLET [...] [facility] Adult Hematology & Oncology [facility] [place] [address] Abdiel Salas MD [address] [place] [address] [address] [place] [address] documented as of this encounter Procedures Procedure [...] with Dr. Gume Villafuerte (Interventional Radiology at [facility]). On further review of the accompanying CT, [...] addition, Dr. Villafuerte reviewed the case with [facility] oncology, and recommended dedicated imaging of the [...] ORDERABLES documented in this encounter Visit Diagnoses Not on filedocumented in this encounter Care Teams Machine Milker Relationship Specialty Start Date End Date Sarah Quintero FNP [address] [place] [phone] PCP - General 05/03/20 documented as of this encounter
--- OUTSIDE RECORDS SUMMARY | 2024-06-30 16:32 | XMS_ITS | Encounter Summary ---
Author Organization [facility] Address [address] [place] [address] Care Team Providers Care Tab Card Press Operator Name Role Phone Sarah Quintero [facility] Primary Care Provider [phone] Reason for Referral * Consult (See Order Priority) - Authorized Specialty Diagnoses / Procedures Referred By [facility] Referred To Contact Pharmacy Diagnoses Chronic migraine w/o aura w/o status migrainosus, not intractable Adrian Snider MD [address] [place], [place] [address] [address] [place] [address] [facility] [address] [place] [address] Referral ID Status Reason Start Date Expiration Date Visits Requested Visits Authorized [id number] Authorized Specialty Services Required 2 1 1 Question Answer PA Type: New Medication to be Prior Authorized: emgality or ajovy, whichever is preferred by insurance. Failed aimovig. Comments The purpose of this request is to inform precertification staff that the requested service needs to be reviewed for prior-authorization. Reason for Visit * Reason Comments Headache Encounter Details Date Type Department Care Team ([facility] Contact Info) Description 08/30/2022 10:30 EDT Procedure visit [facility] Neurology Clinic [address] [place] [address] Adrian Snider MD [address] [place] [address]A [address] [place] [address] Chronic migraine w/o aura w/o status migrainosus, [...] Progress Notes * Adrian Snider MD - 08/30/2022 1030 EDT [facility] PATIENT NAME: Mireille Chatman PATIENT : 1965 PCP: Sarah Quintero DATE OF SERVICE: 08/30/2022 CHIEF COMPLAINT: Migraine HISTORY Mireille Chatman is a 57 y.o. female who returns in follow-up for treatment of migraines. She originally was scheduled for repeat botulinum toxin injection today but after discussion we decided to abandon this treatment for ineffectiveness and switch therapies. She thinks there may have been a very mild decrease in headache burden with treatment but not significant. Previously tried Aimovig without much benefit. She is getting treated for breast cancer with chemotherapy, and tomorrow has a lumpectomy. Headaches are still at least 3 severe days in a week requiring triptan therapy, and milder headaches most other days. Summary:??A typical headache starts upon awakening often, in the setting of poor sleep, and pain isbehind the eyes or in the forehead or temples, usually bilateral, sometimes left more than right. Pain is a pressure, sharp, or pounding, and at worse with light sensitivity and nausea. Untreated they will last hours.?At initial evaluation headaches were daily. Took motrin and tylenol daily for years.?Previously failed propranolol, topiramate, both due to ineffectiveness, as well as topiramate, amitriptyline and nortriptyline all causing side effects. Eletriptan initially was helpful for abortive therapy but it lost effectiveness. ??Rizatriptan apparently was helpful. Prior to treatment here she had tried botulinum toxin injections but it was done with a nonstandard protocol and it was not effective for her. Aimovig 70mg/ml was not effective. Medications: Levothyroxine, pantoprazole, sertraline, rizatriptan 10 mg tablet ASSESSMENT: Mireille Chatman is a 57 y.o. female who returns for management for chronic daily headache, chronic migraine, having failed multiple oral prophylactic therapies, as well as low-dose Aimovig and now several botulinum toxin injection treatments. We talked about options today and since she has had so little benefit from botulinum toxin injections, we are going to move onto other injectable CGRP antagonist. PLAN: Chronic migraine without aura, chronic daily headache -Continue Maxalt as needed -Referral to specialty pharmacist placed today for either Emgality or Ajovy, whichever is preferredby her insurance. -Follow-up in about 3 [address] Macias as my clinic schedule will be decreasing. Adrian Snider MD I spent a total of 25 minutes on the date of this encounter meeting with the patient and reviewing documentation/coordinating care as described in the above note. documented in this encounter Plan of Treatment Upcoming Encounters Date Type Department Care Team (Late st Contact Info) Description 05/25/2025 14:00 EDT Office Visit [facility] Adult Hematology & Oncology [address] [place] [phone] Abdiel Salas MD [address] [place] [address], [facility] [address] [place] [address] Scheduled Referrals Name Type Priority Associated Diagnoses Order Schedule AMB CONS/FOLLOW UP SPECIALTY PHARMACY MEDICATION PRIOR AUTHORIZATION REQUEST Outpatient Referral Routine/Next Available Chronic migraine w/o aura w/o status migrainosus, not intractable Expected: 09/06/2022 (Approximate), Expires: 08/30/2023 documented as of this encounter Visit Diagnoses Diagnosis Chronic migraine w/o aura w/o status migrainosus, not intractable- Primary Chronic migraine without aura, without mention of intractable migraine without mention of status migrainosus documented in this encounter Discontinued Medications Medication Sig Discontinue Reason Start Date End Da te erenumab-aooe 70 mg/mL auto-injector Inject 70 mg into the skin every 28 days. Therapy completed 02/27/2021 08/30/2022 documented as of this encounter Care Teams Tab Card Press Operator Relationship Specialty Start Date End Date Sarah Quintero FNP [address] [place] [phone] PCP - General 05/03/20 documented as of this encounter
--- OUTSIDE RECORDS SUMMARY | 2024-06-30 16:32 | XMS_ITS | Encounter Summary ---
Author Organization [facility] Address [address] [place] [address] Care Team Providers Care Preventive Maintenance Engineer Name Role Phone Sarah Quintero [employer] Primary Care Provider Reason for Visit * Reason Onset Date Comments Other 07/04/2022 Encounter Details Date Type Department Care Team (Late st Contact Info) Description 07/04/2022 Telephone [facility] Adult Hematology & Oncology [address] [place] [phone] Abdiel Salas MD [address] [place] [address] [address] [place] [address] Other Social History Tobacco Use [...] Telephone Encounter - Abdiel Salas MD - 07/04/2022 9986 EDT This is a copy of the back note from 06/18/2022. 1: Invasive ductal carcinoma right breast. Node positive. ER/HI negative, HER2 positive. -02/20/2022 screening mammogram: 16mm [...] post left patellar tendon release). -04/24/2022 cycle 1 neoadjuvant TC/HP addendum: 06/18/2022. Cycle 1 TC/HP poorly tolerated due to grade 2 oral mucositis, diarrhea grade 2/3, pancytopenia. -05/22/2022 Cycle 2 TC/HP: Dose modified per protocol. Again poorly tolerated due to diarrhea grade 2/3, cytopenias, mucositis. I think she will build to tolerate another cycle even with further modifications. -06/20/2022 change treatment strategies to the Neophere protocol:Docetaxel, pertuzumab and Herceptinx 4 followed by surgery, followed by FEC(5-fluorouracil, epirubicin, cyclophosphamide every 3 weeksx 3 with concurrent trastuzumab to complete 1 year of HER2 directed therapy. -06/21/2022 cycle 3/4 T/HP Noesphere protocol, surgery to be scheduled 4 weeks after cycle 4. documented in this encounter Plan of Treatment Upcoming Encounters Date Type Department Care Team (Late st Contact Info) Description 05/25/2025 14:00 EDT Office Visit [facility] Adult Hematology & Oncology [facility] [place] [address] Abdiel Salas MD [address] [place] [address] [address] [place] [address] documented as of this encounter Visit Diagnoses Not on filedocumented in this encounter Care Teams Preventive Maintenance Engineer Relationship Specialty Start Date End Date Sarah Quintero FNP [address] [place] [phone] PCP - General 05/03/20 documented as of this encounter
--- OUTSIDE RECORDS SUMMARY | 2024-06-30 16:32 | XMS_ITS | Encounter Summary ---
Author Organization [facility] Address [address] [place] [address] Care Team Providers Care Pr Intern Name Role Phone Sarah Quintero BANQUET ATTENDANT Primary Care Provider Reason for Visit * Reason Onset Date Comments Appointment Related 05/01/2022 fcp Encounter Details Date Type Department Care Team ([facility] st Contact Info) Description 05/01/2022 Telephone [facility] Hematology & Oncology - [address] [address] Fcp, Provider, Appointment Related (fcp) Social History Tobacco Use Types Packs/Day Years [...] encounter Miscellaneous Notes * Telephone Encounter - Wanda Garcia - 05/01/2022 1057 EDT Spoke with patient who accepted a zoom on August 16, 2022 at 10:30 a.m. with Rosemary Costa MS Pt confirmed FH and personal history of genetic screening: No Pt confirmed primary insurance is: [employer] Mailing WP Emailing Zoom invite. documented in this encounter Plan of Treatment Upcoming Encounters Date Type Department Care Team (Late st Contact Info) Description 05/25/2025 14:00 EDT Office Visit [facility] Adult Hematology & Oncology [address] [place] [address] Abdiel Salas MD [address] [place] [address] [address] [place] [address] documented as of this encounter Visit Diagnoses Not on filedocumented in this encounter Care Teams Pr Intern Relationship Specialty Start Date End Date Sarah Quintero FNP [address] [place] [phone] PCP - General 05/03/20 documented as of this encounter
--- OUTSIDE RECORDS SUMMARY | 2024-06-30 16:32 | XMS_ITS | Encounter Summary ---
Author Organization [facility] Address [address] [place] [id number] Care Team Providers Care Scudding Inspector Name Role Phone Sarah Quintero [facility] Primary Care Provider Reason for Referral * Radiology Services (Routine/Next Available) - Authorization Not Required Specialty Diagnoses / Procedures Referred By Contac t Referred To Contact Radiology Diagnoses Breast cancer, right (HCC-CMS) Procedures MR BREAST DIAGNOSTIC W WO CONTRAST BILATERAL Allyson Case MD [address] [place] [address] [facility] Referral ID Status Reason Start Date Expiration Date Visits Requested Visits Authorized [id number] Authorization Not Required 03/27/2022 1 1 Reason for Visit * Radiology Services (Routine/Next Available) - Authorization Not Required Specialty Diagnoses / Procedures Referred By Contac t Referred To Contact Radiology Diagnoses Breast cancer, right (HCC-CMS) Procedures MR BREAST DIAGNOSTIC W WO CONTRAST BILATERAL Allyson Case MD [address] [place] [address] [facility] Referral ID Status Reason Start Date Expiration Date Visits Requested Visits Authorized [id number] Authorization Not Required 03/27/2022 1 1 Encounter Details Date Type Department Care Team (Latest Contact Info) Description 03/29/2022 7:55 EDT - 03/29/2022 23:59 EDT [facility] Center Radiology MRI - [address] [address] Breast cancer, right ([facility]) (HCC) ([facility]) Discharge Disposition: Home or Self Care Social [...] Sign Reading Time Taken Comments Blood Pressure - - Pulse - - Temperature - - Respiratory Rate - - Oxygen Saturation - - Inhaled Oxygen Concentration - - Weight 89.5 kg (197 lb 5 oz) 03/29/2022 0909 EDT Height 170.2 cm (5' 7) 03/29/2022 0909 EDT Body Mass Index 30.9 03/29/2022 0909 EDT documented in this encounter Functional Status [...] (SYNTHROID) 112 mcg tablet 04/06/2020 04/09/2022 rizatriptan (MAXALT-NET WEB APPLICATION DEVELOPER) 10 mg disintegrating tablet DISSOLVE ONE [...] 14:00 EDT Office Visit [facility] Adult Hematology & Oncology [address] [place] [id number] Abdiel Salas MD [address] [place] [address], [facility] [address] [place] [phone] documented as of this encounter Procedures Procedure Name Priority Date/Time Associated Diagnosis Comments MR BREAST DIAGNOSTIC W WO CONTRAST BILATERAL Routine 03/29/2022 9:19 EDT Breast cancer, right (HCC-CMS) (HCC) ([facility]-CMS) documented in this encounter Results * (ABNORMAL) MR BREAST DIAGNOSTIC W WO CONTRAST BILATERAL (03/29/2022 9:19 EDT) Anatomical Region Laterality Modality Breast Bilateral Magnetic Resonan ce 03/29/2022 10:2 5 EDT Narrative 03/29/2022 10:25 EDT MR BREAST DIAGNOSTIC W WO CONTRAST BILATERAL ??03/29/2022 8:30 AM Signs and Symptoms/Comments: right breast cancer Comparison: Outside mammography and sonography performed at [facility] in February 2022. Technique: ?? The patient was placed in a dedicated breast coil in the prone position and scanned on the 3 Nusrat scanner. ??All images were obtained axially. ??Initially, T1- weighted [id number] images were obtained followed by T2-weighted images. ??Dynamic high temporal resolution and high spatial resolution T1-weighted fat-suppressed images were then obtained, first pregadolinium, followed by four sets of images after gadolinium was administered intravenously. ??18 cc of Dotarem was administered. The images were reviewed on a PACS workstation and independent Coverity workstation with and without subtraction. ??3D reconstructions were obtained in coronal, sagittal and MIP projections. Right breast findings: There is scattered fibroglandular tissue and moderate background parenchymal enhancement. There is susceptibility artifact noted in the upper outer quadrant right breast at the site of a clip placed at the time of an ultrasound-guided core biopsy in February 2022. This clip is associated with an irregular enhancing mass at 10:00. This mass measures 2.1 x 1.5 x 2.1 cm for an estimated volume of 2.7 cc. It demonstrates rapid enhancement and washout kinetics. This corresponds with the irregular mass seen on mammography and sonography and biopsied under ultrasound guidance, demonstrating a malignancy. There is nonmass enhancement extending anterior of the mass in question over approximately 2 cm. This roughly correlates with the region of fine pleomorphic calcifications as seen on mammography although we do not have spot magnification views that would assist in appreciating finer calcifications. There are no additional findings of concern within the right breast. There is an abnormally enlarged and rounded lymph node in the right axilla measuring approximately 1.4 x 1.3 cm. I believe this finding can be seen on the prior [facility] ultrasound. There is no evidence of internal mammary lymphadenopathy. Left breast findings: There is scattered fibroglandular tissue and moderate background parenchymal enhancement. There are no enhancing findings of concern in the left breast. There is no evidence of left axillary lymphadenopathy. Nonbreast findings: None. Impression right breast: 1. Known biopsy-proven malignancy, BI-RADS Category 6. 2. Suspicious, BI-RADS Category 4. Impression left breast: Negative, BI-RADS Category 1. Recommendation: There is a suspicious node in the right axilla. This can be targeted for biopsy under ultrasound guidance if needed in the preoperative setting if this would change analyst. Dr. Case will relay the results of this examination to the patient and will direct further care. Overall assessment: BI-RADS Category Assessment 4: Suspicious. These results will be communicated to your patient via a lay letter from Radiology. Allyson Case MD IMG MRI ORDERAB LES documented in this encounter Visit Diagnoses Diagnosis Breast cancer, right (HCC-CMS) Malignant neoplasm of breast (female), unspecified site documented in this encounter Administered Medications Inactive Administered Medications - up to 3 most recent administrations Medication Order MAR Action Action Date Dose Rate Site gadoterate meglumine solution 1-30 mL 1-30 mL, intravenous, Once in imaging, 1 dose, Starting on Lisa 03/29/22 at 0846, Until Lisa 03/29/22 at 0908, Routine, Imaging Protocol Orders Given 03/29/2022 9:08 EDT 18 mL documented in this encounter Orders Medications Ordered That Ryan ht Not Have Been Administered Count Last Ordered Date First Ordered Date gadoterate meglumine solution 1-30 mL 1 documented in this encounter Care Teams Scudding Inspector Relationship Specialty Start Date End Date Sarah Quintero FNP [address] [place] [phone] PCP - General 05/03/20 documented as of this encounter
--- OUTSIDE RECORDS SUMMARY | 2024-06-30 16:32 | XMS_ITS | Encounter Summary ---
Author Organization [facility] Address [address] [place] [address] Care Team Providers Care Snaker Driving Horses Name Role Phone Sarah Quintero AUTOMATIC CIGAR WRAPPER TENDER Primary Care Provider Reason for Visit * Reason Onset Date Comments Appointment Related 04/13/2022 Encounter Details Date Type Department Care Team (Late st Contact Info) Description 04/13/2022 Telephone [facility] Adult Hematology & Oncology [address] [place] [phone] Katt Brewster, AMAURI [address] [facility] [address] [place] [address] Appointment Related Social History Tobacco Use Types Packs/Day Years [...] encounter Miscellaneous Notes * Telephone Encounter - Diya Larsen - 04/13/2022 1410 EDT Spoke with patient will call to schedule appointment in June after [place] 07/05/22. Message does not pertain to this message. Please disregard. documented in this encounter Plan of Treatment Upcoming Encounters Date Type Department Care Team (Late st Contact Info) Description 05/25/2025 14:00 EDT Office Visit [facility] Adult Hematology & Oncology [address] [place] [phone] Abdiel Salas MD [address] [place] [address] [address] [place] [phone] documented as of this encounter Visit Diagnoses Not on filedocumented in this encounter Care Teams Snaker Driving Horses Relationship Specialty Start Date End Date Sarah Quintero FNP [address] [place] [phone] PCP - General 05/03/20 documented as of this encounter
--- OUTSIDE RECORDS SUMMARY | 2024-06-30 16:32 | XMS_ITS | Encounter Summary ---
Author Organization [facility] Address [address] [place] [address] Care Team Providers Care Scallop Cutter Name Role Phone Sarah Quintero REAL TIME ANALYST Primary Care Provider [phone] Encounter Details Date Type Department Care Team (Late st Contact Info) Description 03/30/2022 Orders Only [facility] Nuclear Medicine [address] [place] [address] Wanda Cordova Social History Tobacco Use Types Packs/Day Years [...] 05/25/2025 14:00 EDT Office Visit [facility] Adult Hematology & Oncology [address] [place] [phone] Abdiel Salas MD [address] [place] [address], [facility] [address] [place] [address] documented as of this encounter Visit Diagnoses Not on filedocumented in this encounter Care Teams Scallop Cutter Relationship Specialty Start Date End Date Sarah Quintero FNP [address] [place] [address] PCP - General 05/03/20 documented as of this encounter
--- OUTSIDE RECORDS SUMMARY | 2024-06-30 16:32 | XMS_ITS | Encounter Summary ---
Author Organization [facility] Address [address] [place] [address] Care Team Providers Care Aquatic Centre Manager Name Role Phone Sarah Quintero [facility] Primary Care Provider [phone] Reason for Visit * Reason Comments Medications Refill Encounter Details Date Type Department Care Team (Late st Contact Info) Description 10/23/2022 Refill [facility] [address] [place] [address] Adrian Snider MD [address] [facility] [address] [place] [phone] Medications Refill Social History Tobacco Use Types [...] Refills Start Date End Da te rizatriptan (MAXALT-DIGITAL PHOTO PRINTER) 10 mg disintegrating tablet Take 1 Tablet by mouth as needed for Migraine. May repeat dose in 2 hours if ineffective. No more than 2 in 24 hours, 8 days in 1 month, and no more than 12 tabs in 1 month. 12 Tablet 5 10/23/2022 12/20/2022 documented in this encounter Plan of Treatment Upcoming Encounters Date Type Department Care Team (Late st Contact Info) Description 05/25/2025 14:00 EDT Office Visit [facility] Adult Hematology & Oncology [address] [place] [phone] Abdiel Salas MD [address] [place] [address] [address] [place] [phone] documented as of this encounter Visit Diagnoses Not on filedocumented in this encounter Discontinued Medications Medication Sig Discontinue Reason Start Date End Da te rizatriptan (MAXALT-DIGITAL PHOTO PRINTER) 10 mg disintegrating tablet DISSOLVE ONE TABLET BY MOUTH NEEDED FOR MIGRAINE. MAY REPEAT DOSE IN 2 HOURS IF INEFFECTIVE. DO NOT EXCEED 2 TABLETS IN 24 HOURS, 8 DAYS PER MONTH AND NO MORE THAN 12 TABLETS IN ONE MONTH 05/21/2022 10/23/2022 documented as of this encounter Care Teams Aquatic Centre Manager Relationship Specialty Start Date End Date Sarah Quintero FNP [address] [place] [phone] PCP - General 05/03/20 documented as of this encounter
--- OUTSIDE RECORDS SUMMARY | 2024-06-30 16:32 | XMS_ITS | Encounter Summary ---
Author Organization [facility] Address [address] [place] [address] Care Team Providers Care Skirt Clipper Name Role Phone Sarah Quintero [facility] Primary Care Provider Reason for Referral * Radiology Services (STAT) - Authorization Not Required Specialty Diagnoses / Procedures Referred By Contac t Referred To Contact Nuclear Medicine Diagnoses Mass of upper outer quadrant of right breast Procedures NM BONE WHOLE BODY Alona Roberts MBBS [address] [facility], [facility] [address] [place] [address] [facility] Referral ID Status Reason Start Date Expiration Date Visits Requested Visits Authorized [id number] Authorization Not Required 03/29/2022 1 1 * Radiology Services (STAT) - Authorization Not Required Specialty Diagnoses / Procedures Referred By Contac t Referred To Contact Diagnoses Mass of upper outer quadrant of right breast Procedures CT ABDOMEN PELVIS W CONTRAST Alona Roberts MBBS [address] [facility], [facility] [address] [place] [address] [facility] Referral ID Status Reason Start Date Expiration Date Visits Requested Visits Authorized [id number] Authorization Not Required 03/29/2022 1 1 * Radiology Services (STAT) - Authorization Not Required Specialty Diagnoses / Procedures Referred By Contac t Referred To Contact Diagnoses Mass of upper outer quadrant of right breast Procedures CT CHEST W CONTRAST Alona Roberts MBBS [address] [facility], [facility] [address] [place] [address] [facility] Referral ID Status Reason Start Date Expiration Date Visits Requested Visits Authorized [id number] Authorization Not Required 03/29/2022 1 1 * Cardiology (Routine/Next Available) - Authorization Not Required Specialty Diagnoses / Procedures Referred By Contladonna t Referred To Contact Diagnoses Mass of upper outer quadrant of right breast Procedures TRANSTHORACIC ECHO (TTE) LIMITED Alona Roberts MBBS [address] [facility] [address] [address] [facility] Referral ID Status Reason Start Date Expiration Date Visits Requested Visits Authorized [id number] Authorization Not Required 03/29/2022 1 1 Reason for Visit * Reason Comments New Patient Visit Right Breast Cancer * Consult (Routine) - Authorization Not Required Specialty Diagnoses / Procedures Referred By Contldaonna t Referred To Contact Hematology and Oncology Diagnoses Unspecified lump in unspecified breast Allyson Case MD [address] [place] [phone] Abdiel Salas MD [address] [facility], [facility] [address] [place] [address] Referral ID Status Reason Start Date Expiration Date Visits Requested Visits Authorized [id number] Authorization Not Required 1 1 Encounter Details Date Type Department Care Team (Late st Contact Info) Description 03/29/2022 15:30 EDT Office Visit [facility] Adult Hematology & Oncology [address] [place] [address] Alona Roberts MBBS [address] [facility], [facility] [address] [place] [address] Mass of upper outer quadrant of right breast (Primary Dx); Invasive ductal carcinoma of right breast (HCC-CMS) (HCC) (HCC-CMS); Axillary adenopathy Social History Tobacco Use Types Packs/Day Years [...] Sign Reading Time Taken Comments Blood Pressure 146/82 03/29/2022 1532 EDT Pulse 72 03/29/2022 1532 EDT Temperature - - Respiratory Rate - - Oxygen Saturation 97% 03/29/2022 153 EDT Inhaled Oxygen Concentration - - Weight 92.5 kg (204 lb) 03/29/2022 1532 EDT Height 171 cm (5' 7.32) 03/29/2022 1532 EDT Body Mass Index 31.65 03/29/2022 1532 EDT documented in this encounter [...] as of this encounter Progress Notes * Alona Roberts MBBS - 03/29/2022 1530 EDT ONCOLOGY CONSULT NOTE PATIENT: Mireille Chatman REFERRING PROVIDER: Allyson Case,* CHIEF COMPLAINT New Patient Visit (Right Breast Cancer) HISTORY OF PRESENT ILLNESS October,: Patient received COVID booster in right [...] Core needle biopsy: High-grade invasive ductal carcinoma, ER/TN negative (less than 1%), HER2 2+; FLACO [...] left breast: Normal, no axillary adenopathy noted. Patient is being seen in medical oncology along with her , El to discuss subsequent steps. 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 Her works as nursing education specialist at [employer]. She denies pain at biopsy site in right breast. Otherwise, 10 point review of systems is negative. 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 She has used oral contraceptive pills for 5 years. Patient attained menopause at the age of 44. She stopped using Premarin cream for menopausal symptoms since the diagnosis of breast cancer. PROBLEM LIST Patient Active Problem List Diagnosis ??? Mass of upper outer quadrant of right breast PAST HISTORY Past Medical History: Diagnosis Date ??? 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 Breast cancer, right (HCC-CMS) (HCC) ??? GERD (gastroesophageal reflux disease) ??? Migraine ??? Psychiatric problem Anxiety ??? Thyroid disease Past Surgical History: Procedure Laterality Date ??? APPENDECTOMY 15 years ago ??? BREAST BIOPSY ??? CARPAL TUNNEL RELEASE Bilateral ??? CHOLECYSTECTOMY 2015 ??? HIP SURGERY Left ??? KNEE SURGERY Left left knee arthroscopy ??? SHOULDER SURGERY Left ??? TEMPOROMANDIBULAR JOINT SURGERY ??? TONSILLECTOMY ??? US BREAST BIOPSY 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+ Family History Problem Relation Age of Onset ??? Hypertension Mother ??? Dementia Mother late stage alzheimer's ??? Diverticulitis Father with bowel resection ??? Atrial fibrillation Father ??? Hypothyroidism Father ??? Diabetes Sister ??? Hypothyroidism Sister ??? Obesity Sister ??? Hypertension Maternal Grandmother ??? Stroke Maternal Grandmother ??? Dementia Maternal Grandfather alzheimer's ??? Stroke Maternal Grandfather ??? Breast Cancer Paternal Grandmother 80 ??? Colon Cancer Paternal Grandfather 80 Social History Tobacco Use ??? Smoking status: Never Smoker ??? Smokeless tobacco: Never Used Substance Use Topics ??? Alcohol use: Yes Comment: rarely - once a month maybe ??? Drug use: Never Social History Social History Narrative 03/29/22 15:40 Patient reports feeling safe at home. Lives in [place] with . RN at [facility] [employer]. MEDICATIONS Current Outpatient Medications Medication Sig Dispense Refill [...] orally once a day Taking ??? rizatriptan (MAXALT-CRIB TENDER) 10 mg disintegrating tablet DISSOLVE ONE TABLET [...] No current facility-administered medications for this visit. ALLERGIES Allergies Allergen Reactions ??? Meperidine Nausea Only ??? Sulfa (Sulfonamide Antibiotics) Family history REVIEW OF SYSTEMS Constitutional: Negative for activity change, appetite change, fatigue and fever. HENT: Negative. Eyes: Negative. Respiratory: Negative. Negative for shortness of breath. Cardiovascular: Negative. Negative for chest pain and leg swelling. Gastrointestinal: Negative. Negative for abdominal distention. Endocrine: Negative. Genitourinary: Negative for difficulty urinating. Musculoskeletal: Negative. Skin: Negative. Negative for color change. Allergic/Immunologic: Negative for food allergies. Neurological: Positive for headaches. Patient has chronic migraine headaches. She mentions that her headaches have not gotten worse recently. She denied dizziness. Hematological: Negative. Psychiatric/Behavioral: Negative. Negative for agitation. DIAGNOSTIC DATA Results for orders placed or performed in visit on 03/02/22 OUTSIDE CASE REVIEW Result Value Ref Range Final Diagnosis HER2/MARIA VICTORIA RESULTS: Tissue submitted: Paraffin embedded tissue block labelled [id number] (A1) From [employer] [facility] Fixative: Formalin This immunohistochemical assay is intended to paraffin-embedded tissue fixed in 10% neutral buffered formalin for 6-72 hours; 18-24 hour fixation with maximum tissue thickness of 3-4 millimeters is recommended for best assay performance. Time from biopsy to placement in formalin (cold ischemic time) should be minimized to less than one hour. Her2 should not be performed on alcohol fixed tissues. The assay was performed under appropriate conditions according to the program schedule clerk's instructions with appropriate assay and tissue controls using an Anti-Her2 (4B5) Rabbit Monoclonal Antibody (Hamill). Her2 Scoring Guidelines (invasive tumor component only) 0 negative No staining or membrane staining in less than 10% of cells 1+ negative Faint partial membrane staining in more than 10% of cells 2+ weakly positive Moderate complete membrane staining in more than 10% of cells 3+ positive Strong complete membrane staining in more than 10% of cells Reference: ASCO-CAP Recommendations for Her2 Testing. J Clin Oncol 2018; epub (www.jco.org April) *FDA statement Assay results Her2 IHC Score: 2+ . See comment. Tumor location: Right Breast 10 o'clock Cold ischemic time and total formalin fixative time appropriate: Cannot determine Cells with complete membrane stainin-10% Membrane staining intensity: Faint to strong Partial membrane staining: Present in 60% of cells Cytoplasmic staining: Faint to strong Staining pattern: Heterogeneous Staining in benign epithelium: NA The Her2 assay performed is interpreted as: EQUIVOCAL. See comment Comment: The staining pattern is heterogenous, with a small area (5-10%) showing 3+ staining pattern and theremaining showing 2+ and 1+ patterns. An additional test for Her2 gene amplification will be performed by in situ hybridization (FLACO), the results of which and issued below. HER2 FLACO RESULTS: TISSUE SUBMITTED: Paraffin embedded tissue block labelled [id number] (A1) from [facility] SPECIMEN TYPE: Breast core biopsy COLD ISCHEMIC TIME AND TOTAL FORMALIN FIXATION TIME APPROPRIATE: Cannot determine An in-situ hybridization (FLACO) assay for Her2 gene amplification status (Launchr INFORM dual FLACO DNA probe) was performed on this specimen. The assay was performed under appropriate conditions according to the program schedule clerk's instructions with appropriate assay and tissue controls. A Her2 target probe and a Chromosome 17 control probe are both enumerated in twenty tumor cell nuclei and a Her2/Chr17 ratio is calculated. Results are generally reported as amplified (ratio >2.0) or non-amplified (ratio <2.0). When initial results are inconclusive (ratio 1.9 2.2), a minimum additional 20 nuclei are enumerated. Her2 and Chr17 average signals per cell and the Her2/Chr17 ratio are considered for the final interpretation. The assay is intended for use with formalin-fixed (6-72 hours), paraffin-embedded breast cancer specimens. REFERENCE: ASCO-CAP Recommendations for Her2 Testing. J Clin Oncol 2018; epub (www.jco.org April) RESULTS: Her2/Chr17 ratio: 2.13 (heterogenous area majority of biopsy); 5.37 (small focus 5-10% of the core biopsy) Average Her2 signals per tumor cell nucleus: 5.8 (heterogenous majority of biopsy); 13.2 (small focus 5-10% of the core biopsy) Average Chr17 signals per tumor cell nucleus: 2.7 (heterogenous majority of biopsy); 2.5 (small focus 5-10% of the core biopsy) TUMOR LOCATION: Right breast; 10 o'clock TUMOR CELL NUCLEI ENUMERATED: 40 INTERPRETATION: Amplified. See comment. Comment: The staining pattern is heterogenous, with a small area (5-10%) showing strong amplification and the remaining showing low amplification. Attestation By the signature below, the attending physician certifies that they have 1) personally conducted a gross and/or microscopic examination of the described specimen(s), and/or personally interpreted theresults of laboratory testing of the described specimen(s), and 2) personally rendered or confirmedthe above diagnosis. Clinical History Right breast mass Gross Description A. See final diagnosis. Scanned Images VITALS Patient Vitals for the past 24 hrs: BP Pulse SpO2 Height Weight 03/29/22 1532 (!) 146/82 72 97 % 171 cm (67.32) 92.5 kg (204 lb) Last 5 Weights Filed This Admission 03/29/22 1532 Weight: 92.5 kg (204 lb) Performance Status: (0) Fully active, able to carry on all predisease performance without restriction PHYSICAL EXAM Physical Exam Constitutional: She is oriented to person, place, and time. She appears well- developed and well-nourished. HENT: Head: Normocephalic and atraumatic. Nose: Nose normal. Eyes: Conjunctivae are normal. No scleral icterus. Pulmonary/Chest: Effort normal and breath sounds normal. Right breast exhibits mass and skin change(Firmness appreciated from 9 o'clock position to 11 o'clock position in right breast). Right breastexhibits no inverted nipple, no nipple discharge and no tenderness. Left breast exhibits mass (Firmness appreciated from 7 o'clock position to 9 o'clock position in left breast). Left breast exhibitsno inverted nipple, no nipple discharge, no skin change and no tenderness. No breast swelling or bleeding. Breasts are symmetrical. Abdominal: Soft. She exhibits distension. There is no splenomegaly or hepatomegaly. There is no abdominal tenderness. Musculoskeletal: General: Normal range of motion. Cervical back: Normal range of motion and neck supple. Lymphadenopathy: She has no axillary adenopathy. Neurological: She is alert and oriented to person, place, and time. Skin: Skin is warm and dry. No rash noted. Psychiatric: She has a normal mood and affect. Thought content normal. Nursing note and vitals reviewed. DIAGNOSIS The primary encounter diagnosis was Mass of upper outer quadrant of right breast. A diagnosis of Invasive ductal carcinoma of right breast (HCC-CMS) (HCC) was also pertinent to this visit. ASSESSMENT 56-year-old female who was found to have suspicious findings on screening mammogram in right breastsubsequently leading to diagnostic mammogram, ultrasound, core needle biopsy. 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 Of note, MRI of bilateral breast this morning showed suspicious looking lymph node in right axilla. FURTHER STEPS: I discussed with the patient and her in that next step would be to proceed with ultrasound-guided biopsy of suspicious right axillary lymph node. Patient mentioned that Dr. Eugene will be out of office next week. I will coordinate ultrasound-guided biopsy with our surgeons at [facility]. In addition, I will order staging CT chest, abdomen and pelvis along with bone scan to rule out metastatic spread. I discussed with the patient in that we will proceed with neoadjuvant chemotherapy and anti-HER2 therapy after ruling out metastatic spread. Benefits of neoadjuvant chemotherapy include: Consideration for breast conservation surgery with good pathologic response, option to consider TDM-1 with residual disease following neoadjuvant chemotherapy. In addition, pathologic complete response at the time of surgery is associated with improvement in event free survival and overall survival. ?? TREATMENT REGIMEN: I briefly discussed neoadjuvant chemotherapy with TCHP (trastuzumab: 8 mg/kg forcycle 1 followed by 6 mg/kg every 3 weeks; Pertuzumab: 840 mg loading dose followed by 420 mg every3 weeks; Docetaxel: 75 mg/m?? every 3 weeks and Carboplatin: AUC of 6). Neoadjuvant treatment will be given for 6 cycles in total. I will order baseline echocardiogram. Patient is scheduled for port placement tomorrow at [facility]. ?? TREATMENT RELATED SIDE EFFECTS: Common side effects of chemotherapy include: nausea, vomitings, diarrhea, cytopenias resulting in neutropenic fevers, alopecia; side effects of anti-HER-2 therapy including risk for cardiac dysfunction, diarrhea. ? PLAN ?? -Patient at least has stage II (T2 N1 or N0:pending biopsy results MX) ER negative, HER-2 positive poorly differentiated invasive ductal carcinoma in right breast. -Patient will be scheduled for ultrasound-guided biopsy of suspicious right axillary lymph node. -Restaging scans to rule out metastatic spread. -I briefly discussed neoadjuvant chemotherapy with TC today. -Plan to proceed with neoadjuvant chemotherapy for 6 cycles in total based on CAT scan and bone scan results. -Echocardiogram will be ordered. Patient is scheduled for port placement tomorrow at [facility]. ?? Follow-up: Chemo talk next week pending staging CAT scans. I will see the patient on day 1 cycle 1 chemotherapy. Other Orders Placed This Visit Procedures ??? CT CHEST W CONTRAST ??? CT ABDOMEN PELVIS W CONTRAST ??? NM BONE WHOLE BODY ??? Amb Consult/Follow Up General Surgery/Colorectal Surgery ??? TRANSTHORACIC ECHO (TTE) LIMITED Requested Prescriptions No prescriptions requested or ordered in this encounter Alona Roberts MD Clinical Practice Physician Hematology/ Medical Oncology [facility] Ph no: [phone] I spent a total of 70 minutes on the date of this encounter meeting with the patient and reviewing documentation/coordinating care as described in the above note. No procedures were performed at the time of the visit. CC: Primary Care Provider: Sarah Quintero [address] [place] [phone] Referring Provider: Allyson Case MD [address] [place] [phone] [address] Tez Henley documented in this encounter Plan of Treatment Upcoming Encounters Date Type Department Care Team (Late st Contact Info) Description 05/25/2025 14:00 EDT Office Visit [facility] Adult Hematology & Oncology [address] [place] [phone] Abdiel Salas MD [address] [place] [address], [facility] [address] [place] [phone] Scheduled Orders Name Type Priority Associated Diagnoses Order Schedule TRANSTHORACIC ECHO (TTE) LIMITED Echocardiography Routine Mass of upper outer quadrant of right breast Expected: 03/30/2022 (Approximate), Expires: 03/19/2024 documented as of this encounter Results * NM BONE WHOLE BODY (04/05/2022 13:06 EDT) Anatomical Region Laterality Modality Nuclear Medicine 04/05/2022 14:0 2 EDT Addenda Addendum by Rao Cuenca MD on 04/13/2022 10:26 EDT Addendum: Addendum: Case discussed with Dr. Gume Villafuerte (Interventional Radiology at [facility]). On further review of the accompanying CT, [...] addition, Dr. Villafuerte reviewed the case with [facility] [place], and recommended dedicated imaging of the [...] further assessment. Alona SUERO IMG NM ORDERABLES * CT ABDOMEN PELVIS W CONTRAST (04/05/2022 [...] 6 months to ensure resolution. Alona Roberts [facility] CT ORDERABLES * CT CHEST W CONTRAST [...] 6 months to ensure resolution. Alona Roberts [facility] IMG CT ORDERABLES documented in this encounter Visit Diagnoses Diagnosis Mass of upper outer quadrant of right breast- Primary Invasive ductal carcinoma of right breast (HCC-CMS) Axillary adenopathy Enlargement of lymph nodes Mass of upper outer quadrant of right breast Mass of upper outer quadrant of right breast documented in this encounter Discontinued Medications Medication Sig Discontinue Reason Start Date End Da te ergocalciferol, vitamin D2, (VITAMIN D ORAL) Take by mouth. Error 03/29/2022 documented as of this encounter Historical Medications * This list may reflect changes made after this encounter. Medication Sig Dispensed Refills Start Date End Date ELDERBERRY FRUIT ORAL Take by mouth daily. 2 gummies daily cholecalciferol, vitamin D3, (VITAMIN D3 ORAL) Take 2,000 Units by mouth daily. levothyroxine (SYNTHROID) 125 mcg tablet Take 1 Tablet by mouth daily. 01/18/2022 added in this encounter Care Teams Skirt Clipper Relationship Specialty Start Date End Date Sarah Quintero FNP [address] [place] [address] PCP - General 05/03/20 documented as of this encounter
--- OUTSIDE RECORDS SUMMARY | 2024-06-30 16:32 | XMS_ITS | Encounter Summary ---
Author Organization [facility] Address [address] [place] [address] Care Team Providers Care Engraver Picture Name Role Phone Sarah Quintero [facility] Primary Care Provider Encounter Details Date Type Department Care Team (Late st Contact Info) Description 06/05/2022 Lab Requisition [facility] Pathology & Laboratory Medicine - [address] [address] Outr Resulting Lab, Provider Social History Tobacco [...] [facility] Adult Hematology & Oncology [address] [place] [address], [place] [address] Abdiel Salas MD [address] [facility], [facility] [address] [place] [phone] documented as of this encounter Procedures Procedure Name Priority Date/Time Associated Diagnosis Comments FECAL BACTERIAL PATHOGENS BY PCR Routine 06/05/2022 13:00 EDT documented in this encounter Results * FECAL BACTERIAL PATHOGENS BY PCR (06/05/2022 13:00 EDT) Salmonella PCR Negative Negative 06/06/2022 11:09 EDT [facility] Shigella/Enteroin vasive E. coli Negative Negative 06/06/2022 11:09 EDT [facility] HN LAB CAMPYLOBACTER PCR Negative Negative 06/06/2022 11:09 EDT [facility] Shiga Toxin PCR Negative Negative 11:09 EDT [facility] Feces SPECIMEN FROM RECTUM / Unknown 06/05/2022 13:00 EDT 06/05/2022 20:58 EDT Provider Outr Resulting Lab MICROBIOLOGY - GENERAL ORDERABLES [facility] [address] [place] [address] documented in this encounter Visit Diagnoses Not on filedocumented in this encounter Care Teams Engraver Picture Relationship Specialty Start Date End Date Sarah Quintero FNP [address] [place] [phone] PCP - General 05/03/20 documented as of this encounter
--- OUTSIDE RECORDS SUMMARY | 2024-06-30 16:32 | XMS_ITS | Encounter Summary ---
Author Organization [facility] Address [address] [place] [address] Care Team Providers Care Credit Collection Associate Name Role Phone Sarah Quintero [facility] Primary Care Provider [phone] Encounter Details Date Type Department Care Team (Late st Contact Info) Description 12/12/2022 Results Only [facility] Radiation Oncology - Main [place] [address] [place] [address] Unknown, Provider, Social History Tobacco Use Types [...] [facility] Adult Hematology & Oncology [facility] [place] [address] Abdiel Salas MD [address] [place] [address] [address] [place] [address] documented as of this encounter Procedures Procedure Name Priority Date/Time Associated Diagnosis Comments RAD ONC ARIA SESSION SUMMARY Routine 12/12/2022 11:34 EST documented in this encounter Results * RAD ONC ARIA SESSION SUMMARY (12/12/2022 11:34 EST) Course ID C1 ARIA RADIATION ONCOLOGY Course Intent Curative ARIA RADIATION ONCOLOGY Course First Treatment Date 12/12/2022 11:31 ARIA RADIATION ONCOLOGY Course Last Treatment Date 12/12/2022 11:35 ARIA RADIATION ONCOLOGY Course Elapsed Days 0 ARIA RADIATION ONCOLOGY Reference Point ID RIGHT BREAST ARIA RADIATION ONCOLOGY Reference Point Dosage Given to Date 2.65 Gy ARIA RADIATION ONCOLOGY Reference Point Session Dosage Given 2.65 Gy ARIA RADIATION ONCOLOGY Reference Point ID RT SCLAV AXILLA ARIA RADIATION ONCOLOGY Reference Point Dosage Given to Date 2.65 Gy ARIA RADIATION ONCOLOGY Reference Point Session Dosage Given 2.65 Gy ARIA RADIATION ONCOLOGY Reference Point ID Tumor Bed TOTAL ARIA RADIATION ONCOLOGY Reference Point Dosage Given to Date 2.65 Gy ARIA RADIATION ONCOLOGY Reference Point Session [...] Point RT SCLAV AXILLA ARIA RADIATION ONCOLOGY 12/12/2022 11:3 4 EST Provider Unknown RADIATION ONCOLOGY O RDERABLES TRUMAN RADIATION ONCOLOGY documented in this encounter Visit Diagnoses Not on filedocumented in this encounter Care Teams Credit Collection Associate Relationship Specialty Start Date End Date Sarah Quintero FNP [address] [place] [address] PCP - General 05/03/20 documented as of this encounter
--- OUTSIDE RECORDS SUMMARY | 2024-06-30 16:32 | XMS_ITS | Encounter Summary ---
Author Organization [facility] Address [address] [place] [address] Care Team Providers Care Clinical Pharmacologist Name Role Phone Sarah Quintero SENIOR EDITOR Primary Care Provider [phone] Reason for Visit * Reason Comments Breast Cancer Consult Encounter Details Date Type Department Care Team (Late st Contact Info) Description 11/28/2022 11:00 EST Initial consult [facility] Cancer Treatment [address] [address] Raul Noe MD [address] [facility], [facility] [address] [place] [address] Malignant neoplasm of upper-outer quadrant [...] Sign Reading Time Taken Comments Blood Pressure 122/77 11/28/2022 1019 EST Pulse 86 11/28/2022 1019 EST Temperature - - Respiratory Rate 16 11/28/2022 1019 EST Oxygen Saturation - - Inhaled Oxygen Concentration - - Weight 87.7 kg (193 lb 6.4 oz) 11/28/[address] Height - - Body Mass Index 30.29 09/19/2022 1012 EST documented in this encounter [...] Progress Notes * Raul Noe MD - 11/28/2022 1100 EST Images from the original note were not included. Radiation Oncology Consultation Date of Service- 11/28/2022 Diagnosis: Malignant neoplasm of upper-outer quadrant of right breast in female, estrogen receptor negative (HCC-CMS) (HCC) [C50.411, Z17.1] Referring Physician: No ref. provider found Diagnosis: Cancer Staging Malignant neoplasm of upper-outer quadrant of right breast in female, estrogen receptor negative (HCC-CMS) (HCC) Staging form: Breast, AJCC 8th Edition - Pathologic stage from 08/22/2022: No Stage Recommended (ypT1c, pN1a(sn), cM0, G3, ER-, AZ-, HER2+) - Signed by Raul Noe MD on 11/28/2022 IMPRESSION: Mireille Chatman presented with clinical T2N1, ER-/AZ-/HER+/G3 right upper outer quadrant breast cancer. She received neoadjuvant chemo/HER2 targeted therapy. Lumpectomy in August showed pathologic T1cN1a staging with 2 of 3 sentinel nodes involved without extracapsular or definite lymphovascular invasion. The margin was clear at 5 mm. During the 50 minute consultation with the patient and her I spent greater than half the time in yxht-sy-clag counseling and discussing treatment options of her breast cancer. The NCCN guidelines were discussed. I reviewed that prospective randomized studies have shown comparable survival for mastectomy compared to partial mastectomy and adjuvant breast radiation. The Lancet 2011 update of The Early Breast Cancer Trialists' Collaborative Group meta-analysis of 17 randomized trials of local regional treatment included 10 trials with > 10,000 women randomly assigned following lumpectomy to have radiation or no radiation. Patients receiving radiation had a reduction in breast cancerdeath rate by 1 th over 15 years. In node-positive patients the absolute reduction in 15 year breast cancer was 8.5%. Adjuvant breast radiation is expected to reduce breast recurrence approximately two thirds. Based on NSABP B-18 and B-27, which evaluated neoadjuvant chemotherapy and included breast radiation but nonodal radiation, the 10 yr risk of regional recurrence in >50 year old patients with node positive disease after neoadjuvant chemotherapy was 7.5% (7.2% breast recurrence). The addition of niraj radiation is expected to reduce that significantly. The acute as well as late effects of a course of breast radiation were discussed in detail. Acutelyfatigue and breast skin reaction, which rarely can become significant, are common. Late effects areunusual and include breast fibrosis, lymphedema, compromise of breast cosmesis, cellulitis, lung scarring, rib fracture and chest wall pain. The side effects were placed into proper perspective. She will be evaluated for hypofractionated treatment over approximately 4 weeks. RECOMMENDATION: 1. CT simulation is planned today. She would like to begin her chemotherapy in approximately 2 weeks as she is still recovering from her respiratory infection and may want to travel. 2. I think it is reasonable to maintain her chemotherapy PowerPort in the right infraclavicular region during radiation. 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 Records are reviewed from Dr. Salas's medical oncology charting. Medical history includes migraines followed in neurology. Oncology History Malignant neoplasm of upper-outer quadrant of right breast in female, estrogen receptor negative (HCC-[facility]) ([facility]) 03/30/2022 Initial Diagnosis Malignant neoplasm of upper-outer [...] left breast: Normal, no axillary adenopathy noted. 04/11/2022 - Chemotherapy TCH + P (NEOADJUVANT - TRYPHAENA) (AUC 6) Plan Provider: Katt Brewster NP Treatment goal: Curative Line of treatment: Neoadjuvant 08/22/2022 Cancer Staged Staging form: Breast, AJCC 8th Edition - Pathologic stage from 08/22/2022: No Stage Recommended (ypT1c, pN1a(sn), cM0, G3, ER-, AZ-, HER2+) 08/31/2022 - Surgery Dr. Case at [facility] performed lumpectomy and sentinel node biopsy. Pathology: ypT1c(15 mm), ypN1a(sn, 2/3 macro and micro) poorly differentiated, indeterminate LVI, closest margin 5 mm. Invasive ductal carcinoma right breast. Node positive. ER/AZ negative, HER2 positive. -02/20/2022 screening mammogram: 16mm [...] cm. MRI of the left breast normal. -03/30/22 Right axilla node FNA showed high grade adenocarcinoma. -04/05/2022 CT CAP: 1. Right breast lateral [...] complete 1 year of HER2 directed therapy). -06/21/2022 cycle 3/4 T/HP Neosphere protocol, surgery to be scheduled 4 weeks after cycle 4. -08/31/2022 Dr. Case at [facility] performed lumpectomy and sentinel node biopsy: Pathology: ypT1c(15 mm), ypN1a(sn, 2/3 macro and micro) poorly differentiated, indeterminate LVI, closest margin 5 mm. -09/19/2022 scars recovering nicely. Plan: Proceed with Neophere l: FEC Q 3w x 3 cycles. Followed byadjuvant radiation. Due to persistent disease after neoadjuvant HER-2 therapy will transition to Ado trastuzumab after radiation for 14 cycles. ?? Family history: Paternal grandmother had DCIS in her 80s, paternal grandfather colon cancer in his 80s. Father 2 uncles and 1 aunt all without malignancy. On the maternal side: Mother 1 uncle 2 aunt without malignancy. Mireille has 3 children all healthy. She has 1 brother and 2 sisters all without malignancy. Reviewed with the detective youth bureau at [facility] recommended consultation. -04/27/2022 referral to [facility] detective youth bureau for further evaluation. 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 ?? She is seen in the office today with her . 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 Thepatient has not been working during her chemotherapy course. As noted above she did have modifications in her chemotherapy course due to tolerance concerns. She did experience neutropenia and has required hospitalization. She is currently recovering from an RSV infection. She has noted fatigue. Sheis without breast discomfort, arm swelling or decreased range of motion in her arm. Her last chemotherapy was approximately 1 month ago on 10/24/2022 at [facility]. She reports that initially 3 cycles ofFEC chemotherapy had been planned but Dr. Salas held the final cycle. RADIOLOGY: PHYSICAL EXAM: No data found. ECOG performance Status: (0) Fully active, able to carry on all predisease performance without restriction In general the patient is a healthy-appearing female in no apparent distress. Head and neck exam reveals sclerae to be non-icteric. The neck is without thyromegaly or carotid bruits. The lungs are without rales or rhonchi. Cardiac exam reveals regular rate and rhythm. Examination of the right breast reveals post lumpectomy changes in the upper outer quadrant without evidence of seroma or hematoma. The contralateral breast is without palpable mass. Niraj exam reveals no palpable cervical, supraclavicular or axillary adenopathy. Extremities are without cyanosis, clubbing or edema. Neurologic exam reveals cranial nerves II through XII to be without abnormality. Motor and sensory exam is nonfocal. Past Medical History: Diagnosis Date ??? Deutsch [...] ??? US BREAST BIOPSY 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+ Current Outpatient Medications Medication ??? cholecalciferol, vitamin D3, (VITAMIN D3 ORAL) ??? clindamycin phosphate (CLINDAGEL) 1 % gel, once daily ??? dexAMETHasone (DECADRON) 4 mg tablet ??? ELDERBERRY FRUIT ORAL ??? fremanezumab-vfrm (AJOVY AUTOINJECTOR) 225 mg/1.5 mL auto-injector ??? levothyroxine (SYNTHROID) 125 mcg tablet ??? lidocaine-prilocaine (EMLA) cream ??? LORazepam (ATIVAN) 1 mg tablet ??? ondansetron (ZOFRAN) 8 mg tablet ??? pantoprazole (PROTONIX) 40 mg tablet ??? prochlorperazine (COMPAZINE) 10 mg tablet ??? rizatriptan (MAXALT-PRODUCTION ASSOCIATE) 10 mg disintegrating tablet ??? sertraline (ZOLOFT) 100 mg tablet ??? traZODone (DESYREL) 50 mg tablet No current facility-administered medications for this visit. Allergies Allergen Reactions ??? Meperidine Nausea Only ??? Sulfa (Sulfonamide Antibiotics) Family history Social History Socioeconomic History ??? Marital status: Spouse name: Not on file ??? Number of children: Not on file ??? Years of education: Not on file ??? Highest education level: Not on file Occupational History ??? Not on file Tobacco Use ??? Smoking status: Never ??? Smokeless tobacco: Never Substance and Sexual Activity ??? Alcohol use: Yes Comment: rarely - once a month maybe ??? Drug use: Never ??? Sexual activity: Not on file Other Topics Concern ??? Not on file Social History Narrative 03/29/22 15:40 Patient reports feeling safe at home. Lives in [place] with . RN at [facility]. Social Determinants of Health Financial Resource Strain: Not on file Food Insecurity: Not on file Transportation Needs: Not on file Physical Activity: Not on file Stress: Not on file Social Connections: Not on file Housing Stability: Not on file Family History Problem Relation Age of Onset [...] 80 ??? Colon Cancer Paternal Grandfather 80 I spent a total of 60 minutes on the date of this encounter meeting with the patient and reviewing documentation/coordinating care as described in the above note. This was separate from any procedures performed at the time of the visit. Raul Noe MD Radiation Oncology-[facility] (p) [phone] / (f) [phone] documented in this encounter Plan of Treatment Upcoming Encounters Date Type Department Care Team (Late st Contact Info) Description 05/25/2025 14:00 EDT Office Visit [facility] Adult Hematology & Oncology [address] [place] [id number] Abdiel Salas MD [address] [place] [address] [address] [place] [address] documented as of this encounter Visit Diagnoses Diagnosis Malignant neoplasm of upper-outer quadrant of right breast in female, estrogen receptor negative (HCC-CMS)- Primary documented in this encounter Discontinued Medications Medication Sig Discontinue Reason Start Date End Da te clindamycin phosphate (CLINDAGEL) 1 % gel, once daily Apply topically daily. 1 application externally twice daily *apply a thin film to affected area twice daily Therapy completed 11/28/2022 dexAMETHasone (DECADRON) 4 mg tablet 2 tablets in the morning with breakfast; 2 tablets in the evening with supper; start the day before chemo take for 3 days; then 2 tablets with breakfast x 2 days stop; repeat with next chemo Alternate therapy 04/06/2022 11/28/2022 documented as of this encounter Historical Medications * This list may reflect changes made after this encounter. Medication Sig Dispensed Refills Start Date End Date potassium chloride SA (K-DUR) 20 mEq tablet Take 1 Tablet by mouth daily. added in this encounter Care Teams Clinical Pharmacologist Relationship Specialty Start Date End Date Sarah Quintero FNP [address] [place] [phone] PCP - General 05/03/20 documented as of this encounter
--- OUTSIDE RECORDS SUMMARY | 2024-06-30 16:32 | XMS_ITS | Encounter Summary ---
Author Organization [facility] Address [address] [place] [address] Care Team Providers Care Pallet Stone Inserter Name Role Phone Sarah Quintero RAILROAD CARMAN Primary Care Provider [phone] Reason for Visit * Reason Onset Date Comments Prior Auth, Medication 09/11/2022 CGRP Encounter Details Date Type Department Care Team (Late st Contact Info) Description 09/11/2022 Telephone [facility] [address] [place] [address] Adrian Snider MD [address] [facility] [address] [address] [place] [address] Prior Auth, Medication (CGRP) Social History Tobacco Use Types Packs/Day Years [...] Dispensed Refills Start Date End Da te fremanezumab-vfrm (AJOVY AUTOINJECTOR) 225 mg/1.5 mL auto-injector Inject 225 mg into the skin every 28 days. 4.5 mL 1 09/17/2022 12/20/2022 documented in this encounter Miscellaneous Notes * Telephone Encounter - Eva Mariee - 09/11/2022 151 EDT * Telephone Encounter - Eva Mariee - 09/11/2022 151 EDT Prior Authorization Approval Medication: Ajovy 225mg/1.5mL q 28 days Insurance Name: [employer] Insurance Type: Commercial Approval Dates: 09/13/22 - 03/13/23 EOC ID: [id number] Benefits Information: [facility] able to fill? : No Required Pharmacy: [facility] Additional Info/Other Notes: Prior Authorization Submission Process - Routine Medication: Ajovy 225mg/1.5mL q 28 days Insurance: [employer] Insurance Type: Commercial Date [place] Request Received: 08/30/22 [place] Submission Date: 09/12/22 EOC ID: [id number] Notes: Submitted by: Eva Mccabe Phone: [phone] documented in this encounter Plan of Treatment Upcoming Encounters Date Type Department Care Team (Late st Contact Info) Description 05/25/2025 14:00 EDT Office Visit [facility] Adult Hematology & Oncology [address] [place] [id number] Abdiel Salas MD [address] [place] [address] [address] [place] [phone] documented as of this encounter Visit Diagnoses Not on filedocumented in this encounter Care Teams Pallet Stone Inserter Relationship Specialty Start Date End Date Sarah Quintero FNP [address] [place] [phone] PCP - General 05/03/20 documented as of this encounter
--- OUTSIDE RECORDS SUMMARY | 2024-06-30 16:32 | XMS_ITS | Encounter Summary ---
Author Organization [facility] Address [address] [place] [address] Care Team Providers Care Roofer Vinyl Coating Name Role Phone Sarah Quintero [facility] Primary Care Provider Reason for Visit * Reason Onset Date Comments Results 09/12/2022 Encounter Details Date Type Department Care Team (Late st Contact Info) Description 09/12/2022 Telephone [facility] Hematology & Oncology - [facility] [address] [place] [address] Rosemary Costa, MS [address] [place], [place] [address] Results Social History Tobacco Use Types Packs/Day Years [...] encounter Miscellaneous Notes * Telephone Encounter - Rosemary Costa, MS - 09/12/2022 0106 EDT Spoke to: genetic testing for 47 genes found one variant of uncertain significance which would not change medical management, otherwise normal. Will send results and a letter (results are in scans, letter will be in letters tab). documented in this encounter Plan of Treatment Upcoming Encounters Date Type Department Care Team (Late st Contact Info) Description 05/25/2025 14:00 EDT Office Visit [facility] Adult Hematology & Oncology [address] [place] [address] Abdiel Salas MD [address] [place] [address] [address] [place] [phone] documented as of this encounter Visit Diagnoses Not on filedocumented in this encounter Care Teams Roofer Vinyl Coating Relationship Specialty Start Date End Date Sarah Quintero FNP [address] [place] [address] PCP - General 05/03/20 documented as of this encounter
--- OUTSIDE RECORDS SUMMARY | 2024-06-30 16:32 | XMS_ITS | Encounter Summary ---
Author Organization [facility] Address [address] [place] [address] Care Team Providers Care Spring Assembler Name Role Phone Sarah Quintero [facility] Primary Care Provider [phone] Encounter Details Date Type Department Care Team (Late st Contact Info) Description 11/28/2022 Documentation Visit [facility] [address] [place] [address] uZlma Wadsworth, RN Social History Tobacco Use Types Packs/Day [...] of this encounter Progress Notes * Zulma Wadsworth, MEKA - 11/28/2022 1341 EST [facility] Cancer [facility] Patient Education/Needs Assessment Date: 11/28/22 What is the patient most concerned about with treatment? Skin reaction Does the patient feel adequately informed about he treatment process? Yes Are there any barriers to getting the patient to treatment (transportation, work etc)? No Was the patient accompanied for this encounter? Yes, by her LEARNING STYLE What time of day does the patient learn best? What is the patient preferred method of learning? Patient's primary language: Telugu Does the patient require an translator/interpreter? No Does the patient have any barriers to learning? []Hard of Hearing []Visual Impairment []Cognitive Impairment []Dementia []Low Literacy []Other Comments: N/A PATIENT EDUCATION After assessing the patient's learning needs, the patient was educated about their upcoming treatments. The patient was: The following education materials were supplied to the patient: Written: [x] GABRIEL Radiation Therapy for Cancer [] GABRIEL Radiation Therapy for [x][facility]-specific information Audio/Visual [] GABRIEL RT Answers: An introduction to external beam radiation therapy ADVANCE DIRECTIVES STATUS The patient's advance directive status was reviewed: [] Patient was reminded again to bring in a copy for their electronic Radiation Oncology chart. [] The patient does not have any advance directives and is not interested in completing one at thistime. When asked, the patient was able to summarize our conversation, which demonstrates that they understand the education provided and are ready to begin their course of treatment. [x] The patient was counseled and provided with educational handouts of the following information: pertinent contact information for Radiation Oncology staff, general care and skin care during radiation therapy, nutritional and exercise guidelines during radiation therapy and information related to supportive services during radiation therapy. Comments: N/A Signed: ZULMA WADSWORTH RN documented in this encounter Plan of Treatment Upcoming Encounters Date Type Department Care Team (Late st Contact Info) Description 05/25/2025 14:00 EDT Office Visit [facility] Adult Hematology & Oncology [address] [place] [address] Abdiel Salas MD [address] [place] [address] [address] [place] [phone] documented as of this encounter Visit Diagnoses Not on filedocumented in this encounter Care Teams Spring Assembler Relationship Specialty Start Date End Date Sarah Quintero FNP [address] [place] [phone] PCP - General 05/03/20 documented as of this encounter
--- OUTSIDE RECORDS SUMMARY | 2024-06-30 16:32 | XMS_ITS | Encounter Summary ---
Author Organization [facility] Address [address] [place] [address] Care Team Providers Care Rooming House Keeper Name Role Phone Sarah Quintero AIRPORT CLERK Primary Care Provider Reason for Visit * Reason Comments Follow-up Encounter Details Date Type Department Care Team ([facility] st Contact Info) Description 04/26/2022 15:00 EDT Office Visit [facility] Adult Hematology & Oncology [address] [place] [address] [phone] Jacquelyn Veras MD [address] [place] [address] [address] [place] [address] Malignant neoplasm of upper-outer quadrant of right breast in female, estrogen receptor negative (HCC-CMS) (HCC) (HCC-CMS) (Primary Dx) Social History Tobacco Use [...] Sign Reading Time Taken Comments Blood Pressure 128/73 04/26/2022 1739 EDT Pulse 68 04/26/2022 1739 EDT Temperature 36.6 ??C (97.9 ??F) 04/26/2022 1739 EDT Respiratory Rate 18 04/26/2022 1739 EDT Oxygen Saturation 97% 04/26/2022 1739 EDT Inhaled Oxygen Concentration - - Weight 92.1 kg (203 lb) 04/26/2022 1739 EDT Height - - Body Mass Index 31.49 03/29/2022 1532 EDT documented in this encounter [...] as of this encounter Progress Notes * Jacquelyn Veras MD - 04/26/2022 1500 EDT Hem/Onc. Follow up Note Mireille Chatman :1965 Age:56 y.o. 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 -02/20/2022 screening mammogram: 16mm [...] be scheduled 4 weeks after cycle 4. 2:Family history: Paternal grandmother had DCIS in her 80s, paternal grandfather colon cancer in his 80s. Father 2 uncles and 1 aunt all without malignancy. On the maternal side: Mother 1 uncle 2 aunt without malignancy. Mireille has 3 children all healthy. She has 1 brother and 2 sisters all without malignancy. Reviewed with the vehicle care specialist at [facility] recommended consultation. -04/27/2022 referral to [facility] vehicle care specialist for further evaluation. Interim History: I am meeting Mrs. Chatman and her for the first time at [facility]. She received firstdose of TC/HP yesterday with no side effects. Family history: Paternal grandmother had DCIS in her 80s, paternal grandfather colon cancer in his 80s. Father 2 uncles and 1 aunt all without malignancy. On the maternal side: Mother 1 uncle 2 auntsa without malignancy. Mireille has 3 children all healthy. She has 1 brother and 2 sisters all without malignancy. Review of systems: Review of Systems Gastrointestinal: History of IBS with loose bowels no blood no abdominal pain. Fairly quiescent at the time. Neurological: Negative for headaches (History of chronic migraine headaches has not had any recently.). All other systems reviewed and are negative. Vital Signs: Patient Vitals for the past 24 hrs: BP Temp Pulse Resp SpO2 Weight 04/26/22 1739 128/73 36.6 ??C (97.9 ??F) 68 18 97 % 92.1 kg (203 lb) Wt Readings from Last 3 Encounters: 04/26/22 92.1 kg (203 lb) 04/06/22 91.5 kg (201 lb 11.2 oz) 03/29/22 89.5 kg (197 lb 5 oz) Ht Readings from Last 1 Encounters: 03/29/22 170.2 cm (67) Estimated body surface area is 2.09 meters squared as calculated from the following: Height as of 03/29/22: 171 cm (67.32). Weight as of this encounter: 92.1 kg (203 lb). ECOG Performance Status:0 Physical exam: Physical Exam Constitutional: Appearance: Normal appearance. Eyes: General: No scleral icterus. Pulmonary: Effort: Pulmonary effort is normal. Musculoskeletal: Cervical back: Normal range of motion. Right lower leg: No edema. Left lower leg: No edema. Neurological: General: No focal deficit present. Mental Status: She is alert. Psychiatric: Mood and Affect: Mood normal. Previous medical history: Past Medical History: Diagnosis Date ??? 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 Breast cancer, right ([facility]) ([facility]) ??? GERD (gastroesophageal reflux disease) ??? Migraine ??? Psychiatric problem Anxiety ??? Thyroid disease Allergies: Allergies Allergen Reactions ??? Meperidine Nausea Only ??? Sulfa (Sulfonamide Antibiotics) Family history Medications: Current Outpatient Medications Medication Sig Dispense Refill Last Dose ??? cholecalciferol, vitamin D3, (VITAMIN D3 ORAL) Take 3,000 Units by mouth daily. ??? dexAMETHasone (DECADRON) 4 mg tablet 2 tablets in the morning with breakfast; 2 tablets in the evening with supper; start the day before chemo take for 3 days; then 2 tablets with breakfast x 2 days stop; repeat with next chemo 32 Tablet 2 ??? ELDERBERRY FRUIT ORAL Take by mouth daily. ??? erenumab-aooe 70 mg/mL auto-injector Inject 70 mg into the skin every 28 days. (Patient not taking: Reported on 03/29/2022) 1 Syringe 2 ??? levothyroxine (SYNTHROID) 125 mcg tablet ??? ondansetron (ZOFRAN) 8 mg tablet Take 1 Tablet by mouth 2 times daily as needed for Nausea (for3 days after chemo). 12 Tablet 2 ??? pantoprazole (PROTONIX) 40 mg tablet 1 tab(s) orally once a day ??? prochlorperazine (COMPAZINE) 10 mg tablet Take 1 Tablet by mouth 3 times daily as needed (nausea). 30 Tablet 2 ??? rizatriptan ([employer] HE[employer] ASS[employer]ANT) 10 mg disintegrating tablet DISSOLVE ONE TABLET BY MOUTH NEEDED FORMIGRAINE. MAY REPEAT DOSE IN 2 HOURS IF INEFFECTIVE. DO NOT EXCEED 2 TABLETS IN 24 HOURS, 8 DAYS PER MONTH, AND NO MORE THAN 12 TABLETS IN 1 MONTH 12 Tablet 5 ??? sertraline (ZOLOFT) 100 mg tablet Take 150 mg by mouth daily. No current facility-administered medications for this visit. Data Review: Labs: Results for orders placed or performed in visit on 03/02/22 OUTSIDE CASE REVIEW Result Value Ref Range Final Diagnosis HER2/MARIA VICTORIA RESULTS: Tissue submitted: Paraffin embedded tissue block labelled [id number] (A1) From [facility] Fixative: Formalin This immunohistochemical assay is [...] performed under appropriate conditions according to the dispensary attendant's instructions with appropriate assay and tissue controls using an Anti-Her2 (4B5) Rabbit Monoclonal Antibody ([place]). Her2 Scoring Guidelines (invasive tumor component only) [...] TISSUE SUBMITTED: Paraffin embedded tissue block labelled [id number] (A1) from [facility] SPECIMEN TYPE: Breast core biopsy COLD ISCHEMIC TIME AND TOTAL FORMALIN FIXATION TIME APPROPRIATE: Cannot determine An in-situ hybridization (FLACO) assay for Her2 gene amplification status (Cardiosonic INFORM dual FLACO DNA probe) was performed on this specimen. The assay was performed under appropriate conditions according to the dispensary attendant's instructions with appropriate assay and tissue controls. [...] Description A. See final diagnosis. Scanned Images Imaging: DC BONE WHOLE BODY Addendum: Addendum: Addendum: Case discussed with Dr. Gume Villafuerte (Interventional Radiology at [facility]). On further review of the accompanying CT, indeterminate mild focal uptake in a posterolateral rightrib may correspond to a small sclerotic lesion in the posterolateral right 6th rib, but could alternatively correspond to a subtle mildly expansile lucent lesion in the posterolateral right 8th rib. Given this uncertainty, follow-up SPECT is recommended to better delineate a possible biopsy target. In addition, Dr. Villafuerte reviewed the case with [facility] oncology, and recommended dedicated imaging ofthe left knee to assess for a possible biopsy target in the proximal left tibia (CT would be a reasonable option). Therefore, dedicated imaging of the left knee is recommended, with an option for subsequent SPECT of the ribs if a biopsy target cannot be identified in the proximal left tibia. Narrative: DC BONE WHOLE BODY Signs and Symptoms/Comments: Patient with breast cancer. Rule out metastatic spread. Comparison: CT on 04/05/2022. Technique: After the intravenous injection of 21 mCi Tc-99m MDP, planar whole- body images were performed in standard projections. FINDINGS: Indeterminate mild focal uptake in the posterolateral right 6th rib, which appears to correspond toa small sclerotic intramedullary lesion on today's separately dictated CT. Indeterminate small focus of uptake projecting over the proximal left tibia. No definitive scintigraphic evidence of osseous metastatic disease in the remainder of the axial orappendicular skeleton. No abnormal soft tissue uptake identified. Impression: 1. Indeterminate mild focal uptake in the posterolateral right 6th rib, which appears to correspond to a small sclerotic intramedullary lesion on today's separately dictated CT. Metastatic disease cannot be excluded. Consider biopsy or short-term follow-up. 2. Indeterminate small focus of uptake projecting over the proximal left tibia. Left knee radiographs recommended for further assessment. Assessment: 1: Right breast invasive ductal carcinoma ER/NM negative HER2 positive. Axillary node positive. The bone scan showed small area of uptake in the right sixth posterior rib, very difficult to localize on the CT scan there may be a small sclerotic lesion, not typical for metastatic lesion, was referred to IR for biopsy but is not possible. Also on the bone scan there is a punctate increased uptake in the tibial prominence the left leg, corresponding to surgical site from a left patellar tendonrelease which was done many many years ago, and may have been be associated to it, also very atypical for a metastatic bone lesion. CT scan shows no visceral metastases, and with questionable findings on the bone scan we decided toproceed with neoadjuvant TC/HP, she received her first dose 2 days ago which was well-tolerated except for some somnolence due to the antiemetics. After the induction phase of therapy will obtain new imaging studies including bone scan, proceed with surgery, there is a good likelihood that she will have a complete response in which case we willcontinue with Herceptin and pertuzumab to complete 1 year, if there is residual disease we will consider transitioning to ADO-trastuzumab to complete the years adjuvant therapy. The lesion is ER/NM ne gative and endocrine treatment is not indicated. She may require adjuvant radiation therapy postop. Mireille and her had many questions I think were answered to her satisfaction. 2:Family history: Paternal grandmother had DCIS in her 80s, paternal grandfather colon cancer in his 80s. Father 2 uncles and 1 aunt all without malignancy. On the maternal side: Mother 1 uncle 2 aunt without malignancy. Mireille has 3 children all healthy. She has 1 brother and 2 sisters all without malignancy. Addendum, 04/27/2022: Reviewed with the vehicle care specialist at [facility]: There may be some benefit for consultation. Plan: -04/27/2022 referral to [facility] vehicle care specialist for further evaluation. Consult time 45 minutes This note was transcribed using [employer] voice recognition software, please excuse any supervisor costuming errors. Code: 40024 Carbon copy Rosemary Salcido ONP, Sarah Quintero AIRPORT CLERK. Jacquelyn Veras MD [facility] documented in this encounter Miscellaneous Notes * Addendum Note - Jacquelyn Veras MD - 04/26/2022 1500 EDTAddended by: JACQUELYN VERAS on: 04/27/2022 13:26 Modules accepted: Orders documented in this encounter Plan of Treatment Upcoming Encounters Date Type Department Care Team (Late st Contact Info) Description 05/25/2025 14:00 EDT Office Visit [facility] Adult Hematology & Oncology [address] [place] [address] [phone] Jacquelyn Veras MD [address] [place] [address] [address] [place] [phone] documented as of this encounter Visit Diagnoses Diagnosis Malignant neoplasm of upper-outer quadrant of right breast in female, estrogen receptor negative (HCC-CMS)- Primary documented in this encounter Historical Medications * This list may reflect changes made after this encounter. Medication Sig Dispensed Refills Start Date End Date traZODone (DESYREL) 50 mg tablet Take 1 Tablet by mouth at bedtime. 0.5-1 tablet At bedtime as needed added in this encounter Care Teams Rooming House Keeper Relationship Specialty Start Date End Date Sarah Quintero FNP [address] [place] [phone] PCP - General 05/03/20 documented as of this encounter
--- OUTSIDE RECORDS SUMMARY | 2024-06-30 16:32 | XMS_ITS | Encounter Summary ---
Author Organization [facility] Address [address] [place] [address] Care Team Providers Care [employer] Professional Name Role Phone Sarah Quintero ROASTER SUPERVISOR Primary Care Provider Encounter Details Date Type Department Care Team (Late st Contact Info) Description 04/12/2022 Orders Only [facility] - [facility] Adult Hematology & Oncology [facility] [place] [address] Katt Brewster, EXPELLER OPERATOR [address] [place] [address] Bone lesion (Primary Dx); Malignant neoplasm of upper-outer quadrant of right [...] this encounter Progress Notes * Katt Brewster, EXPELLER OPERATOR - 04/12/2022 1540 EDT IR biopsy order changed as per IR and signed documented in this encounter Plan of Treatment Upcoming Encounters Date Type Department Care Team (Late st Contact Info) Description 05/25/2025 14:00 EDT Office Visit [facility] Adult Hematology & Oncology [facility] [place], [place] [phone] Abdiel Salas MD [address] [place] [address], [facility] [address] [place] [phone] documented as of this encounter Visit Diagnoses Diagnosis Bone lesion- Primary Disorder of bone and cartilage, unspecified Malignant neoplasm of upper-outer quadrant of right breast in female, estrogen receptor negative ([facility] documented in this encounter Care Teams [employer] Professional Relationship Specialty Start Date End Date Sarah Quintero FNP [address] [place] [phone] PCP - General 05/03/20 documented as of this encounter
--- OUTSIDE RECORDS SUMMARY | 2024-06-30 16:32 | XMS_ITS | Encounter Summary ---
Author Organization [facility] Address [address] [place] [address] Care Team Providers Care Hot Strip Mill Inspector Name Role Phone Sarah Quintero CNC SERVICE ENGINEER Primary Care Provider [phone] Reason for Visit * Reason Onset Date Comments Medication Management 09/19/2022 Encounter Details Date Type Department Care Team (Late st Contact Info) Description 09/19/2022 Telephone [facility] [address] [place] [address] Adrian Snider MD [address] [facility] [address] [place] [address] Medication Management Social History Tobacco Use Types Packs/Day Years [...] Telephone Encounter - Allison Hart RN - 09/20/2022 1131 EST Mireille is positive tat you spoke with her about amlodipine. However, she is OK with trying the Ajovy. I sent a message to the specialty pharmacists to proceed with the Ajovy. * Telephone Encounter - Allison Hart RN - 09/20/2022 1054 EST Left message for Mireille to return my call to discuss her medications. * Telephone Encounter - Adrian Snider MD - 09/20/2022 0936 EST I agree. Don't see any mention of amlodipine. Suggest she tries the ajovy. * Telephone Encounter - Allison Hart RN - 09/19/2022 1625 EST I do not see mention of amlodipine in Dr. Snider's note, in any recent note and there is no amlodipine on her med profile, history and current. Was something completed behind the scenes that we are not aware of? * Telephone Encounter - Jazmine Foley MA - 09/19/2022 1614 EST Mireille called needing some clarification on her medications. She was under the impression after her last appointment with Dr. Braxton, she was going to try amlodipine but she just got the call from [facility] that her Ajovy is ready for bulk picker. She is fine with trying the injectable but would like to have it confirmed. documented in this encounter Plan of Treatment Upcoming Encounters Date Type Department Care Team (Late st Contact Info) Description 05/25/2025 14:00 EDT Office Visit [facility] Adult Hematology & Oncology [address] [place] [address] [phone] Abdiel Salas MD [address] [place] [address] [address] [place] [phone] documented as of this encounter Visit Diagnoses Not on filedocumented in this encounter Care Teams Hot Strip Mill Inspector Relationship Specialty Start Date End Date Sarah Quintero FNP [address] [place] [phone] PCP - General 05/03/20 documented as of this encounter
--- OUTSIDE RECORDS SUMMARY | 2024-06-30 16:32 | XMS_ITS | Encounter Summary ---
Author Organization [facility] Address [address] [place] [address] Care Team Providers Care Concrete Inspector Name Role Phone Sarah Quintero [facility] Primary Care Provider Reason for Visit * Reason Comments Genetic Evaluation Telemedicine Video Visit * Consult, Test and Treat (See Order Priority) - Order Cancelled Specialty Diagnoses / Procedures Referred By Brandon venegas Referred To Contact Cancer Genetics Diagnoses Malignant neoplasm of upper-outer quadrant of right breast in female, estrogen receptor negative (HCC-CMS) Abdiel Salas MD [address] [place] [address] [address] [place] [address] [facility] Ep2 Hem/Onc [address] [place] [address] Referral ID Status Reason Start Date Expiration Date Visits Requested Visits Authorized [id number] Order Cancelled Specialty Services Required 04/27/2022 1 1 Encounter Details Date Type Department Care Team (Late st Contact Info) Description 08/16/2022 10:30 EDT Telemedicine [facility] Cancer Center Hematology & Oncology - [address] [place] [address] [place], [place] [phone] Rosemary Costa, MS [address] [place], [place] [id number] Encounter for nonprocreative genetic counseling (Primary Dx); Malignant neoplasm of upper-outer quadrant of right breast in female, estrogen receptor negative (HCC-CMS); Genetic testing Social History Tobacco Use Types Packs/Day Years [...] as of this encounter Progress Notes * Rosemary Costa, MS - 08/16/2022 1030 EDT NEW PATIENT EVALUATION: FAMILIAL CANCER PROGRAM Mireille Chatman DATE OF : 1965 DATE OF CONSULTATION: 08/16/2022 TELEMEDICINE VIDEO VISIT The concept of ???Telemedicine?? has been described to the patient.? Patient has been informed of the anticipated benefits and possible risks.? Patient understands the information provided regardingtelemedicine, has had the opportunity to ask questions about this information, and all questions have been answered to patient???s satisfaction. Patient consents for the use of telemedicine in his/her medical care and authorizes the transmission of any relevant medical information to providers and their staff involved in patient???s medical or mental health care. Patient understands that they maybe responsible for copays, deductible or coinsurance for this service. The location of the patient : home Patient location state: [place] The location of the provider: private office Provider location state: [place] The following people and their roles were present for today's visit: Appointment Provider: Rosemary Costa, MS Mireille Chatman [facility] [place] [place] Mireille Chatman was referred for genetic counseling due to personal and family history of cancer. I reviewed the personal medical history as well as family history, discussed options for genetic testing, as well as implications of any results. Medical History: Mireille Chatman is a 57 y.o. female. She was diagnosed with breast cancer recentlyat the age of 56, and infiltrating ductal carcinoma, high- grade, ER negative, MS negative, HER2 positive, for which she has been getting chemotherapy at [facility]. It is my understanding that she is scheduled for surgery on August 31, with additional chemotherapy to follow. Her uterus and ovaries areintact. She had a colonoscopy at age 51 due to bowel symptoms, which was clear, and was recommendedto be on a 10-year follow-up, and she will pursue this after she is done her current treatment. Menstrual History: She began having menstrual periods at age 13. Was twice with the of 2 children, the first of which occurred when she was 21. She did breast-feed. She took oral contraceptives for about 5 years. She underwent menopause at age 44, she was using Premarin cream but stopped at the time of her diagnosis. 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. Family History: A 4 generation pedigree was obtained - Her daughter is 26 - Her son is 22 and neither of her children has children - A brother is 58 and has no children - A sister is 54 and has no children -A sister is 50 and has no biological children - Her mother lived to age 77 - A maternal uncle and 3 maternal aunts are in their 80s with no cancer, and there are 5 maternal cousins with no cancer - The maternal grandmother lived to 91 - The maternal grandfather lived to 87 - Maternal ancestry is [place] - Her father is 81 - A paternal aunt at age 60 and had a son and a daughter - A paternal uncle is 77 and has 2 daughters - A paternal uncle is 78 and has a daughter and 2 sons - The paternal grandmother was diagnosed with DCIS in her 80s and lived to age 96 - The paternal grandfather lived to age 91, he had colon cancer diagnosed in his 80s - Paternal ancestry is northern with no known Ashkenazi Baptist heritage on either side of the family Assessment: I discussed with Mireille Chatman the possibility that inherited factors are playing a role in the development of cancer in this family. We discussed that genetic testing could have implications with regard to options for cancer screening and prevention for multiple cancer types, both for the patient and potentially family members. Mireille is interested in moving forward with genetic testing, she understands the chance of finding a pathogenic variant is probably low, but not insignificant, and she would like to know for sure. We discussed the risks benefits and limitations of the current genetic testing technology, including the possibility of finding a pathogenic abnormality in a gene with evidence based guidelines for screening, a pathogenic abnormality in a gene without evidence based guidelines for screening, or finding a variant of uncertain significance. We discussed that if genetic testing is performed and no abnormalities are identified, this is an inconclusive result, and future cancer risks are based on the family history of cancer. We also reviewed the Genetic Information Non-Discrimination Act (MARLA). This law prevents health insurance companies (Title I) and employers (Title II) from discriminating against someone based on their genetic information. Genetic information is defined as genetic testing results, family health history, participation in genetic research and use of genetic services. In regards to employment, thislaw does not apply to the [place] and employers with fewer than 15 employees. The law also doesnot include protections in regards to life insurance, disability insurance, and long-term care insurance. Plan: Following our discussion, Mireille Chatman verbally consented to genetic testing via [facility]. A blood collection kit will be mailed directly to their home, and she will take this to [facility] to have her blood drawn. Once the sample is received at the laboratory, results will be available in 2 to 3 weeks. I will call by phone with the results, and if they are positive, we will have another visit with the Familial Cancer Program for further discussion of the implications of these results. Time: I spent a total of 50 minutes on the date of this encounter meeting with the patient and reviewing documentation/coordinating care as described in the above note. * Malcom Cuellar MD - 08/16/2022 1030 EDT Agree with assessment and plan as in Genetic Counselor note. Malcom Cuellar MD documented in this encounter Plan of Treatment Upcoming Encounters Date Type Department Care Team (Late st Contact Info) Description 05/25/2025 14:00 EDT Office Visit [facility] Adult Hematology & Oncology [facility] [place] [address] Abdiel Salas MD [address] [place] [address], [facility] [address] [place] [address] documented as of this encounter Visit Diagnoses Diagnosis Encounter for nonprocreative genetic counseling- Primary Malignant neoplasm of upper-outer quadrant of right breast in female, estrogen receptor negative (HCC-CMS) Genetic testing Other investigation and testing for procreative management documented in this encounter Care Teams Concrete Inspector Relationship Specialty Start Date End Date Sarah Quintero FNP [address] [place] [phone] PCP - General 05/03/20 documented as of this encounter
--- OUTSIDE RECORDS SUMMARY | 2024-06-30 16:32 | XMS_ITS | Encounter Summary ---
Author Organization [facility] Address [address] [place] [address] Care Team Providers Care Administrative Accountant Name Role Phone Sarah Quintero [facility] Primary Care Provider Reason for Referral * (Routine/Next Available) - New Request Specialty Diagnoses / Procedures Referred By Brandon t Referred To Contact Diagnoses Malignant neoplasm of upper-outer quadrant of right female breast (HCC-CMS) Procedures CT SIM EXAM Raul Noe MD [address] [address] [facility] Referral ID Status Reason Start Date Expiration Date V isits Requested Visits Authorized [id number] New Request 11/28/2022 1 1 Reason for Visit * (Routine/Next Available) - New Request Specialty Diagnoses / Procedures Referred By Contladonna t Referred To Contact Diagnoses Malignant neoplasm of upper-outer quadrant of right female breast (HCC-CMS) Procedures CT SIM EXAM Raul Noe MD [address] [address] [facility] Referral ID Status Reason Start Date Expiration Date V isits Requested Visits Authorized [id number] New Request 11/28/2022 1 1 Encounter Details Date Type Department Care Team (Latest Contact Info) Description 11/28/2022 11:10 EST - 11/28/2022 23:59 EST Hospital Encounter [facility] [address] [place] [address] Malignant neoplasm of upper-outer quadrant of right female breast (HCC-CMS) Discharge Disposition: Home or Self Care Social [...] (NAUSEA). 30 Tablet 2 06/28/2022 01/09/2023 rizatriptan (MAXALT-BOTANY PROFESSOR) 10 mg disintegrating tablet Take 1 Tablet [...] [facility] Adult Hematology & Oncology [facility] [place] [address] Abdiel Salas MD [address] [place] [address] [address] [place] [phone] documented as of this encounter Procedures Procedure Name Priority Date/Time Associated Diagnosis Comments CT SIM EXAM Routine 11/28/2022 12:04 EST Malignant neoplasm of upper-outer quadrant of right female breast (HCC-CMS) documented in this encounter Results * CT SIM EXAM (11/28/2022 12:04 EST) Narrative 11/28/2022 12:04 EST This is a non-reportable exam. Raul Noe MD IMG OTHER IMAGING ORDERABLES documented in this encounter Visit Diagnoses Diagnosis Malignant neoplasm of upper-outer quadrant of right female breast (HCC-CMS) Malignant neoplasm of upper-outer quadrant of female breast documented in this encounter Care Teams Administrative Accountant Relationship Specialty Start Date End Date Sarah Quintero FNP [address] [place] [phone] PCP - General 05/03/20 documented as of this encounter
--- OUTSIDE RECORDS SUMMARY | 2024-06-30 16:32 | XMS_ITS | Encounter Summary ---
Author Organization [facility] Address [address] [place] [address] Care Team Providers Care Gravel Truck Driver Name Role Phone Sarah Quintero [facility] Primary Care Provider [phone] Encounter Details Date Type Department Care Team (Late st Contact Info) Description 11/28/2022 Documentation Visit [facility] [place] [address] [place] [address] Zulma Wadsworth, RN Social History Tobacco Use Types [...] Notes * Zulma Wadsworth, MEKA - 11/28/2022 1051 EST Images from the original note were not included. Nursing Initial Assessment Date of Service: 11-28-2022 Referring Physicians: Dr Maritza Tobar: See Rooming Pain: 0/10 Review Of Systems: System Comments Constitutional Extreme fatigue. She is more fatigue since breast cancer Dx and treatment, but it became more severe since RSV infection 3-4 weeks ago for which she had to be hospitalized. Eyes Vision decrease since chemo therapy. ENT Cardiovascular Pulmonary Remaining SOB and coughing with mild activities Gastrointestinal Genitourinary Muscoloskeletal General malaise Integument/breast She says that her skin is very sensitive and she anticipates a strong reaction to radiation Neurological Hx of Migraines, recently started injection of Ajovy with good results. Psychiatric Hx of anxiety, treated with Zoloft. Pt is here with her . They report having a good support system around them. Endocrine Hematologic/Lymph Allergic/Immunologic REVIEW OF SYSTEMS COMMENTS: Signed: ZULMA WADSWORTH RN documented in this encounter Plan of Treatment Upcoming Encounters Date Type Department Care Team (Late st Contact Info) Description 05/25/2025 14:[address] [facility] Adult Hematology & Oncology [facility] [place] [address] Abdiel Salas MD [address] [place] [address] [address] [place] [address] documented as of this encounter Visit Diagnoses Not on filedocumented in this encounter Care Teams Gravel Truck Driver Relationship Specialty Start Date End Date Sarah Quintero FNP [address] [place] [phone] PCP - General 05/03/20 documented as of this encounter
--- OUTSIDE RECORDS SUMMARY | 2024-06-30 16:32 | XMS_ITS | Encounter Summary ---
Author Organization [facility] Address [address] [place] [address] Care Team Providers Care Heating Element Builder Name Role Phone Sarah Quintero RECORDS MANAGEMENT MANAGER Primary Care Provider [phone] Reason for Visit * Reason Onset Date Comments Coordination Of Care 03/30/2022 Encounter Details Date Type Department Care Team (Late st Contact Info) Description 03/30/2022 Telephone [facility] [place] [address] [place] [phone] Alona Roberts, PIO [address] [facility] [address] [place] [address] Coordination Of Care Social History Tobacco Use Types Packs/Day [...] encounter Miscellaneous Notes * Telephone Encounter - iDya Bauer RN - 04/16/2022 0912 EDT Katt- are we waiting to schedule until June? * Telephone Encounter - Marycruz Nielson RN - 03/30/2022 1035 EDT 03/30/22 10:35 Chemo talk scheduled for 04/06/22 with Katt Brewster APRN. Will need port referral ECHO order in place, pending scheduling Will wait to schedule once further ordered testing is complete. Pharmacy notified of regiment, start date TBD. MARYCRUZ NIELSON RN * Telephone Encounter - Alona Roberts MBBS - 03/30/2022 0801 EDT Patient has newly diagnosed ER/GA negative and HER2 positive breast cancer. MR breast showed suspicious looking lymph node in right axilla. She will be scheduled for ultrasound-guided biopsy soon. Please prior Auth for TCHP. Plan to get staging CT chest, abdomen and pelvis and bone scan. If no concern for metastatic spread on scans, then we will proceed with neoadjuvant TCHP. Thank you, PIO Melgoza documented in this encounter Plan of Treatment Upcoming Encounters Date Type Department Care Team (Late st Contact Info) Description 05/25/2025 14:00 EDT Office Visit [facility] Adult Hematology & Oncology [address] [place] [phone] Abdiel Salas MD [address] [place] [address] [address] [place] [phone] documented as of this encounter Visit Diagnoses Not on filedocumented in this encounter Care Teams Heating Element Builder Relationship Specialty Start Date End Date Sarah Quintero FNP [address] [place] [address] PCP - General 05/03/20 documented as of this encounter
--- OUTSIDE RECORDS SUMMARY | 2024-06-30 16:32 | XMS_ITS | Encounter Summary ---
Author Organization [facility] Address [address] [place] [address] Care Team Providers Care Clinic Cma Name Role Phone Sarah Quintero BUSINESS SUPPORT LIAISON Primary Care Provider Encounter Details Date Type Department Care Team (Late st Contact Info) Description 12/12/2022 11:15 EST - 12/12/2022 23:[address] [facility] [address] [place] [address] Raul Noe MD 111 [facility], [facility] [address] [place] [address] Discharge Disposition: Home or Self [...] (NAUSEA). 30 Tablet 2 06/28/2022 01/09/2023 rizatriptan (MAXALT-PLATER PRODUCTION) 10 mg disintegrating tablet Take 1 Tablet [...] [facility] Adult Hematology & Oncology [address] [place] [phone] Abdiel Salas MD [address] [place] [address] [address] [place] [phone] documented as of this encounter Visit Diagnoses Not on filedocumented in this encounter Care Teams Clinic Cma Relationship Specialty Start Date End Date Sarah Quintero FNP [address] [place] [phone] PCP - General 05/03/20 documented as of this encounter
--- OUTSIDE RECORDS SUMMARY | 2024-06-30 16:33 | XMS_ITS | Encounter Summary ---
Author Organization [facility] Address [address] [place] [address] Care Team Providers Care Health Social Work Professor Name Role Phone Sarah Quintero [facility] Primary Care Provider Encounter Details Date Type Department Care Team (Late st Contact Info) Description 03/31/2021 Lab Requisition [facility] Pathology & Laboratory Medicine - [address] [address] Sarah Quintero [facility] [address] [place] [phone] Encounter for other general examination Social History Tobacco Use Types Packs/Day Years Used Date Smoking Tobacco: Never Smokeless Tobacco: Never Alcohol Use Standard Drinks/Week Comments Yes 0 (1 standard drink = 0.6 oz pur e alcohol) rarely Interpersonal Safety Answer Date Record ed Physically Hurt Never 06/13/2020 Verbally Threaten Not on file 06/13/2020 Sex and Gender Information Value Date Recorded Sex Assigned at Not on file Gender Identity Female 03/29/2022 7:52 EDT Sexual Orientation Not on file COVID-19 Exposure Response Date Recorded In the last month, have you been in contact with someone who was confirmed or suspected to have Coronavirus / COVID-19? No / Unsure 03/02/2021 10:07 EDT documented as of this encounter Functional Status [...] [facility] [place] [address] Abdiel Salas MD [address] [place] [address], [facility] [address] [place] [phone] documented as of this encounter Procedures Procedure Name Priority Date/Time Associated Diagnosis Comments SURGICAL PATHOLOGY Today 03/30/2021 15 :00 EDT Encounter for other general examination documented in this encounter Results * SURGICAL PATHOLOGY (03/30/2021 15:00 EDT) Final Diagnosis A. SKIN OF FOREARM, RIGHT, PUNCH BIOPSY: - Solar lentigo. 04/03/2021 9:40 [facility] Attestation By the signature below, the attending physician certifies that they have 1) personally conducted a gross and/or microscopic examination of the described specimen(s), and/or personally interpreted the results of laboratory testing of the described specimen(s), and 2) personally rendered or confirmed the above diagnosis. 04/03/2021 9:40 [facility] at 0940 Clinical History Neoplasm of uncertain origin 04/03/2021 9:40 [facility] Gross Description A. Received in formalin labelled with proper patient identification (initials B, H) and neoplasm R forearm lesion is a punch biopsy of miranda skin (0.3 cm in diameter by 0.3 cm in depth). The specimen is submitted intact in A1. ZEKE PALOMO(ASCP) 03/31/2021 15:51 04/03/2021 9:40 [facility] Performing Lab [facility] 04/03/2021 9:40 EDT [facility] Scanned Images 04/03/2021 9:40 EDT [facility] Tissue TISSUE SPECIMEN FROM SKIN / Unknown 03/30/2021 15:00 EDT 03/31/2021 15:43 EDT Sarah KIDD PATHOLOGY ORDERABLES [facility] [address] [place] [address] documented in this encounter Visit Diagnoses Diagnosis Encounter for other general examination documented in this encounter Care Teams Health Social Work Professor Relationship Specialty Start Date End Date Sarah Quintero FNP [address] [place] [phone] PCP - General 05/03/20 documented as of this encounter
--- OUTSIDE RECORDS SUMMARY | 2024-06-30 16:33 | XMS_ITS | Encounter Summary ---
Author Organization [facility] Address [address] [place] [address] Care Team Providers Care Composition Teacher Name Role Phone Sarah Quintero NATURALIZATION EXAMINER Primary Care Provider [phone] Reason for Visit * (Routine/Next Available) - Receiving Office to Obtain Authorization Specialty Diagnoses / Procedures Referred By Contladonna t Referred To Contact Procedures MA BREAST OUTSIDE IMAGES Imaging, External Referral ID Status Reason Start Date Expiration Date Visits Requested Visits Authorized [id number] Receiving Office to Obtain Authorization 03/28/2022 1 1 Encounter Details Date Type Department Care Team (Latest Contact Info) Description 02/20/2022 - 02/20/2022 23:59 EDT Hospital Encounter [facility] [place] Discharge Disposition: Home or Self Care Social [...] Sig Dispensed Refills Start Date End Date levothyroxine (SYNTHROID) 125 mcg tablet Take 1 [...] 28 days. 1 Syringe 2 02/27/2021 08/30/2022 ergocalciferol, vitamin D2, (VITAMIN D ORAL) Take by mouth. 03/29/2022 gluc blackmon/chondro blackmon A/vit C/Mn (GLUCOSAMINE 1500 COMPLEX ORAL) Take by mouth. 04/09/2022 levothyroxine (SYNTHROID) 112 mcg tablet 04/06/2020 04/09/2022 rizatriptan (MAXALT-LIVESTOCK FARM WORKERS) 10 mg disintegrating tablet DISSOLVE ONE TABLET [...] Info) Description 05/25/2025 14:00 EDT Office Visit [facility] Adult Hematology & Oncology [address] [place] [address] Abdiel Salas MD [address] [place] [address] [address] [place] [address] documented as of this encounter Procedures Procedure Name Priority Date/Time Associated Diagnosis Comments MA OUTSIDE IMAGES BREAST OTHER Routine 03/28/2022 6:18 EDT documented in this encounter Results * MA BREAST OUTSIDE IMAGES (03/28/2022 6:18 EDT) Narrative 03/28/2022 6:18 EDT This is a non-reportable exam. External Imaging IMG OTHER IMAGING OR DERABLES documented in this encounter Visit Diagnoses Not on filedocumented in this encounter Care Teams Composition Teacher Relationship Specialty Start Date End Date Sarah Quintero FNP [address] [place] [address] PCP - General 05/03/20 documented as of this encounter
--- OUTSIDE RECORDS SUMMARY | 2024-06-30 16:33 | XMS_ITS | Encounter Summary ---
Author Organization [facility] Address [address] [place] [address] Care Team Providers Care Optical Glass Silverer Name Role Phone Sarah Quintero WELL LOGGING OPERATOR MUD ANALYSIS Primary Care Provider [phone] Encounter Details Date Type Department Care Team (Latest Contact Info) Description 11/29/2020 Travel Social History Tobacco Use Types Packs/Day Years [...] have Coronavirus / COVID-19? No / Unsure 11/29/2020 13:06 EST documented as of this encounter Functional Status [...] Info) Description 05/25/2025 14:00 EDT Office Visit [facility] Adult Hematology & Oncology [address] [place] [address] Abdiel Salas MD [address] [place] [address] [address] [place] [address] documented as of this encounter Visit Diagnoses Not on filedocumented in this encounter Care Teams Optical Glass Silverer Relationship Specialty Start Date End Date Sarah Quintero FNP [address] [place] [phone] PCP - General 05/03/20 documented as of this encounter
--- OUTSIDE RECORDS SUMMARY | 2024-06-30 16:33 | XMS_ITS | Encounter Summary ---
Author Organization [facility] Address [address] [place] [address] Care Team Providers Care Appraisal Technician Name Role Phone Sarah Quintero [facility] Primary Care Provider Reason for Visit * Reason Onset Date Comments Prior Auth, Medication 11/30/2020 Aimovig 7 0 mg/ml approved through 06/03/2021 Encounter Details Date Type Department Care Team (Late st Contact Info) Description 11/30/2020 Telephone [facility] [address] [place] [address] Allison Borden RN Prior Auth, Medication (Aimovig 70 mg/ml approved through 06/03/2021) Social History Tobacco Use Types Packs/Day Years [...] Dispensed Refills Start Date End Da te erenumab-aooe 70 mg/mL auto-injector Inject 70 mg into the skin every 28 days. 1 Syringe 2 12/01/2020 02/27/2021 documented in this encounter Miscellaneous Notes * Telephone Encounter - Allison Borden RN - 12/07/2020 1443 EST Realized that script for Aimovig sent to the wrong pharmacy. Sending to [facility] pharmacy now with notice of prior approval.. * Telephone Encounter - Allison Borden RN - 12/07/2020 1052 EST Received approval for Aimovig through 06/03/2021. Faxed copy to dispensing pharmacy. * Addendum Note - Allison Borden RN - 12/01/2020 1127 ESTAddended by: ALLISON BORDEN on: 12/01/2020 11:27 Modules accepted: Orders * Telephone Encounter - Allison Borden RN - 12/01/2020 1042 EST Per instructions received on Covermymeds, tried to send a PA request through [email or web address]. They do not have this member listed. Called [facility] pharmacy who provided the following: Bin: [id number] PCN: [id number] Card hurley: [id number] Group: [facility] Will try again in Covermymeds. - this still referred me to [facility]. Printed out PA form and faxing request with medical doumentation. * Telephone Encounter - Allison Borden RN - 12/01/2020 1033 EST Received a call from Yanel[facility] at [facility] that [facility] only handles patient's medical benefits, not her pharmacy benefits. * Telephone Encounter - Allison Borden RN - 11/30/2020 1400 EST Submitted PA request to [facility] via Covermymeds. [employer] is not her current medication insurance. * Telephone Encounter - Allison Borden RN - 11/30/2020 1103 EST ----- Message from Adrian Snider MD sent at 11/29/2020 13:47 EST ----- Please submit prior authorization for Aimovig 70 mg dosage every 28 days for chronic migraine without aura, failed propranolol, topiramate, amitriptyline, nortriptyline. documented in this encounter Plan of Treatment Upcoming Encounters Date Type Department Care Team (Late st Contact Info) Description 05/25/2025 14:[address] [facility] Adult Hematology & Oncology [address] [place] [id number] Abdiel Salas MD [address] [place] [address] [address] [place] [phone] documented as of this encounter Visit Diagnoses Not on filedocumented in this encounter Care Teams Appraisal Technician Relationship Specialty Start Date End Date Sarah Quintero FNP [address] [place] [phone] PCP - General 05/03/20 documented as of this encounter
--- OUTSIDE RECORDS SUMMARY | 2024-06-30 16:33 | XMS_ITS | Encounter Summary ---
Author Organization [facility] Address [address] [place] [address] Care Team Providers Care Tarring Machine Operator Name Role Phone Sarah Quintero [facility] Primary Care Provider [phone] Reason for Visit * Reason Comments Headache Botox Injection Encounter Details Date Type Department Care Team ([facility] st Contact Info) Description 03/01/2022 10:00 EDT Procedure visit [facility] Neurology Clinic [address] [place] [address] Adrian Snider MD [address] [facility] [address] [place] [address] Chronic migraine w/o aura w/o [...] Progress Notes * Adrian Snider MD - 03/01/2022 1000 EDT [facility] Botulinum Toxin Procedure Note Patient: Mireille Chatman : 1965 Date of service: 03/01/2022 Diagnosis / Indication for Injections: ICD-10-CM ICD-9-CM 1. Chronic migraine w/o aura w/o status migrainosus, not intractable G43.709 346.70 History: Mireille Chatman who presents for her fourth botulinum toxin injection for chronic migraine. At last visit she was still having a total of 25 days of any headache, and severe maybe 6 or so, though this was an improvement from prior to botulinum toxin treatments. Today she says the last month she says headaches worsened, perhaps from a GI illness she had. Before that she was having a severe headache once a week, responsive to triptan. She has some other headache at baseline most days. She drinks coffee rarely, and says aspartame can trigger headaches for her, but isn't sure of other triggers. Summary: A typical headache starts upon awakening [...] of wastage: 15 Units Vial-1 Lot# : [id number] NDC# : Therapeutic Botox 200 Units [8396-2256-33] Botulinum toxin A (Botox) was reconstituted in normal saline at a concentration of 2cc / 100 units 0.1cc = 5 units Intramuscular & subcutaneous soft tissue injections were performed utilizing a Utilizing a 30G ?? inch needle. The following muscles were injected: Frontalis eliminated Procerus 5 units Unit Manager bilaterally 5 units at each site Temporalis bilaterally 30 units at 4 sites Occipitalis bilaterally 15 units at 3 sites Cervical paraspinals bilaterally 20 units at 2 sites Trapezius bilaterally 20 units at 3 sites The patient tolerated the procedure well and without complications. Assessment: ICD-10-CM ICD-9-CM 1. Chronic migraine w/o aura w/o status migrainosus, not intractable G43.709 346.70 We talked about the incomplete that she has had from botulinum toxin injections and discussed whether or not to change therapy. She recalls trying so many different things for headache that she wouldrather stick with this for now since it has helped some. Plan: Return to clinic for repeat botulinum injection in 3 months. Dose increased today. Adrian Snider MD documented in this encounter Plan of Treatment Upcoming Encounters Date Type Department Care Team (Late st Contact Info) Description 05/25/2025 14:00 EDT Office Visit [facility] Adult Hematology & Oncology [facility] [address] Abdiel Salas MD [address] [place] [address] [address] [place] [phone] documented as of this encounter Visit Diagnoses Diagnosis Chronic migraine w/o aura w/o status migrainosus, not intractable- Primary Chronic migraine without aura, without mention of intractable migraine without mention of status migrainosus documented in this encounter Care Teams Tarring Machine Operator Relationship Specialty Start Date End Date Sarah Quintero FNP [address] [place] [phone] PCP - General 05/03/20 documented as of this encounter
--- OUTSIDE RECORDS SUMMARY | 2024-06-30 16:33 | XMS_ITS | Encounter Summary ---
Author Organization [facility] Address [address] [place] [address] Care Team Providers Care Wall Steamer Name Role Phone Sarah Quintero [facility] Primary Care Provider [phone] Reason for Visit * Reason Comments Migraine Botox Injection Encounter Details Date Type Department Care Team ([facility] st Contact Info) Description 03/30/2021 11:30 EDT Procedure visit [facility] Neurology Clinic [address] [place], [place] [id number] Adrian Snider MD [address] [facility] [address] [place] [address] Chronic migraine (Primary Dx) Social History Tobacco Use Types [...] Progress Notes * Adrian Snider MD - 03/30/2021 1130 EDT [facility] Botulinum Toxin Procedure Note Patient: Mireille Chatman : 1965 Date of service: 03/30/2021 Diagnosis / Indication for Injections: ICD-10-CM ICD-9-CM 1. Chronic migraine G43.709 346.70 History: Mireille Chatman presents for her first botulinum toxin injection for chronic migraine. I last saw brian month ago at that point Aimovig 70 mg/mL which after several months had no effect at all on headaches. We discussed next steps including possibly increasing Aimovig dose, or trying alternate CGRP antagonist, or trying botulinum toxin injection and she opted for the latter, and stopped Aimovig. Briefly tried botulinum toxin injections but in a nonstandard protocol, very low dose, in [place]. This was at least 15 years ago. Today she is still having daily headaches. Summary: A typical headache starts with it upon awakening frequently, in the setting of poor sleep,and pain is behind the eyes or in the forehead or temples, usually bilateral, sometimes left more than right. She attributes some of this to prior TMJ surgery on the left. Pain is a pressure, sharp, or pounding, and at worse with light sensitivity and nausea. Untreated they will last hours. At initial evaluation headaches were daily. She takes motrin and tylenol almost every day, and this has been for years. Previously failed propranolol, topiramate, both due to ineffectiveness, as well as amitriptyline and nortriptyline both due to side effects. Eletriptan initially was helpful for abortive therapy but it lost effectiveness. Rizatriptan apparently was helpful. Apparently in the past she had tried botulinum toxin injections but it was apparently done with a nonstandard protocol and it wasnot effective for her. Neurological Exam: Alert, fluent speech, face symmetric, [...] not used. Total number of units injected: 155 Units Total number of units of wastage: 45 Units Vial-1 Lot# : [id number] NDC# : Therapeutic Botox 200 Units [[id number]] Botulinum toxin A (Botox) was reconstituted in normal saline at a concentration of 2cc / 100 units 0.1cc = 5 units Intramuscular & subcutaneous soft tissue injections were performed utilizing a Utilizing a 30G ?? inch needle. The following muscles were injected: Frontalis bilaterally 10 units at 2 sites Procerus 5 units Columnist/Commentator bilaterally 5 units at each site Temporalis bilaterally 20 units at 4 sites Occipitalis bilaterally 15 units at 3 sites Cervical paraspinals bilaterally 10 units at 2 sites Trapezius bilaterally 15 units at 3 sites The patient tolerated the procedure well and without complications. Assessment: ICD-10-CM ICD-9-CM 1. Chronic migraine G43.709 346.70 Plan: Return to clinic for repeat botulinum injection in 3 months. Adrian Snider MD documented in this encounter Plan of Treatment Upcoming Encounters Date Type Department Care Team (Late st Contact Info) Description 05/25/2025 14:00 EDT Office Visit [facility] Adult Hematology & Oncology [address] [place] [address] Abdiel Salas MD [address] [place] [address] [address] [place] [phone] documented as of this encounter Visit Diagnoses Diagnosis Chronic migraine- Primary Chronic migraine without aura, without mention of intractable migraine without mention of status migrainosus documented in this encounter Care Teams Wall Steamer Relationship Specialty Start Date End Date Sarah Quintero FNP [address] [place] [address] PCP - General 05/03/20 documented as of this encounter
--- OUTSIDE RECORDS SUMMARY | 2024-06-30 16:33 | XMS_ITS | Encounter Summary ---
Author Organization [facility] Address [address] [place] [address] Care Team Providers Care Traffic Superintendent Name Role Phone Sarah Quintero [facility] Primary Care Provider [phone] Reason for Visit * Reason Onset Date Comments Medications Refill 02/27/2021 Encounter Details Date Type Department Care Team (Late st Contact Info) Description 02/27/2021 Telephone [facility] [place] [address] [place] [address] Allison Hart, MEKA Medications Refill Social History Tobacco Use [...] 28 days. 1 Syringe 2 02/27/2021 08/30/2022 documented in this encounter Miscellaneous Notes * Telephone Encounter - Allison Hart, RN - 02/27/2021 1102 EDT Request: Aimovig 70 mg/ml q28d Last OV: 11/29/2020 Next OV: 03/02/2021 Ref Date: 11/29 same Action: Escript as tabbed documented in this encounter Plan of Treatment Upcoming Encounters Date Type Department Care Team (Late st Contact Info) Description 05/25/2025 14:00 EDT Office Visit [facility] Adult Hematology & Oncology [address] [place] [phone] Abdiel Salas MD [address] [place] [address] [address] [place] [phone] documented as of this encounter Visit Diagnoses Not on filedocumented in this encounter Discontinued Medications Medication Sig Discontinue Reason Start Date End Da te erenumab-aooe 70 mg/mL auto-injector Inject 70 mg into the skin every 28 days. Reorder 12/01/2020 02/27/2021 documented as of this encounter Care Teams Traffic Superintendent Relationship Specialty Start Date End Date Sarah Quintero FNP [address] [place] [phone] PCP - General 05/03/20 documented as of this encounter
--- OUTSIDE RECORDS SUMMARY | 2024-06-30 16:33 | XMS_ITS | Encounter Summary ---
Author Organization [facility] Address [address] [place] [address] Care Team Providers Care Procurement Analyst Name Role Phone Sarah Quintero [facility] Primary Care Provider [phone] Reason for Visit * Reason Comments New Patient Visit Migraine Encounter Details Date Type Department Care Team ([facility] st Contact Info) Description 05/10/2020 13:00 EDT Office Visit [facility] [address] [place] [phone] Sanju Oropeza MD [address] [place] [address] Chronic tension-type headache, not intractable (Primary Dx); Migraine without aura and without status migrainosus, not intractable Social History Tobacco Use Types Packs/Day Years Used Date Smoking Tobacco: Never Smokeless Tobacco: Never Alcohol Use Standard Drinks/Week Comments Yes 0 (1 standard drink = 0.6 oz pur e alcohol) rarely Sex and Gender Information Value Date Recorded Sex Assigned at Not on file Gender Identity Female 03/29/2022 7:52 EDT Sexual Orientation Not on file documented as of this encounter Last Filed Vital Signs Vital Sign Reading Time Taken Comments Blood Pressure 112/80 05/10/2020 1307 EDT Pulse 60 05/10/2020 1307 EDT Temperature - - Respiratory Rate - - Oxygen Saturation 96% 05/10/2020 1307 EDT Inhaled Oxygen Concentration - - Weight 89.8 kg (198 lb) 05/10/2020 1307 EDT Height 170.2 cm (5' 7) 05/10/2020 1307 EDT Body Mass Index 31.01 05/10/2020 1307 EDT documented in this encounter Ordered Prescriptions Prescription Sig Dispensed Refills Start Date End Da te rizatriptan (MAXALT-CASE BRIEFER) 10 mg disintegrating tablet Take 1 Tab by mouth as needed for up to 30 days for Migraine (at onset migraine, can repeat 1 tab 2h later if recurs or persists). 12 Tab 3 05/10/2020 11/01/2020 amitriptyline (ELAVIL) 10 mg tablet Take 1 Tab by mouth at bedtime for 30 days. 30 Tab 3 05/10/2020 06/09/2020 documented in this encounter Progress Notes * Sanju Oropeza MD - 05/10/2020 1300 EDT [facility] PATIENT NAME: Mireille Chatman PATIENT : 1965 PCP: Sarah Quintero DATE OF SERVICE: 05/10/2020 CHIEF COMPLAINT: Headaches HISTORY OF PRESENT ILLNESS Mireille Chatman is a 54 y.o. right handed female with history of hypothyroidism, tempormandibular joint surgery as a teenager and migraines for over 30 years presents with complaints of headaches that have been recently more prevalent and she hasn't seen a neurologist in quite some time. In the past,she has tried topiramate for migraine prophylaxis but didn't tolerate. More recently her Primary Care Physician started her on propranolol and only recently increased the dose up to 20 mg b.i.d. She hasn't noticed any significant change in her headache frequency yet, so it may be too early to tell whether this will be effective for her. So far, she hasn't had adverse effects. She has been using el etriptan (Relpax) Which had been effective for a long period of time, but now seems to be less effective. As for her headache pattern it appears that she has a mixed patter. One type of headache tends to be dull achy in quality and localized to the frontal area bilaterally, often with headache behind the eyes and in the temporal regions. Severity hovers around 2/10 and is what she describes as a re;atively low level, almost daily headache that is not debilitating but is annoying and make her irritable. On the other hand, she has less frequent throbbing, pulsatile headaches that can be hemicranial, with associated nausea on occasion but no vomiting. These will often wake her from a sound sleep, and sometimes she simply wakes up in the morning with a headache. Severity of these more commonly can reach 8/10 in intensity. Frequency averages of a cluster of headaches every 4 to 6 weeks during which she has headaches for 3 to 4 days during that time. She has no associated symptoms. She has no premonitory visual aura. She has had no vertigo, no lightheadedness, fainting spells, and no focal or lateralized extremity weakness, numbness or paresthesias. She has no known family history of migraine, no known family history of aneurysm or subarachnoid hemorrhage amongst first-degree relatives. She is very familiar with a list of foods that are known dietary migraine triggers and for the most part has been compliant with avoiding those over the years. PAST MEDICAL HISTORY Past Medical History: Diagnosis Date ??? Migraine PAST SURGICAL HISTORY Past Surgical History: Procedure Laterality Date ??? APPENDECTOMY 15 years ago ??? CARPAL TUNNEL RELEASE Bilateral ??? CHOLECYSTECTOMY 2014 ??? HIP SURGERY Left ??? KNEE SURGERY Left left knee arthroscopy ??? SHOULDER SURGERY Left ??? TEMPOROMANDIBULAR JOINT SURGERY ??? TONSILLECTOMY FAMILY HISTORY family history includes Colon Cancer in her paternal grandfather; Dementia in her maternal grandfather and mother; Diabetes in her sister; Diverticulitis in her father; Hypertension in her maternal grandmother and mother; Hypothyroidism in her sister; Seizures in her maternal grandfather and maternal grandmother. SOCIAL HISTORY reports that she has never smoked. She has never used smokeless tobacco. She reports that she drinks alcohol. She reports that she does not use drugs. ALLERGIES Allergies Allergen Reactions ??? Meperidine Nausea Only ??? Sulfa (Sulfonamide Antibiotics) Family history CURRENT MEDICATIONS Current Outpatient Medications Medication Sig Dispense Refill ??? amitriptyline (ELAVIL) 10 mg tablet Take 1 Tab by mouth at bedtime for 30 days. 30 Tab 3 ??? conjugated estrogens 0.625mg/G (PREMARIN) vaginal cream intravaginally once a day (in the evening) ??? levothyroxine (SYNTHROID) 112 mcg tablet ??? pantoprazole (PROTONIX) 40 mg tablet 1 tab(s) orally once a day ??? propRANolol (INDERAL) 20 mg tablet Take 20 mg by mouth 2 times daily. ??? rizatriptan (MAXALT-CASE BRIEFER) 10 mg disintegrating tablet Take 1 Tab by mouth as needed for up to 30days for Migraine (at onset migraine, can repeat 1 tab 2h later if recurs or persists). 12 Tab 3 ??? sertraline (ZOLOFT) 100 mg tablet No current facility-administered medications for this visit. REVIEW OF SYSTEMS: Complete 10-point ROS performed as noted in HPI and scanned patient questionnaire. PHYSICAL EXAMINATION BP 112/80 Pulse 60 Ht 170.2 cm (67) Wt 89.8 kg (198 lb) SpO2 96% BMI 31.01 kg/m?? HEENT: Normocephalic, no signs of cranial trauma. Sclerae are clear, anicteric, with no hyperemia. No otorrhea, no rhinorrhea. Oral mucosa is well-hydrated. NECK: Supple, no meningismus. Has full range of motion with flexion, extension, and lateral rotation. Lhermitte's is negative. NEUROLOGIC EXAM Mental Status/Language: Alert, oriented to person place and time, speech fluent with normal prosody. Comprehension, naming and repetition are intact. No word finding difficulty. Mood and affect are normal. No emotional incontinence or pseudobulbar affect. Cranial Nerves: Pupils equal round and reactive. Visual morales intact to confrontation bilaterally, extraocular movements intact without nystagmus, no ptosis, no JAY, no asymmetry of facial sensation, no facial weakness, frontalis elevates symmetrically, auditory acuity grossly intact to finger rub, speech clear, a rticulate, no dysarthria, no dysphonia, no hoarseness. Normal SCM and trapezius strength. Protrudestongue to midline, and to the left and right equally. Motor: Normal muscle bulk and supple tone throughout. No abnormal spontaneous movements. No rest or actiontremor. No pronator drift. UPPER Right Left Shoulder shrug 5/5 5/5 Shoulder abduction 5/5 5/5 Shoulder internal rotation 5/5 5/5 Shoulder external rotation 5/5 5/5 Scapular winging NA NA Forearm flexion 5/5 5/5 Forearm extension 5/5 5/5 Forearm pronation 5/5 5/5 Forearm supination 5/5 5/5 Wrist flexion 5/5 5/5 Wrist extension 5/5 5/5 Finger flexion 5/5 5/5 Finger extension 03/15 03/15 Finger abduction 03/15 03/15 Finger adduction 03/15 03/15 Director Of Annual Giving 03/15 03/15 LOWER Right Left Hip flexion 03/15 03/15 Hip abduction 03/15 03/15 Hip adduction 03/15 03/15 Quadriceps 03/15 03/15 Hamstrings 03/15 03/15 Ankle plantarflexion 03/15 03/15 Ankle dorsiflexion 03/15 03/15 Ankle inversion 03/15 03/15 Ankle eversion 03/15 03/15 EHL 03/15 03/15 EDB 03/15 03/15 Reflexes: Right Left Biceps C5-6 12/15 2/ BR C5-6 12/15 12/15 Triceps C7-8 12/15 12/15 Patellar L3-4 12/15 12/15 Ankles S1-2 12/15 12/15 Toes Flexor Flexor Sensation: Intact to light touch and pin prick, vibration symmetrically and bilaterally. Cerebellar: Finger to nose bilaterally without past pointing or dysmetria, or terminal tremor. Normal heel to baker bilaterally. No assymetric slowing on rapid alternating movements. No disdiadochokinesis Romberg: not present Gait: ambulation with normal stride and base, erect posture, and full arm swing. No shuffling or magnetic gait. No circumduction of either lower extremity. No gait ataxia. Can heel, toe, and tandem without difficulty. ASSESSMENT: Mixed Headache pattern: Features of tension type headache which have been more frequent, and migraine without aura which has been less frequent. Given the frequency of the tension type headache, prophylactic medication would be beneficial in helping reduce the risk of analgesic rebound if she is taking [id number] analgesics on an as-needed basis when the headaches occur. Although the migraines are not as frequent, she would probably derive benefit from a prophylactic agent that might helpreduce the frequency of each of these. For this reason, I would highly recommend amitriptyline starting at a dose of 10 mg nightly. It may take 3 to 4 weeks to notice an effect at a given dose. I did review side effects with her including dry mouth, drowsiness. Weight gain can occur but usually at higher doses. Since she is now beginning to experience some side effects and less efficacy with eletriptan (Relpax), I suggested a trial of rizatriptan or Maxalt instead. I reviewed a list of foods with her that are known dietary migraine triggers which she has been quite well. PLAN: 1. Rx: Amitriptyline 10 mg at bedtime, (Disp: #30, RF x 1) She will start after her shift changes to 7am-7pm in 2 weeks. 2. Rx: Rizatriptan 10 mg as needed at onset migraine. Can repeat 1 tab 2 hours later if migraine recurs or persists. (Disp: #12, RF x 3) 3. Discontinue eletriptan due to developing side effects and less efficacy. 4. RV 6 weeks. Sanju Oropeza MD documented in this encounter Plan of Treatment Upcoming Encounters Date Type Department Care Team (Late st Contact Info) Description 05/25/2025 14:00 EDT Office Visit [facility] Adult Hematology & Oncology [address] [place] [id number] Abdiel Salas MD [address] [place] [address] [address] [place] [phone] documented as of this encounter Visit Diagnoses Diagnosis Chronic tension-type headache, not intractable- Primary Chronic tension type headache Migraine without aura and without status migrainosus, not intractable Migraine without aura, without mention of intractable migraine without mention of status migrainosus documented in this encounter Discontinued Medications Medication Sig Discontinue Reason Start Date End Da te traZODone (DESYREL) 50 mg tablet Take 50 mg by mouth daily. Alternate therapy 05/10/2020 eletriptan (RELPAX) 40 mg tablet Alternate therapy 05/10/2020 documented as of this encounter Historical Medications * This list may reflect changes made after this encounter. Medication Sig Dispensed Refills Start Date End Date sertraline (ZOLOFT) 100 mg tablet Take 1.5 Tablets by mouth daily. 04/06/2020 pantoprazole (PROTONIX) 40 mg tablet 1 tab(s) orally once a day traZODone (DESYREL) 50 mg tablet Take 50 mg by mouth daily. 05/10/2020 propRANolol (INDERAL) 20 mg tablet Take 20 mg by mouth 2 times daily. 03/15/2020 11/29/2020 levothyroxine (SYNTHROID) 112 mcg tablet 04/06/2020 04/09/2022 conjugated estrogens 0.625mg/G (PREMARIN) vaginal cream intravaginally once a day (in the evening) 04/09/2022 eletriptan (RELPAX) 40 mg tablet 05/10/2020 added in this encounter Care Teams Procurement Analyst Relationship Specialty Start Date End Date Sarah Quintero FNP [address] [place] [phone] PCP - General 05/03/20 documented as of this encounter
--- OUTSIDE RECORDS SUMMARY | 2024-06-30 16:33 | XMS_ITS | Encounter Summary ---
Author Organization [facility] Address [address] [place] [address] Care Team Providers Care Pillow Cleaner Name Role Phone Sarah Quintero COMPUTER SECURITY SPECIALIST Primary Care Provider [phone] Reason for Visit * (Routine/Next Available) - Receiving Office to Obtain Authorization Specialty Diagnoses / Procedures Referred By Contac t Referred To Contact Procedures US OUTSIDE IMAGES BREAST Imaging, External Referral ID Status Reason Start Date Expiration Date Visits Requested Visits Authorized [id number] Receiving Office to Obtain Authorization 03/27/2022 1 1 Encounter Details Date Type Department Care Team (Latest Contact Info) Description 03/02/2022 0:05 EDT - 03/02/2022 23:59 EDT Hospital Encounter [facility] Secondary Reads [place] Discharge Disposition: Home or [...] (SYNTHROID) 112 mcg tablet 04/06/2020 04/09/2022 rizatriptan (MAXALT-HOUSEKEEPING AND LAUNDRY TEAM LEADER) 10 mg disintegrating tablet DISSOLVE ONE TABLET [...] 05/25/2025 14:[address] [facility] Adult Hematology & Oncology [address] [place] [address] Abdiel Salas MD [address] [place] [address] [address] [place] [address] documented as of this encounter Procedures Procedure Name Priority Date/Time Associated Diagnosis Comments US OUTSIDE IMAGES BREAST Routine 03/27/2022 19:09 EDT documented in this encounter Results * US OUTSIDE IMAGES BREAST (03/27/2022 19:09 EDT) Narrative 03/27/2022 19:09 EDT This is a non-reportable exam. External Imaging IMG OTHER IMAGING OR DERABLES documented in this encounter Visit Diagnoses Not on filedocumented in this encounter Care Teams Pillow Cleaner Relationship Specialty Start Date End Date Sarah Quintero FNP [address] [place] [phone] PCP - General 05/03/20 documented as of this encounter
--- OUTSIDE RECORDS SUMMARY | 2024-06-30 16:33 | XMS_ITS | Encounter Summary ---
Author Organization [facility] Address [address] [place] [address] Care Team Providers Care Sammying Machine Operator Name Role Phone Sarah Quintero DISC SANDER Primary Care Provider Reason for Visit * Reason Onset Date Comments Appointment Related 03/28/2022 Encounter Details Date Type Department Care Team (Late st Contact Info) Description 03/28/2022 [facility] Breast Imaging Mammography - [address] [address] Heaven Demarco Appointment Related Social History Tobacco Use Types [...] encounter Miscellaneous Notes * Telephone Encounter - Heaven Demarco - 03/28/2022 1151 EDT Called pt and providers office and had to leave messages to call back to get date and time of breast mr documented in this encounter Plan of Treatment Upcoming Encounters Date Type Department Care Team (Late st Contact Info) Description 05/25/2025 14:00 EDT Office Visit [facility] Adult Hematology & Oncology [address] [place] [address] Abdiel Salas MD [address] [place] [address] [address] [place] [address] documented as of this encounter Visit Diagnoses Not on filedocumented in this encounter Care Teams Sammying Machine Operator Relationship Specialty Start Date End Date Sarah Quintero FNP [address] [place] [phone] PCP - General 05/03/20 documented as of this encounter
--- OUTSIDE RECORDS SUMMARY | 2024-06-30 16:33 | XMS_ITS | Encounter Summary ---
Author Organization [facility] Address [address] [place] [address] Care Team Providers Care Associate Publisher Name Role Phone Sarah Quintero BILL ADJUSTER Primary Care Provider Reason for Visit * Reason Onset Date Comments Other 03/09/2022 discuss patient Encounter Details Date Type Department Care Team ([facility] st Contact Info) Description 03/09/[address] [facility] [place]ology & Oncology [address] [place] [phone] Abdiel Salas MD [address] [place] [address] [address] [place] [phone] Other (discuss patient) Social History Tobacco Use Types Packs/Day Years [...] * Telephone Encounter - Diya Larsen - 03/09/[address] Case would like discuss patient with you. Please give her a call either at her office direct line [phone] or cell [phone]. Thanks. documented in this encounter Plan of Treatment Upcoming Encounters Date Type Department Care Team (Late st Contact Info) Description 05/25/2025 14:00 EDT Office Visit [facility] Adult Hematology & Oncology [address] [place] [address] Abdiel Salas MD [address] [place] [address] [address] [place] [address] documented as of this encounter Visit Diagnoses Not on filedocumented in this encounter Care Teams Associate Publisher Relationship Specialty Start Date End Date Sarah Quintero FNP [address] [place] [address] PCP - General 05/03/20 documented as of this encounter
--- OUTSIDE RECORDS SUMMARY | 2024-06-30 16:33 | XMS_ITS ---
Author Organization [facility] Address [address] [place] [address] Care Team Providers Care Principal Technical Specialist Name Role Phone Sarah Quintero CHIROPRACTOR SOLE PRACTITIONER Primary Care Provider [phone] Headache Status:Discharged (Closed) Start date:09/17/2022 Enrollment date:09/17/2022 End date:04/01/2023 Overview 03/29: patient trying to switch over to [employer], need new ins information, check with [facility] before outreaching Continued Care and Services Coordination
--- OUTSIDE RECORDS SUMMARY | 2024-06-30 16:33 | XMS_ITS | Encounter Summary ---
Author Organization [facility] Address [address] [place] [address] Care Team Providers Care Vp Project Name Role Phone Sarah Quintero [facility] Primary Care Provider [phone] Reason for Visit * Reason Onset Date Comments Medications Refill 11/01/2020 Encounter Details Date Type Department Care Team (Late st Contact Info) Description 11/01/2020 Telephone [facility] [place] [address] [place] [address] Adrian Snider MD [address] [facility] [address] [place] [address] Medications Refill Social History Tobacco Use Types [...] Refills Start Date End Da te rizatriptan (MAXALT-SKI LIFT ATTENDANT) 10 mg disintegrating tablet Take 1 Tab by mouth as needed for up to 30 days for Migraine (at onset migraine, can repeat 1 tab 2h later if FORBES recurs or persists). 12 Tab 2 11/01/2020 01/17/2021 documented in this encounter Miscellaneous Notes * Telephone Encounter - Allison Hart, RN - 11/01/2020 1356 EST Request: rizatriptan Last OV: 06/21/2020 Next OV: 11/29/2020 Ref Date: 06/21 - 10 mg ODT prn Action: escript as tabbed * Telephone Encounter - Rosemary Manzanares - 11/01/2020 1330 EST Requesting a refill on Rizatriptan to be sent to [place] [place] [facility] documented in this encounter Plan of Treatment Upcoming Encounters Date Type Department Care Team (Late st Contact Info) Description 05/25/2025 14:00 EDT Office Visit [facility] Adult Hematology & Oncology [address] [place] [phone] Abdiel Salas MD [address] [place] [address] [address] [place] [phone] documented as of this encounter Visit Diagnoses Not on filedocumented in this encounter Discontinued Medications Medication Sig Discontinue Reason Start Date End Da te erenumab-aooe (AIMOVIG AUTOINJECTOR) 140 mg/mL auto-injector Inject 140 mg into the skin every 28 days. Insurance does not cover 06/21/2020 11/01/2020 rizatriptan (MAXALT-SKI LIFT ATTENDANT) 10 mg disintegrating tablet Take 1 Tab by mouth as needed for up to 30 days for Migraine (at onset migraine, can repeat 1 tab 2h later if recurs or persists). Reorder 05/10/2020 11/01/2020 documented as of this encounter Care Teams Vp Project Relationship Specialty Start Date End Date Sarah Quintero FNP [address] [place] [phone] PCP - General 05/03/20 documented as of this encounter
--- OUTSIDE RECORDS SUMMARY | 2024-06-30 16:33 | XMS_ITS | Encounter Summary ---
Author Organization [facility] Address [address] [place] [address] Care Team Providers Care Industrial Engineering Professor Name Role Phone Sarah Quintero [facility] Primary Care Provider [phone] Reason for Visit * Reason Onset Date Comments Medications Refill 04/04/2021 Encounter Details Date Type Department Care Team (Late st Contact Info) Description 04/04/2021 Telephone [facility] [address] [place] [address] Allison Borden, MEKA Medications Refill Social History [...] Refills Start Date End Da te rizatriptan (MAXALT-CLOTH PRINTING BACK TENDER) 10 mg disintegrating tablet Take 1 Tab by mouth as needed for up to 30 days for Migraine. May repeat dose in 2 hours if ineffective. No more than 2 in 24 hours, 8 days in 1 month, and no more than 12 tabs in 1 month. 12 Tab 2 04/06/2021 06/27/2021 documented in this encounter Miscellaneous Notes * Addendum Note - Allison Borden RN - 04/06/2021 1521 EDTAddended by: ALLISON BORDEN on: 04/06/2021 15:21 Modules accepted: Orders * Telephone Encounter - Allison Borden RN - 04/06/2021 1519 EDT Patient never returned call and still receiving requests for refill on a daily basis. Sending escript as tabbed. * Telephone Encounter - Allison Borden RN - 04/04/2021 1349 EDT Request: rizatriptan 10 mg prn Last OV: 03/30/2021 Next OV: 06/29/2021 Ref Date: 03/30 no longer using (?) Action: call to patient - left message requesting a call back. documented in this encounter Plan of Treatment Upcoming Encounters Date Type Department Care Team (Late st Contact Info) Description 05/25/2025 14:[address] [facility] Adult Hematology & Oncology [address] [place] [phone] Abdiel Salas MD [address] [place] [address], [facility] [address] [place] [address] documented as of this encounter Visit Diagnoses Not on filedocumented in this encounter Discontinued Medications Medication Sig Discontinue Reason Start Date End Da te rizatriptan (MAXALT-CLOTH PRINTING BACK TENDER) 10 mg disintegrating tablet Take 1 Tab by mouth as needed for up to 30 days for Migraine. May repeat dose in 2hours if ineffective. No more than 2 in 24 hours, 8 days in 1 month, and no more than 12 tabs in 1 month. Reorder 01/17/2021 04/06/2021 documented as of this encounter Care Teams Industrial Engineering Professor Relationship Specialty Start Date End Date Sarah Quintero FNP [address] [place] [phone] PCP - General 05/03/20 documented as of this encounter
--- OUTSIDE RECORDS SUMMARY | 2024-06-30 16:33 | XMS_ITS | Encounter Summary ---
Author Organization [facility] Address [address] [place] [address] Care Team Providers Care Clinical Data Specialist Name Role Phone Unknown, Provider Primary Care Provider [phone] Sarah Quintero Primary Care Provider [phone] Encounter Details Date Type Department Care Team (Late st Contact Info) Description 04/16/2020 Lab Requisition [facility] Pathology & Laboratory Medicine - [facility] [address] [place] [address] Outr Resulting Lab, Provider Social History Tobacco Use Types Packs/Day Years Used Date Smoking Tobacco: Never Assessed Sex and Gender Information Value Date Recorded Sex Assigned at Not on file Gender Identity Female 03/29/2022 7:52 EDT Sexual Orientation Not on file documented as of this encounter Plan of Treatment Upcoming Encounters Date Type Department Care Team (Late Contact Info) Description 05/25/2025 14:00 EDT Office Visit [facility] Adult Hematology & Oncology [address] [place] [address] Abdiel Salas MD [address] [place] [address], [facility] [address] [place] [phone] documented as of this encounter Procedures Procedure Name Priority Date/Time Associated Diagnosis Comments ZZCOVID-19 TEST [facility] PCR Today 04/16/2020 3:29 EDT COVID-19 TESTING Routine 04/16/2020 3:29 EDT documented in this encounter Results * COVID-19 TEST [facility] PCR (04/16/2020 3:29 EDT) Swab ENTIRE NASOPHARYNX / Unknown 04/16/2020 3:29 EDT 04/16/2020 21:36 EDT Provider Outr Resulting Lab MICROBIOLOGY - GENERAL ORDERABLES Performing Organization Address City/[facility]/ZIP Co de Phone Number [facility] [address] [place] [address] * COVID-19 TESTING (04/16/2020 3:29 EDT) COVID-19 rt-PCR Result Negative Negative 04/17/2020 0:31 EDT [facility] Comment: This test has not been FDA cleared or approved. This test has been authorized by FDA under an EUA for use by authorized laboratories. This test has been authorized only for detection of nucleic acid from 2019-nCoV, not for any other viruses or pathogens. This test is only authorized for the duration of the declaration that circumstances exist justifying the authorization of emergency use of in vitro diagnostic tests for detection and/or diagnosis of 2019-nCoV under section 564(b)(1) of Act, 21 U.S.C ?? 360bbb-3(b) (1), unless the authorization is terminated or revoked sooner. Negative results do not preclude 2019-nCoV infection and should not be used as the sole basis for treatment or other patient management decisions. Negative results must be combined with clinical observations, patient history, and epidemiological information. Performed on the Njuiceher Fusion instrument Performing Lab [place] [facility] 04/17/2020 0:31 EDT [facility] Swab ENTIRE NASOPHARYNX / Unknown 04/16/2020 3:29 EDT 04/16/2020 21:36 EDT Provider Outr Resulting Lab MICROBIOLOGY - GENERAL ORDERABLES [facility] [address] [place] [address] documented in this encounter Visit Diagnoses Not on filedocumented in this encounter Care Teams Clinical Data Specialist Relationship Specialty Start Date End Date Unknown, Provider, PCP - General 05/05/19 05/02/20 Sarah Quintero FNP [address] [place] [phone] PCP - General 05/03/20 documented as of this encounter
--- OUTSIDE RECORDS SUMMARY | 2024-06-30 16:33 | XMS_ITS | Encounter Summary ---
Author Organization [facility] Address [address] [place] [address] Care Team Providers Care Pharmacy Director Name Role Phone Sarah Quintero [employer] CONSULTANT Primary Care Provider [phone] Reason for Visit * Reason Onset Date Comments Pharmacy 01/17/2021 Encounter Details Date Type Department Care Team (Late st Contact Info) Description 01/17/2021 Telephone [facility] [address] [place] [address] Adrian Snider MD [address] [facility] [address] [place] [address] Pharmacy Social History Tobacco Use Types Packs/Day Years [...] Refills Start Date End Da te rizatriptan (MAXALT-ENTERPRISE PROJECT MANAGER) 10 mg disintegrating tablet Take 1 Tab by mouth as needed for up to 30 days for Migraine. May repeat dose in 2hours if ineffective. No more than 2 in 24 hours, 8 days in 1 month, and no more than 12 tabs in 1 month. 12 Tab 2 01/17/2021 04/06/2021 documented in this encounter Miscellaneous Notes * Telephone Encounter - Allison Hart, RN - 01/17/2021 1050 EST Request: rizatriptan Last OV: 11/29/2020 Next OV: 03/02/2021 Ref Date: 11/29 - 10 mg prn Action: Escript as tabbed * Telephone Encounter - Rosemary Manzanares - 01/17/2021 1021 EST Rec'd a call from [facility] requesting a refill for pt on Rizatriptan documented in this encounter Plan of Treatment Upcoming Encounters Date Type Department Care Team (Late st Contact Info) Description 05/25/2025 14:00 EDT Office Visit [facility] Adult Hematology & Oncology [address] [place] [phone] Abdiel Salas MD [address] [place] [address] [address] [place] [phone] documented as of this encounter Visit Diagnoses Not on filedocumented in this encounter Discontinued Medications Medication Sig Discontinue Reason Start Date End Da te rizatriptan (MAXALT-ENTERPRISE PROJECT MANAGER) 10 mg disintegrating tablet Take 1 Tab by mouth as needed for up to 30 days for Migraine (at onset migraine, can repeat 1 tab 2h later if FORBES recurs or persists). Reorder 11/01/2020 01/17/2021 documented as of this encounter Care Teams Pharmacy Director Relationship Specialty Start Date End Date Sarah Quintero FNP [address] [place] [phone] PCP - General 05/03/20 documented as of this encounter
--- OUTSIDE RECORDS SUMMARY | 2024-06-30 16:33 | XMS_ITS | Encounter Summary ---
Author Organization [facility] Address [address] [place] [address] Care Team Providers Care Correctional Facility Psychiatrist Name Role Phone Sarah Quintero [facility] Primary Care Provider [phone] Reason for Visit * Reason Comments Migraine Encounter Details Date Type Department Care Team (Late st Contact Info) Description 03/02/2021 10:[address] [facility] [place] [address] [place] [address] Adrian Snider MD [address] [facility] [address] [place] [address] Chronic migraine (Primary Dx); Chronic daily headache Social History Tobacco Use Types Packs/Day Years [...] Progress Notes * Adrian Snider MD - 03/02/2021 1000 EDT [facility] PATIENT NAME: Mireille Chatman PATIENT : 1965 PCP: Sarah Quintero DATE OF SERVICE: 03/02/2021 CHIEF COMPLAINT: Migraine HISTORY Mireille Chatman is a 55 y.o. female who returns in follow-up for treatment of migraines. I first met her in November whereas she was previously treated by Dr. Oropeza. We got her approval eventually for Aimovig 70 mg/mL. I ordered a diagnostic polysomnogram also due to morning headaches associated with poor sleep. The sleep study is scheduled for [facility]. Since then she is not convinced that the Aimovig has started to help. Headaches are still daily. She takes maxalt for bad headaches andmostly tracks this, and notes at least a dozen or more days of taking that in a month. She also hada dental implant since last visit which aggravated her headaches. After the first injection there was a very bad headache, same to a lesser degree after the second, but not after the third. Summary: A typical headache starts with it [...] protocol and it wasnot effective for her. CURRENT MEDICATIONS Outpatient Medications Marked as Taking for the 03/02/21 encounter (Office Visit) with Adrian Snider MD Medication Sig ??? conjugated estrogens 0.625mg/G (PREMARIN) vaginal cream intravaginally once a day (in the evening) ??? erenumab-aooe 70 mg/mL auto-injector Inject 70 mg into the skin every 28 days. ??? ergocalciferol, vitamin D2, (VITAMIN D ORAL) Take by mouth. ??? gluc blackmon/chondro blackmon A/vit C/Mn (GLUCOSAMINE 1500 COMPLEX ORAL) Take by mouth. ??? levothyroxine (SYNTHROID) 112 mcg tablet ??? pantoprazole (PROTONIX) 40 mg tablet 1 tab(s) orally once a day ??? rizatriptan (MAXALT-POWDER CARRIER) 10 mg disintegrating tablet Take 1 Tab by mouth as needed for up to 30days for Migraine. May repeat dose in 2hours if ineffective. No more than 2 in 24 hours, 8 days in 1 month, and no more than 12 tabs in 1 month. ??? sertraline (ZOLOFT) 100 mg tablet ASSESSMENT: Mireille Chatman is a 55 y.o. female who returns for management for chronic daily headache, chronic migraine, having failed multiple oral prophylactic therapies, as well as low-dose Aimovig. Because it caused her some exacerbation of headache at that dose, I worry that just increasing the dose might cause the same thing to happen at the higher dose. It also has not benefited her yet. We talked about next steps which could be trying either of the other to CGRP antagonists, returning to an adequate trial of botulinum toxin injections, because she had it done in the past in a very atypical pattern.She chose to try botulinum toxin injections next. PLAN: Chronic migraine without aura, chronic daily headache -She will give herself the last Aimovig injection that she has available which is due in the next day or so. Then she will stop it. -Continue Maxalt when needed -We will submit for prior authorization for botulinum toxin for chronic migraine and get her scheduled on the next injection day. Adrian Snider MD I spent a total of 25 minutes on the date of this encounter meeting with the patient and reviewing documentation/coordinating care as described in the above note. documented in this encounter Plan of Treatment Upcoming Encounters Date Type Department Care Team (Late st Contact Info) Description 05/25/2025 14:00 EDT Office Visit [facility] Adult Hematology & Oncology [address] [place] [phone] Abdiel Salas MD [address] [place] [address] [address] [place] [address] documented as of this encounter Visit Diagnoses Diagnosis Chronic migraine- Primary Chronic migraine without aura, without mention of intractable migraine without mention of status migrainosus Chronic daily headache Headache documented in this encounter Care Teams Correctional Facility Psychiatrist Relationship Specialty Start Date End Date Sarah Quintero FNP [address] [place] [phone] PCP - General 05/03/20 documented as of this encounter
--- OUTSIDE RECORDS SUMMARY | 2024-06-30 16:33 | XMS_ITS | Encounter Summary ---
Author Organization [facility] Address [address] [place] [address] Care Team Providers Care Veterinary Medicine Scientist Name Role Phone Sarah Quintero CLINICAL LAW PROFESSOR Primary Care Provider [phone] Encounter Details Date Type Department Care Team (Latest Contact Info) Description 03/02/2021 Travel Social History Tobacco Use Types Packs/Day [...] Info) Description 05/25/2025 14:00 EDT Office Visit [facility] Adult Hematology & Oncology [address] [place] [phone] Abdiel Salas MD [address] [facility], [facility] [address] [place] [address] documented as of this encounter Visit Diagnoses Not on filedocumented in this encounter Care Teams Veterinary Medicine Scientist Relationship Specialty Start Date End Date Sarah Quintero FNP [address] [place] [phone] PCP - General 05/03/20 documented as of this encounter
--- OUTSIDE RECORDS SUMMARY | 2024-06-30 16:33 | XMS_ITS | Encounter Summary ---
Author Organization [facility] Address [address] [place] [address] Care Team Providers Care Balloon Dipper Name Role Phone Sarah Quinteor STRAW HAT BRUSHER Primary Care Provider [phone] Reason for Visit * (Routine/Next Available) - Receiving Office to Obtain Authorization Specialty Diagnoses / Procedures Referred By Contac t Referred To Contact Procedures US OUTSIDE IMAGES BREAST Imaging, External Referral ID Status Reason Start Date Expiration Date Visits Requested Visits Authorized [id number] Receiving Office to Obtain Authorization 03/27/2022 1 1 Encounter Details Date Type Department Care Team (Latest Contact Info) Description 03/02/2022 - 03/02/2022 0:04 EDT Hospital Encounter [facility] Center Secondary Reads [place] Discharge Disposition: Home [...] (SYNTHROID) 112 mcg tablet 04/06/2020 04/09/2022 rizatriptan (MAXALT-QUALITY SYSTEMS ENGINEER) 10 mg disintegrating tablet DISSOLVE ONE TABLET [...] [facility] Adult Hematology & Oncology [address] [place] [phone] Abdiel Salas MD [address] [place] [address] [address] [place] [address] documented as of this encounter [...] on filedocumented in this encounter Care Teams Balloon Dipper Relationship Specialty Start Date End Date Sarah Quintero FNP [address] [place] [phone] PCP - General 05/03/20 documented as of this encounter
--- OUTSIDE RECORDS SUMMARY | 2024-06-30 16:33 | XMS_ITS | Encounter Summary ---
Author Organization [facility] Address [address] [place] [address] Care Team Providers Care Contract Administration Specialist Name Role Phone Sarah Quintero CAMP ATTENDANT Primary Care Provider [phone] Reason for Visit * Reason Comments Other Encounter Details Date Type Department Care Team (Late st Contact Info) Description 12/04/[address] [facility] Neurology Clinic [address] [place] [address] Adrian Snider MD 130 [facility] [address] [place] [address] Other Social History Tobacco Use [...] Refills Start Date End Da te rizatriptan (MAXALT-AUTO PARTS SALESPERSON) 10 mg disintegrating tablet DISSOLVE ONE TABLET BY MOUTH NEEDED FOR MIGRAINE. MAY REPEAT DOSE IN 2 HOURS IF INEFFECTIVE. DO NOT EXCEED 2 TABLETS IN 24 HOURS, 8 DAYS PER MONTH, AND NO MORE THAN 12 TABLETS IN 1 MONTH 12 Tablet 5 12/04/2021 05/21/2022 documented in this encounter Miscellaneous Notes * Telephone Encounter - Allison Hart RN - 12/04/2021 1029 EST Request: rizatriptan 10 mg prn Last OV: 11/30/2021 Next OV: 03/01/2022 Ref Date: 11/30 same Action: Escript as tabbed documented in this encounter Plan of Treatment Upcoming Encounters Date Type Department Care Team (Late st Contact Info) Description 05/25/2025 14:[address] [facility] Adult Hematology & Oncology [address] [place] [address] Abdiel Salas MD [address] [place] [address], [facility] [address] [place] [phone] documented as of this encounter Visit Diagnoses Not on filedocumented in this encounter Discontinued Medications Medication Sig Discontinue Reason Start Date End Da te rizatriptan (MAXALT-AUTO PARTS SALESPERSON) 10 mg disintegrating tablet Take 1 Tablet by mouth as needed for Migraine. May repeat dose in 2 hours if ineffective. No more than 2 in 24 hours, 8 days in 1 month, and no more than 12 tabs in 1 month. 06/27/2021 12/04/2021 documented as of this encounter Care Teams Contract Administration Specialist Relationship Specialty Start Date End Date Sarah Quintero FNP [address] [place] [phone] PCP - General 05/03/20 documented as of this encounter
--- OUTSIDE RECORDS SUMMARY | 2024-06-30 16:33 | XMS_ITS | Encounter Summary ---
Author Organization [facility] Address [address] [place] [address] Care Team Providers Care Manager Web Application Name Role Phone Sarah Quintero [facility] Primary Care Provider [phone] Reason for Visit * Reason Comments Migraine Botox Injection Encounter Details Date Type Department Care Team ([facility] st Contact Info) Description 11/30/2021 15:30 EST Procedure visit [facility] Neu[facility] Clinic [address] [place] [address] Adrian Snider MD [address] [facility] [address] [address] [place] [address] Chronic migraine w/o aura w/o [...] Progress Notes * Adrian Snider MD - 11/30/2021 1530 EST [facility] Botulinum Toxin Procedure Note Patient: Mireille Chatman : 1965 Date of service: 11/30/2021 Diagnosis / Indication for Injections: ICD-10-CM ICD-9-CM 1. Chronic migraine w/o aura w/o status migrainosus, not intractable G43.709 346.70 History: Mireille Chatman presents for her third botulinum toxin injection for chronic migraine. After the first there wasn't much improvement. Today headaches are better but she wonders whether this is because she's been using afrin very often for sinus congestion. She has also had surgery for TMJ. She has seen ENT in the past also for her sinuses. She hasn't used a maxalt more than a couple of times recently. Headaches when they are present are mostly mild. Odors trigger headaches also, bad ones with severe nausea. In the last month she estimates a total of 25 days of any headache, and severe maybe 6 or so. No side effects from last treatment. Summary: A typical headache starts upon awakening [...] of wastage: 45 Units Vial-1 Lot# : [id number] NDC# : Therapeutic Botox 200 Units [8922-3024-81] Botulinum toxin A (Botox) was reconstituted in normal saline at a concentration of 2cc / 100 units 0.1cc = 5 units Intramuscular & subcutaneous soft tissue injections were performed utilizing a Utilizing a 30G ?? inch needle. The following muscles were injected: Frontalis eliminated Procerus 5 units Seo Marketing Specialist bilaterally 5 units at each site Temporalis bilaterally 20 units at 4 sites Occipitalis bilaterally 15 units at 3 sites Cervical paraspinals bilaterally 20 units at 2 sites Trapezius bilaterally 15 units at 3 sites The patient tolerated the procedure well and without complications. Assessment: ICD-10-CM ICD-9-CM 1. Chronic migraine w/o aura w/o status migrainosus, not intractable G43.709 346.70 Is hard to know if she was getting benefit from her treatment of sinus congestion or from botulinumtoxin injections, but considering she had no improvement after the first injection and some improvement after the second injection, there certainly is a reasonable case to be made for the injections i mproving headaches. We continued with treatments today and will reassess at next visit. Plan: Return to clinic for repeat botulinum injection in 3 months. Unchanged injection pattern today which included transfer of dosage from frontalis to cervical paraspinals due to prior ptosis. Adrian Snider MD documented in this encounter Plan of Treatment Upcoming Encounters Date Type Department Care Team (Late st Contact Info) Description 05/25/2025 14:00 EDT Office Visit [facility] Adult Hematology & Oncology [facility] [place], [place] [phone] Abdiel Salas MD [address] [place] [address], [facility] [address] [place] [address] documented as of this encounter Visit Diagnoses Diagnosis Chronic migraine w/o aura w/o status migrainosus, not intractable- Primary Chronic migraine without aura, without mention of intractable migraine without mention of status migrainosus documented in this encounter Care Teams Manager Web Application Relationship Specialty Start Date End Date Sarah Quintero FNP [address] [place] [phone] PCP - General 05/03/20 documented as of this encounter
--- OUTSIDE RECORDS SUMMARY | 2024-06-30 16:33 | XMS_ITS | Encounter Summary ---
Author Organization [facility] Address [address] [place] [address] Care Team Providers Care Drawer In Hand Name Role Phone Sarah Quintero [facility] Primary Care Provider [phone] Reason for Visit * Reason Onset Date Comments Prior Auth, Medication 11/30/2021 Encounter Details Date Type Department Care Team (Late st Contact Info) Description 11/30/[address] [facility] Neu[facility] [address] [place] [address] Allison Hart RN Prior Auth, Medication Social [...] Telephone Encounter - Allison Hart RN - 11/30/2021 0020 EST Request should not have gone to [facility], but instead to [facility]. I spoke with Erika at [facility] customer service and found that prior auth is not needed for Botox for chronic migraine. I let Mireille know and she is on her way in for injections this afternoon. * Telephone Encounter - Allison Hart RN - 11/30/2021 1357 EST [facility] not have active benefits. Mireille is aware and is calling the insurance company to see what is going on. * Telephone Encounter - Allison Hart RN - 11/30/2021 1126 EST PA request sent to Nyla per Covermymeds. * Telephone Encounter - Allison Hart RN - 11/30/2021 1006 EST Patient switched insurance - trying to holm approval for treatment later today. documented in this encounter Plan of Treatment Upcoming Encounters Date Type Department Care Team (Late st Contact Info) Description 05/25/2025 14:00 EDT Office Visit [facility] Adult Hematology & Oncology [address] [place] [id number] Abdiel Salas MD [address] [place] [address] [address] [place] [phone] documented as of this encounter Visit Diagnoses Not on filedocumented in this encounter Care Teams Drawer In Hand Relationship Specialty Start Date End Date Sarah Quintero FNP [address] [place] [phone] PCP - General 05/03/20 documented as of this encounter
--- OUTSIDE RECORDS SUMMARY | 2024-06-30 16:33 | XMS_ITS ---
Author Organization Unknown Address [address] [place] [phone] Phone Care Team Providers Care Bleach Boiler Puller Name Role Phone RONYVLADMiryam TARIQ Attending Unavailable RODRIGUEZ ENCISO Primary Unavailable Social History Type Status Start Date End Date Code Code Syst em Smoking History Never smoker (Never Smoked) 892235037 SNOMED CT Sex Female Medications Medication Start Date End Date Route Frequency Dose Code Code System Medication Instructions Home Meds Clindagel 1% Topical application Gel/Jelly 10/11/2022 Unknown TOPICAL APPLICATION NEEDED TWICE DAILY 1 unit(s) 412611 RxNorm 1 EACH TOPICAL APPLICATION NEEDED TWICE DAILY Dexamethasone 4MG Oral Tablet 10/11/2022 11/17/19 23 ORAL NEEDED DAILY 8 MILLIGRA MS 597992 RxNorm TAKE 8 MILLIGRAMS ORAL NEEDED DAILY Elderberry 500 MG Oral Capsule 10/11/2022 Unknown ORAL DAILY 1000 MG RxNorm TAKE 1000 MG ORAL DAILY LORazepam 1MG Oral Tablet 10/11/2022 Unknown ORAL NEEDED EVERY 6 HOURS 1 MILLIGRA MS 788389 RxNorm TAKE 1 MILLIGRAMS ORAL NEEDED EVERY 6 HOURS FOR Anxiety Levothyroxine 125MCG Oral Tablet 10/11/2022 Unknown ORAL DAILY 125 MCG 863389 RxNorm TAKE 125 MCG ORAL DAILY Magnesium Gluconate 500 MG Oral Tablet 10/11/2022 Unknown ORAL TWICE A DAY 500 MG 837219 RxNorm TAKE 500 MG ORAL TWICE A DAY Maxalt 10MG Oral Tablet 10/11/2022 Unknown ORAL NEEDED DAILY 10 MILLIGRA MS 900407 RxNorm TAKE 10 MILLIGRAMS ORAL NEEDED DAILY OLANZapine 10MG Oral Tablet 10/11/2022 Unknown ORAL NEEDED DAILY 10 MILLIGRA MS 935531 RxNorm TAKE 10 MILLIGRAMS ORAL NEEDED DAILY Potassium Chloride 20MEQ Oral Tablet, Extended Release 10/11/2022 Unknown ORAL TWICE A DAY 20 MEQ 6722344 RxNorm TAKE 20 MEQ ORAL TWICE A DAY Prochlorperaz ine Maleate 10MG Oral Tablet 10/11/2022 Unknown ORAL NEEDED EVERY 6 HOURS 10 MILLIGRA MS 384581 RxNorm TAKE 10 MILLIGRAMS ORAL NEEDED EVERY 6 HOURS Protonix 40 MG Oral Tablet, Delayed Release 10/11/2022 Unknown ORAL DAILY 40 MG 378797 RxNorm TAKE 40 MG ORAL DAILY Sertraline 100MG Oral Tablet 10/11/2022 Unknown ORAL DAILY 150 MILLIGRA MS 918199 RxNorm TAKE 150 MILLIGRAMS ORAL DAILY Vitamin D 1000IU Oral Tablet 10/11/2022 10/31/20 22 ORAL DAILY 2000 INTERNAT IONAL UNITS 19930412 RxNorm TAKE 2000 INTERNATIONA L UNITS ORAL DAILY Zofran 4MG Oral Tablet 10/11/2022 Unknown ORAL NEEDED EVERY 8 HOURS 4 MILLIGRA MS 548329 RxNorm TAKE 4 MILLIGRAMS ORAL NEEDED EVERY 8 HOURS traZODone hydrochloride 50MG Oral Tablet 10/11/2022 Unknown ORAL NEEDED AT BEDTIME 50 MILLIGRA MS 561899 RxNorm TAKE 50 MILLIGRAMS ORAL NEEDED AT BEDTIME Ajovy 225MG/1.5ML Subcutaneous Solution 11/02/2022 11/17/19 23 SUBCUTANEOUS MONTHLY 1 unit(s) 5139951 RxNorm INJECT 1 EACH SUBCUTANEOUS MONTHLY Estring 0.0075MG/24HR Vaginal Insert, Extended Release 11/02/2022 Unknown VAGINAL 1 unit(s) 950050 RxNorm 1 EACH VAGINAL oxyCODONE HCl 5MG Oral Tablet 11/02/2022 Unknown ORAL NEEDED 5 MILLIGRA MS 2100053 RxNorm TAKE 5 MILLIGRAMS ORAL NEEDED Albuterol Sulfate 1.25MG/3ML Inhalation Solution 11/13/2022 11/17/19 23 INHALATION DAILY 1 209554 RxNorm 1 INHALATION DAILY predniSONE 20MG Oral Tablet 11/13/2022 Unknown ORAL DAILY 2 TABLET 083946 RxNorm TAKE 2 TABLET ORAL DAILY Ibuprofen 600MG Oral Tablet 11/17/2022 Unknown ORAL NEEDED EVERY 6 HOURS 600 MILLIGRA MS 181938 RxNorm TAKE 600 MILLIGRAMS ORAL NEEDED EVERY 6 HOURS Albuterol Sulfate 0.5% Inhalation Solution 11/17/2022 11/17/19 23 INHALATION FOUR TIMES A DAY WITH FOOD 1 unit(s) 533504 RxNorm 1 EACH INHALATION FOUR TIMES A DAY WITH FOOD Ventolin HFA 0.09MG/1Actua tion Inhalation Suspension 11/17/2022 Unknown INHALATION NEEDED EVERY 4 HOURS 2 PUFF 670776 RxNorm 2 PUFF INHALATION NEEDED EVERY 4 HOURS Albuterol Sulfate 0.5% Inhalation Solution 11/17/2022 Unknown INHALATION FOUR TIMES A DAY 1 unit(s) 433032 RxNorm 1 EACH INHALATION FOUR TIMES A DAY Azithromycin 250MG Oral Tablet 11/17/2022 Unknown ORAL DAILY 1 TABLET 225296 RxNorm TAKE 1 TABLET ORAL DAILY Cefpodoxime Proxetil 200MG Oral Tablet 11/17/2022 Unknown ORAL TWICE A DAY 1 TABLET 084655 RxNorm TAKE 1 TABLET ORAL TWICE A [...] Status Code Code System BREAST CANCER active 476257126 SNOMED -CT REACTIVE LYMPHADENOPATHY active 87708 8006 SNOMED-CT RSV INFECTION active 81675416 SNOMED -CT ANXIETY 10/09/2022 resolved 08749716 SNOMED-CT IBS 10/09/2022 resolved 28643533 SNOMED-CT GERD 10/09/2022 resolved 240242641 SNOMED-CT NEUTROPENIC FEVER 11/15/2022 resolved 146029947 S NOMED-CT MIGRAINE 10/09/2022 resolved 58057363 SNOMED-CT HYPOMAGNESEMIA 11/15/2022 resolved 730489611 SNOM ED-CT HYPOTHYROIDISM 10/09/2022 resolved 71319754 SNOM ED-CT Allergies and Adverse Reactions Allergy Substance Reaction Severity Start Date Concern Status Co de Code System SULFA (sulfonamide) Active 08238842 SNO MED-CT DEMEROL Active 228732 RxNorm Plan of Treatment Exposure 10/08/2020 MM [...] Diagnosis Start Date Code Code Sys tem Obstructive sleep apnea (adult) (pediatric) 05/24/2021 SNOMED-CT Personal Care Team Section Performer Name Performer Role Active Date Inactive Da te
--- OUTSIDE RECORDS SUMMARY | 2024-06-30 16:33 | XMS_ITS | Encounter Summary ---
Author Organization [facility] Address [address] [place] [address] Care Team Providers Care Minilab Operator Name Role Phone Sarah Quintero YARD WAREHOUSE WORKER Primary Care Provider Encounter Details Date Type Department Care Team (Late st Contact Info) Description 03/06/2022 Lab Requisition [facility] Pathology & Laboratory Medicine - [facility] [address] [place] [address] Deven Cruz MD [address] [place] [phone] Encounter for other general examination Social History [...] [facility] Adult Hematology & Oncology [address] [place] [address] Abdiel Salas MD [address] [place] [address] [address] [place] [phone] documented as of this encounter Procedures Procedure Name Priority Date/Time Associated Diagnosis Comments OUTSIDE CASE REVIEW Today 03/02/2022 1 2:30 EDT documented in this encounter Results * OUTSIDE CASE REVIEW (03/02/2022 12:30 EDT) Final Diagnosis HER2/MARIA VICTORIA RESULTS: Tissue submitted: Paraffin embedded tissue block labelled [id number] (A1) From [facility] Fixative: Formalin This immunohistochemical assay is intended [...] performed under appropriate conditions according to the clinical secretary's instructions with appropriate assay and tissue controls using an Anti-Her2 (4B5) Rabbit Monoclonal Antibody (Arkwright). Her2 Scoring Guidelines (invasive tumor component only) [...] Testing. J Clin Oncol 2018; epub (www.[email or web address].org April 29, 2018) *FDA statement Assay results Her2 IHC Score: [...] area (5-10%) showing 3+ staining pattern and the remaining showing 2+ and 1+ patterns. An additional test for Her2 gene amplification will be performed by in situ hybridization (FLACO), the results of which and issued below. HER2 FLACO RESULTS: TISSUE SUBMITTED: Paraffin embedded tissue block labelled [id number] (A1) from [facility] SPECIMEN TYPE: Breast core biopsy COLD ISCHEMIC TIME AND TOTAL FORMALIN FIXATION TIME APPROPRIATE: Cannot determine An in-situ hybridization (FLACO) assay for Her2 gene amplification status (Lingoda INFORM dual FLACO DNA probe) was performed on this specimen. The assay was performed under appropriate conditions according to the clinical secretary's instructions with appropriate assay and tissue controls. [...] Testing. J Clin Oncol 2018; epub (www.[email or web address].org April 29, 2018) RESULTS: Her2/Chr17 ratio: 2.13 (heterogenous area majority [...] amplification and the remaining showing low amplification. 03/09/2022 12:33 [facility] Attestation By the signature below, the attending physician certifies that they have 1) personally conducted a gross and/or microscopic examination of the described specimen(s), and/or personally interpreted the results of laboratory testing of the described specimen(s), and 2) personally rendered or confirmed the above diagnosis. 03/09/2022 12:33 EDT [facility] at 1233 Clinical History Right breast mass 03/09/2022 12:33 EDT [facility] Gross Description A. See final diagnosis. 03/09/2022 12:33 EDT [facility] Scanned Images 03/09/2022 12:33 EDT [facility] ZZUNK ENTIRE BREAST / Unknown 03/02/2022 12:30 EDT 03/07/2022 12:38 EDT Deven Cruz MD PATHOLOGY ORDERABLES [facility] [address] [place] [address] documented in this encounter Visit Diagnoses Diagnosis Encounter for other general examination documented in this encounter Care Teams Minilab Operator Relationship Specialty Start Date End Date Sarah Quintero FNP [address] [place] [phone] PCP - General 05/03/20 documented as of this encounter
--- OUTSIDE RECORDS SUMMARY | 2024-06-30 16:33 | XMS_ITS | Encounter Summary ---
Author Organization [facility] Address [address] [place] [address] Care Team Providers Care Customer Field Representative Name Role Phone Sarah Quintero SOLUTION MAKER Primary Care Provider [phone] Reason for Visit * Reason Onset Date Comments Prior Auth, Medication 06/24/2020 Aimovig Encounter Details Date Type Department Care Team (Late st Contact Info) Description 06/24/2020 Telephone [facility] - [facility] Neurology Clinic [address] [place] [address] Sanju Oropeza MD [address] [place] [phone] Prior Auth, Medication (Aimovig) Social History Tobacco Use Types Packs/Day Years [...] have Coronavirus / COVID-19? No / Unsure 06/21/2020 11:08 EDT documented as of this encounter Functional [...] Telephone Encounter - Allison Hart RN - 06/30/2020 1351 EDT [facility] called to check on prior auth. They are aware of the denial. We will need to call this pharmacy if the decision is over-turned. Left a message for patient telling her we are still working on the prior auth. Provided call back number for any questions. This will be addressed with Dr. Oropeza on Saturday. * Telephone Encounter - Allison Hart RN - 06/29/2020 1525 EDT Received notice that Aimovig denied. Copy of denial in scans. Will communicate to Dr. Oropeza and see what he would like to do. * Telephone Encounter - Allison Hart RN - 06/27/2020 1345 EDT I explained to Darrion that the PA is still pending. He verbalized understanding. Provided Darrion with the Covermymeds [place] applicable to the case. * Telephone Encounter - Kortney Johnson - 06/27/2020 1155 EDT Darrion ferguson [facility] pharmacy called checking on the PA, pls call back at * Telephone Encounter - Allison Hart RN - 06/27/2020 0936 EDT Per chart review, patient's Rx benefits are through [employer]. Submitted another PA through Covermymeds. * Telephone Encounter - Kortney Johnson - 06/24/2020 1555 EDT [facility] called and pt does not pharmacy benefits through them * Telephone Encounter - lAlison Hart RN - 06/24/2020 1340 EDT Request sent per Covermymeds * Telephone Encounter - Kortney Johnson - 06/24/2020 1014 EDT [facility] pharmacy called and is asking for PA for Aimovig for the pt documented in this encounter Plan of Treatment Upcoming Encounters Date Type Department Care Team (Late st Contact Info) Description 05/25/2025 14:00 EDT Office Visit [facility] Adult Hematology & Oncology [address] [place] [phone] Abdiel Salas MD [address] [place] [address] [address] [place] [phone] documented as of this encounter Visit Diagnoses Not on filedocumented in this encounter Care Teams Customer Field Representative Relationship Specialty Start Date End Date Sarah Quintero FNP [address] [place] [phone] PCP - General 05/03/20 documented as of this encounter
--- OUTSIDE RECORDS SUMMARY | 2024-06-30 16:33 | XMS_ITS | Encounter Summary ---
Author Organization [facility] Address [address] [place] [address] Care Team Providers Care Caponizer Name Role Phone Sarah Quintero QUALITY CONTROL LAB TECHNICIAN Primary Care Provider [phone] Encounter Details Date Type Department Care Team (Latest Contact Info) Description 06/21/2020 Travel Social History Tobacco Use Types Packs/Day [...] Upcoming Encounters Date Type Department Care Team ( st Contact Info) Description 05/25/2025 14:00 EDT Office Visit [facility] Adult Hematology & Oncology [address] [place] [phone] Abdiel Salas MD [address] [facility], [facility] [address] [place] [address] documented as of this encounter Visit Diagnoses Not on filedocumented in this encounter Care Teams Caponizer Relationship Specialty Start Date End Date Sarah Quintero FNP [address] [place] [phone] PCP - General 05/03/20 documented as of this encounter
--- OUTSIDE RECORDS SUMMARY | 2024-06-30 16:33 | XMS_ITS | Encounter Summary ---
Author Organization [facility] Address [address] [place] [address] Care Team Providers Care Account Support Specialist Name Role Phone Sarah Quintero [facility] Primary Care Provider Reason for Referral * Sleep Study (Routine) - Closed Specialty Diagnoses / Procedures [facility] Referred To Contact Diagnoses Sleep apnea, unspecified type Procedures DIAGNOSTIC POLYSOMNOGRAM Adrian Snider MD [address] [place] [phone] Referral ID Status Reason Start Date Expiration Date Visits Re quested Visits Authorized [id number] Closed 11/29/2020 1 1 Reason for Visit * Reason Comments Follow-up Daily migraines, max alt does help. Encounter Details Date Type Department Care Team (Late st Contact Info) Description 11/29/2020 13:00 EST Office Visit [facility] Neurology Clinic [address] [place] [phone] Adrian Snider MD [address] [place] [address] [phone] Chronic migraine w/o aura w/o status migrainosus, not intractable (Primary Dx); Sleep apnea, unspecified type; Chronic daily headache Social History Tobacco Use [...] 13:06 EST documented as of this encounter Last Filed Vital Signs Vital Sign Reading Time Taken Comments Blood Pressure 118/82 11/29/2020 1312 EST Pulse - - Temperature - - Respiratory Rate 16 11/29/2020 1312 EST Oxygen Saturation - - Inhaled Oxygen Concentration - - Weight 92.5 kg (204 lb) 11/29/2020 1312 EST Height 170.2 cm (5' 7) 11/29/2020 1312 EST Body Mass Index 31.95 11/29/2020 1312 EST documented in this encounter Functional Status [...] Progress Notes * Adrian Snider MD - 11/29/2020 1300 EST [facility]rology [facility] PATIENT NAME: Mireille Chatman PATIENT : 1965 PCP: Sarah Quintero DATE OF SERVICE: 11/29/2020 CHIEF COMPLAINT: Headaches HISTORY OF PRESENT ILLNESS Mireille Chatman is a 55 y.o. female returns in follow-up to our clinic for headaches, but as a new patient to me. She previously followed with Dr. Oropeza. His last note dated June 21, 2020 indicates amitriptyline caused daytime drowsiness. She was having 4-5 headache days in a week. Previously tried and failed topiramate, propranolol both for lack of effectiveness. Elatriptan initially was helpful for abortive therapy but it lost effectiveness. Rizatriptan apparently was helpful. Apparently in the past she had tried botulinum toxin injections but it was apparently done with a nonstandard pro tocol and it was not effective for her. He then started her on Aimovig 140 mg and also prescribed nortriptyline. Today she returns and in fact aimovig was not approved by her insurance. She tried nortriptyline and it also made her tired all day like amitriptyline did so she stopped it. A typical headache startswith it upon awakening frequently, in the setting of poor sleep, and pain is behind the eyes or in the forehead or temples, usually bilateral, sometimes left more than right. She attributes some of this to prior TMJ surgery on the left. Pain is a pressure, sharp, or pounding, and at worse with light sensitivity and nausea. Untreated they will last hours. At this point she has pain every day, withvariation in intensity. She takes motrin and tylenol almost every day, and this has been for years. She wonders about eye strain, screen time and sleep contribution to headaches. Her uses CPAP. She thinks she snores. She had a sleep study done at least 20 years ago that was nondiagnostic. PAST MEDICAL HISTORY Past Medical History: Diagnosis Date ??? 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 Migraine ??? Thyroid disease ALLERGIES Allergies Allergen Reactions ??? Meperidine Nausea Only ??? Sulfa (Sulfonamide Antibiotics) Family history CURRENT MEDICATIONS Outpatient Medications Marked as Taking for the 11/29/20 encounter (Office Visit) with Adrian Snider MD Medication Sig ??? conjugated estrogens 0.625mg/G (PREMARIN) vaginal cream intravaginally once a day (in the evening) ??? ergocalciferol, vitamin D2, (VITAMIN D ORAL) Take by mouth. ??? gluc blackmon/chondro blackmon A/vit C/Mn (GLUCOSAMINE 1500 COMPLEX ORAL) Take by mouth. ??? levothyroxine (SYNTHROID) 112 mcg tablet ??? pantoprazole (PROTONIX) 40 mg tablet 1 tab(s) orally once a day ??? rizatriptan (MAXALT-ASSISTANT RESTAURANT GENERAL MANAGER) 10 mg disintegrating tablet Take 1 Tab by mouth as needed for up to 30days for Migraine (at onset migraine, can repeat 1 tab 2h later if FORBES recurs or persists). ??? sertraline (ZOLOFT) 100 mg tablet PHYSICAL EXAMINATION BP 118/82 (BP Cuff Location: Left arm, BP Patient Position: Sitting, BP Cuff Sizes: Adult, large) Resp 16 Ht 170.2 cm (67) Wt 92.5 kg (204 lb) BMI 31.95 kg/m?? ASSESSMENT: Mireille Chatman is a 55 y.o. female who returns for management for chronic daily headache, chronic migraine, having failed multiple oral prophylactic medicines including propranolol, topiramate, both due to ineffectiveness, as well as amitriptyline and nortriptyline both due to side effects. I agree with Dr. Oropeza's previous assessment that the next treatment in the standard of care of migraine is CGRP injectable medications. For some reason when this was submitted previously it was not approved. I will submit again for authorization for Aimovig. I will submit for 70 mg which is the startingdosage. She also likely has a contribution of medication overuse headache but this likely will not improve until she gets her headaches under somewhat better control. She may also have a contributionof sleep apnea to her headache pattern so I have ordered a diagnostic polysomnogram which she preferred to have done at [facility]. PLAN: Chronic migraine without aura, chronic daily headache -Start Aimovig 70 mg every 28 days. -Continue Maxalt when needed, though with daily unrelenting headaches it would be difficult to assess effectiveness. -Eventually hopefully we can get her to a point of headache control where she is not needing to take daily abortive therapy which is likely contributing to medication overuse headaches -I ordered diagnostic polysomnogram at [facility] in case KARYNA is contributing to her morning migraine pattern. -Follow-up in about 3 months, video okay Adrian Snider MD I spent a total of 35 minutes on the date of this encounter meeting with the patient and reviewing documentation/coordinating care as described in the above note. documented in this encounter Plan of Treatment Upcoming Encounters Date Type Department Care Team (Late st Contact Info) Description 05/25/2025 14:00 EDT Office Visit [facility] Adult Hematology & Oncology [facility] [place] [address] Abdiel Salas MD [address] [facility], [facility] [address] [place] [phone] Scheduled Orders Name Type Priority Associated Diagnoses Orde r Schedule DIAGNOSTIC POLYSOMNOGRAM Sleep Center Routine Sleep apnea, unspecified type Ordered: 11/29/2020 documented as of this encounter Visit Diagnoses Diagnosis Chronic migraine w/o aura w/o status migrainosus, not intractable- Primary Chronic migraine without aura, without mention of intractable migraine without mention of status migrainosus Sleep apnea, unspecified type Chronic daily headache Headache documented in this encounter Discontinued Medications Medication Sig Discontinue Reason Start Date End Da te propRANolol (INDERAL) 20 mg tablet Take 20 mg by mouth 2 times daily. Error 03/15/2020 11/29/2020 documented as of this encounter Historical Medications * This list may reflect changes made after this encounter. Medication Sig Dispensed Refills Start Date End Date gluc blackmon/chondro blackmon A/vit C/Mn (GLUCOSAMINE 1500 COMPLEX ORAL) Take by mouth. 04/09/2022 ergocalciferol, vitamin D2, (VITAMIN D ORAL) Take by mouth. 2 added in this encounter Care Teams Account Support Specialist Relationship Specialty Start Date End Date Sarah Quintero FNP [address] [place] [phone] PCP - General 05/03/20 documented as of this encounter
--- OUTSIDE RECORDS SUMMARY | 2024-06-30 16:33 | XMS_ITS | Encounter Summary ---
Author Organization [facility] Address [address] [place] [address] Care Team Providers Care Cover Creaser Name Role Phone Sarah Quintero ERECTOR OPERATOR Primary Care Provider [phone] Encounter Details Date Type Department Care Team (Late st Contact Info) Description 03/27/2022 [facility] Breast Imaging Mammography - [address] [address] Tg Darby MD [address] [facility], [address] [place] [phone] Social History Tobacco Use Types Packs/Day Years [...] [facility] Adult Hematology & Oncology [address] [place] [phone] Abdiel Salas MD [address] [place] [address] [address] [place] [phone] documented as of this encounter Visit Diagnoses Not on filedocumented in this encounter Care Teams Cover Creaser Relationship Specialty Start Date End Date Sarah Quintero FNP [address] [place] [phone] PCP - General 05/03/20 documented as of this encounter
--- OUTSIDE RECORDS SUMMARY | 2024-06-30 16:33 | XMS_ITS | Encounter Summary ---
Author Organization [facility] Address [address] [place] [address] Care Team Providers Care Production Counter Name Role Phone Sarah Quintero ACID BLOWER Primary Care Provider Reason for Visit * Reason Onset Date Comments Patient Information Update 03/16/2022 Encounter Details Date Type Department Care Team (Late st Contact Info) Description 03/16/2022 Telephone [facility] [address] [place] [phone] Abdiel Corral, RN Patient Information Update Social History Tobacco Use Types Packs/Day Years [...] Miscellaneous Notes * Telephone Encounter - Abdiel Corral RN - 03/16/2022 0948 EDT Preloaded chart with information received through [facility]. documented in this encounter Plan of Treatment Upcoming Encounters Date Type Department Care Team (Late st Contact Info) Description 05/25/2025 14:00 EDT Office Visit [facility] Adult Hematology & Oncology [address] [place] [address] Abdiel Salas MD [address] [place] [address] [address] [place] [phone] documented as of this encounter Visit Diagnoses Not on filedocumented in this encounter Care Teams Production Counter Relationship Specialty Start Date End Date Sarah Quintero FNP [address] [place] [phone] PCP - General 05/03/20 documented as of this encounter
--- OUTSIDE RECORDS SUMMARY | 2024-06-30 16:33 | XMS_ITS | Encounter Summary ---
Author Organization [facility] Address [address] [place] [address] Care Team Providers Care Operations Management Professionals Name Role Phone Sarah Quintero CELLOPHANE CASTING MACHINE REPAIRER Primary Care Provider [phone] Reason for Visit * Reason Onset Date Comments Headache 02/09/2021 Encounter Details Date Type Department Care Team (Late st Contact Info) Description 02/09/2021 Telephone [facility] [address] [place] [address] Adrian Snider MD [address] [facility] [address] [place] [address] Headache Social History Tobacco Use Types Packs/Day Years [...] Telephone Encounter - Allison Hart RN - 02/09/2021 1128 EDT Mireille agrees with the plan and states that she will take the next does of Aimovig anyway in hopes it will work. She says it seems to be making her headaches worse. * Telephone Encounter - Adrian Snider MD - 02/09/2021 1103 EDT Noted, we will discuss next steps at her appointment. * Telephone Encounter - Allison Hart RN - 02/09/2021 0926 EDT Please advise. She has been taking the Aimovig since November. She has an appointment with you on 03/02. * Telephone Encounter - Rosemary Manzanares - 02/09/2021 0910 EDT Mireille is reporting that she is having daily headaches, she feels that the Aimovig isn't helping like that hoped for. documented in this encounter Plan of Treatment Upcoming Encounters Date Type Department Care Team (Late st Contact Info) Description 05/25/2025 14:00 EDT Office Visit [facility] Adult Hematology & Oncology [address] [place] [address] [id number] Abdiel Salas MD [address] [place] [address] [address] [place] [address] documented as of this encounter Visit Diagnoses Not on filedocumented in this encounter Care Teams Operations Management Professionals Relationship Specialty Start Date End Date Sarah Quintero FNP [address] [place] [phone] PCP - General 05/03/20 documented as of this encounter
--- OUTSIDE RECORDS SUMMARY | 2024-06-30 16:33 | XMS_ITS | Encounter Summary ---
Author Organization [facility] Address [address] [place] [address] Care Team Providers Care Ship Cleaner Name Role Phone Sarah Quintero DIAMOND SIZER Primary Care Provider [phone] Reason for Visit * Reason Onset Date Comments Medications Refill 06/27/2021 Encounter Details Date Type Department Care Team (Late st Contact Info) Description 06/27/[address] [facility] [place] Neurology Clinic [address] [place] [address] Allison Hart, MEKA Medications Refill Social History [...] Refills Start Date End Da te rizatriptan (MAXALT-INSPECTOR TIMERS) 10 mg disintegrating tablet Take 1 Tablet by mouth as needed for Migraine. May repeat dose in 2 hours if ineffective. No more than 2 in 24 hours, 8 days in 1 month, and no more than 12 tabs in 1 month. 12 Tablet 5 06/27/2021 12/04/2021 documented in this encounter Miscellaneous Notes * Telephone Encounter - Allison Hart, RN - 06/27/2021 1110 EDT Request: rizatriptan 10 mg prn Last OV: 03/30/2021 Next OV: 06/29/2021 Ref Date: 04/04/2021 same Action: Escript as tabbed documented in this encounter Plan of Treatment Upcoming Encounters Date Type Department Care Team (Late st Contact Info) Description 05/25/2025 14:00 EDT Office Visit [facility] Adult Hematology & Oncology [address] [place] [phone] Abdiel Salas MD [address] [place] [address] [address] [place] [address] documented as of this encounter Visit Diagnoses Not on filedocumented in this encounter Discontinued Medications Medication Sig Discontinue Reason Start Date End Da te rizatriptan (MAXALT-INSPECTOR TIMERS) 10 mg disintegrating tablet Take 1 Tab by mouth as needed for up to 30 days for Migraine. May repeat dose in 2 hours if ineffective. No more than 2 in 24 hours, 8 days in 1 month, and no more than 12 tabs in 1 month. Reorder 04/06/2021 06/27/2021 documented as of this encounter Care Teams Ship Cleaner Relationship Specialty Start Date End Date Sarah Quintero FNP [address] [place] [phone] PCP - General 05/03/20 documented as of this encounter
--- OUTSIDE RECORDS SUMMARY | 2024-06-30 16:33 | XMS_ITS | Encounter Summary ---
Author Organization [facility] Address [address] [place] [address] Care Team Providers Care Boat Ride Operator Name Role Phone Sarah Quintero [facility] Primary Care Provider Reason for Visit * Reason Onset Date Comments Prior Auth, Medication 03/02/2021 Botox genevieve armida approved 03/03 to 03/03/2022. Encounter Details Date Type Department Care Team (Late st Contact Info) Description 03/02/2021 Telephone [facility] - [facility] Neurology Clinic [address] [place] [address] Allison Hart RN Prior Auth, Medication (Botox migraine approved 03/03 to 03/03/2022.) Social History Tobacco Use Types Packs/Day Years [...] Telephone Encounter - Allison Hart RN - 03/13/2021 1512 EDT Request did not get to [facility]. Sent a new request directly to [facility] via fax. Received approvsa immediately 03/03/2021 to 03/03/2022. * Telephone Encounter - Allison Hart RN - 03/02/2021 1345 EDT PA request for Botox 200 units sent to [facility] through Covermymeds. * Telephone Encounter - Allison Hart RN - 03/02/2021 1139 EDT ----- Message from Adrian Snider MD sent at 03/02/2021 10:28 EDT ----- Please submit for prior authorization for botulinum toxin injection for chronic migraine. Patient is stopping Aimovig. documented in this encounter Plan of Treatment Upcoming Encounters Date Type Department Care Team (Late st Contact Info) Description 05/25/2025 14:00 EDT Office Visit [facility] Adult Hematology & Oncology [facility] [place], [place] [address] Abdiel Salas MD [address] [place] [address] [address] [place] [address] documented as of this encounter Visit Diagnoses Not on filedocumented in this encounter Care Teams Boat Ride Operator Relationship Specialty Start Date End Date Sarah Quintero FNP [address] [place] [address] PCP - General 05/03/20 documented as of this encounter
--- OUTSIDE RECORDS SUMMARY | 2024-06-30 16:33 | XMS_ITS | Encounter Summary ---
Author Organization [facility] Address [address] [place] [address] Care Team Providers Care Bindery Production Manager Name Role Phone Sarah Quintero PERSONAL FINANCIAL REPRESENTATIVE Primary Care Provider Reason for Visit * Reason Onset Date Comments Other 03/12/2022 Encounter Details Date Type Department Care Team (Late st Contact Info) Description 03/12/2022 Telephone [facility] Adult Hematology & Oncology [address] [place] [phone] Abdiel Salas MD [address] [place] [address] [address] [place] [address] Other Social History Tobacco Use [...] encounter Miscellaneous Notes * Telephone Encounter - Chip Meli - 03/12/2022 1321 EDT Patient having Port put in on March 30 so she switched from Dr. Salas to Dr. Roberts because she could only see Maritza on the and she could see Alejandra on also, will not mind coming here instead of going to [facility]. documented in this encounter Plan of Treatment Upcoming Encounters Date Type Department Care Team (Late st Contact Info) Description 05/25/2025 14:00 EDT Office Visit [facility] Adult Hematology & Oncology [address] [place] [address] Abdiel Salas MD [address] [place] [address] [address] [place] [phone] documented as of this encounter Visit Diagnoses Not on filedocumented in this encounter Care Teams Bindery Production Manager Relationship Specialty Start Date End Date Sarah Quintero FNP [address] [place] [phone] PCP - General 05/03/20 documented as of this encounter
--- OUTSIDE RECORDS SUMMARY | 2024-06-30 16:33 | XMS_ITS | Encounter Summary ---
Author Organization [facility] Address [address] [place] [address] Care Team Providers Care Shingle Bolt Cutter Name Role Phone Sarah Quintero SLURRY CONTROL TENDER Primary Care Provider [phone] Encounter Details Date Type Department Care Team (Late st Contact Info) Description 05/01/2021 Lab Requisition [facility] Pathology & Laboratory Medicine - [address] [address] Sarah Quintero SLURRY CONTROL TENDER [address] [place] [phone] Encounter for screening for malignant neoplasm of cervix Social History Tobacco Use Types Packs/Day Years [...] 14:00 EDT Office Visit [facility] Adult Hematology & Oncology [facility] [place] [address] Abdiel Salas MD [address] [place] [address] [address] [place] [phone] documented as of this encounter Procedures Procedure Name Priority Date/Time Associated Diagnosis Comments PAP TEST Today 04/27/2021 13:50 EDT Encounter for screening for malignant neoplasm of cervix HPV DNA DETECTION WITH GENOTYPING, PCR Today 04/27/2021 13:50 EDT Encounter for screening for malignant neoplasm of cervix documented in this encounter Results * HUMAN PAPILLOMAVIRUS (HPV) DETECTION-HIGH RISK TYPES (04/27/2021 13:50 EDT) HPV other High Risk types, PCR Negative Negative 05/11/2021 17:14 EDT [facility] Comment:No E6 or E7 mRNA is detected from HPV types 16,18,31,33,35,39,45,51,52,56,58,59,66, and 68 by java swing developer mediated amplification. Papanicolaou smear specimen (specimen) CERVIX UTERI STRUCTURE / Unknown 04/27/2021 13:50 EDT 05/09/2021 11:32 EDT Sarah Quintero SLURRY CONTROL TENDER MICROBIOLOGY - GENER AL ORDERABLES [facility] [address] [place] [address] * PAP TEST (04/27/2021 13:50 EDT) Specimens A. Cervix and/or Endocervix , ThinPrep Imaging System with Manual Evaluation 05/11/2021 17:14 EDT [facility] Specimen Adequacy Satisfactory for Evaluation - transformation zone component present 05/11/2021 17:14 EDT [facility] General Categorization Negative for intraepithelial lesion or malignancy 05/11/2021 17:14 EDT [facility] Attestation . 05/11/2021 17:14 T [facility] at 1714 Clinical History See below 05/11/20 17:14 EDT [facility] HPV The result for the Human Papillomavirus (HPV) Detection-High Risk Types is Negative. No E6 or E7 mRNA is detected from HPV types 16,18,31,33,35,39 ,45,51,52,56,58,5 9,66, and 68 by java swing developer mediated amplification.Summer ting was performed on specimen [id number] and was resulted on 05/11/2021 1713 EDT by SAVANA, LAB INSTRUMENT RESULTS IN 05/11/2021 17:14 EDT [facility] Performing Lab [facility] 05/11/2021 17:14 T [facility] Scanned Images 05/11/2021 17:14 T [facility] Papanicolaou smear specimen (specimen) CERVIX UTERI STRUCTURE / Unknown 04/27/2021 13:50 EDT 05/01/2021 15:58 EDT Sarah KIDD PATHOLOGY ORDERABLES [facility] [address] [place] [address] documented in this encounter Visit Diagnoses Diagnosis Encounter for screening for malignant neoplasm of cervix Screening for malignant neoplasm of the cervix documented in this encounter Care Teams Shingle Bolt Cutter Relationship Specialty Start Date End Date Sarah Quintero FNP [address] [place] [phone] PCP - General 05/03/20 documented as of this encounter
--- OUTSIDE RECORDS SUMMARY | 2024-06-30 16:33 | XMS_ITS | Encounter Summary ---
Author Organization [facility] Address [address] [place] [address] Care Team Providers Care Laboratory Sampler Name Role Phone Sarah Quintero [facility] Primary Care Provider [phone] Reason for Visit * Reason Comments Migraine Botox Injection Encounter Details Date Type Department Care Team ([facility] st Contact Info) Description 06/29/2021 9:30 EDT Procedure visit [facility] Neurology Clinic [address] [place], [place] [phone] Adrian Snider MD [address] [facility] [address] [place] [address] Chronic migraine (Primary Dx) Social [...] Progress Notes * Adrian Snider MD - 06/29/2021 2375 EDT [facility] Botulinum Toxin Procedure Note Patient: Mireille Chatman : 1965 Date of service: 06/29/2021 Diagnosis / Indication for Injections: ICD-10-CM ICD-9-CM 1. Chronic migraine G43.709 346.70 History: Mireille Chatman presents for her second botulinum toxin injection for chronic migraine. At first treatment headaches were daily. Today she says headaches are not significantly better. She used maximum doses of maxalt. There was a bad headache right after the treatment, and in the last couple of days they've been bad also. She felt her eyelids were heavy for a while. Most of her head pain is frontaltypically, or unilateral temporal. Summary: A typical headache starts upon awakening [...] of wastage: 45 Units Vial-1 Lot# : [id number] NDC# : Therapeutic Botox 200 Units [[id number]] Botulinum toxin A (Botox) was reconstituted in normal saline at a concentration of 2cc / 100 units 0.1cc = 5 units Intramuscular & subcutaneous soft tissue injections were performed utilizing a Utilizing a 30G ?? inch needle. The following muscles were injected: Frontalis eliminated Procerus 5 units Functional Skills Tutor bilaterally 5 units at each site Temporalis bilaterally 20 units at 4 sites Occipitalis bilaterally 15 units at 3 sites Cervical paraspinals bilaterally 20 units at 2 sites Trapezius bilaterally 15 units at 3 sites The patient tolerated the procedure well and without complications. Assessment: ICD-10-CM ICD-9-CM 1. Chronic migraine G43.709 346.70 Plan: Return to clinic for repeat botulinum injection in 3 months. Eliminated frontalis due to eyelid weakness after last injection. Added this dose to cervical paraspinals. Adrian Snider MD documented in this encounter Plan of Treatment Upcoming Encounters Date Type Department Care Team (Late st Contact Info) Description 05/25/2025 14:00 EDT Office Visit [facility] Adult Hematology & Oncology [address] [place] [phone] Abdiel Salas MD [address] [place] [address] [address] [place] [address] documented as of this encounter Visit Diagnoses Diagnosis Chronic migraine- Primary Chronic migraine without aura, without mention of intractable migraine without mention of status migrainosus documented in this encounter Care Teams Laboratory Sampler Relationship Specialty Start Date End Date Sarah Quintero FNP [address] [place] [phone] PCP - General 05/03/20 documented as of this encounter
--- OUTSIDE RECORDS SUMMARY | 2024-06-30 16:33 | XMS_ITS | Encounter Summary ---
Author Organization [facility] Address [address] [place] [address] Care Team Providers Care Javascript Software Engineer Name Role Phone Sarah Quintero BOAT OUTFITTER Primary Care Provider [phone] Reason for Visit * Reason Comments Follow-up Headache Encounter Details Date Type Department Care Team ([facility] st Contact Info) Description 06/21/2020 11:00 EDT Office Visit [facility] Neurology Clinic [address] [place] [address] Sanju Oropeza MD [address] [place] [address] Chronic migraine w/o aura w/o status migrainosus, [...] 11:08 EDT documented as of this encounter Last Filed Vital Signs Vital Sign Reading Time Taken Comments Blood Pressure 128/86 06/21/2020 1112 EDT Pulse 72 06/21/2020 1112 EDT Temperature - - Respiratory Rate 20 06/21/2020 1112 EDT Oxygen Saturation - - Inhaled Oxygen Concentration [...] Dispensed Refills Start Date End Da te nortriptyline (PAMELOR) 10 mg capsule Take 1 Cap by mouth at bedtime for 30 days. 30 Cap 1 06/21/2020 07/21/2020 erenumab-aooe (AIMOVIG AUTOINJECTOR) 140 mg/mL auto-injector Inject 140 mg into the skin every 28 days. 3 Syringe 3 06/21/2020 11/01/2020 documented in this encounter Progress Notes * Sanju Oropeza MD - 06/21/2020 1100 EDT [facility] Neurology Clinic PATIENT NAME: Mireille Chatman PATIENT : 1965 PCP: Sarah Quintero DATE OF SERVICE: 06/21/2020 CHIEF COMPLAINT: f/u Migraine HISTORY OF PRESENT ILLNESS Mireille Chatman returns for follow-up. Since I last saw her, she has started amitriptyline after she switched her work schedule from overnights (7 PM to 7 AM) and now is working 7 AM to 7 PM. She foundthat the amitriptyline once she started it did make her exceedingly drowsy even throughout the following day. She was not able to tolerate. She is interested in trying nortriptyline which may be associated with less drowsiness. Dosages are equivalent. She is having frequent headaches, at least 4-5 times per week. She has tried numerous prophylactic agents in the past including topiramate propranolol, and these were ineffective. She has been using Relpax for abortive therapy which was effective for long time then stopped working. We tried her instead on rizatriptan which so far she finds helpful. We discussed other treatment options and given the frequency of her migraines, she may be a candidate for Botox injections, or CGRP inhibitors. We discussed these in detail. She is interested in Aimovig. She has had Botox injections in the past but the physician who was giving them to her did sowith a limited number of sites rather than the standard 31 site protocol. As a consequence, she didnot find the Botox injections helpful. If she decides to try these in the future, she may want to insist on a 31 site protocol as is standard for greater efficacy. PAST MEDICAL HISTORY Past Medical History: Diagnosis Date ??? Migraine ??? Thyroid disease PAST SURGICAL HISTORY Past Surgical History: Procedure [...] ??? amitriptyline (ELAVIL) 10 mg tablet Take 10 mg by mouth at bedtime. ??? conjugated estrogens 0.625mg/G (PREMARIN) vaginal cream intravaginally once a day (in the evening) ??? levothyroxine (SYNTHROID) 112 mcg tablet ??? pantoprazole (PROTONIX) 40 mg tablet 1 tab(s) orally once a day ??? propRANolol (INDERAL) 20 mg tablet Take 20 mg by mouth 2 times daily. ??? rizatriptan (MAXALT-REPAIRER WOOD FURNITURE) 10 mg disintegrating tablet Take 1 Tab by mouth as needed for up to 30days for Migraine (at onset migraine, can repeat 1 tab 2h later if recurs or persists). 12 Tab 3 ??? sertraline (ZOLOFT) 100 mg tablet No current facility-administered medications for this visit. REVIEW OF SYSTEMS: No intercurrent illness, injury or trauma in the interim since she was last seen. PHYSICAL EXAMINATION BP 128/86 Pulse 72 Resp 20 HEENT: Normocephalic, no signs of cranial trauma. Sclerae are clear, anicteric, with no hyperemia. NECK: No meningismus, has full range of motion. NEUROLOGIC EXAM Mental Status/Language: Alert, oriented to person place and time, speech fluent with normal prosody. Comprehension, naming and repetition are intact. No word finding difficulty. Mood and affect are normal. No emotional incontinence or pseudobulbar affect. Cranial Nerves: Pupils equally round. Visual morales intact to confrontation bilaterally. Extraocular eye movements are intact without nystagmus, no ptosis. No facial weakness, frontalis elevates symmetrically. Auditory acuity grossly intact. Speech is clear, articulate, no dysarthria, no dysphonia, no hoarseness. Normal SCM and trapezius strength. Motor: Normal motor tone, bulk and strength (+5/5) proximally and distally bilaterally with no pronator drift. No tremor, no dyskinesias. Reflexes: Right Left Biceps C5-6 2/4 2/4 BR C5-6 2/4 2/4 Triceps C7-8 2/4 2/4 Patellar L3-4 2/4 2/4 Ankles S1-2 2/4 2/4 Sensation: Intact to light touch symmetrically and bilaterally, no deficits. Cerebellar: Finger to nose maneuver is intact bilaterally with no past pointing or dysmetria,No assymetric slowing on rapid alternating movements. No disdiadochokinesis Gait: ambulation with normal stride and base. No circumduction of either lower extremity. No gait ataxia. ASSESSMENT: Chronic migraine without aura, without status migrainosus, not intractable. She has tried a number of prophylactic agents including topiramate, propranolol, and amitriptyline, and either did not tolerate these or they were ineffective. I think she is a good candidate for CGRP inhibitor and we will start her on Aimovig at 40 mg subcutaneously every 28 days. She would like to try, loss she will seeif that does help decrease her headache frequency, especially those of the chromosomal. [id number] mg at bedtime reevaluate in 6 weeks. She can continue with rizatriptan 10 mg ODT which she has on hand and she will call for refill when what she has on hand runs out. PLAN: 1. Rx: Aimovig 140mg SC q 28 days (Disp: #3, RF x 3) 2. Discontinue amitriptyline 3. Rx: Nortriptyline 10mg at bedtime, (Disp: #30, RF x 1) 4. RV 2 months Sanju Oropeza MD documented in this encounter Plan of Treatment Upcoming Encounters Date Type Department Care Team (Late st Contact Info) Description 05/25/2025 14:00 EDT Office Visit [facility] Adult Hematology & Oncology [address] [place] [phone] Abdiel Salas MD [address] [place] [address] [address] [place] [phone] documented as of this encounter Visit Diagnoses Diagnosis Chronic migraine w/o aura w/o status migrainosus, not intractable- Primary Chronic migraine without aura, without mention of intractable migraine without mention of status migrainosus documented in this encounter Discontinued Medications Medication Sig Discontinue Reason Start Date End Da te amitriptyline (ELAVIL) 10 mg tabletIndications:migrain e prevention Take 10 mg by mouth at bedtime. Side effects 06/21/2020 documented as of this encounter Historical Medications * This list may reflect changes made after this encounter. Medication Sig Dispensed Refills Start Date End Date amitriptyline (ELAVIL) 10 mg tabletIndications:migrain e prevention Take 10 mg by mouth at bedtime. 06/21/2020 added in this encounter Care Teams Javascript Software Engineer Relationship Specialty Start Date End Date Sarah Quintero FNP [address] [place] [phone] PCP - General 05/03/20 documented as of this encounter
[2024-06-30 17:32] LABS: Anion Gap 7.2 mmol/L (3-11); BUN 18 mg/dL (7-18); CO2 27.8 mmol/L (21.0-32.0); Calcium 9.5 mg/dL (8.5-10.1); Chloride 107 mmol/L (98-107); Estimated GFR 65.71 (mL/min/1.73m2); Glucose 101 mg/dL (74-106); Magnesium 1.7 mg/dL (1.8-2.4); Sodium 142 mmol/L (136-145); TSH 2.06 uIU/Ml (0.36-3.74)
== END 2024-06-30 16:20 | disposition home or self-care (01) ==
LOC: NCHCN 16:19
PROVIDERS: PCP Nurse Practitioner Family; Visit Provider Nurse Practitioner Family
DX: E83.42 Hypomagnesemia
CPT/HCPCS: 80048; 83735; 84443

== ENCOUNTER 2025-06-24 15:42 | Outpatient (REF) | payer OTHER, SELFPAY ==
[2025-06-24 20:50] LABS: Calculated LDL 110 mg/dL (<100); Cholesterol 173 mg/dL (<200); HDL Cholesterol 54 mg/dL (>or=50); Magnesium 2.0 mg/dL (1.8-2.4); TSH (W/Ref FT4) 1.15 uIU/mL (0.36-3.74); Triglyceride 46 mg/dL (<150)
== END 2025-06-24 15:43 | disposition home or self-care (01) ==
LOC: NCHCN 15:42
PROVIDERS: PCP Nurse Practitioner Family; Visit Provider Nurse Practitioner Family
DX: E83.42 Hypomagnesemia (principal); E03.9 Hypothyroidism, unspecified; Z13.220 Encounter for screening for lipoid disorders
CPT/HCPCS: 80061; 83735; 84443